=== PATIENT | female | born 1955 | race Caucasian/White ===

== ENCOUNTER 2018-08-18 12:37 | Outpatient (REF) | payer MEDICARE, MEDICAID, SELFPAY ==
[2018-08-18 22:07] LABS: Anion Gap 9.8 mmol/L (3-11); BUN 20 mg/dL (7-18); CO2 28.2 mmol/L (21.0-32.0); CREATININE 1.76 mg/dL (0.55-1.02); Calcium 9.1 mg/dL (8.5-10.1); Chloride 103 mmol/L (98-107); Cholesterol 203 mg/dL (50-200); Estimated GFR 29.26 (mL/min/1.73m2); Glucose 98 mg/dL (70-100); HDL Cholesterol 40 mg/dL (40-60); LDL CHOLESTEROL 135 mg/dL (<100); Potassium 4.5 mmol/L (3.5-5.1); Sodium 141 mmol/L (136-145); TSH 3.74 uIU/mL (0.358-3.74); Triglyceride 196 mg/dL (30-150)
== END 2018-08-18 12:57 ==
LOC: NCHCN 12:37
PROVIDERS: Visit Provider Internal Medicine
DX: E03.9 Hypothyroidism, unspecified (principal); Z13.6 Encounter for screening for cardiovascular disorders
CPT/HCPCS: 80048; 80061; 83721; 84443

== ENCOUNTER 2019-08-03 11:29 | Outpatient (REF) | payer MEDICARE, MEDICAID, SELFPAY ==
[2019-08-03 21:20] LABS: Anion Gap 7.3 mmol/L (3-11); BUN 26 mg/dL (7-18); CO2 30.7 mmol/L (21.0-32.0); Calcium 9.1 mg/dL (8.5-10.1); Calculated LDL 87 mg/dL; Chloride 107 mmol/L (98-107); Cholesterol 151 mg/dL (<200); Estimated GFR 32.55 (mL/min/1.73m2); Glucose 102 mg/dL (74-106); HDL Cholesterol 48 mg/dL (40-60); Potassium 4.5 mmol/L (3.5-5.1); Sodium 145 mmol/L (136-145); TSH 4.68 uIU/mL (0.36-3.74); Triglyceride 80 mg/dL (<150)
== END 2019-08-03 11:49 ==
LOC: NCHCN 11:29
PROVIDERS: Visit Provider Internal Medicine
DX: E78.5 Hyperlipidemia, unspecified (principal); E03.9 Hypothyroidism, unspecified
CPT/HCPCS: 80048; 80061; 84443

== ENCOUNTER 2020-01-11 13:34 | Outpatient (REF) | payer MEDICARE, MEDICAID, SELFPAY ==
[2020-01-11 21:09] LABS: TSH 0.29 uIU/mL (0.36-3.74)
[2020-01-11 21:31] LABS: Hemoglobin A1C 5.8 % (3.8-5.6)
[2020-01-11 22:14] LABS: COMMENT (LAB VIEW ONLY) 65.35 mg/dL; Microalb ug/mg Crea 17.3 ug/mg Cr
== END 2020-01-11 13:54 ==
LOC: NCHCN 13:34
PROVIDERS: Visit Provider Internal Medicine
DX: E03.9 Hypothyroidism, unspecified (principal); E78.5 Hyperlipidemia, unspecified; R60.0 Localized edema
CPT/HCPCS: 82043; 82570; 83036; 84443

== ENCOUNTER 2020-06-10 10:41 | Outpatient (REF) | payer MEDICARE, MEDICAID, SELFPAY ==
[2020-06-10 21:43] LABS: Abs Immature Grans 0.02 10^3/uL (0.0-0.06); Absolute Basophil Count 0.06 10^3/uL (0.0-0.2); Absolute Eosinophil Count 0.53 10^3/uL (0.0-0.7); Absolute Monocyte Count 0.28 10^3/uL (0.1-0.8); Absolute Neutrophil Count 3.11 10^3/uL (1.2-6.7); Basophils % 1.2; Eosinophils % 10.2; HCT 37.5 % (36.0-46.0); HGB 11.8 g/dL (11.2-15.7); Immature Grans % 0.4; Lymphocytes % 23.1; MCH 30.7 pg (27.0-33.0); MCHC 31.5 % (32.0-36.0); MCV 97.7 fL (80-95); Monocytes % 5.4; Neutrophils % 59.7; Nucleated RBC 0 %; Platelet Count 223 10^3/uL (130-400); RBC 3.84 10^6/uL (3.93-5.22); RDW 14.6 % (11.7-14.6); RDW-SD 52.4 fL
[2020-06-10 22:00] LABS: Anion Gap 9.7 mmol/L (3-11); BUN 24 mg/dL (7-18); C-Reactive Protein 0.62 mg/dL (0.0-0.3); CO2 25.3 mmol/L (21.0-32.0); CREATININE 1.62 mg/dL (0.55-1.02); Calcium 8.6 mg/dL (8.5-10.1); Chloride 106 mmol/L (98-107); Estimated GFR 32.09 (mL/min/1.73m2); Glucose 134 mg/dL (74-106); Potassium 4.1 mmol/L (3.5-5.1); Sodium 141 mmol/L (136-145); TSH 0.49 uIU/mL (0.36-3.74)
[2020-06-10 22:43] LABS: ESR 41 mm/hr (0-30)
== END 2020-06-10 11:01 ==
LOC: NCHCN 10:41
PROVIDERS: Visit Provider Internal Medicine
DX: E03.9 Hypothyroidism, unspecified (principal); N18.9 Chronic kidney disease, unspecified; M54.5 Low back pain
CPT/HCPCS: 80048; 85652; 84443; 85025; 86140

== ENCOUNTER 2021-02-04 18:04 | Outpatient (REF) | payer MEDICARE, MEDICAID, SELFPAY ==
[2021-02-04 22:05] LABS: Hemoglobin A1C 5.6 % (<5.7)
[2021-02-04 22:11] LABS: ALT 74 U/L (14-59); AST 44 U/L (15-37); Albumin 3.3 g/dL (3.4-5.0); Alkaline Phosphatase 198 U/L (46-116); Anion Gap 6.5 mmol/L (3-11); BUN 19 mg/dL (7-18); Bilirubin, Total 0.4 mg/dL (0.2-1.0); CO2 29.5 mmol/L (21.0-32.0); CREATININE 1.6 mg/dL (0.55-1.02); Calcium 8.8 mg/dL (8.5-10.1); Chloride 108 mmol/L (98-107); Estimated GFR 32.45 (mL/min/1.73m2); Glucose 92 mg/dL (74-106); Potassium 4.9 mmol/L (3.5-5.1); Sodium 144 mmol/L (136-145); TSH 0.68 uIU/mL (0.36-3.74); Total Protein 7.2 g/dL (6.4-8.2)
== END 2021-02-04 18:05 | disposition home or self-care (01) ==
LOC: NCHCN 18:04
PROVIDERS: Visit Provider Internal Medicine
DX: E03.9 Hypothyroidism, unspecified (principal); R73.03 Prediabetes; N18.9 Chronic kidney disease, unspecified
CPT/HCPCS: 80053; 83036; 84443

== ENCOUNTER 2021-04-06 12:07 | Outpatient (REF) | payer MEDICARE, MEDICAID, SELFPAY ==
[2021-04-06 21:41] LABS: ALT 35 U/L (14-59); AST 20 U/L (15-37); Albumin 3.4 g/dL (3.4-5.0); Alkaline Phosphatase 152 U/L (46-116); Bilirubin, Direct 0.1 mg/dL (0.0-0.2); Bilirubin, Total 0.5 mg/dL (0.2-1.0); Total Protein 7.2 g/dL (6.4-8.2)
[2021-04-08 10:17] LABS: Hepatitis C Ab w Rflx HCV PCR Negative (Negative)
== END 2021-04-06 12:08 | disposition home or self-care (01) ==
LOC: NCHCN 12:07
PROVIDERS: Visit Provider Internal Medicine
DX: Z51.81 Encounter for therapeutic drug level monitoring (principal); R52 Pain, unspecified
CPT/HCPCS: 80076; 86803

== ENCOUNTER 2022-05-04 15:02 | Emergency (ER) | payer MEDICARE, MEDICAID, SELFPAY ==
[2022-05-04 15:36] VITALS: BP 98/75; PULSE 84; TEMP 36.6; O2SAT 97
--- NOTE | 2022-05-04 16:15 | DI.RAD_ITS ---
Exam(s) XR TIB/FIB RT EXAM: XR TIB/FIB RT CLINICAL HISTORY: fall. TECHNIQUE: 2D digital imaging was performed. COMPARISON: No exams were available for comparison FINDINGS: Two views There is nondisplaced oblique fracture in the distal fibula, not associated with widening of the ankl e mortise. No other fractures in the region of the ankle nor higher up in these bones. Tibial plate au appears intact. Fibular head and neck appear intact. IMPRESSION: DATA REPOSITORY: RADIATION DOSE DELIVERED:
--- NOTE | 2022-05-04 16:30 | W.ED.GENAD ---
Discharge Plan Disposition Patient Disposition: HOME Condition: Stable Discharge Details Clinical Impression: Fracture of distal end of right fibula Primary Care Provider: Pilar Uribe ED Provider: Dakota Lott Home Meds and New Rx's Prescriptions: No Action calcium 600 mg Capsule 600 mg PO BID citalopram 40 mg Tablet 40 mg PO DAILY levothyroxine 125 mcg Tablet 125 mcg PO DAILY docusate sodium [Colace] 100 mg Capsule 100 mg PO DAILY omeprazole 20 mg Capsule,Delayed Release(Dr/Ec) 20 mg PO DAILY multivitamin Capsule 1 cap PO DAILY cholecalciferol (vitamin D3) [Vitamin D3] 25 mcg (1,000 unit) Tablet 25 mcg PO DAILY lamotrigine 50 mg Tablet Extended Release 24hr 50 mg PO BID melatonin 5 mg Capsule 5 mg PO QPM dextromethorphan-quinidine 20-10 mg Capsule 1 cap PO BID Xarelto 15 mg Tablet 15 mg PO QPM Rx Instructions: must administer with evening meal Myrbetriq 50 mg Tablet Extended Release 24 Hr 50 mg PO DAILY polyethylene glycol 3350 4.25 gram Powder In Packet 4.25 g PO DAILY Discharge Instructions Instructions: Ankle Fracture (ED) Additional Instructions: Please keep leg elevated and wear walking boot at all times until seen by orthopedics. You may continue to use [id number] pain medication as needed for discomfort. If patient develops any new or worsening symptoms please return to the emergency department for reassessment Referrals: [facility] [Provider Group] (Please call your office to arrange follow-up appointment) Discharge Data Discharge Date/Time-TO BE ENTERED AT DEPARTURE: 05/04/22 20:17 Medical Decision Making Patient presenting to the emergency department for chief complaint of trip and fall. Patient was assisted to the ground but denies any other injury. On the right leg pain. Physical exam/ROS is difficult due to cognitive developmental delay. Patient states pain and discomfort with any palpation of the right lower extremity from the knee all the way to the ankle but even pain with touching shoe even without movement. We will perform radiological imaging due to significant proximal tibial swelling. Will give acetaminophen pending results Review of tib-fib imaging shows a possible fracture to the distal fibula. Radiologist recommendation for dedicated ankle images which were performed and do show a distal fibular fracture. Given patient's cognitive status and general difficulty with ambulation called and spoke with orthopedist on-call which agreed that patient is appropriate for long walking boot. Patient placed upon orthopedic list for follow-up. After discussion of diagnosis and plan of care caregivers has no further needs, questions, or concerns and states clear understanding to return to the emergency department for any worsening symptoms. This documentation was generated using [employer] dictation system, please disregard any oddities of phrase or misspellings. HPI General Mode of arrival: wheelchair. Date/Time Provider Initiated Documentation: 05/04/22 15:08. Limitations to Documentation: no limitations. Information obtained by: patient, family and RN notes reviewed. History of Present Illness 66 year old F presents to the emergency department with the chief complaint of fall right leg injury, described as moderate, with intensity rated at 7. Quality is described as aching, and is localized to the right and lower extremity. Patient started experiencing this hour(s) (3) and it has been constant. Immobilization improves symptom(s), Movement worsens symptoms . Patient notes no other symptoms.. Patient did receive the following treatments prior to arrival, other (500 acetaminophen) Related Data Home Medications Medication Instructions Recorded Confirmed calcium 600 mg capsule 600 mg PO BID 05/04/22 05/04/22 cholecalciferol (vitamin D3) 25 25 mcg PO DAILY 05/04/22 05/04/22 mcg (1,000 unit) tablet (Vitamin D3) citalopram 40 mg tablet 40 mg PO DAILY 05/04/22 05/04/22 dextromethorphan 20 mg-quinidine 1 cap PO BID 05/04/22 05/04/22 10 mg capsule docusate sodium 100 mg capsule 100 mg PO DAILY 05/04/22 05/04/22 (Colace) lamotrigine 50 mg tablet,extended 50 mg PO BID 05/04/22 05/04/22 release 24 hr levothyroxine 125 mcg tablet 125 mcg PO DAILY 05/04/22 05/04/22 melatonin 5 mg capsule 5 mg PO QPM 05/04/22 05/04/22 mirabegron 50 mg tablet,extended 50 mg PO DAILY 05/04/22 05/04/22 release 24 hr (Myrbetriq) multivitamin 1 cap PO DAILY 05/04/22 05/04/22 omeprazole 20 mg capsule,delayed 20 mg PO DAILY 05/04/22 05/04/22 release polyethylene glycol 3350 4.25 gram 4.25 g PO DAILY 05/04/22 05/04/22 oral powder packet rivaroxaban 15 mg tablet (Xarelto) 15 mg PO QPM 05/04/22 05/04/22 Allergies Allergy/AdvReac Type Severity Reaction Status Date / Time latex Allergy Unknown Unverified 05/04/22 16:46 adhesive tape AdvReac Unknown Unverified 05/04/22 16:46 bacitracin AdvReac Unknown Unverified 05/04/22 16:46 [From Triple Antibiotic] neomycin AdvReac Unknown Unverified 05/04/22 16:46 [From Triple Antibiotic] polymyxin B AdvReac Unknown Unverified 05/04/22 16:46 [From Triple Antibiotic] General Stated Complaint: Orthopedic DAR: 4 Review of Systems Narrative: 6 systems reviewed and unremarkable except what is marked below. HPI is limited due to mental condition Musculoskeletal Musculoskeletal: Reports as per HPI Integumentary/Breasts Skin/Breast: Reports skin swelling and Denies wounds PFSH All Active Problems (Updated 05/04/22 @ 19:24 by Dakota Lott NP) Fracture of distal end of right fibula (Acute) Cognitive developmental delay (Acute) Ventricular shunt in place (Acute) Deviated nasal septum (Acute) Chronic pansinusitis (Acute) Post-nasal drip (Acute) Allergic rhinitis due to other allergen (Acute) Eustachian tube dysfunction (Acute) Asymmetrical sensorineural hearing loss (Acute) Nasal polyps (Acute) Social History Smoking/Tobacco Use Status: Never Smoking risk assessment performed?: Yes Alcohol Intake: never Drug use: Never Substance use type: does not use Do you feel safe at home: Yes Do you feel safe in your relationship?: Yes Exam Const General: cooperative, no acute distress and not ill appearing Orientation: alert, awake and oriented x3 Resp Effort & Inspection: normal respiratory effort, able to speak in complete sentences and no respiratory distress Cardio Rate: regular rate Rhythm: regular rhythm Pulses: normal peripheral pulses Skin General skin exam: no rashes or lesions noted Neuro General: patient alert, patient awake, patient oriented x3, moves all extremities and no focal motor deficits Extrem General: normal exam except as noted Right lower extremity: knee Details: normal to inspection, tenderness and normal ROM; no swelling, lower leg Details: tenderness and localized swelling Location: of the proximal lower leg and ankle Details: normal to inspection, tenderness and normal ROM; no swelling Course Vital Signs Vital signs: Vital Signs Temperature 36.6 C 05/04/22 15:36 Pulse 84 05/04/22 15:36 Blood Pressure 98/75 L 05/04/22 15:36 Pulse Oximetry 97 05/04/22 15:36 Temperature 36.6 C 05/04/22 15:36 Temperature Source Temporal Artery Scan 05/04/22 15:36 Pulse 84 05/04/22 15:36 Respiratory Effort Non-Labored 05/04/22 15:43 Blood Pressure 98/75 L 05/04/22 15:36 Blood Pressure Position Sitting 05/04/22 15:36 Pulse Oximetry 97 05/04/22 15:36 Oxygen Delivery Method Room Air 05/04/22 15:36 Oxygen Flow Rate 0 05/04/22 15:36 Pain Level 10 05/04/22 15:36 Comment 05/04/22 15:36
[2022-05-04] MEDS: Acetaminophen 500 MG TAB PO (16:32)
--- NOTE | 2022-05-04 17:33 | DI.VRAD_ITS ---
PROCEDURE INFORMATION: Exam: XR Right Tibia and Fibula Exam date and time: 05/04/2022 5:01 PM Age: 66 years old Clinical indication: Other: Fall, pain TECHNIQUE: Imaging protocol: Radiologic exam of the Right tibia and fibula. Views: 2 views. COMPARISON: No relevant prior studies available. FINDINGS: Bones/joints: There appears to be a nondisplaced oblique fracture through the distal aspect of the fibula, extending to the region of the right ankle mortise. This is seen only on the lateral view of the lower tibia and fibula. There may be mild periarticular osteopenia around the right ankle mortise. No focal osseous lesions are identified. The joint spaces are maintained without degenerative changes. Soft tissues: Findings suggest mild soft tissue swelling around the lateral malleolus. IMPRESSION: Findings suggest nondisplaced oblique fracture through the distal aspect of the right fibula extending to the level of the ankle mortise. Recommend clinical correlation. Better evaluation with dedicated views of the right ankle could be obtained. Dictated and Authenticated by: Ariel Be MD. Ordering:FABIAN Duncan MD
--- NOTE | 2022-05-04 17:45 | DI.RAD_ITS ---
Exam(s) XR ANKLE RT COMPLETE EXAM: XR ANKLE RT COMPLETE CLINICAL HISTORY: fall. TECHNIQUE: 2D digital imaging was performed. COMPARISON: No exams were available for comparison FINDINGS: 3 views There is an oblique nondisplaced fracture of distal fibula, best seen on the lateral view. There is no widening of the ankle mortise. Talar dome appears unremarkable. Prominent swelling over the late ral malleolus is noted. Base of the 5th metatarsal appears intact as do the other malleoli. IMPRESSION: Nondisplaced oblique fracture of the distal fibula. No widening of the ankle mortise evident on thes e nonstress views DATA REPOSITORY: RADIATION DOSE DELIVERED:
[2022-05-04 18:25] VITALS: BP 102/71; PULSE 77; TEMP 37.5; O2SAT 97
--- NOTE | 2022-05-04 18:38 | DI.VRAD_ITS ---
PROCEDURE INFORMATION: Exam: XR Right Ankle Exam date and time: 05/04/2022 6:07 PM Age: 66 years old Clinical indication: Other: Fall TECHNIQUE: Imaging protocol: Radiologic exam of the Right ankle. Views: 3 or more views. COMPARISON: CR XR TIB/FIB RT 05/04/2022 5:01 PM FINDINGS: Bones/joints: There may be mild periarticular osteopenia around the right ankle mortise. There is a nondisplaced oblique fracture through the distal aspect of the fibula, as on prior study, which is visualized only on the lateral view. The plantar arch is maintained. The ankle mortise is well aligned and well maintained without degenerative changes. Soft tissues: There is moderate soft tissue swelling around the lateral malleolus. IMPRESSION: Nondisplaced oblique fracture through the distal aspect of the right fibula. Dictated and Authenticated by: Ariel Be MD. Ordering:FABIAN Duncan MD
== END 2022-05-04 20:17 | disposition home or self-care (01) ==
PROVIDERS: Emergency Provider Nurse Practitioner Family; PCP Internal Medicine
DX: S82.831A Other fracture of upper and lower end of right fibula, initial encounter for closed fracture (principal); F81.9 Developmental disorder of scholastic skills, unspecified; W01.0XXA Fall on same level from slipping, tripping and stumbling without subsequent striking against object, initial encounter
CPT/HCPCS: 99284; 73590; 73610

== ENCOUNTER 2022-05-19 08:20 | Outpatient (CLI) | payer MEDICARE, MEDICAID, SELFPAY ==
--- NOTE | 2022-05-19 08:15 | DI.RAD_ITS ---
Exam(s) XR ANKLE RT COMPLETE EXAM: XR ANKLE RT COMPLETE CLINICAL HISTORY: Right distal fibula fracture. TECHNIQUE: 2D digital imaging was performed of the right ankle. Four images were obtained. AP, lat eral and oblique views were obtained. COMPARISON: CR,XR XR ANKLE RT COMPLETE from 05/04/2022 FINDINGS: BONES: There has been no change in alignment of the distal fibular fracture. No new fractures identi fied. No bony destructive lesion is seen. JOINTS: The ankle mortise is normally aligned. SOFT TISSUE: There is mild soft tissue swelling about the ankle. IMPRESSION: Stable distal fibular fracture. DATA REPOSITORY: RADIATION DOSE DELIVERED:
== END 2022-05-19 08:21 | disposition home or self-care (01) ==
LOC: DIORS 08:21
PROVIDERS: PCP Internal Medicine; Referring Provider Internal Medicine; Visit Provider Physician Assistant
DX: S82.831A Other fracture of upper and lower end of right fibula, initial encounter for closed fracture (principal); W19.XXXA Unspecified fall, initial encounter
CPT/HCPCS: 99214; 73610

== ENCOUNTER 2022-06-18 11:19 | Outpatient (CLI) | payer MEDICARE, MEDICAID, SELFPAY ==
--- NOTE | 2022-06-18 10:30 | DI.RAD_ITS ---
Exam(s) XR ANKLE RT COMPLETE EXAM: XR ANKLE RT COMPLETE CLINICAL HISTORY: f/u R distal fibula frx. TECHNIQUE: 2D digital imaging was performed. COMPARISON: CR XR ANKLE RT COMPLETE from 05/19/2022 FINDINGS: 3 views Again noted is the fracture in distal fibula. There is now some adjacent calcification in the adjace nt tissue which is probably calcified hematoma and/or element of callus formation. There is no furth er displacement. No widening of the ankle mortise. Talar dome unremarkable. Medial malleolus unrem arkable. Posterior malleolus unremarkable. IMPRESSION: As above. DATA REPOSITORY: RADIATION DOSE DELIVERED:
--- OUTSIDE RECORDS SUMMARY | 2022-06-18 11:22 | XMS_ITS | Encounter Summary ---
:[address] [facility] Address [address] [place] [address] Care Team Providers Name Role Phone Pilar Uribe Primary Care Provider Reason for Visit Reason Onset Date Comments Medication Management 03/13/2019 Encounter Details Date Type Department Care Team Description 03/13/[address] [facility] Dawna Galvan i quality review specialist Neurophysiology - [address] [place], [place] [address] [facility] [id number] [place] [id number] Social History Tobacco Use Types Packs/Day Years Used Date Never Smoker Smokeless Tobacco: Never Used Alcohol Use Standard Drinks/Week Comments No 0 (1 standard drink = 0.6 oz pure alcoho l) Sex Assigned at Date Recorded Not on file documented as of this encounter Functional Status Functional Status Response Date of Assessment Because of a physical, mental, or emotional condition, Yes 11/24/2015 does this person have difficulty doing errands alone such as visiting a doctor's office or shopping? Cognitive Status Response Date of Assessment Because of a physical, mental, or emotional condition, Yes 11/24/2015 does this person have serious difficulty concentrating, remembering, or making decisions? documented as of this encounter Miscellaneous Notes Telephone Encounter - Felicita Galvan RN - 03/20/2019 0835 EDT Caregiver called and was instructed. She has not started Atorvastatin. She wanted to finish up Simvastatin. I asked her to discontinue it and give the Atorvastatin as instructed. She has not been giving both elephone Encounter - Rocky Little MD, MD - 03/19/2019 1539 EDT Noted. Thank you for trying to reach the patient/caregiver and clarify/emphasize my original instructions. elephone Encounter - Felicita Galvan RN - 03/13/2019 1445 EDT Reason for contact: Beat.no faxed notice that pt is filling rx for both Simvastatin and Atorvastatin Pt last seen 03/01/19 and visit note indicates Dr Little was discontinuing Simvastatin and he wrote rx for Atorvastatin 40 mg once daily I called pharmacy. They confirmed that pt is continuing to fill the rx for Simvastatin was well as the Atorvastatin. 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
--- OUTSIDE RECORDS SUMMARY | 2022-06-18 11:22 | XMS_ITS | Encounter Summary ---
:1955 Author Organization [facility] Address [address] [place] [id number] Care Team Providers Name Role Phone Pilar Uribe Primary Care Provider Reason for Visit Reason Onset Date Comments Appointment Related 03/16/2019 Encounter Details Date Type Department Care Team Description 03/16/2019 Telephone [facility] Rocky Little, Arash ointment Related Neurophysiology - [id number] [place] [address], [address] [place] [address] (Wo rk) Social History Tobacco Use Types Packs/Day Years [...] this encounter Miscellaneous Notes Telephone Encounter - Arnulfo Uribe - 03/16/2019 0907 EDT Called and spoke with patient; rescheduled BMP 05/31/19 appointment to 06/18/19. documented in this encounter Plan of Treatment Not on filedocumented as of this encounter Visit Diagnoses Not on filedocumented in this encounter Care Teams Volleyball Assembler Relationship Specialty Start Date End Date Pilar Uribe PCP - General 08/30/[address] [place] [address] documented as of this encounter
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
--- OUTSIDE RECORDS SUMMARY | 2022-06-18 11:22 | XMS_ITS | Encounter Summary ---
:1955 Author Organization [facility] Address [address] [place] [address] Care Team Providers Name Role Phone Pilar Uribe Primary Care Provider Encounter Details Date Type Department Care Team Description 09/20/2018 Phlebotomy Only [facility] Supervisor Blood Donor Recruiters, Seizu res ([facility]) - Main [place] [facility] (Primary Dx) [address] [place] [address] Social History Tobacco Use Types Packs/Day Years [...] making decisions? documented as of this encounter Plan of Treatment Not on filedocumented as of this encounter Procedures Procedure Name Priority Date/Time Associated Comments Diagnosis LAMOTRIGINE Routine 09/20/2018 12:40 Seizures ([facility]) Resul ts for this EST procedure are i n the results section. COMPLETE BLOOD COUNT Routine 09/20/2018 12:40 Seizures ([facility]) Results for this AND DIFFERENTIAL EST procedure a re in the results section. COMPREHENSIVE Routine 09/20/2018 12:40 Seizures ([facility]) Resu lts for this METABOLIC PANEL (CMP) EST proced ure are in the results section. documented in this encounter Results (ABNORMAL) COMPLETE BLOOD COUNT AND DIFFERENTIAL (09/20/2018 12:40 EST) Pathologist Sig nature WBC 6.29 4.0 - 12.4 [facility] LABORATORY SERVICES RBC 4.33 3.86 - 5.04 [facility] M/formerly [facility] LABORATORY SERVICES Hemoglobin 13.6 11.6 - 15.2 [facility] gm/dl LABORATORY SERVICES HCT 42.6 34.9 - 44.4 % [facility] LABORATORY SERVICES MCV 98 81 - 98 fl [facility] LABORATORY SERVICES MCH 31.4 26.7 - 33.3 pg [facility] LABORATORY SERVICES MCHC 31.9 (L) 32.1 - 35.9 [facility] gm/dl LABORATORY SERVICES RDW-CV 13.1 <14.7 % [facility] LABORATORY SERVICES RDW-SD 47.2 <50.4 fl [facility] LABORATORY SERVICES PLT 250 141 - 377 K/[facility] LABORATORY SERVICES MPV 10.1 9.5 - 12.7 fl [facility] LABORATORY SERVICES Neutrophils 54.4 % [facility] LABORATORY SERVICES Lymphocytes 27.7 % [facility] LABORATORY SERVICES Monocytes 6.0 % [facility] LABORATORY SERVICES Eosinophils 10.5 % [facility] LABORATORY SERVICES Basophils 1.1 % [facility] LABORATORY SERVICES Immature Grans 0.3 % [facility] LABORATORY SERVICES ABS Neutrophils 3.42 2.20 - 8.85 [facility] LABORATORY SERVICES ABS Lymphs 1.74 1.09 - 3.30 [facility] LABORATORY SERVICES ABS Monocytes 0.38 0.1 - 0.8 /[facility] LABORATORY SERVICES ABS Eosinophils 0.66 (H) 0.03 - 0.61 [facility] LABORATORY SERVICES ABS Basophils 0.07 0.01 - 0.11 [facility] LABORATORY SERVICES ABS Immature Grans 0.02 0 - 0.06 /[facility] LABORATORY SERVICES Type of Diff: Automated [facility] LABORATORY SERVICES Specimen Blood specimen (specimen) - Blood Performing Organization Address City/State/ZIP Code Phon e Number [facility] [address] [place] [address] SERVICES (ABNORMAL) COMPREHENSIVE METABOLIC PANEL (CMP) (09/20/2018 12:40 EST) Potassium 4.8 3.5 - 5.0 [facility] mEq/L [place] [facility] SERVICES Sodium 142 136 - 145 [facility] mEq/L [place] [facility] SERVICES Chloride 104 96 - 110 [facility] mEq/L [place] [facility] SERVICES CO2 29 22 - 32 mEq/L [facility] LABORAT[facility] SERVICES Total Alkaline 101 38 - 126 U/L [facility] Phosphatase [place] [facility] SERVICES Bilirubin, Total <0.5 <1.4 mg/dl [facility] LABORAT[facility] SERVICES AST 13 (L) 15 - 46 U/L [facility] LABORAT[facility] SERVICES ALT 22 <53 U/L [facility]OR[facility] SERVICES Albumin 4.5 3.4 - 4.9 [facility] g/dl [place] [facility] Total Protein 6.9 6.3 - 8.2 [facility] g/dl [place] [facility] Creatinine 1.57 (H) 0.52 - 1.04 [facility] mg/dl [place] [facility] SERVICES GFR, Calculated 35 (L) >60 [facility] Comment: ml/min/1.73m2 [facility] eGFR calculated using CKD-EPI equation for SERVICES non Americans. Multiply eGFR by 1.16 for Americans. BUN 26 10 - 26 mg/dl [facility]OR[facility] SERVICES Calcium 9.6 8.5 - 10.5 [facility] mg/dl [place] [facility] Calculated Calcium 9.2 8.5 - 10.5 [facility] mg/dl [place] [facility] Glucose, Serum 93 70 - 100 [facility] mg/dl [place] [facility] SERVICES Fasting? No [facility]ORAT[facility] SERVICES Specimen Blood specimen (specimen) - Blood Performing Organization Address City/State/ZIP Code Phon e Number [facility] [address] [place] [address] SERVICES LAMOTRIGINE (09/20/2018 12:40 EST) Lamotrigine, 8.2 2.5 - 15.0 [facility] Plasma or Serum Comment: mcg/mL [facility] (Note) SERVICES . ADDITIONAL INFORMATION ------ This test was developed and its performance characteri stics determined by [facility] in a manner consistent with CLIA requirements. This test has not been cleared or approv ed by the U.S. Food and Drug Administration. Performed by: [facility] Labs: [address], [place] [address] Specimen Blood specimen (specimen) - Blood Performing Organization Address City/State/ZIP Code Phon e Number [facility] [address] [place] [address] SERVICES documented in this encounter Visit Diagnoses Diagnosis Seizures (HCC-CMS) (HCC) - Primary Other convulsions documented in this encounter Care Teams Saxophone Assembler Relationship Specialty Start Date End Date Pilar Uribe PCP - General 08/30/[address] [place] [address] documented as of this encounter
--- OUTSIDE RECORDS SUMMARY | 2022-06-18 11:22 | XMS_ITS | Encounter Summary ---
:1955 Author Organization [facility] Address [address] [place] [address] Care Team Providers Name Role Phone Pilar Uribe Primary Care Provider Reason for Visit Reason Onset Date Comments Appointment Related 03/09/2019 Encounter Details Date Type Department Care Team Description 03/09/2019 Telephone [facility] [place], Arash ointment Related Neurophysiology - [id number] [place] [address], Jamir. [address] [place] [id number] (Wo rk) Social History Tobacco Use Types [...] this encounter Miscellaneous Notes Telephone Encounter - Ebony - 03/09/2019 1036 EDT Reason for Call: No chief complaint on file. Call Detail: Left a message on Ms. Jaimes's machine asking her to call regarding her upcoming MRI scheduled for Thursday, April 11, 2019 @ 10:00 am @ [facility] checking in @ 9:30 am. Push fluids/eat lights and will need labs prior. CT will take about 30 minutes. Last visit: Next visit: Ebony Larios 03/09/2019 11:12 documented in this encounter Plan of Treatment Not on filedocumented as of this encounter Visit Diagnoses Not on filedocumented in this encounter Care Teams Agent Based Modeler Relationship Specialty Start Date End Date Pilar Uribe PCP - General 08/30/[address] [place] [address] documented as of this encounter
--- OUTSIDE RECORDS SUMMARY | 2022-06-18 11:22 | XMS_ITS | Encounter Summary ---
:1955 Author Organization [facility] Address [address] [place] [address] Care Team Providers Name Role Phone Pilar Uribe Primary Care Provider Encounter Details Date Type Department Care Team Description 06/12/2019 Phlebotomy Only [facility] - Contractor Field Hauling, [facility] Outpatient [address] [place] [address] Social History Tobacco Use Types Packs/Day Years [...] on filedocumented in this encounter Care Teams Chief Ophthalmic Technician Relationship Specialty Start Date End Date Pilar Uribe PCP - General 08/30/[address] [place] [address] documented as of this encounter
--- OUTSIDE RECORDS SUMMARY | 2022-06-18 11:22 | XMS_ITS | Encounter Summary ---
:1955 Author Organization [facility] Address [address] [place] [address] Care Team Providers Name Role Phone Hal Gutierrez MD Primary Care Provider Reason for Visit Reason Onset Date Comments New/Evolving Symptoms 07/07/2015 Encounter Details Date Type Department Care Team Description 07/07/2015 Telephone [facility] Александр Sahu MD New/Evolving Symptoms Neurology - [address] [place], [place] [id number] [place] [id number] [phone] Social History Tobacco Use Types Packs/Day Years Used Date Never Smoker Alcohol Use Standard Drinks/Week Comments No 0 (1 standard drink = 0.6 oz pure alcoho l) Sex Assigned at Date Recorded Not on file documented as of this encounter Miscellaneous Notes Telephone Encounter - Josephine Singh RN - 07/14/[address] Sahu: I will call and discuss, she may increase her dose to 40 mg for the record. Salazar elephone Encounter - Josephine Singh RN - 07/07/2015 1838 EDT TC to Sister/ Director Of Reimbursement. The last 2 weeks, Increased mood swings, moodiness more often, worse aftershe has been on Respite care. Throwing tantrums . Joe are going to counseling to work on behavior issues. Asking if there should be med changes? Currently on Nortriptyline, 20 mg twicea day, Lamotrigine 150 mg twice a day, Levothyroxine 125 mcg, 1 tab for 6 days a week, Simvastatin 20 mg daily, Xarelto 20 mg daily, melatonin, Certrizine prn for Allergies and citalopram 40 mg daily elephone Encounter - Dakota Ronquillo - 07/07/2015 1426 EDT Nargis is calling to report Socorro's recent behavior. She comes in house after being out with respit and she comes back very ugly, throwing tantrums and expressing that she hates her sisters which they are going to counseling to work on that. Sister/artist relationship manager is requesting a call back to srinivasan monroy a plan of care via med management or other alternatives. Please call to discuss. documented in this encounter Plan of Treatment Not on filedocumented as of this encounter Visit Diagnoses Not on filedocumented in this encounter Care Teams Skip Hoist Engineer Relationship Specialty Start Date End Date Hal Gutierrez MD PCP - General 06/13/13 08/29/[address] [place] [address] documented as of this encounter
--- OUTSIDE RECORDS SUMMARY | 2022-06-18 11:22 | XMS_ITS | Encounter Summary ---
:1955 Author Organization [facility] Address [address] [place] [address] Care Team Providers Name Role Phone Hal Gutierrez MD Primary Care Provider Reason for Visit Reason Onset Date Comments Appointment Related 11/29/2015 needs to cancel Encounter Details Date Type Department Care Team Description 11/29/2015 Telephone [facility] Salazar Sahu Appoi ntment Related Adult Neurology - Main (needs to cancel) [place] [address] [place], [place] [id number] [place] [id number] Social History Tobacco Use Types Packs/Day Years [...] this encounter Miscellaneous Notes Telephone Encounter - Mary Sharma - 11/29/2015 1234 EDT Patient doesn't need apt for 12/02 @15:[address] Sahu. The appointment was tentative and they don't need it yet. documented in this encounter Plan of Treatment Not on filedocumented as of this encounter Visit Diagnoses Not on filedocumented in this encounter Care Teams Cut Out Stitcher Relationship Specialty Start Date End Date Hal Gutierrez MD PCP - General 06/13/13 08/29/18 [address] [place] [address] documented as of this encounter
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
--- OUTSIDE RECORDS SUMMARY | 2022-06-18 11:22 | XMS_ITS | Encounter Summary ---
:[address] [facility] Address [address] [place] [address] Care Team Providers Name Role Phone Pilar Uribe Primary Care Provider Encounter Details Date Type Department Care Team Description 04/07/2021 Lab Requisition [facility] Outr Resulting Lab, Pathology & Laboratory Provider [facility] [address] [place], [place] [id number] Social History Tobacco Use Types Packs/Day Years [...] Name Priority Date/Time Associated Diagnosis Comme nts HEPATITIS C AB W Routine 04/06/2021 11:50 Results for this REFLEX TO HCV RNA EDT procedure are in BY PCR the results section. documented in this encounter Results HEPATITIS C AB W REFLEX TO HCV RNA BY PCR (04/06/2021 11:50 EDT) Pathologist Sig nature Hep C Antibody Negative Negative [facility] Specimen Blood - Venous blood (substance) Performing Organization Address City/State/ZIP Code Phon e Number [facility] [address] [place] [address] SERVICES documented in this encounter Visit Diagnoses Not on filedocumented in this encounter Care Teams Orthopedic Radiologic Technologist Relationship Specialty Start Date End Date Pilar Uribe PCP - General 08/30/[address] [place] [address] documented as of this encounter
--- OUTSIDE RECORDS SUMMARY | 2022-06-18 11:22 | XMS_ITS | Encounter Summary ---
:1955 Author Organization [facility] Address [address] [place] [id number] Care Team Providers Name Role Phone Pilar Uribe Primary Care Provider Reason for Visit Reason Onset Date Comments Labs Only 06/12/2019 Encounter Details Date Type Department Care Team Description 06/12/2019 Telephone [facility] Walt Little MD Labs Only Neurophysiology - [place] in [address], [place] [address] [place] [id number] (Wo rk) Social History Tobacco Use Types [...] this encounter Miscellaneous Notes Telephone Encounter - Rocky Little MD, MD - 06/18/2019 1124 EDT Noted. As outlined in my last note, TSH and HbA1c need to be ordered by her PCP due to insurance issues. We will delinquency counselor the patient on this today during the visit. Thank you. elephone Encounter - Felicita Galvan, RN - 06/13/2019 1431 EDT Reason for contact: Pt came to lab to have blood drawn but orders Pt last seen 03/01/19. Dr Little had ordered tsh, lipid profile and hgA1C but orders had . Pt left before getting verbal permission for our office to proceed with blood draw. Lab requesting that orders be reentered for pt. I attempted to enter orders but cannot find diagnosis to use to get insurance coverage for HgA1C Will forward to Dr Little Pt due to rtc 06/18/19 elephone Encounter - Nina Dailey - 06/12/2019 1425 EDT Farhana from the Lab called to get an okay for them to proceed with the labs that were order back in February. The patient left before being able to get them done. Farhana ask that we put in new ordersfor the labs so when the patient comes back they won't have to give us a call. documented in this encounter Plan of Treatment Not on filedocumented as of this encounter Visit Diagnoses Diagnosis Seizures (HCC-CMS) (HCC) - Primary Other convulsions Cerebrovascular accident (CVA) due to em bolism of left carotid artery (HCC) Thyroid condition Unspecified disorder of thyroid documented in this encounter Care Teams Mfg Assoc Relationship Specialty Start Date End Date Pilar Uribe PCP - General 08/30/[address] [place] [address] documented as of this encounter
--- OUTSIDE RECORDS SUMMARY | 2022-06-18 11:22 | XMS_ITS | Encounter Summary ---
:1955 Author Organization [facility] Address [address] [place] [address] Care Team Providers Name Role Phone Hal Gutierrez MD Primary Care Provider Pilar Uribe Primary Care Provider Reason for Visit Reason Onset Date Comments Medication Management 08/20/2015 nortriptyline Encounter Details Date Type Department Care Team Description 08/20/2015 Telephone [facility] Salazar Sahu, Medic ation Management Neurology - S Yogesh foley MD (nortriptyline ) [address] [place] [address] [place] [address] [phone] Social History Tobacco Use Types Packs/Day Years Used Date Never Smoker Alcohol Use Standard Drinks/Week Comments No 0 (1 standard drink = 0.6 oz pure alcoho l) Sex Assigned at Date Recorded Not on file documented as of this encounter Miscellaneous Notes Telephone Encounter - Salazar Sahu MD - 08/21/2015 5582 EST Called and spoke madelaine Barillas, gave her a plan to stop nortriptyline for Iram. Will see pt in ~5 weeks and reassess then. elephone Encounter - Esha Guillen RN - 08/21/2015 1502 EST Torhemanthanders has called again to follow up - she would like a response as soon as possible. This has gone on long enough, we need some answers. Text message sent to Dr. Sahu in addition to [employer] message. elephone Encounter - Esha Guillen RN - 08/21/2015 0920 EST Nargis called again and would like a response as soon as possible because this has been going on for weeks now. Nargis reviewed information on side effects of nortriptyline and believes Socorro needs to come off as soon as safely possible and would like directions on how to do so as well as an alternative treatment option. Socorro talks at times of not waking up or of doing herself in. She has increased depression and anxiety, is agitated and restless. She has insomnia, is very irritable, aggressive and mean at times. She alternates between laughing and crying and will repeat the same phrase over and over. Additionally she stays in her bedroom most of the time and won't come out to socialize like she used to. Nargis actually decreased her nortriptyline dose to 3 caps at bedtime last night. Will ask Dr. Sahu to review and advise. elephone Encounter - ThuyLadi singer - 08/20/2015 1350 EST sister is requesting call back today. Just picked up sisters RX, believes that PT is having all of the side effects listed. documented in this encounter Plan of Treatment Not on filedocumented as of this encounter Visit Diagnoses Not on filedocumented in this encounter Care Teams Campus Rep Relationship Specialty Start Date End Date Hal Gutierrez MD PCP - General 06/13/13 08/29/[address] [id number] Pilar Uribe PCP - General 08/30/[address] [id number] documented as of this encounter
--- OUTSIDE RECORDS SUMMARY | 2022-06-18 11:22 | XMS_ITS | Encounter Summary ---
:1955 Author Organization [facility] Address [address] [place] [address] Care Team Providers Name Role Phone Hal Gutierrez MD Primary Care Provider Encounter Details Date Type Department Care Team Description 11/24/2015 Hospital Encounter [facility] EMILEE Harper [address] [facility] [address] [place], [place] [id number] [place] [address], Jamir, [address] [place] [address] (Wo rk) Social History Tobacco Use Types Packs/Day Years Used Date Never Smoker Smokeless Tobacco: Never Used Alcohol Use Standard Drinks/Week Comments No 0 (1 standard drink = 0.6 oz pure alcoho l) Sex Assigned at Date Recorded Not on file documented as of this encounter Discharge Diagnoses Diagnosis Z01.89 Encounter for other specified spe cial examinations-Z01.89[ICD-10-CM] documented in this encounter Medications at Time [...] Discharge Disposition Disposition Code Departure Means Destination Home or Self [facility] documented in this encounter Plan of Treatment Not on filedocumented as of this encounter Visit Diagnoses Not on filedocumented in this encounter Care Teams Electric Stove Mechanic Relationship Specialty Start Date End Date Hal Gutierrez MD PCP - General 06/13/13 08/29/[address] [place] [address] documented as of this encounter
--- OUTSIDE RECORDS SUMMARY | 2022-06-18 11:22 | XMS_ITS | Encounter Summary ---
:1955 Author Organization [facility] Address [address] [place] [address] Care Team Providers Name Role Phone Hal Gutierrez MD Primary Care Provider Pilar Uribe Primary Care Provider Reason for Visit Reason Onset Date Comments Referral Request 10/20/2015 Encounter Details Date Type Department Care Team Description 10/20/2015 Telephone [facility] Александр Sahu MD Referral Request Neurology - [address] [place], [place] [id number] [place] [address] [id number] [phone] Social History Tobacco Use Types Packs/Day Years Used Date Never Smoker Alcohol Use Standard Drinks/Week Comments No 0 (1 standard drink = 0.6 oz pure alcoho l) Sex Assigned at Date Recorded Not on file documented as of this encounter Miscellaneous Notes Telephone Encounter - Esha Guillen RN - 11/04/2015 1255 EST TC to [facility] who has not heard from Dr. Sahu. She contacted Socorro's PCP this morning and theyare referring Socorro to neurosurgery. Nargis does want Dr. Sahu to know that she isn't seeing any difference with the medication and asks how long it should take to work. Will update Dr. Sahu and ask him to advise. Telephone Encounter - Meredith Morales - 11/04/2015 1204 EST Nargis called back about referral to Neurosurg. She is waiting for a call back from Dr. Sahu and is very upset that this is taking so long. Please call her back with an update. elephone Encounter - Salazar Sahu MD - 10/31/2015 0930 EST I'll give her a call. elephone Encounter - Esha Guillen RN - 10/28/2015 1629 EST Nargis called again to follow up. She reports she doesn't believe that the nudexta is helping Socorro as Socorro continues to have episodes where she yells at [facility] for long periods of time. Torhemanthanders would really like to have the referral to neurosurgery from Dr. Sahu. I advised that Dr. Sahu did not feel the need for it but she insists it was his idea and he just doesn't remember. I also advised that she could speak with Socorro's PCP but she would really like this to be from Dr. Sahu. Will send update - perhaps you could speak with her directly as she is not satisfied with my answers. elephone Encounter - Esha Guillen RN - 10/24/2015 1141 EST Torhemanthanders called again to follow up and is aware I am waiting for response from Dr. Sahu. Will send message to Dr. Sahu again. elephone Encounter - Esha Guillen RN - 10/22/[address] Sahu: I'm not sure where this suggestion for a referral to neurosurgery is coming from. ??I also do not see how it would be indicated, for what issue? ??No need to make that referral with the information I have and upon review of chart. Salazar Returned TC to Nargis. Nargis reports there was discussion of having Socorro's shunt evaluated by neurosurgery and that there might be a shunt study. Nargis requests to speak directly with Dr. Sahu. Will send update/request to Dr. Sahu. Telephone Encounter - Esha Guillen RN - 10/21/[address] Sahu to advise on request for referral to neurosurgery. elephone Encounter - Uriel Cheung - 10/20/2015 1446 EST Requesting referral to neuro surgery per Dr. Sahu suggestion. Please call when ref sent documented in this encounter Plan of Treatment Not on filedocumented as of this encounter Visit Diagnoses Not on filedocumented in this encounter Care Teams Management Development Specialist Relationship Specialty Start Date End Date Hal Gutierrez MD PCP - General 06/13/13 08/29/18 [address] [place], [place] [address] Pilar Uribe PCP - General 08/30/18 [address] [place] [id number] documented as of this encounter
--- OUTSIDE RECORDS SUMMARY | 2022-06-18 11:22 | XMS_ITS | Encounter Summary ---
:1955 Author Organization [facility] Address [address] [place] [address] Care Team Providers Name Role Phone Pilar Uribe Primary Care Provider Reason for Visit Office Procedure (Routine) - Order Cancelled Specialty Diagnoses / Procedures Referred By Contact Refer red To Contact Neurology Diagnoses Seizures ([facility]) ([facility]) Rocky Little MD [place] 5 Lab Procedures EEG [address] [place] [address] [address] [place] [phone] Referral ID Status Reason Start Date Expiration Date Visits V isits Requested Authorized [id number] Order 09/20/2018 1 1 Cancelled Encounter Details Date Type Department Care Team Description 10/13/2018 [facility] Unknown, Prov MD elvin Seizures ([facility]) Encounter Neurophysiology - [facility] Gill Hager MD [address] [place] [address] [phone] [facility] [address] [place] [id number] Social History Tobacco Use Types Packs/Day Years [...] Unspecified convulsions-R56.9[ICD- 10-CM] documented in this encounter Medications at Time [...] Auto Discharge Home documented in this encounter Procedure Notes Rocky Little MD - 10/13/2018 3251 ESTProcedure(s): FL AMBULATORY EEG MONITORINGPre-Procedure Diagnose(s): Seizures (HCC-CMS) (HCC) DAY #1 AMBULATORY EEG MONITORING [facility] Name: Socorro Jaimes Clinical Neurophysiology Laboratory [address] : 1955 [place], [place] Date: 10/13/2018 Ambulatory Digital EEG Monitoring Report Referring Physician: Rocky Little MD Study Number: [id number] Clinical Indication: The patient is a 63 year-old woman with history of meningitis/encephalitis, developmental delay, and seizures, with spells suspicious for seizures that need further characterization. Medications: acetaminophen (TYLENOL) 500 mg tablet Calcium-Cholecalciferol, D3, (CALCARB) 600 mg(1,500mg) -200 unit tablet cholecalciferol, Vitamin D3, 1,000 unit tablet citalopram (CELEXA) 20 mg tablet dextromethorphan-quinidine 20-10 mg capsule dextromethorphan-quinidine 20-10 mg capsule docusate (COLACE) 50 mg/5 mL liquid famotidine (PEPCID) 40 mg tablet lamoTRIgine (LAMICTAL) 150 mg tablet levothyroxine (SYNTHROID) 125 mcg tablet MULTIVITAMIN ORAL PEG 3350-Electrolytes (MIRALAX) 17 gram packet rivaroxaban (XARELTO) 20 mg tablet tablet simvastatin (ZOCOR) 10 mg tablet SULFAMETHOXAZOLE/TRIMETHOPRIM (BACTRIM ORAL) Technical Description: Ambulatory digital electroencephalographic monitoring is performed utilizing Filtrbox recorder. Silver/silver chloride EEG electrodes are placed according to the International 10-20 system as well as anterior temporal electrodes, a CPz recording reference and FCz ground contract.An ECG channel is also monitored. The patient is instructed to press and Event Button in the event of a seizure- like spell (Target Event). The patient is also instructed to maintain an activity log. The entire EEG dataset is reviewed by the attending physician. No pain assessment for this procedure is necessary. The monitoring started at 13:40 on 10/13/2018 and ended at 13:45 on 10/14/2018. Total duration of this study was 24 hours and 5 minutes. There were no clinical events captured during this study period. Findings: The background was somewhat organized, continuous, reactive, represented by predominantly by beta and theta frequencies. There were occasional 5-20 sec runs of semi-rhythmic, higher amplitude theta frequencies, more prominent over the left side, mostly during wakefulness. The PDR was 7 but iwas poorly sustained/poorly developed. The patient was drowsy and stage N2 sleep was captured, represented by somewhat developed sleep spindles and K-complexes. The sleep was fragmented. There were no clear epileptiform discharges nor electrographic seizures captured. Single lead EKG showed a regular heart rhythm, although it was frequently obscured by artifact. Impression: This was an abnormal EEG due to: 1. Mild diffuse slowing of the background, suggestive of diffuse and/or multifocal cerebral dysfunction. This finding might be seen in a myriad of encephalopathies, including static encephalopathy. 2. The presence of occasional 5-20 sec runs of semi-rhythmic, higher amplitude theta frequencies, more prominent over the left side might be suggestive of additional cerebral dysfunction, more prominent over the left. 3. There were no clear epileptiform discharges nor electrographic seizures captured. DAY #2 AMBULATORY EEG MONITORING [facility] Name: Socorro Kraftin Clinical Neurophysiology Laboratory [address] [facility] : 1955 [place], [place] Date: 10/14/2018 Ambulatory Digital EEG Monitoring Report Referring Physician: Rocky Little MD Study Number: [id number] Clinical Indication: The patient is a 63 year-old woman with history of meningitis/encephalitis, developmental delay, and seizures, with spells suspicious for seizures that need further characterization. Medications: acetaminophen (TYLENOL) 500 mg tablet Calcium-Cholecalciferol, D3, (CALCARB) 600 mg(1,500mg) -200 unit tablet cholecalciferol, Vitamin D3, 1,000 unit tablet citalopram (CELEXA) 20 mg tablet dextromethorphan-quinidine 20-10 mg capsule dextromethorphan-quinidine 20-10 mg capsule docusate (COLACE) 50 mg/5 mL liquid famotidine (PEPCID) 40 mg tablet lamoTRIgine (LAMICTAL) 150 mg tablet levothyroxine (SYNTHROID) 125 mcg tablet MULTIVITAMIN ORAL PEG 3350-Electrolytes (MIRALAX) 17 gram packet rivaroxaban (XARELTO) 20 mg tablet tablet simvastatin (ZOCOR) 10 mg tablet SULFAMETHOXAZOLE/TRIMETHOPRIM (BACTRIM ORAL) Technical Description: Ambulatory digital electroencephalographic monitoring is performed utilizing Filtrbox recorder. Silver/silver chloride EEG electrodes are placed according to the International 10-20 system as well as anterior temporal electrodes, a CPz recording reference and FCz ground contract.An ECG channel is also monitored. The patient is instructed to press and Event Button in the event of a seizure- like spell (Target Event). The patient is also instructed to maintain an activity log. The entire EEG dataset is reviewed by the attending physician. No pain assessment for this procedure is necessary. The monitoring started at 13:46 on 10/14/2018 and ended at 13:50 on 10/15/2018. Total duration of this study was 24 hours and 4 minutes. There were no clinical events captured during this study period. Findings: The background was somewhat organized, continuous, reactive, represented by predominantly by beta and theta frequencies. There were occasional 5-20 sec runs of semi-rhythmic, higher amplitude theta frequencies, more prominent over the left side, mostly during wakefulness. The PDR was 7 but iwas poorly sustained/poorly developed. The patient was drowsy and stage N2 sleep was captured, represented by somewhat developed sleep spindles and K-complexes. The sleep was fragmented. There were no clear epileptiform discharges nor electrographic seizures captured. Single lead EKG showed a regular heart rhythm, although it was frequently obscured by artifact. Impression: This was an abnormal EEG due to: 1. Mild diffuse slowing of the background, suggestive of diffuse and/or multifocal cerebral dysfunction. This finding might be seen in a myriad of encephalopathies, including static encephalopathy. 2. The presence of occasional 5-20 sec runs of semi-rhythmic, higher amplitude theta frequencies, more prominent over the left side might be suggestive of additional cerebral dysfunction, more prominent over the left. 3. There were no clear epileptiform discharges nor electrographic seizures captured. DAY #3 AMBULATORY EEG MONITORING [facility] Name: Socorro Jaimes Clinical Neurophysiology Laboratory [address] : 1955 [place], [place] Date: 10/15/2018 Ambulatory Digital EEG Monitoring Report Referring Physician: Rocky Little MD Study Number: [id number] Clinical Indication: The patient is a 63 year-old woman with history of meningitis/encephalitis, developmental delay, and seizures, with spells suspicious for seizures that need further characterization. Medications: acetaminophen (TYLENOL) 500 mg tablet Calcium-Cholecalciferol, D3, (CALCARB) 600 mg(1,500mg) -200 unit tablet cholecalciferol, Vitamin D3, 1,000 unit tablet citalopram (CELEXA) 20 mg tablet dextromethorphan-quinidine 20-10 mg capsule dextromethorphan-quinidine 20-10 mg capsule docusate (COLACE) 50 mg/5 mL liquid famotidine (PEPCID) 40 mg tablet lamoTRIgine (LAMICTAL) 150 mg tablet levothyroxine (SYNTHROID) 125 mcg tablet MULTIVITAMIN ORAL PEG 3350-Electrolytes (MIRALAX) 17 gram packet rivaroxaban (XARELTO) 20 mg tablet tablet simvastatin (ZOCOR) 10 mg tablet SULFAMETHOXAZOLE/TRIMETHOPRIM (BACTRIM ORAL) Technical Description: Ambulatory digital electroencephalographic monitoring is performed utilizing Filtrbox recorder. Silver/silver chloride EEG electrodes are placed according to the International 10-20 system as well as anterior temporal electrodes, a CPz recording reference and FCz ground contract.An ECG channel is also monitored. The patient is instructed to press and Event Button in the event of a seizure- like spell (Target Event). The patient is also instructed to maintain an activity log. The entire EEG dataset is reviewed by the attending physician. No pain assessment for this procedure is necessary. The monitoring started at 13:51 on 10/15/2018 and ended at 11:32 on 10/16/2018. Total duration of this study was 21 hours and 41 minutes. There were no clinical events captured during this study period. Findings: The background was somewhat organized, continuous, reactive, represented by predominantly by beta and theta frequencies. There were occasional 5-20 sec runs of semi-rhythmic, higher amplitude theta frequencies, more prominent over the left side, mostly during wakefulness. The PDR was 7 but iwas poorly sustained/poorly developed. The patient was drowsy and stage N2 sleep was captured, represented by somewhat developed sleep spindles and K-complexes. The sleep was fragmented. There were no clear epileptiform discharges nor electrographic seizures captured. Single lead EKG showed a regular heart rhythm, although it was frequently obscured by artifact. Impression: This was an abnormal EEG due to: 1. Mild diffuse slowing of the background, suggestive of diffuse and/or multifocal cerebral dysfunction. This finding might be seen in a myriad of encephalopathies, including static encephalopathy. 2. The presence of occasional 5-20 sec runs of semi-rhythmic, higher amplitude theta frequencies, more prominent over the left side might be suggestive of additional cerebral dysfunction, more prominent over the left. 3. There were no clear epileptiform discharges nor electrographic seizures captured. Rocky Little M.D. Attending, Epilepsy Program [facility] 11:10 11/03/2018 Gill Figueredo MD - 10/13/2018 1344 EST [facility] Name: Socorro Jaimes Clinical Neurophysiology Laboratory [address] [facility] : 1955 [place], [place] Date: 10/13/2018 Electroencephalogram Report Referring Physician: Rocky Little MD Study Number: [id number] Clinical Indication: A 63 y.o. woman with spells suspicious for seizures Medications: Current Outpatient Medications: acetaminophen (TYLENOL) 500 mg tablet Calcium-Cholecalciferol, D3, (CALCARB) 600 mg(1,500mg) -200 unit tablet cholecalciferol, Vitamin D3, 1,000 unit tablet citalopram (CELEXA) 20 mg tablet dextromethorphan-quinidine 20-10 mg capsule dextromethorphan-quinidine 20-10 mg capsule docusate (COLACE) 50 mg/5 mL liquid famotidine (PEPCID) 40 mg tablet lamoTRIgine (LAMICTAL) 150 mg tablet levothyroxine (SYNTHROID) 125 mcg tablet MULTIVITAMIN ORAL PEG 3350-Electrolytes (MIRALAX) 17 gram packet rivaroxaban (XARELTO) 20 mg tablet tablet simvastatin (ZOCOR) 10 mg tablet SULFAMETHOXAZOLE/TRIMETHOPRIM (BACTRIM ORAL) No current facility-administered medications for this encounter. Technical Description: Standard EEG: An in-laboratory digital EEG is performed utilizing silver-silver chloride electrodes placed according to the International 10-20 system of electrode placement. CPZ serves as the recording reference electrode. The following additional electrodes are also placed: ECG electrodes , anterior temporal electrodes The study begins at 1246 until 1313 with a total study duration of 27 minutes. During this study the following states were recorded: Wake. No sleep was recorded. Subject factors: Cooperative The patient and/or caregivers report:7 hours of sleep night before study; Estimated average 8 hours of sleep Previous EEG Study? No Background Waking cerebral background activity is characterized by the absence of a posterior dominant rhythm. With eyes open there is low voltage desynchronized beta with admixed low amplitude theta. With eyes closed, a posterior rhythm of about 7 Hz is recorded, larger over the right posterior derivation. It projects more anteriorly as well. Hyperventilation is performed with a fair effort. No abnormal findings are recorded. Photic stimulation is performed. No abnormal findings are recorded. No interictal epileptiform discharges are recorded. No sleep is recorded. A single channel EKG is utilized. No abnormal findings are recorded. 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 Ambulatory EEG monitoring is underway and will be reported separately. Clinical Correlation: The absence of interictal epileptiform discharges does not exclude the diagnosis of epilepsy. Xu Cramer MD 10/13/2018 13:57 I personally reviewed the EEG and the report and agree with the above as documented. Gill Hager MD MSc documented in this encounter Plan of Treatment Not on filedocumented as of this encounter Visit Diagnoses Diagnosis Seizures (HCC-CMS) (HCC) Other convulsions documented in this encounter Care Teams Petrologist Relationship Specialty Start Date End Date Pilar Uribe PCP - General 08/30/18 [address] [place] [address] documented as of this encounter
--- OUTSIDE RECORDS SUMMARY | 2022-06-18 11:22 | XMS_ITS | Encounter Summary ---
:1955 Author Organization [facility] Address [address] [place] [address] Care Team Providers Name Role Phone Hal Gutierrez MD Primary Care Provider Reason for Visit Reason Onset Date Comments Medication Management 02/05/2016 Encounter Details Date Type Department Care Team Description 02/05/2016 Telephone [facility] Александр Sahu MD Medication Management Neurology - [address] [place], [place] [id number] [place] [id number] [phone] Social History Tobacco Use Types Packs/Day Years [...] Telephone Encounter - Esha Guillen RN - 02/12/2016 0956 EDT TC to Nargis relaying message from Dr. Sahu. She will contact PCP re: wellbutrin. Telephone Encounter - Valeria Duncan - 02/11/2016 1700 EDT Returning Esha's call. elephone Encounter - Esha Guillen RN - 02/11/2016 1317 EDT Attempted to contact AIMEE Barillas for call back. elephone Encounter - Esha Guillen RN - 02/11/[address] Sahu: Esha, could you get in touch with the PCP, who had planned to start Welbutrin, per my last note, as it seems she is not responding to the Nuedexta. ??I would prefer the PCP start and manage this medication. Thomas elephone Encounter - Esha Guillen RN - 02/06/2016 1525 EDT TC to Nargis who reports Socorro's behavior is getting worse again. She is agitated and yelling a lot (she was yelling in the background during the entire phone conversation). Nargis reports Socorro has seen psychiatry through [facility]. They are concerned about Socorro taking nudexta 20-10 one tab BID and celexa 40mg daily and plan to have EKG done. Torzaria is frustrated and asks if it is possible to increase nudexta. She hopes for an answer as soon as possible. Will askDr. Sahu to review and advise. elephone Encounter - Esha Vernon - 02/06/2016 1430 EDT Mini was returning Esha's call - elephone Encounter - Esha Guillen RN - 02/06/2016 1330 EDT Attempted return call, for call back. elephone Encounter - Esha Vernon - 02/05/2016 1628 EDT Mini is requesting a call back to discuss medication dosage for Socorro -- she is upset a lot, mean and yelling documented in this encounter Plan of Treatment Not on filedocumented as of this encounter Visit Diagnoses Not on filedocumented in this encounter Care Teams Mink Slicer Relationship Specialty Start Date End Date Hal Gutierrez MD PCP - General 06/13/13 08/29/[address] [place] [address] documented as of this encounter
--- OUTSIDE RECORDS SUMMARY | 2022-06-18 11:22 | XMS_ITS | Encounter Summary ---
:1955 Author Organization [facility] Address [address] [place] [address] Care Team Providers Name Role Phone Hal Gutierrez MD Primary Care Provider Reason for Referral Radiology Services (Routine) - Closed Specialty Diagnoses / Procedures Referred By Contact Refer red To Contact Diagnoses Communicating hydrocephalus ([facility] ([facility]) Sherley Louie Procedures SHUNT SERIES EMILEE Harper [address] [place] [address] [address] [place] [address] Referral ID Status Reason Start Date Expiration Date Visits Requ ested Visits Authorized [id number] Closed 11/05/2015 1 1 Reason for Visit Reason Onset Date Comments Shunt 11/05/2015 Encounter Details Date Type Department Care Team Description 11/05/2015 Telephone [facility] Carlos Allen MD Shunt Neurosurgery - [facility] [address] [address] [place], [facility] [place], [place] [address] (Wo rk) Social History Tobacco Use Types Packs/Day Years Used Date Never Smoker Alcohol Use Standard Drinks/Week Comments No 0 (1 standard drink = 0.6 oz pure alcoho l) Sex Assigned at Date Recorded Not on file documented as of this encounter Miscellaneous Notes Telephone Encounter - Samuel Marquez - 11/06/2015 1141 EST I called and spoke with Torzaria, she is aware of ct scan on 11/23 with a 3 pm and then seen Bianca in clinic at 4 elephone Encounter - Jackie Snyder RN - 11/05/2015 1329 EST Discussed with KIRSTY Louie. The patient's shunt is not programmable. She will need CT scan and shunt series or shunt study to determine if the shunt is functioning properly, followed by an appointment in clinic with KIRSTY Vieyra to discuss findings. Explained to Nargis who is in agreement with this. She would like all appointments on the same day if possible. elephone Encounter - Jackie Snyder RN - 11/05/2015 1311 EST Personal Banker reports that Socorro has been experiencing worsening mood swings and lability. She denies change in gait, bladder/bowel function (baseline incontinence at night) seizure activity, headaches, or vision changes. The patient would like to be evaluated in neurosurgery clinic. elephone Encounter - Jackie Snyder RN - 11/05/2015 1214 EST SENIOR TELECOMMUNICATIONS SPECIALIST shunt placed 1.2.14. Message left on home phone to call back elephone Encounter - Samuel Marquez - 11/05/2015 1135 EST Deena from PCP office called, patient and her sister are wanting to have her shunt looked at. She ishaving no problems and was just seen in neurology and had a fine check up. Primary care is calling to see if she needs to be seen. They will no order images. documented in this encounter Plan of Treatment Not on filedocumented as of this encounter Procedures Procedure Name Priority Date/Time Associated Diagnosis Comme nts SHUNT SERIES Routine 11/24/2015 17:17 Communicating Results fo r this EDT hydrocephalus procedure are in the results section. CT HEAD WO 11/24/2015 15:16 Results for this CONTRAST EDT procedure are i n the results section. documented in this encounter Results SHUNT SERIES (11/24/2015 17:17 EDT) Anatomical Region Laterality Modality Other Specimen Narrative [facility]/MAIN CA MPUS - 11/25/2015 11:24 EDT SHUNT SERIES ??11/24/2015 5:17 PM Signs and Symptoms/Comments: ?? G91.0-Communicating [id number] ; mental status change, SENIOR TELECOMMUNICATIONS SPECIALIST Shunt in place Comparison: Abdominal radiograph 4, shunt series 09/14/2013, CT head same date Findings: On the AP and lateral skull views, the r ight parietal shunt catheter shows no evidence of disruption. Multipl e surgical plates are seen over the left frontal bone. On the AP view of the neck, the shunt ca theter is intact extending along the right lateral neck. Multiple d egenerative changes are seen in the cervical spine. On the AP view of the chest, the shunt c atheter is intact. The lungs and cardiac silhouette are within normal limits. On the AP and lateral views of the abdom en, the shunt catheter is intact and coils in the pelvis. An IVC f ilter is seen. The bowel gas pattern is unremarkable. No gross osseou s abnormality is seen. Impression: No disruption is seen in the SENIOR TELECOMMUNICATIONS SPECIALIST shunt ca theter from the skull to the pelvis. I have personally reviewed the images an d the above interpretation and agree with the findings. Procedure Note Marcin Albarado MD - 11/25/2015 SHUNT SERIES 11/24/2015 5:17 PM Signs and Symptoms/Comments: G91.0-Communicating [id number] ; mental status change, SENIOR TELECOMMUNICATIONS SPECIALIST Shunt in place Comparison: Abdominal radiograph 4, shunt series 09/14/2013, CT head same date Findings: On the AP and lateral skull views, the r ight parietal shunt catheter shows no evidence of disruption. Multipl e surgical plates are seen over the left frontal bone. On the AP view of the neck, the shunt ca theter is intact extending along the right lateral neck. Multiple d egenerative changes are seen in the cervical spine. On the AP view of the chest, the shunt c atheter is intact. The lungs and cardiac silhouette are within normal limits. On the AP and lateral views of the abdom en, the shunt catheter is intact and coils in the pelvis. An IVC f ilter is seen. The bowel gas pattern is unremarkable. No gross osseou s abnormality is seen. Impression: No disruption is seen in the SENIOR TELECOMMUNICATIONS SPECIALIST shunt ca theter from the skull to the pelvis. I have personally reviewed the images an d the above interpretation and agree with the findings. Performing Organization Address City/State/ZIP Code Phon e Number [facility]MAIN C[facility] CT HEAD WO CONTRAST (11/24/2015 15:16 EDT) Anatomical Region Laterality Modality Other Specimen Narrative [facility] - 11/24/2015 16:[address] HEAD WO CONTRAST ??11/24/2015 3:16 PM Signs and Symptoms/Comments: ?? G91.0-Communicating [id number] Z98.2-Presence of cerebrospinal fluid drainage device-ICD- 10; mental status changes s/p SENIOR TELECOMMUNICATIONS SPECIALIST shunt Technique: CT images were obtained from the vertex through the foramen magnum. Comparison: CT head performed July; September 13, 2013. Findings: There is a ventricular cathete r traversing the posterior right temporal lobe and terminating in t he anterior body of the left lateral ventricle. No kinking or discont inuity is seen in the shunt tube. No significant change in ventricul ar caliber is present. 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 There is no midline shift or mass effect. The bas al cisterns are patent. Prior left frontal craniotomy is noted a nd there are bilateral frontal kathy holes. The orbits are unremarkable. There are b ilateral mucosal thickening in the maxillary sinuses, worse compared to prior study. Scattered mucosal thickening is also present in th e ethmoid air cells. The left sphenoid sinus shows an air-fluid l evel associated with bubbly secretions. The mastoid air cells are cl ear. There are degenerative changes at the temporomandibular joints bilaterally. Impression: 1. Stable position of a ventricular cath eter with no significant change in ventricular caliber. 2. Stable hypoattenuation underlying the left frontal craniotomy in the left frontal lobe. 3. Interval increase in mucosal thickeni ng in the maxillary sinuses and ethmoidal air cells. Bubbly secretio ns and air-fluid level identified in the left sphenoid sinus. C orrelate clinically with signs of sinusitis. 4. Temporomandibular joint osteoarthriti s. I have personally reviewed the images an d the above interpretation and agree with the findings. Procedure Note Marcin Albarado MD - 11/24/2015 CT HEAD WO CONTRAST 11/24/2015 3:16 PM Signs and Symptoms/Comments: G91.0-Communicating [id number] Z98.2-Presence of cerebrospinal fluid drainage device-ICD- 10; mental status changes s/p SENIOR TELECOMMUNICATIONS SPECIALIST shunt Technique: CT images were obtained from the vertex through the foramen magnum. Comparison: CT head performed July; September 13, 2013. Findings: There is a ventricular cathete r traversing the posterior right temporal lobe and terminating in t he anterior body of the left lateral ventricle. No kinking or discont inuity is seen in the shunt tube. No significant change in ventricul ar caliber is present. 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 There is no midline shift or mass effect. The bas al cisterns are patent. Prior left frontal craniotomy is noted a nd there are bilateral frontal kathy holes. The orbits are unremarkable. There are b ilateral mucosal thickening in the maxillary sinuses, worse compared to prior study. Scattered mucosal thickening is also present in th e ethmoid air cells. The left sphenoid sinus shows an air-fluid l evel associated with bubbly secretions. The mastoid air cells are cl ear. There are degenerative changes at the temporomandibular joints bilaterally. Impression: 1. Stable position of a ventricular cath eter with no significant change in ventricular caliber. 2. Stable hypoattenuation underlying the left frontal craniotomy in the left frontal lobe. 3. Interval increase in mucosal thickeni ng in the maxillary sinuses and ethmoidal air cells. Bubbly secretio ns and air-fluid level identified in the left sphenoid sinus. C orrelate clinically with signs of sinusitis. 4. Temporomandibular joint osteoarthriti s. I have personally reviewed the images an d the above interpretation and agree with the findings. Performing Organization Address City/State/ZIP Code Phon e Number [facility] documented in this encounter Visit Diagnoses Diagnosis Communicating hydrocephalus (HCC-CMS) (H CC) - Primary Communicating hydrocephalus S/P SENIOR TELECOMMUNICATIONS SPECIALIST shunt Presence of cerebrospinal fluid drainage device documented in this encounter Care Teams Retanned Leather Roller Relationship Specialty Start Date End Date Hal Gutierrez MD PCP - General 06/13/13 08/29/[address] [place] [address] documented as of this encounter
--- OUTSIDE RECORDS SUMMARY | 2022-06-18 11:22 | XMS_ITS | Encounter Summary ---
:1955 Author Organization [facility] Address [address] [place] [address] Care Team Providers Name Role Phone Pilar Uribe Primary Care Provider Reason for Visit Reason Onset Date Comments Follow-up 11/03/2018 Encounter Details Date Type Department Care Team Description 11/03/2018 Telephone [facility] Walt Little MD Follow-up Neurophysiology - Ut in [address] [place] [address] [place] [phone] (Wo rk) Social History Tobacco Use Types [...] encounter Miscellaneous Notes Telephone Encounter - Ebony Casey RN - 11/03/2018 1311 EST I spoke to Iliana, pt's caregiver Advised no sz on EEG & to f/u w/ PCP re: nasal/sinus issues Iliana verbalized understanding & agreed w/ plan elephone Encounter - Rocky Little MD - 11/03/2018 1127 EST The patient had worsening of diffuse paranasal sinus disease noted on the most recent CT head. Please advise the patient/careigver to follow up with PCP regarding this issue. The 72-hour ambulatory EEGdid not show seizures. Please advise the patient/caregiver as above. Thank you. documented in this encounter Plan of Treatment Not on filedocumented as of this encounter Visit Diagnoses Not on filedocumented in this encounter Care Teams Care Transition Mgr Relationship Specialty Start Date End Date Pilar Uribe PCP - General 08/30/18 [address] [place] [address] documented as of this encounter
--- OUTSIDE RECORDS SUMMARY | 2022-06-18 11:22 | XMS_ITS | Encounter Summary ---
:1955 Author Organization [facility] Address [address] [place] [address] Care Team Providers Name Role Phone Pilar Uribe Primary Care Provider Reason for Visit Reason Onset Date Comments Appointment Related 12/26/2018 Encounter Details Date Type Department Care Team Description 12/26/2018 Telephone [place] Rocky Little, Arash ointment Related Neurophysiology - [id number] [place] [address], [place]. [address] [place] [address] (Wo rk) Social History Tobacco [...] this encounter Miscellaneous Notes Telephone Encounter - Ko Cruz - 12/26/2018 1214 EDT Called and spoke with patient; confirmed appointment 12/27/2018. Directions provided. documented in this encounter Plan of Treatment Not on filedocumented as of this encounter Visit Diagnoses Not on filedocumented in this encounter Care Teams Building Service Worker Relationship Specialty Start Date End Date Pilar Uribe PCP - General 08/30/[address] [place] [address] documented as of this encounter
--- OUTSIDE RECORDS SUMMARY | 2022-06-18 11:22 | XMS_ITS | Encounter Summary ---
:1955 Author Organization [facility] Address [address] [place] [address] Care Team Providers Name Role Phone Pilar Uribe Primary Care Provider Reason for Visit Reason Onset Date Comments Appointment Related 05/14/2019 Encounter Details Date Type Department Care Team Description 05/14/2019 Telephone [facility] Cardiology - Echo, [facility] Appointment Related Main [place] [address] [place], [place] [address] Social History Tobacco Use Types Packs/Day Years [...] this encounter Miscellaneous Notes Telephone Encounter - Dee Box - 05/15/2019 1023 EDT Called pt to RSC. Left VM to CB elephone Encounter - Carolyn Brizuela - 05/15/2019 0913 EDT Echo has been cancelled in [facility] and [facility]. Just needs a call to reschedule. elephone Encounter - Jennifer Adair - 05/14/2019 0956 EDT PAS Message: Socorro called to cancel appointment with SAIDA STEVENSON on 05/17 at 13:00 due to schedule conflict. Patient would like a call back to reschedule? Yes documented in this encounter Plan of Treatment Not on filedocumented as of this encounter Visit Diagnoses Not on filedocumented in this encounter Care Teams [address] [employer] Relationship Specialty Start Date End Date Pilar Uribe PCP - General 08/30/[address] [place] [address] documented as of this encounter
--- OUTSIDE RECORDS SUMMARY | 2022-06-18 11:22 | XMS_ITS | Encounter Summary ---
:1955 Author Organization [facility] Address [address] [place] [address] Care Team Providers Name Role Phone Hal Gutierrez MD Primary Care Provider Reason for Visit Reason Onset Date Comments Medications Refill 10/01/2015 Encounter Details Date Type Department Care Team Description 10/01/2015 Telephone [facility] Александр Sahu MD Medications Refill Neurology - [address] [place], [place] [id number] [place] [id number] [phone] Social History Tobacco Use Types Packs/Day Years Used Date Never Smoker Alcohol Use Standard Drinks/Week Comments No 0 (1 standard drink = 0.6 oz pure alcoho l) Sex Assigned at Date Recorded Not on file documented as of this encounter Miscellaneous Notes Telephone Encounter - Esha Guillen RN - 10/01/2015 1642 EST TC to [facility] who initially told me they didn't have the rx but when I spoke with the pharmacist togive a phone order he was able to locate the rx and doesn't need a new one. They don't have the medication in stock and have ordered. They hope to have it in tomorrow. Attempted return call to AIMEE Barillas for call back. elephone Encounter - Ladi Daley - 10/01/2015 1556 EST Please resend yesterdays RXs to [facility] in [place]. They are telling PT they have not received documented in this encounter Plan of Treatment Not on filedocumented as of this encounter Visit Diagnoses Not on filedocumented in this encounter Care Teams Information Systems Technician Relationship Specialty Start Date End Date Hal Gutierrez MD PCP - General 06/13/13 08/29/[address] [place] [address] documented as of this encounter
--- OUTSIDE RECORDS SUMMARY | 2022-06-18 11:22 | XMS_ITS | Clinical Summary ---
:1955 Author Organization [facility] Address [address] [place] [address] Care Team Providers Name Role Phone Pilar Uribe Primary Care Provider Allergies Active Allergy Reactions Severity Noted Date Comments Bacitracin 06/01/2013 Bacitracin Zinc-Polymyxin B 06/01/2013 Latex, Natural Rubber High 06/01/2013 Eattvdid-Hhayelxlrf-Gmhmvvlvx 06/01/2013 Medications Medication Sig Dispensed Refills Start Date End Date Status citalopram (CELEXA) 20 Take 40 mg by 0 Active mg tablet mouth daily. Calcium-Cholecalciferol Take 1 Tab by 0 Active , D3, (CALCARB) 600 mouth 2 times mg(1,500mg) -200 unit daily. tablet PEG 3350-Electrolytes Take 17 g by 0 Active (MIRALAX) 17 gram mouth daily. packet docusate (COLACE) 50 10 mL by per g 120 mL 0 09/24/2013 Active mg/5 mL liquid tube route 2 times daily. acetaminophen (TYLENOL) Take 1,000 mg by 0 Active 500 mg tablet mouth every 6 hours. famotidine (PEPCID) 40 Take 40 mg by 0 Active mg tablet mouth daily. MULTIVITAMIN ORAL Take by mouth. 0 Active levothyroxine Take 125 mcg by 0 Active (SYNTHROID) 125 mcg mouth daily. tablet rivaroxaban (XARELTO) Take 20 mg by 0 Active 20 mg tablet tablet mouth daily. lamoTRIgine (LAMICTAL) Take 150 mg by 0 Active 150 mg tablet mouth 2 times daily. cholecalciferol, Take 1,000 Units 0 Active Vitamin D3, 1,000 unit by mouth daily tablet dextromethorphan-quinid Take 1 Capsule by 120 Cap 5 09/30/19 16 Active ine 20-10 mg capsule mouth every 12 hours Once daily for one week, then twice a day. dextromethorphan-quinid Take 1 Capsule by 30 Cap 0 09/30/19 16 Active ine 20-10 mg capsule mouth every 12 hours for 30 days Once daily for one week, then twice daily SULFAMETHOXAZOLE/TRIMET Take 160 mg by 0 Active HOPRIM (BACTRIM ORAL) mouth 2 times daily. amoxicillin/potassium Take 875 mg by 0 Active clav (AUGMENTIN ORAL) mouth 2 times daily. atorvastatin (LIPITOR) Take 1 Tab by 30 Tab 5 03/01/2019 Active 40 mg tablet mouth daily. Active Problems Problem Noted Date Altered mental status 07/21/2013 Anemia 07/21/2013 Convulsions ([facility]) 07/21/2013 Surgical History Surgery Date Site/Laterality Comments CSF SHUNT BREAST SURGERY Medical History Medical History Date Comments Developmental delay Thyroid disease Seizure ([facility]) (HCC) Depression Family History Medical History Relation Name Comments Cancer Maternal Grandfather Lung Cancer Maternal Grandmother Ovarian, ki dney Cancer Maternal Uncle Lung Cancer Mother Lymphoma Relation Name Status Comments Maternal Grandfather Maternal Grandmother Maternal Uncle Mother Social History Tobacco Use Types Packs/Day Years Used Date Never Smoker Smokeless Tobacco: Never Used Alcohol Use Standard Drinks/Week Comments No 0 (1 standard drink = 0.6 oz pure alcoho l) Sex Assigned at Date Recorded Not on file Last Filed Vital Signs Vital Sign Reading Time Taken Comments Blood Pressure 114/86 06/18/2019 1058 EDT Pulse 68 06/18/2019 1058 EDT Temperature 37.1 ??C (98.7 ??F) 11/24/2015 1557 EDT Respiratory Rate 16 03/01/2019 1018 EDT Oxygen Saturation 96% 09/24/2013 1007 EST Inhaled Oxygen Concentration - - Weight 87.5 kg (192 lb 12.8 oz) 06/18/2019 1058 EDT Height 160 cm (5' 2.99) 06/18/2019 1058 EDT Body Mass Index 34.16 06/18/2019 1058 EDT Plan of Treatment Health Maintenance Due Date Last Done Comments COVID-19 Vaccine (1) 1967 Advance Directive Review 09/26/2018 Hepatitis C Screen Completed 04/06/2021, 08/06/2013 Advance Directives For more information, please contact: [phone] Documents on File Type Date Recorded Patient Ring Attacher Explanati on Advance Directives and Living Will Power of Typo Machine Operator Advance Directive 09/26/2013 12:24 ADVANCE DIRECT JHONATAN SIGNED 1 Guardianship 09/26/2013 7:39 Guardianship 09/03/2013 11:56 2009-12-10 Guardianship 07/13/2013 7:49 2013-07-06 Dr[address] R[address]zo [address] Daniel Co-guardi an and Letter Latest Code Status on File Code Status Date Activated Date Inactivated Comments Limitation of Treatment 07/21/2013 8:12 09/24/2013 13:23 CPR for spontaneous arrest: WITHHOLD CPR for arrest during procedure: WITHHOLD Intubation/Mechanical ventilation: WITHHOLD Medications for arrhythmia: PROVIDE Care Teams Construction Estimator Relationship Specialty Start Date End Date Pilar Uribe PCP - General 08/30/[address] [place] [address]
--- OUTSIDE RECORDS SUMMARY | 2022-06-18 11:22 | XMS_ITS | Encounter Summary ---
:1955 Author Organization [facility] Address [address] [place] [address] Care Team Providers Name Role Phone JojoPilar Ninfa Primary Care Provider Encounter Details Date Type Department Care Team Description 06/12/2019 Hospital Encounter [facility] [place] MD [address] [facility]. 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 documented as of this encounter Discharge Disposition Disposition Code Departure Means Destination Auto Discharge Home documented in this encounter Plan of Treatment Not on filedocumented as of this encounter Visit Diagnoses Not on filedocumented in this encounter Care Teams Salon/Spa Manager Relationship Specialty Start Date End Date Pilar Uribe PCP - General 08/30/[address] [place] [address] documented as of this encounter
--- OUTSIDE RECORDS SUMMARY | 2022-06-18 11:22 | XMS_ITS | Encounter Summary ---
:1955 Author Organization [facility] Address [address] [place] [address] Care Team Providers Name Role Phone Pilar Uribe Primary Care Provider Encounter Details Date Type Department Care Team Description 06/12/2019 Results Only [facility] [place], Imaging Neurophysiology - [facility] [id number] [place] [address], Jamir. Level [address] [place] [address] (Wo rk) Social History Tobacco [...] Name Priority Date/Time Associated Diagnosis Comme nts ECHOCARDIOGRAM 06/12/2019 15:15 EDT Resul ts for this procedure are i n the results section . documented in this encounter Results ECHOCARDIOGRAM (06/12/2019 15:15 EDT) Specimen Narrative [facility] [place] - 06/12/2019 16:35 EDT *Interpreting Group:* *[facility]* [address] [place] [address] Date of study: 06/12/2019 Transthoracic Echocardiography M-mode, complete 2D, complete spectral D oppler, and color Doppler *STUDY CONCLUSIONS* Summary: 1. Left ventricle: The cavity size was n ormal. Wall thickness was ?? normal. Systolic function was normal . The estimated ejection fraction ?? was 60-65%. Wall motion was normal; there were no regional wall ?? motion abnormalities. 2. Mitral valve: Mildly calcified annulu s. There was mild regurgitation. 3. Right ventricle: The cavity size was normal. Wall thickness was ?? normal. Systolic function was normal . 4. Atrial septum: Echo contrast study sh owed no lbnva-ky-zjyy atrial ?? level shunt, at baseline or with pro vocation. 5. Pulmonary arteries: Pulmonary systoli c pressure was mildly increased, ?? in the range of 35mm Hg to 40mm Hg. *PATIENT PRESENTATION* Height: ? 157.5cm (62in ) S/D Pressure: 62 / 194 Weight: ? 88kg (193.6lb ) BSA: ?2m^2 Test start time: ??03:18 PM. Test stop time: ??04:01 PM. ADMITTING ?Pilar Uribe REFERRING ?Pilar Uribe PERFORMING ?? [facility], Op ATTENDING ?[place] ORDERING ? [place] PRODUCTION FLOATER ??Farhana HONG FELLOW ??Cristóbal Andres MD *PROCEDURE DATA* Procedure information: ??The patient was identified by two identifiers. This study was interpreted by [facility]. Pertinent images and digital data are archived for permanent storage and are available for subsequent review. ??Study status: Routine. Transthoracic echocardiography. ??M-mode, complete 2D, complete spectral Doppler, and color Doppler. A T ransthoracic Echocardiogram was performed. Scanning was performed from t he parasternal, apical, subcostal, and suprasternal notch acoust ic windows. Images were obtained using an Epiq 15 cardiac ultrasound mach ine. Image quality was suboptimal. The study was technically li mited due to poor patient compliance, patient inability to follow directions, and body habitus. Intravenous contrast (normal saline) was administered. The saline was administered by Dave Murphy RUST . ?? completion: ??The patient tolerated the procedure well. There were no complications. *INDICATIONS AND HISTORY* Indications: ?? 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 *CARDIAC ANATOMY* Left ventricle: ??The cavity size was no rmal. Wall thickness was normal. Systolic function was normal. The estima jaylen ejection fraction was 60-65%. Wall motion was normal; there we re no regional wall motion abnormalities. Diastolic parameters were normal. Aortic valve: ?? Trileaflet; normal thic kness leaflets. Mobility was not restricted. ??Doppler: ??Transvalvular v elocity was within the normal range. There was no stenosis. There was no significant regurgitation. Aorta: ??Aortic root: The aortic root wa s normal in size. Mitral valve: ?? Mildly calcified annulu s. Mobility was not restricted. Doppler: ??Transvalvular velocity was wi thin the normal range. There was no evidence for stenosis. There was mild regurgitation. ?Valve area by pressure half-time: 3.9cm^2. Indexed liang ve area by pressure half-time: 1.9cm^2/m^2. ?Peak gradient (D): 2.8 mm Hg. Left atrium: ??The atrium was normal in size. Atrial septum: ?? Echo contrast study sh owed no oghad-ek-uxqi atrial level shunt, at baseline or with provoca tion. Right ventricle: ??The cavity size was n ormal. Wall thickness was normal. Systolic function was normal. Pulmonic valve: ?? Not well visualized. ??Doppler: ??Transvalvular velocity was within the normal range. There was n o evidence for stenosis. There was no significant regurgitation. Tricuspid valve: ?? Structurally normal valve. ?Doppler: ??Transvalvular velocity was within the normal range. Th ere was no evidence for stenosis. There was mild regurgitation. Pulmonary artery: ?? Pulmonary systolic pressure was mildly increased, in the range of 35mm Hg to 40mm Hg. Right atrium: ??The atrium was normal in size. Pericardium: ??There was no pericardial effusion. Systemic veins: Inferior vena cava: The vessel was jacob l in size. Measurements Left ventricle ? Value ?Reference LV ID, ED, PLAX ?4.0 ?? cm ? 3.5 - 6.0 LV ID, ES, PLAX ?2.7 ?? cm ? 2.1 - 4.0 LV PW thickness, ED, PLAX ?0.9 ?? cm ? --------- LV end-diastolic volume, 1-p A2C ? 55 ?ml ? --------- LV ejection fraction, 1-p A2C ?49 ?% ?--------- LV end-diastolic volume, 1-p A4C ? 62 ?ml ? --------- LV ejection fraction, 1-p A4C ?62 ?% ?--------- LV IVRT, DP ?(L) ? 53 ?ms ? 60 - 100 LV e', lateral ? 0.143 m/sec ??--------- LV E/e', lateral ? 6 ?--------- LV e', medial ?0.077 m/sec ??--------- LV E/e', medial ?11 ? --------- LV e', average ? 0.11 ??m/sec ??--------- LV E/e', average ? 8 ?--------- Ventricular septum ? Value ?Reference IVS thickness, ED, PLAX ?1.1 ?? cm ? --------- LVOT ? Value ?Reference LVOT ID, S ? 2.0 ?? cm ? --------- LVOT area ?3.1 ?? cm^2 ?? --------- Aorta ?Value ?Reference Aortic root ID ? 2.7 ?? cm ? --------- Ascending aorta ID, A-P ?3.0 ?? cm ? --------- Ascending aorta ID, A-P, S ? 3.0 ?? cm ? --------- Left atrium ?Value ?Reference LA ID, A-P, ES ? 3.4 ?? cm ? --------- LA ID/bsa, A-P ? 1.7 ?? cm/m^2 <=2.2 LA/aortic root ratio ? 1.26 ? --------- Mitral valve ? Value ?Reference Mitral E-wave peak velocity ?0.84 ??m/sec ??--------- Mitral A-wave peak velocity ?0.56 ??m/sec ??--------- Mitral deceleration slope ?433 ?? cm/s^2 --------- Mitral deceleration time ? 194 ?? ms ? 150 - 230 Mitral pressure half-time ?57 ?ms ? --------- Mitral peak gradient, D ?2.8 ?? mm Hg ??--------- Mitral E/A ratio, peak ? 1.5 ?--------- Mitral valve area, PHT, DP ? 3.9 ?? cm^2 ?? --------- Legend: (L) ??and ??(H) ??clemencia values outside sp ecified reference range. I have personally reviewed the images an d have reviewed and edited the reported findings. Electronically signed by Antolin Fernandez MD 06/12/2019 16:35 Procedure Note Antolin Fernandez MD - 06/12/2019 *Interpreting Group:* *[facility]* [address] [place] [address] Date of study: 06/12/2019 Transthoracic Echocardiography M-mode, complete 2D, complete spectral D oppler, and color Doppler *STUDY CONCLUSIONS* Summary: 1. Left ventricle: The cavity size was n ormal. Wall thickness was normal. Systolic function was normal. T he estimated ejection fraction was 60-65%. Wall motion was normal; the re were no regional wall motion abnormalities. 2. Mitral valve: Mildly calcified annulu s. There was mild regurgitation. 3. Right ventricle: The cavity size was normal. Wall thickness was normal. Systolic function was normal. 4. Atrial septum: Echo contrast study sh owed no cfvgh-ki-vyfz atrial level shunt, at baseline or with provoc ation. 5. Pulmonary arteries: Pulmonary systoli c pressure was mildly increased, in the range of 35mm Hg to 40mm Hg. *PATIENT PRESENTATION* Height: 157.5cm (62in ) S/D Pressure: 62 / 194 Weight: 88kg (193.6lb ) BSA: 2m^2 Test start time: 03:18 PM. Test stop time: 04:01 PM. ADMITTING Pilar Uribe REFERRING Pilar Uribe PERFORMING [facility], Op ATTENDING [place] ORDERING [place] PRODUCTION FLOATER Farhana HONG FELLOW Cristóbal Andres MD *PROCEDURE DATA* Procedure information: The patient was i dentified by two identifiers. This study was interpreted by [facility]. Pertinent images and digital data are archived for permanent storage and are available for subsequent review. Study status: Routine. Transthoracic echocardiography. M-mode, complete 2D, complete spectral Doppler, and color Doppler. A T ransthoracic Echocardiogram was performed. Scanning was performed from t he parasternal, apical, subcostal, and suprasternal notch acoust ic windows. Images were obtained using an Epiq 15 cardiac ultrasound mach ine. Image quality was suboptimal. The study was technically li mited due to poor patient compliance, patient inability to follow directions, and body habitus. Intravenous contrast (normal saline) was administered. The saline was administered by Dave Murphy RUST . Stud y completion: The patient tolerated the procedure well. There were no complications. 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 *CARDIAC ANATOMY* Left ventricle: The cavity size was norm al. Wall thickness was normal. Systolic function was normal. The estima jaylen ejection fraction was 60-65%. Wall motion was normal; there we re no regional wall motion abnormalities. Diastolic parameters were normal. Aortic valve: Trileaflet; normal thickne ss leaflets. Mobility was not restricted. Doppler: Transvalvular veloc ity was within the normal range. There was no stenosis. There was no significant regurgitation. Aorta: Aortic root: The aortic root was normal in size. Mitral valve: Mildly calcified annulus. Mobility was not restricted. Doppler: Transvalvular velocity was with in the normal range. There was no evidence for stenosis. There was mild regurgitation. Valve area by pressure half-time: 3.9cm^2. Indexed liang ve area by pressure half-time: 1.9cm^2/m^2. Peak gradient (D): 2.8mm Hg . Left atrium: The atrium was normal in si ze. Atrial septum: Echo contrast study showe d no lbkft-cm-gwxs atrial level shunt, at baseline or with provoca tion. Right ventricle: The cavity size was nor mal. Wall thickness was normal. Systolic function was normal. Pulmonic valve: Not well visualized. Dop pler: Transvalvular velocity was within the normal range. There was n o evidence for stenosis. There was no significant regurgitation. Tricuspid valve: Structurally normal liang ve. Doppler: Transvalvular velocity was within the normal range. Th ere was no evidence for stenosis. There was mild regurgitation. Pulmonary artery: Pulmonary systolic pre ssure was mildly increased, in the range of 35mm Hg to 40mm Hg. Right atrium: The atrium was normal in s charlie. Pericardium: There was no pericardial ef fusion. Systemic veins: Inferior vena cava: The vessel was jacob l in size. Measurements Left ventricle Value Reference LV ID, ED, PLAX 4.0 cm 3.5 - 6.0 LV ID, ES, PLAX 2.7 cm 2.1 - 4.0 LV PW thickness, ED, PLAX 0.9 cm ------ --- LV end-diastolic volume, 1-p A2C 55 ml --------- LV ejection fraction, 1-p A2C 49 % ---- ----- LV end-diastolic volume, 1-p A4C 62 ml --------- LV ejection fraction, 1-p A4C 62 % ---- ----- LV IVRT, DP (L) 53 ms 60 - 100 LV e', lateral 0.143 m/sec --------- LV E/e', lateral 6 --------- LV e', medial 0.077 m/sec --------- LV E/e', medial 11 --------- LV e', average 0.11 m/sec --------- LV E/e', average 8 --------- Ventricular septum Value Reference IVS thickness, ED, PLAX 1.1 cm -------- - LVOT Value Reference LVOT ID, S 2.0 cm --------- LVOT area 3.1 cm^2 --------- Aorta Value Reference Aortic root ID 2.7 cm --------- Ascending aorta ID, A-P 3.0 cm -------- - Ascending aorta ID, A-P, S 3.0 cm ----- ---- Left atrium Value Reference LA ID, A-P, ES 3.4 cm --------- LA ID/bsa, A-P 1.7 cm/m^2 <=2.2 LA/aortic root ratio 1.26 --------- Mitral valve Value Reference Mitral E-wave peak velocity 0.84 m/sec --------- Mitral A-wave peak velocity 0.56 m/sec --------- Mitral deceleration slope 433 cm/s^2 -- ------- Mitral deceleration time 194 ms 150 - 2 30 Mitral pressure half-time 57 ms ------- -- Mitral peak gradient, D 2.8 mm Hg ----- ---- Mitral E/A ratio, peak 1.5 --------- Mitral valve area, PHT, DP 3.9 cm^2 --- ------ Legend: (L) and (H) clemencia values outside specifie d reference range. I have personally reviewed the images an d have reviewed and edited the reported findings. Electronically signed by Antolin Fernandez MD 06/12/2019 16:35 Performing Organization Address City/State/ZIP Code Phon e Number [facility] [place] documented in this encounter Visit Diagnoses Not on filedocumented in this encounter Care Teams Program Director/Traffic Director Relationship Specialty Start Date End Date Pilar Uribe PCP - General 08/30/[address] [place] [address] documented as of this encounter
--- OUTSIDE RECORDS SUMMARY | 2022-06-18 11:22 | XMS_ITS | Encounter Summary ---
:1955 Author Organization [facility] Address [address] [place] [address] Care Team Providers Name Role Phone Hal Gutierrez MD Primary Care Provider Reason for Visit Reason Comments Other Encounter Details Date Type Department Care Team Description 03/19/2015 Refill [facility] Neurology - S Salazar younger MD Other [facility] [place] [address] [place], [place] [id number] [place] [id number] [phone] Social History Tobacco Use Types Packs/Day Years Used Date Never Smoker Alcohol Use Standard Drinks/Week Comments No 0 (1 standard drink = 0.6 oz pure alcoho l) Sex Assigned at Date Recorded Not on file documented as of this encounter Ordered Prescriptions Prescription Sig Dispensed Refills Start Date End Date nortriptyline (PAMELOR) take 2 capsules by 120 Cap 5 04/201507/14/2015 10 mg capsule mouth twice a day documented in this encounter Miscellaneous Notes Telephone Encounter - Esha Guillen RN - 03/19/2015 1529 EDT Nortriptyline rx refilled. documented in this encounter Plan of Treatment Not on filedocumented as of this encounter Visit Diagnoses Not on filedocumented in this encounter Discontinued Medications Medication Sig Discontinue Reason Start Date End Date nortriptyline (PAMELOR) 10 Take 2 Caps by Reorder 10/08/2014 03/19/2015 mg capsule mouth 2 times daily. documented as of this encounter Care Teams Medical Records Director Relationship Specialty Start Date End Date Hal Gutierrez MD PCP - General 06/13/13 08/29/[address] [place] [address] documented as of this encounter
--- OUTSIDE RECORDS SUMMARY | 2022-06-18 11:22 | XMS_ITS | Encounter Summary ---
:1955 Author Organization [facility] Address [address] [place] [address] Care Team Providers Name Role Phone Hal Gutierrez MD Primary Care Provider Reason for Visit Reason Comments Follow-up CT today Encounter Details Date Type Department Care Team Description 11/24/2015 Office Visit [facility] Naef, Bianca Communic ating hydrocephalus (Primary Dx); Neurosurgery - Tone Hayes PA-C S/P ENTRY LEVEL WEB DEVELOPER shunt [place] [address] [place] [id number] [address] [place] [address] (Wo rk) Social History Tobacco Use Types Packs/Day Years Used Date Never Smoker Smokeless Tobacco: Never Used Alcohol Use Standard Drinks/Week Comments No 0 (1 standard drink = 0.6 oz pure alcoho l) Sex Assigned at Date Recorded Not on file documented as of this encounter Last Filed Vital Signs Vital Sign Reading Time Taken Comments Blood Pressure 104/62 11/24/2015 1557 EDT Pulse 72 11/24/2015 1557 EDT Temperature 37.1 ??C (98.7 ??F) 11/24/2015 1557 EDT Respiratory Rate 12 11/24/2015 1557 EDT Oxygen Saturation - - Inhaled Oxygen Concentration - - Weight 79.4 kg (175 lb) 11/24/2015 1557 EDT Height 160 cm (5' 3) 11/24/2015 1557 EDT Body Mass Index 31 11/24/2015 1557 EDT documented in this encounter Functional Status [...] making decisions? documented as of this encounter Progress Notes Bianca Vieyra PA - 11/30/2015 1401 EDT DIVISION OF NEUROSURGERY OUTPATIENT PROGRESS NOTE Chief complaint / Neurosurgical problem: Chief Complaint Patient presents with ??? 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 Altered mental status 07/21/2013 ??? Anemia 07/21/2013 ??? Convulsions 07/21/2013 Ms Jaimes is a 60-year-old female who is seen today in followup for hydrocephalus status post ENTRY LEVEL WEB DEVELOPER shunt placement. The patient is known to our service but was last seen in 2013. At that time, she was admitted to the hospital with suspected meningitis. She developed hydrocephalus which was treated with lumbar drains as well as external ventricular drainage. Due to the risk of infection, it was felt that the ventricular diversion would need to be internalized, and a ENTRY LEVEL WEB DEVELOPER shunt was placed on 09/13/2013. At that time, a Medtronic Delta 1.5 valve was placed, and the patient has been doing well since that time. The patient's family states that over the last year, Socorro's mood has become more labile. She her mood will fluctuate from happy to irritable to crying. She continues to require help with ADLs such as bathing and dressing. The patient was seen by neurology on 2014. At that visit, it was unclear exactly why the patient's mood was fluctuating and she was started on Neudexta. It was recommended that the patient follow up with neurosurgery in regard to the functioning of her shunt. The patient's family, who accompanies her today, state that besides the mood difficulties, she has had some trouble with increasing urinary incontinence. The patient has had some minor headaches, but nothing that seems to be progressive or persistent. IMAGING STUDIES: A CT scan of the head obtained today reveals stable position of the ventricular catheter without any significant change in ventricular caliber. A shunt series obtained today revealed no disruptions seen in the ENTRY LEVEL WEB DEVELOPER shunt catheter from the skull to the pelvis. These images have been personally reviewed and demonstrated to the patient and her family with explanation. EXAM: BP 104/62 mmHg Pulse 72 Temp(Src) 37.1 ??C (98.7 ??F) (Oral) Resp 12 Ht 160 cm (63) Wt 79.379 kg (175 lb) BMI 31.01 kg/m2 The patient is alert, frequent change in mood during the visit from happy to irritated to sad She is accompanied by her parents and sister She presents in a wheelchair Face is symmetric EOMI Contractures of the left elbow, wrist and fingers, right hand contractures Moves all extremities without difficulty Current Outpatient Prescriptions Medication Sig Dispense Refill ??? acetaminophen (TYLENOL) 500 mg tablet Take 1,000 mg by mouth every 6 hours. ??? Calcium-Cholecalciferol, D3, (CALCARB) 600 mg(1,500mg) -200 unit tablet Take 1 Tab by mouth 2 times daily. ??? cholecalciferol, Vitamin D3, 1,000 unit tablet Take 1,000 Units by mouth daily ??? citalopram (CELEXA) 20 mg tablet Take 40 mg by mouth daily. ??? dextromethorphan-quinidine 20-10 mg capsule Take 1 Capsule by mouth every 12 hours Once daily for one week, then twice a day. 120 Cap 5 ??? dextromethorphan-quinidine 20-10 mg capsule Take 1 Capsule by mouth every 12 hours for 30 days Once daily for one week, then twice daily 30 Cap 0 ??? docusate (COLACE) 50 mg/5 mL liquid 10 mL by per g tube route 2 times daily. 120 mL 0 ??? famotidine (PEPCID) 40 mg tablet Take 40 mg by mouth daily. ??? lamoTRIgine (LAMICTAL) 150 mg tablet Take 150 mg by mouth 2 times daily. ??? levothyroxine (SYNTHROID) 125 mcg tablet Take 125 mcg by mouth daily. ??? MULTIVITAMIN ORAL Take by mouth. ??? PEG 3350-Electrolytes (MIRALAX) 17 gram packet Take 17 g by mouth daily. ??? rivaroxaban (XARELTO) 20 mg tablet tablet Take 20 mg by mouth daily. ??? simvastatin (ZOCOR) 10 mg tablet Take 20 mg by mouth daily. ??? SULFAMETHOXAZOLE/TRIMETHOPRIM (BACTRIM ORAL) Take 160 mg by mouth 2 times daily. No current facility-administered medications for this visit. IMPRESSION: Ms Jaimes is seen today in neurosurgery followup to ensure proper functioning of her ENTRY LEVEL WEB DEVELOPER shunt due tofrequent mood fluctuations. It does appear that the patient's shunt is working properly. We discussed a shuntogram to ensure that there is no blockage of flow, which would be the last confirmation testto ensure that the shunt is working well. The patient's family would like to hold off on this for now as they are reassured by the head CT and shunt series that the shunt is most likely functioning. They will continue to follow up with neurology as needed and will contact us with any further questionsor concerns. All questions were answered, and the patient and her family are in agreement with the plan. PLAN: Consideration of shuntogram if the patient's symptoms worsen. Follow up with neurosurgery if symptoms change or worsen. Dr Gutierrez, thank you for the opportunity to care for this patient. Please feel free to contact the office with any questions or concerns. Sincerely, KIRSTY Burr documented in this encounter Plan of Treatment Not on filedocumented as of this encounter Visit Diagnoses Diagnosis Communicating hydrocephalus (HCC-CMS) (H CC) - Primary Communicating hydrocephalus S/P ENTRY LEVEL WEB DEVELOPER shunt Presence of cerebrospinal fluid drainage device documented in this encounter Historical Medications This list may reflect changes made after this encounter. Medication Sig Dispensed Refills Start Date End Date SULFAMETHOXAZOLE/TRIMETHOP Take 160 mg by mouth 0 RIM (BACTRIM ORAL) 2 times daily. added in this encounter Care Teams Entertainment Centre Manager Relationship Specialty Start Date End Date Hal Gutierrez MD PCP - General 06/13/13 08/29/18 [address] [place] [address] documented as of this encounter
--- OUTSIDE RECORDS SUMMARY | 2022-06-18 11:22 | XMS_ITS | Encounter Summary ---
:1955 Author Organization [facility] Address [address] [place] [address] Care Team Providers Name Role Phone Hal Gutierrez MD Primary Care Provider Reason for Visit Reason Onset Date Comments Medications Refill 07/25/2015 Encounter Details Date Type Department Care Team Description 07/25/2015 Telephone [facility] Александр Sahu MD Medications Refill Neurology - S [facility] [address] [place], [place] [id number] [place] [id number] [phone] Social History Tobacco Use Types Packs/Day Years Used Date Never Smoker Alcohol Use Standard Drinks/Week Comments No 0 (1 standard drink = 0.6 oz pure alcoho l) Sex Assigned at Date Recorded Not on file documented as of this encounter Miscellaneous Notes Telephone Encounter - Esha Guillen RN - 07/25/2015 1647 EST TC to [facility] - they have rx but cannot fill until tomorrow. TC to [facility] who is aware rx can be filled tomorrow. elephone Encounter - Esha Guillen RN - 07/25/2015 1536 EST Review of [facility] indicates rx was sent 07/14/15. Attempted to contact Pharmacy - they are busy and request call back in 10 minutes. elephone Encounter - Dakota Ronquillo - 07/25/2015 1130 EST Calling to check status of RX request for nortriptyline (PAMELOR) 10 mg capsule (80mg/day). Called pharmacy says they do not have it. documented in this encounter Plan of Treatment Not on filedocumented as of this encounter Visit Diagnoses Not on filedocumented in this encounter Care Teams Assembler Motor Vehicle Relationship Specialty Start Date End Date Hal Gutierrez MD PCP - General 06/13/13 08/29/[address] [place] [address] documented as of this encounter
--- OUTSIDE RECORDS SUMMARY | 2022-06-18 11:22 | XMS_ITS | Encounter Summary ---
:1955 Author Organization [facility] Address [address] [place] [address] Care Team Providers Name Role Phone Pilar Uribe Primary Care Provider Encounter Details Date Type Department Care Team Description 10/16/2018 Hospital Encounter [facility] Unknown, Neurophysiology - Main Provider, [facility] [phone] [address] [facility] (Work) [place], [place] [id number] Social History Tobacco Use Types Packs/Day Years [...] making decisions? documented as of this encounter Medications at Time of Discharge [...] Take 1 Capsule by 120 Cap 5 01 / 20-10 mg capsule mouth every 12 hours [...] Code Departure Means Destination Home or Self [facility] documented in this encounter Plan of Treatment Not on filedocumented as of this encounter Visit Diagnoses Not on filedocumented in this encounter Care Teams Radio Engineer Relationship Specialty Start Date End Date Pilar Uribe PCP - General 08/30/[address] [place] [address] documented as of this encounter
--- OUTSIDE RECORDS SUMMARY | 2022-06-18 11:22 | XMS_ITS | Encounter Summary ---
:1955 Author Organization [facility] Address [address] [place] [address] Care Team Providers Name Role Phone Timothy Herndon MD Primary Care Provider Encounter Details Date Type Department Care Team Description 04/11/2017 Results Only [facility] Timothy Herndon MD [phone] [address] [place], [place] [address] (Wo rk) Social History Tobacco Use Types [...] Name Priority Date/Time Associated Diagnosis Comme nts SURGICAL PATHOLOGY Routine 04/11/2017 19:35 Resul ts for this EDT procedure are i n the results section. documented in this encounter Results SURGICAL PATHOLOGY (04/11/2017 19:35 EDT) Pathology SURGICAL PATHOLOGY REPORT [facility] Report: Reports generated via electronic interface conta in original data; [facility] however they are lacking the format of the original re port. SERVICES Caution should be taken when reading/interpreting unfo rmatted reports. Name: ? SOCORRO JAIMES ? Accession #: ? [id number] ? : ? 1955 (Age: 61) ??F ? Collect Date: ? 04/11/2017 ? Location: ? [facility] ? Receive Date: ? Provider: TIMOTHY HERNDON MD Copy to: ? Final Pathologic Diagnosis: SKIN OF LEG, RIGHT LOWER, PUNCH BIOPSY: - Superficial and deep periv ascular dermatitis with focal epidermal spongiosis. See comment. Comment: The biopsy is notable for a dense dermal infiltrate th at includes numerous eosinophils. ??The histologi c features are most suggestive of arthropod assault reaction (bug bite). ??Other forms of dermal hypersensitivity reaction would also be included in the differential diagnosis. ??(Dr. Bhatti )/bashir Microscopic Description: Sections consist of a bisected punch biopsy of skin to the subcutis. ??The stratum corneum, centrally, has a focus of crust. ??The epidermis shows reactive changes with focal spongiosi s beneath the area of crust. ??The remainder of the epidermis shows mild reactive changes. ??The dermis is marked by a dense superficial and deep perivas cular and interstitial infiltrate. ??The infiltrate includes numerous eosinophils, in addition to lymphomo nonuclear cells. ??The vessels show reactive changes with mural swelling and endothelial cell hypertrophy. ??There is erythrocyte extravasation. ??( Dr. Bhatti)/bashir Document reviewed and electronically signed by: SOCORRO BHATTI MD Report ??Date: 04/13/2017 16:29 By the signature above, the attending physician certif ies that he/she has personally conducted a gross and/or microscopic examin ation of the described specimens and rendered or confirmed the above diagnosi s. Specimen(s) Received: R lower leg Clinical History: R leg rash Gross Description: ? Received in formalin labelled with proper patient identification (initials C, D) and R lower leg is a punch biops y of skin (0.4 cm in diameter x 0.2 cm in thickness). The specimen is bisected and submitted entirely in 1. KIRSTY Avelar (ASCP) 04/13/2017 7:47 AM End of Report Specimen Performing Organization Address City/State/ZIP Code Phon e Number [facility] [address] [place] [address] SERVICES documented in this encounter Visit Diagnoses Not on filedocumented in this encounter Care Teams Antique Refinisher Relationship Specialty Start Date End Date Timothy Herndon MD PCP - General 06/13/13 08/29/18 [address] [place] [address] documented as of this encounter
--- OUTSIDE RECORDS SUMMARY | 2022-06-18 11:22 | XMS_ITS | Encounter Summary ---
:1955 Author Organization [facility] Address [address] [place] [address] Care Team Providers Name Role Phone Pilar Uribe Primary Care Provider Reason for Visit Reason Onset Date Comments Follow-up 09/21/2018 Encounter Details Date Type Department Care Team Description 09/21/2018 Telephone [facility] Walt Little MD Follow-up Neurophysiology - [place] in [address] [place] [address] [place] [id number] (Wo rk) Social History Tobacco Use Types [...] Telephone Encounter - Felicita Galvan RN - 09/22/2018 1043 EST Reason for contact: Results of labs drawn on 09/20/18 I spoke with caregiver Iliana Barillas and advised her that renal function was not normal in labs drawnon 09/20/18. I verified that Pilar Uribe is the pcp and faxed lab results to her at [phone]. I asked that caregiver follow up with her office to see if she is concerned about labs elephone Encounter - Rocky Little MD - 09/21/2018 1053 EST The patient has a newly elicited abnormal kidney function tests. Please call the patient's PCP and the patient's caregivers/the patient and inform them of the results. It is less likely that lamotrigine is the culprit at this time. Please advise as above. Thank you. documented in this encounter Plan of Treatment Not on filedocumented as of this encounter Visit Diagnoses Not on filedocumented in this encounter Care Teams Tire Building Supervisor Relationship Specialty Start Date End Date Pilar Uribe PCP - General 08/30/[address] [place] [address] documented as of this encounter
--- OUTSIDE RECORDS SUMMARY | 2022-06-18 11:22 | XMS_ITS | Encounter Summary ---
:1955 Author Organization [facility] Address [address] [place] [address] Care Team Providers Name Role Phone Pilar Uribe Primary Care Provider Reason for Visit Reason Onset Date Comments Appointment Related 03/09/2019 Encounter Details Date Type Department Care Team Description 03/09/2019 Telephone [facility] Teresa Peoples, Arash ointment Related Neurophysiology - [id number] [place] [address], [place]. [address] [place] [address] (Wo rk) Social History Tobacco [...] documented as of this encounter Miscellaneous Notes Addendum Note - Teresa Peoples MD, MD - 03/21/2019 0823 EDT Addended by: TERESA PEOPLES on: 03/21/2019 08:23 Modules accepted: Orders Telephone Encounter - Teresa Peoples MD, MD - 03/21/2019 0822 EDT Noted. The order has been signed. This is a brief test, so I do not anticipate need for anesthesia. Thank you. ddendum Note - Felicita Damon RN - 03/20/2019 1215 EDT Addended by: FELICITA DAMON on: 03/20/2019 12:15 Modules accepted: Orders elephone Encounter - Felicita Damon RN - 03/20/2019 1204 EDT Iliana called. She spoke with pt's sister who is also the guardian. She said they would like to proceed with pt having a CT Angio but would like it scheduled at the [facility] May or beginning of June due to her mother's severe illness. She said around 11 am would work for them Order pended for Dr Peoples to review/edit/sign elephone Encounter - Felicita Damon RN - 03/20/2019 0910 EDT I spoke with Iliana. She had no understanding of the test being ordered. She thought it was another CT Brain. I explained the reason for CT Angio and that it was not another CT Scan Iliana is not the decision maker. Guardian is sister Marta Alonzo (phone [phone]). Marta shares guardianship with pt's mother but pt's mother is currently in hospice. I spoke with Marta. I explained reason for CT Angio and change in med from Simvastatin to Atorvastatin. Marta will investigate and get back to our office if she wants CT Angio reordered. She is ok with change to Atorvastatin elephone Encounter - Felicita Damon RN - 03/20/2019 0826 EDT I called and left detailed message for Iliana to call elephone Encounter - Teresa Peoples MD, MD - 03/19/2019 1537 EDT Noted. The patient and her family should be aware that there is a risk of recurrent stroke in patients who had strokes in the past, but that the final decision is up to the patient and I am happy to continue following with her irrespective of her decision. Please advise the patient as above. Thank you. Telephone Encounter - Felicita Damon RN - 03/09/2019 1442 EDT Reason for contact: Family declining CT Angio at this time Pt last seen 03/01/[address] Angio ordered at visit Will forward to Dr Peoples to let him know that family is declining to have that done at this time Pt due to rtc 05/31/19 elephone Encounter - Ko Cruz - 03/09/2019 1306 EDT Pt's caregiver is calling reporting that they were called with information about the CT scan that was scheduled (ordered by Dr. Peoples) and they do not want to pursue imaging on that right now. Reports the pt's mother is dying and they have a lot going on. I informed I would pass the message to Dr. Peoples and I transfer them to CT scheduling to CXL as I personally cannot do so. They also report the pt might be getting imaging done for ENT so maybe it would be possible to do those both at once, not sure if that would be possible or not. 

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
--- OUTSIDE RECORDS SUMMARY | 2022-06-18 11:22 | XMS_ITS | Encounter Summary ---
:1955 Author Organization [facility] Address [address] [place] [address] Care Team Providers Name Role Phone Hal Gutierrez MD Primary Care Provider Reason for Visit Reason Onset Date Comments Medication Management 08/13/2015 nortriptyline (IVA ELOR) Encounter Details Date Type Department Care Team Description 08/13/2015 Telephone [facility] Salazar Sahu Medic ation Management Neurology - S Yogesh foley MD (nortriptyline [address] [place] ([place]) ) [place] [address] [place], [place] [id number] Social History Tobacco Use Types Packs/Day Years Used Date Never Smoker Alcohol Use Standard Drinks/Week Comments No 0 (1 standard drink = 0.6 oz pure alcoho l) Sex Assigned at Date Recorded Not on file documented as of this encounter Miscellaneous Notes Telephone Encounter - Salazar Sahu MD - 08/14/2015 1879 EST Noted Telephone Encounter - Esha Guillen RN - 08/14/2015 0979 EST Returned TC to Nargis who is concerned that the nortriptyline increase to 40mg BID hasn't helped Socorro. She seems more depressed and stark all the time. She has been seeing a psychologist but Nargis plans to have her see a psychiatrist after the first of the year to help with medication management. I have advised that I will update Dr. Sahu but that since Socorro has not been seen here in over a year it would be a good idea for them to make an appointment to be seen again. Call transferred to main number in order to set up appointment. elephone Encounter - Ladi Daley - 08/13/2015 1552 EST The increase in medication has just made her uglier. PT is more easily upset & stark. Please call to discuss, family very concerned. documented in this encounter Plan of Treatment Not on filedocumented as of this encounter Visit Diagnoses Not on filedocumented in this encounter Care Teams Director Of Group Counseling Program Relationship Specialty Start Date End Date Hal Gutierrez MD PCP - General 06/13/13 08/29/[address] [place] [address] documented as of this encounter
--- OUTSIDE RECORDS SUMMARY | 2022-06-18 11:22 | XMS_ITS | Encounter Summary ---
:1955 Author Organization [facility] Address [address] [place] [address] Care Team Providers Name Role Phone Hal Gutierrez MD Primary Care Provider Reason for Visit Reason Onset Date Comments Other 11/04/2016 Encounter Details Date Type Department Care Team Description 11/04/2016 Telephone [facility] Dulce Maria Machado MD Other Neurology - [address] 1 [facility] 1 [facility], Level 2 [place], [place] [id number] [place] [phone] (Wo rk) Social History Tobacco Use Types [...] this encounter Miscellaneous Notes Telephone Encounter - Ladi Cheng RN - 11/04/2016 8310 EST I spoke with Iliana who has become Socorro's caregiver since her sister passed in September. Iliana saidthat she's been going through the pt's paperwork and does not understand the information regarding the pt's shunt, IVC filter Etc. Since Socorro is not having any new neurological issues and is taking the Neudexta I suggested that she sched appt with Dr. Gutierrez to discuss all of her questions and he should be able to provide the appropriate referrals if they are needed--Mary elephone Encounter - Tristen Rivers - 11/04/2016 1405 EST Iliana, calling on behalf of Socorro who is under her care. She is wondering if she should be scheduling a follow up visit for her. Socorro was last seen in clinic by Dr. Sahu. Dr. Machado examined the patient with Dr. Sahu. She is requesting a call back to discuss. documented in this encounter Plan of Treatment Not on filedocumented as of this encounter Visit Diagnoses Not on filedocumented in this encounter Care Teams Analytical Consultant Relationship Specialty Start Date End Date Hal Gutierrez MD PCP - General 06/13/13 08/29/[address] [place] [address] documented as of this encounter
--- OUTSIDE RECORDS SUMMARY | 2022-06-18 11:22 | XMS_ITS | Encounter Summary ---
:1955 Author Organization [facility] Address [address] [place] [address] Care Team Providers Name Role Phone Hal Gutierrez MD Primary Care Provider Reason for Visit Reason Comments Follow-up Encounter Details Date Type Department Care Team Description 01/24/2015 Office Visit [facility] Meredith High Mammdaniel graphic Surgical Oncology M, DO microcalcification - [address] (Primary Dx) [address] [facility] [address] [address], [place] [address] Social History Tobacco Use Types Packs/Day Years Used Date Never Smoker Alcohol Use Standard Drinks/Week Comments No 0 (1 standard drink = 0.6 oz pure alcoho l) Sex Assigned at Date Recorded Not on file documented as of this encounter Last Filed Vital Signs Vital Sign Reading Time Taken Comments Blood Pressure 98/62 01/24/2015 1401 EDT Pulse 80 01/24/2015 1401 EDT Temperature 36.4 ??C (97.6 ??F) 01/24/2015 1401 EDT Respiratory Rate 16 01/24/2015 1401 EDT Oxygen Saturation - - Inhaled Oxygen Concentration - - Weight - - Height - - Body Mass Index - - documented in this encounter Discharge Diagnoses Diagnosis 793.81 MAMMOGRAPHIC MICROCALCIFICATION[I CD-9-CM] documented in this encounter Progress Notes Meredith High DO - 01/24/2015 1431 EDT Subjective: Patient ID: Socorro Jaimes is an 59 y.o. female. Chief Complaint Patient presents with ??? Follow-up HPI Socorro is seen in 6 month follow up for her right breast mammographic abnormality. As you recall this is a patient that went in for a mammogram in [facility] in July 2014. She was found to have an area of calcifications in the upper outer quadrant of the right breast. Biopsy was recommended, but the family was unsure that the patient would be able to tolerate a stereotactic biopsy without sedation. The patient has an exceptionally complex medical history. She has a longstanding history of developmental delay. This suddenly became much worse in July 2013 when she was admitted to the hospital, unresponsive and having seizures. She was in the hospital for two months and eventually was discharged in a near coma-like state from aseptic meningitis and encephalitis. Since then, due to the family believes a CSF shunt, the patient has had some pretty remarkable recovery. We met with Socorro and her family last year. We discussed several options and elected to simply do a 6-month followup mammogram to assess stability of the calcifications. She presents today after having had that mammogram. She does have a bruise on that right breast. She is not really sure where it came from, otherwise her health has been stable. She is back to her baseline, or potentially even a little bit better than baseline, since her shunt was placed. Patient Active Problem List Diagnosis ??? Altered mental status ??? Anemia ??? Convulsions Past Medical History Diagnosis Date ??? Developmental delay ??? Thyroid disease ??? Seizure ??? Depression Past Surgical History Procedure Laterality Date ??? Csf shunt ??? Breast surgery Family History Problem Relation Age of Onset ??? Cancer Mother 82 Lymphoma ??? Cancer Maternal Uncle Lung ??? Cancer Maternal Grandmother Ovarian, kidney ??? Cancer Maternal Grandfather Lung Social History Substance Use Topics ??? Smoking status: Never Smoker ??? Smokeless tobacco: Not on file ??? Alcohol Use: No Current Outpatient Prescriptions on File Prior to Visit Medication Sig Dispense Refill ??? acetaminophen (TYLENOL) 500 mg tablet Take 1,000 mg by mouth every 6 hours. ??? Calcium-Cholecalciferol, D3, (CALCARB) 600 mg(1,500mg) -200 unit tablet Take 1 Tab by mouth 2 times daily. ??? citalopram (CELEXA) 20 mg tablet Take 40 mg by mouth daily. ??? docusate (COLACE) 50 mg/5 mL liquid [...] ??? MULTIVITAMIN ORAL Take by mouth. ??? nortriptyline (PAMELOR) 10 mg capsule Take 2 Caps by mouth 2 times daily. 120 Cap 5 ??? PEG 3350-Electrolytes (MIRALAX) 17 gram packet Take 17 g by mouth daily. ??? rivaroxaban (XARELTO) 20 mg tablet tablet Take 20 mg by mouth daily. ??? simvastatin (ZOCOR) 10 mg tablet Take 20 mg by mouth daily. No current facility-administered medications on file prior to visit. Allergies Allergen Reactions ??? Latex, Natural Rubber ??? Bacitracin ??? Band-Aid Plus Antibiotic [Bacitracin Zinc-Polymyxin B] ??? Triple Antibiotic [Gpuajqna-Znnohbzeyx-Xbqmzotdd] Review of Systems Constitutional: Positive for malaise/fatigue. Negative for fever, chills and weight loss. HENT: Negative for hearing loss. Eyes: Negative for blurred vision, double vision and photophobia. Respiratory: Negative for cough, shortness of breath and wheezing. Cardiovascular: Negative for chest pain and palpitations. Gastrointestinal: Negative for heartburn, nausea, vomiting and abdominal pain. Genitourinary: Positive for frequency. Negative for dysuria and urgency. Musculoskeletal: Positive for joint pain and falls. Neurological: Positive for sensory change, focal weakness, seizures and weakness. Negative for headaches. Psychiatric/Behavioral: The patient is nervous/anxious. - See HPI Objective: BP 98/62 Pulse 80 Temp(Src) 36.4 ??C (97.6 ??F) (Tympanic) Resp 16 Physical Exam Constitutional: She is oriented to person, place, and time. She appears well- developed and well-nourished. No distress. HENT: Head: Normocephalic and atraumatic. Eyes: Conjunctivae and EOM are normal. Pupils are equal, round, and reactive to light. Neck: Normal range of motion. No thyromegaly present. Cardiovascular: Regular rhythm. No murmur heard. Pulmonary/Chest: Effort normal and breath sounds normal. No respiratory distress. Abdominal: Soft. She exhibits no distension. There is no tenderness. Lymphadenopathy: She has no cervical adenopathy. Neurological: She is alert and oriented to person, place, and time. No cranial nerve deficit. She exhibits abnormal muscle tone. Coordination abnormal. Vitals reviewed. Breast: Breasts and axilla are examined in the seated and the supine position. There are no obvious masses palpated in either breast. She does have a bruise on the right breast that is resolving and the patient cannot remember how it got there. There is no nipple inversion or discharge. There are no axillary masses. Assessment: Socorro was in the office today in 6-month followup for her right breast microcalcifications. I reviewed her films with Dr Rubin Garcia, who feels that these calcifications remained stable. Therefore we are not advocating moving forward with any biopsy. We will just continue to follow up with her. Thank you for allowing me to participate in the care of this very pleasant patient. Plan: (793.81) Mammographic microcalcification (primary encounter diagnosis) Meredith High, DO Med Orders Placed This Visit and Additions to the Medication List Medications ??? cholecalciferol, Vitamin D3, 1,000 unit tablet Sig: Take 1,000 Units by mouth daily documented in this encounter Plan of Treatment Not on filedocumented as of this encounter Visit Diagnoses Diagnosis Mammographic microcalcification - Primar y documented in this encounter Historical Medications This list may reflect changes made after this encounter. Medication Sig Dispensed Refills Start Date End Date cholecalciferol, Vitamin Take 1,000 Units by 0 D3, 1,000 unit tablet mouth daily added in this encounter Care Teams Collection Analyst Relationship Specialty Start Date End Date Hal Gutierrez MD PCP - General 06/13/13 08/29/[address] [place] [address] documented as of this encounter
--- OUTSIDE RECORDS SUMMARY | 2022-06-18 11:22 | XMS_ITS | Encounter Summary ---
:1955 Author Organization [facility] Address [address] [place] [address] Care Team Providers Name Role Phone Pilar Uribe Primary Care Provider Encounter Details Date Type Department Care Team Description 10/14/2018 Hospital Encounter [facility] - [place] MD [address] [place] [address] [facility] [place] [phone] (Wo rk) Social History Tobacco Use Types [...] Code Departure Means Destination Home or Self Correction documented in this encounter Plan of Treatment Not on filedocumented as of this encounter Visit Diagnoses Not on filedocumented in this encounter Care Teams Dividend Clerk Relationship Specialty Start Date End Date Pilar Uribe PCP - General 08/30/[address] [place] [address] documented as of this encounter
--- OUTSIDE RECORDS SUMMARY | 2022-06-18 11:22 | XMS_ITS | Encounter Summary ---
:1955 Author Organization [facility] Address [address] [place] [address] Care Team Providers Name Role Phone Pilar Uribe Primary Care Provider Encounter Details Date Type Department Care Team Description 10/16/2018 Hospital Encounter [facility] - [place] MD [address] [place] [address] [place] [phone] (Wo rk) Social History Tobacco Use Types [...] on filedocumented in this encounter Care Teams Fare Enforcement Officer Relationship Specialty Start Date End Date Pilar Uribe PCP - General 08/30/[address] [place] [address] documented as of this encounter
--- OUTSIDE RECORDS SUMMARY | 2022-06-18 11:22 | XMS_ITS | Encounter Summary ---
:1955 Author Organization [facility] Address [address] [place] [address] Care Team Providers Name Role Phone Pilar Uribe Primary Care Provider Encounter Details Date Type Department Care Team Description 10/15/2018 Hospital Encounter [facility] - [place] MD [address] [place] [address] [facility] [place] [phone] (Wo rk) Social History Tobacco Use Types [...] Code Departure Means Destination Home or Self Usp documented in this encounter Plan of Treatment Not on filedocumented as of this encounter Visit Diagnoses Not on filedocumented in this encounter Care Teams Prep Room Supervisor Relationship Specialty Start Date End Date Pilar Uribe PCP - General 08/30/18 [address] [place] [address] documented as of this encounter
--- OUTSIDE RECORDS SUMMARY | 2022-06-18 11:23 | XMS_ITS | Encounter Summary ---
:1955 Author Organization [facility] Address [address] [place] [address] Care Team Providers Name Role Phone Priscilla Landa Primary Care Provider Reason for Visit Reason Comments New Patient Visit Encounter Details Date Type Department Care Team Description 06/01/2013 Office Visit [facility] Santhosh Brooks (P rimary Dx) Infectious Disease - [place] Femi [address] [address] [address], [place] [address] (Wo rk) Social History Tobacco Use Types Packs/Day Years Used Date Never Assessed Sex Assigned at Date Recorded Not on file documented as of this encounter Last Filed Vital Signs Vital Sign Reading Time Taken Comments Blood Pressure 100/68 06/01/2013 0900 EDT Pulse - - Temperature 36.4 ??C (97.5 ??F) 06/01/2013 0900 EDT Respiratory Rate - - Oxygen Saturation - - Inhaled Oxygen Concentration - - Weight 69.9 kg (154 lb) 06/01/2013 0900 EDT Height - - Body Mass Index - - documented in this encounter Progress Notes Santhosh Brooks MD - 06/04/2013 0738 EDT This office note has been dictated. Santhosh meyers MD - 06/02/2013 0941 EDT DIVISION OF INFECTIOUS DISEASE PROGRESS / FOLLOWUP NOTE - 06/01/2013 SUBJECTIVE: This is the 1st infectious disease clinic visit for Ms Jaimes who is being seen in infectious disease clinic for further evaluation and management of fevers. Ms Jaimes is a 57-year-old woman who has been in her usual state of health with developmental delay. However in the past couple of months, she has been having episodes of failure to thrive as well as intermittent fevers. She was admitted to the [facility] from April 25 to April 27 again with intermittent spiking fevers and nausea and vomiting. That hospitalization was characterized by a fairly extensive workup and it wasdetermined that part of her nausea and vomiting and fevers may have been related to aspiration pneumonitis. She was eating very, very quickly and then coughing and choking on her food. There are also reports from her family that she was having shaking episodes, where she would stare off into space. She would be walking tilting to the right side. She was evaluated subsequently by the neurology servicewho felt that she was having seizures and a CT scan was performed because she had fallen and there was some concern about a subdural; however, CT scan did not reveal any abnormalities, and she was subsequently started on Keppra 250 mg twice per day. In addition, she had previously been treated over the past several months with 2 rounds of ciprofloxacin for presumed urinary tract infection. In addition, her hospitalization was also characterized by a TSH of 9.5 and her Synthroid which she had been taking chronically for hypothyroidism was increased from 100 mcg a day to 125 mcg. The rest of her laboratory data during that hospitalization was otherwise within normal limits except for hematocrit of 33 which it had been 38 in February. Her liver enzymes, renal function and electrolytes were all within nor mal limits. She in the midst of these symptoms, she also had a CT scan of her abdomen as well as ultrasounds of her pelvis and it was noted that she had had an area initially that had by pelvic ultrasound that wasinitially 4.3 x 1.4 x 3.7 cm. There was an attempt to try and obtain fluid, only 2 drops of fluid were obtained and the cultures were negative and a repeat ultrasound on 05/28/2013 shows that pericervical collection looks like it had subsequently increased in size. She has had an extensive workup including multiple blood tests. She has had a vitamin B12 that was within normal limits, on 05/24/2013, folate that was within normal limits. Blood cultures were obtained on April 21 that were no growth.Her last urinalysis on 04/21 did not have leukocytes or blood. PAST MEDICAL HISTORY: Remarkable for the following, developmental delay, depression, hypothyroidism,hyperlipidemia, urinary incontinence, gastroesophageal reflux and mild asthma. ALLERGIES: She has no known allergies. MEDICATIONS: Currently include Lamotrigine. Her Keppra was discontinued several days ago. Synthroid 125 mcg. Cetirizine 10 mg daily. Citalopram 40 mg at bedtime. Vitamin D3. Calcium. Simvastatin 20 mg at bedtime. MiraLax. Melatonin. Oxybutynin. Prilosec. Multivitamins. FAMILY HISTORY: Noncontributory. SOCIAL HISTORY: She lives with her sister in [place], [place]. Her sister functions as her warehouser. Her guardians are her mother and her other sister, and Socorro lives some days of the week with her mother who is 85 years old and lives close by. The sister is and whose just retiredfrom the marina sales and service supervisor at [employer]. Socorro does not smoke, drink alcohol. No travel and no pets. They were camping in February. Socorro did spend 1 night with him. She did bring in wood but does not eat raw food and does not otherwise engage in any exotic hobbies. No other hiking, camping or other exotic hobbies. REVIEW OF SYSTEMS: She has no chest pain, no shortness of breath, no cough. She does have some intermittent nausea, vomiting although that less with the change in her diet, based on a swallowing study that showed that she may be aspirating. She does have some intermittent abdominal pain, no diarrhea. She is incontinent of urine. No headaches, no vision changes, no myalgias or joint difficulties. PHYSICAL EXAMINATION: Vital signs: Today, temperature is 36.4, blood pressure is 100/68. Her weight is 69.8 kilos. General: She is awake, alert, responsive to commands and comes to the clinic with her sister and her sister's . HEENT: She does have dentures in the upper mouth. No dentures in thebottom. There are no oral lesions. Her tongue is somewhat dry. Chest: Clear to auscultation althoughit is not a good inspiration. Cardiac: An S1, S2 without murmurs or extra sounds. Abdomen: Soft. There are bowel sounds. It is nondistended. It is somewhat tender, particularly in the left lower quadrant. She does not have skin rashes. She does not have lymphadenopathy, cervical, supraclavicular, or axillary. Her neurologic is grossly intact. DIAGNOSTIC DATA: Her most recent laboratory data from 05/24/2013 white count 9.8, platelet count 437,000, hematocrit 35, TSH 0.18. Her chemistries from 05/21/2013 were within normal limits. Creatinine 0.7 and albumin was low at 2.8. Her differential on her CBC was 81% neutrophils and 12% lymphocytes. Her sedimentation rate was 103. Her sedimentation rate on 04/25 was 71. Lumbar spine films on 05/24, showed a negative lumbar spine. ASSESSMENT AND PLAN: Fevers and failure to thrive. At this point, it is difficult to know for sure what may be causing Jalyn's intermittent fevers, although the fever curve submitted by her sister shows that they are somewhat low-grade but her failure to thrive is a little bit difficult to ascertain at this point. Chai had a fairly extensive workup including negative blood cultures with multiple scans as well as an improvement in her thyroid function. The only abnormality at this point is a somewhat increasing fluid collection pericervical area of unclear etiology and hypoalbuminemia. At this point, I do not think any additional laboratory data will necessarily be revealing. I would consider additional investigation of this pericervical fluid, however, prior to that determination since it will require general anesthesia, I have asked Socorro's sister to assure that those films get sent to us so we can review those and then make some additional determinations. All of their questions were answered, and there are no barriers to their education. We will make some additional recommendations following review of those films. Santhosh Brooks MD 01 24 PM - Santhosh Brooks MD rn Dictation ID: [id number] cc: Hal Gutierrez MD, [address], [address] [address] documented in this encounter Plan of Treatment Not on filedocumented as of this encounter Visit Diagnoses Diagnosis Fever - Primary Fever, unspecified documented in this encounter Care Teams Criminal Justice Teacher Relationship Specialty Start Date End Date Priscilla Landa FNP PCP - General 04/06/12 06/12/13 [address] [id number] documented as of this encounter
--- OUTSIDE RECORDS SUMMARY | 2022-06-18 11:23 | XMS_ITS | Encounter Summary ---
:1955 Author Organization [facility] Address [address] [place] [address] Care Team Providers Name Role Phone Hal Gutierrez MD Primary Care Provider Encounter Details Date Type Department Care Team Description 07/18/2014 Hospital Encounter [facility] MD Manjinder [address] [facility] [address] [place], [place] [id number] [place] [address] Pavilion, [address] [place] [address] (Wo rk) Social History Tobacco Use Types Packs/Day Years Used Date Never Smoker Alcohol Use Standard Drinks/Week Comments No 0 (1 standard drink = 0.6 oz pure alcoho l) Sex Assigned at Date Recorded Not on file documented as of this encounter Discharge Diagnoses Diagnosis 799.24 EMOTIONAL LABILITY[ICD-9-CM] V45.2 VENTRICULAR SHUNT STATUS[ICD-9-CM] documented in this encounter Medications at Time of Discharge Medication Sig Dispensed Refills Start Date End Date acetaminophen (TYLENOL) Take 1,000 mg by 0 500 mg tablet mouth every 6 hours. Calcium-Cholecalciferol, Take 1 Tab by mouth 0 D3, (CALCARB) 600 2 times daily. mg(1,500mg) -200 unit tablet citalopram (CELEXA) 20 mg Take 40 mg by mouth 0 tablet daily. docusate (COLACE) 50 mg/5 10 mL by per g tube 120 mL 0 0 09/24/2013 mL liquid route 2 times daily. famotidine (PEPCID) 40 mg Take 40 mg by mouth 0 tablet daily. lamoTRIgine (LAMICTAL) Take 150 mg by mouth 0 150 mg tablet 2 times daily. levothyroxine (SYNTHROID) Take 125 mcg by 0 125 mcg tablet mouth daily. MULTIVITAMIN ORAL Take by mouth. 0 PEG 3350-Electrolytes Take 17 g by mouth 0 (MIRALAX) 17 gram packet daily. rivaroxaban (XARELTO) 20 Take 20 mg by mouth 0 mg tablet tablet daily. nortriptyline (PAMELOR) Take 1 Cap by mouth 60 Cap 3 09/01/2014 10 mg capsule at bedtime for 60 doses 1 cap for 2 weeks, if symptoms don't improve, then 2 caps every night.. simvastatin (ZOCOR) 10 mg Take 20 mg by mouth 0 03/01/2019 tablet daily. documented as of this encounter Discharge Disposition Disposition Code Departure Means Destination Auto Discharge Home documented in this encounter Plan of Treatment Pending Results Name Type Priority Associated Diagnoses Date/Ti me OUTSIDE IMAGES - US BREAST Imaging 1 10/09/2013 10:44 EST OUTSIDE IMAGES - MAMMO Imaging 08/09 10:44 EST BREAST OUTSIDE IMAGES - MAMMO Imaging 08/06 10:44 EST BREAST OUTSIDE IMAGES - MAMMO Imaging 08/07 10:44 EST BREAST OUTSIDE IMAGES - MAMMO Imaging 07/30 10:44 EST BREAST OUTSIDE IMAGES - US BREAST Imaging 0 01/08/2011 10:44 EDT OUTSIDE IMAGES - MAMMO Imaging 01/08 10:44 EDT BREAST OUTSIDE IMAGES - US BREAST Imaging 1 10:44 EDT OUTSIDE IMAGES - MAMMO Imaging 06/24 10:44 EDT BREAST OUTSIDE IMAGES - MAMMO Imaging 06/15 10:44 EDT BREAST OUTSIDE IMAGES - MAMMO Imaging 11/27 7:06 EDT BREAST OUTSIDE IMAGES - MAMMO Imaging 11/21 7:06 EDT BREAST OUTSIDE IMAGES - MAMMO Imaging 7:06 EST BREAST Scheduled Orders Name Type Priority Associated Diagnoses Order S chedule OUTSIDE IMAGES - US Imaging One Time for 1 BREAST Occurrences sta rting 08/15/2014 unti l 08/15/2014 OUTSIDE IMAGES - MAMMO Imaging One T charleen for 1 BREAST Occurrences sta rting 08/15/2014 unti l 08/15/2014 OUTSIDE IMAGES - MAMMO Imaging One T charleen for 1 BREAST Occurrences sta rting 08/15/2014 unti l 08/15/2014 OUTSIDE IMAGES - MAMMO Imaging One T charleen for 1 BREAST Occurrences sta rting 08/15/2014 unti l 08/15/2014 OUTSIDE IMAGES - MAMMO Imaging One T charleen for 1 BREAST Occurrences sta rting 08/15/2014 unti l 08/15/2014 OUTSIDE IMAGES - US Imaging One Time for 1 BREAST Occurrences sta rting 08/15/2014 unti l 08/15/2014 OUTSIDE IMAGES - MAMMO Imaging One T charleen for 1 BREAST Occurrences sta rting 08/15/2014 unti l 08/15/2014 OUTSIDE IMAGES - US Imaging One Time for 1 BREAST Occurrences sta rting 08/15/2014 unti l 08/15/2014 OUTSIDE IMAGES - MAMMO Imaging One T charleen for 1 BREAST Occurrences sta rting 08/15/2014 unti l 08/15/2014 OUTSIDE IMAGES - MAMMO Imaging One T charleen for 1 BREAST Occurrences sta rting 08/15/2014 unti l 08/15/2014 OUTSIDE IMAGES - MAMMO Imaging One T charleen for 1 BREAST Occurrences sta rting 08/22/2014 unti l 08/22/2014 OUTSIDE IMAGES - MAMMO Imaging One T charleen for 1 BREAST Occurrences sta rting 08/22/2014 unti l 08/22/2014 OUTSIDE IMAGES - MAMMO Imaging One T charleen for 1 BREAST Occurrences sta rting 08/22/2014 unti l 08/22/2014 documented as of this encounter Procedures Procedure Name Priority Date/Time Associated Comments Diagnosis MA BREAST OUTSIDE 08/16/2014 11:38 Result s for this CONSULTATION EST procedure are i n the results section. documented in this encounter Results MA BREAST OUTSIDE CONSULTATION (08/16/2014 11:38 EST) Anatomical Region Laterality Modality Other Specimen Narrative [facility] - 08/16/2014 14:21 EST MA BREAST OUTSIDE CONSULTATION ??08/16/2014 11:38 AM Signs and Symptoms/Comments: ?? Right breast calcifications. What is our opinion? Review of outside mammograms from [facility]. Exams reviewed: Bilateral screening mamm ogram 07/30/2011, bilateral screening mammogram 08/07/2012, bilatera l screening mammogram 08/06/2014 with additional diagnostic ma gnification images of the right breast, 08/09/2014. There are scattered fibroglandular densi ties in both breasts. Findings left breast: There are no new d ominant masses, abnormal calcifications or areas of architectural distortion. Impression left breast: BI-RADS category 1, negative. Recommendation left breast: Annual scree jazzy mammogram. Right breast findings: There are numerou s stable calcifications in the central breast and upper outer quadr ant. ??There is however a new cluster of linearly oriented heterogeneo us calcifications in the upper outer quadrant that are moderately concerning. ??The other calcifications are largely stable. ??The re are no new suspicious masses or areas of architectural distort ion. Impression right breast: I agree with e outside recommendation for stereotactic biopsy of the new heterogen eous calcifications in the upper outer quadrant. ??BI-RADS category 4. Overall assessment: Suspicious. We will contact the patient with our robert carvajal and recommendations and if she is amenable, have her come here f or the stereotactic biopsy. Procedure Note 08/16/2014 MA BREAST OUTSIDE CONSULTATION 08/16/2014 11:38 AM Signs and Symptoms/Comments: Right breast calcifications. What is our opinion? Review of outside mammograms from [facility]. Exams reviewed: Bilateral screening mamm ogram 07/30/2011, bilateral screening mammogram 08/07/2012, bilatera l screening mammogram 08/06/2014 with additional diagnostic ma gnification images of the right breast, 08/09/2014. There are scattered fibroglandular densi ties in both breasts. Findings left breast: There are no new d ominant masses, abnormal calcifications or areas of architectural distortion. Impression left breast: BI-RADS category 1, negative. Recommendation left breast: Annual scree jazzy mammogram. Right breast findings: There are numerou s stable calcifications in the central breast and upper outer quadr ant. There is however a new cluster of linearly oriented heterogeneo us calcifications in the upper outer quadrant that are moderately concerning. The other calcifications are largely stable. There are no new suspicious masses or areas of architectural distort ion. Impression right breast: I agree with e outside recommendation for stereotactic biopsy of the new heterogen eous calcifications in the upper outer quadrant. BI-RADS category 4 . Overall assessment: Suspicious. We will contact the patient with our fin vus and recommendations and if she is amenable, have her come here f or the stereotactic biopsy. Performing Organization Address City/State/ZIP Code Phon e Number [facility] documented in this encounter Visit Diagnoses Not on filedocumented in this encounter Care Teams Ham Clerk Relationship Specialty Start Date End Date Hal Gutierrez MD PCP - General 06/13/13 08/29/18 [address] [place] [address] documented as of this encounter
--- OUTSIDE RECORDS SUMMARY | 2022-06-18 11:23 | XMS_ITS | Encounter Summary ---
:[address] [facility] Address [address] [place] [address] Care Team Providers Name Role Phone Hal Gutierrez MD Primary Care Provider Reason for Visit Reason Onset Date Comments Results 07/23/2014 gave pt 1 Noratripta line at night for 2 weeks, then 2 for 1 week, pt is still having c rying episodes, wants to discuss pt's CT scan results, please call Encounter Details Date Type Department Care Team Description 07/23/2014 Telephone [facility] Sahu Resul ts (gave pt 1 Neurology - S Prospe ct Noratriptaline at night [address] [facility] [address] for 2 weeks, then 2 for [address] [place] [address] [place] [address] week, pt is still having [phone] crying episodes , wants to (Work) discuss pt's CT scan [phone] results, please call) (Fax) Social History Tobacco Use Types Packs/Day Years Used Date Never Smoker Alcohol Use Standard Drinks/Week Comments No 0 (1 standard drink = 0.6 oz pure alcoho l) Sex Assigned at Date Recorded Not on file documented as of this encounter Miscellaneous Notes Telephone Encounter - Esha Guillen RN - 07/23/2014 1628 EST Returned TC to [facility] who states Socorro is still having crying episodes. She has only been at the20 mg dosage for one week and Nargis is aware that it may take more time. Nargis does feel that Socorro is perhaps not crying as often but it's hard to say for sure. Additionally they are asking for the CT scan results. Will ask Dr. Sahu to review and advise. documented in this encounter Plan of Treatment Not on filedocumented as of this encounter Visit Diagnoses Not on filedocumented in this encounter Care Teams Process Server Relationship Specialty Start Date End Date Hal Gutierrez MD PCP - General 06/13/13 08/29/[address] [place] [address] documented as of this encounter
--- OUTSIDE RECORDS SUMMARY | 2022-06-18 11:23 | XMS_ITS | Encounter Summary ---
:1955 Author Organization [facility] Address [address] [place] [address] Care Team Providers Name Role Phone Timothy Herndon MD Primary Care Provider Reason for Referral Consult, Test and Treat (48 Hrs (Urgent)) - Closed Specialty Diagnoses / Procedures Referred By Contact Refer red To Contact Rehab Therapies Diagnoses Ataxia Cognitive decline Bill Yi MD [address] [place] [phone] Referral ID Status Reason Start Date Expiration Date Visits V isits Requested Authorized [id number] Closed Specialty 06/13/2013 1 1 Services Required Question Answer Reason for Request: possible nph Return Visit to Provider: michael (neurology) Reason for Visit Reason Comments Fever Pt here for intermittent fev ers, vomiting, inability to walk without assistance. Pt also became n onverbal x 2 weeks. Pt has been falling a lot. Encounter Details Date Type Department Care Team Description 06/13/2013 Emergency [facility] Bill Yi MD [address] [place] [id number] Ataxia (Primary Dx); Emergency Department Emergency, MD Tiara Cognitive decline - [address] [address] Social History Tobacco Use Types Packs/Day Years Used Date Never Smoker Alcohol Use Standard Drinks/Week Comments No 0 (1 standard drink = 0.6 oz pure alcoho l) Sex Assigned at Date Recorded Not on file documented as of this encounter Last Filed Vital Signs Vital Sign Reading Time Taken Comments Blood Pressure 103/64 06/13/2013 1144 EDT Pulse 81 06/13/2013 1144 EDT Temperature 36.3 ??C (97.3 ??F) 06/13/2013 1144 EDT Respiratory Rate 14 06/13/2013 1144 EDT Oxygen Saturation 100% 06/13/2013 1144 EDT Inhaled Oxygen Concentration - - Weight 70.3 kg (155 lb) 06/13/2013 1144 EDT Height - - Body Mass Index - - documented in this encounter Discharge Instructions InstructionsBill Yi MD - 06/13/2013 1. Drink plenty of fluids. 2. Continue all of your medications as prescribed. 3. follow-up tomorrow at rehabilitation for a physical therapy evaluation. Return to the Emergency Department (ED) if your condition worsens, does not improve as expected, or for any other concerns. Specifically return if you have new or uncontrolled pain, worsening fever, difficulty breathing, vomiting, or are unable to drink fluids. documented in this encounter Medications at Time of Discharge Medication Sig Dispensed Refills Start Date End Date Calcium-Cholecalciferol, Take 1 Tab by 0 D3, (CALCARB) 600 mouth 2 times mg(1,500mg) -200 unit daily. tablet citalopram (CELEXA) 20 mg Take 40 mg by 0 tablet mouth daily. PEG 3350-Electrolytes Take 17 g by mouth 0 (MIRALAX) 17 gram packet daily. cholecalciferol, Vitamin Take 1,000 Units 0 09/24/2013 D3, 1,000 unit tablet by mouth 2 times daily. lamoTRIgine (LAMICTAL) 25 Take 50 mg by 0 07/04/2013 mg tablet mouth daily. levothyroxine (SYNTHROID) Take 125 mcg by 0 09/24/2013 125 mcg tablet mouth daily. melatonin 3 mg tablet Take by mouth. 0 09/24/2013 multivitamin, stress Take 1 Tab by 0 0 09/24/2013 formula tablet mouth daily. omeprazole (PRILOSEC) 20 mg Take 20 mg by 0 09/24/2013 capsule mouth daily. oxybutynin (DITROPAN) 5 mg Take 2.5 mg by 0 09/24/2013 tablet mouth 2 times daily. simvastatin (ZOCOR) 10 mg Take 20 mg by 0 03/01/2019 tablet mouth daily. documented as of this encounter Discharge Disposition Disposition Code Departure Means Destination Home or Self Care Wheelchair Home documented in this encounter ED Notes Constanza Segura RN - 06/13/2013 1626 EDT IVF disconnected and pt ambulating w/ assist of family to BR. Constanza Wilson RN - 06/13/[address] Yi, LP held at this time - neuro to be contacted. onstanza Cobb RN - 06/13/2013 1533 EDT Pt resting, eyes closed. Family bedside. Plan is for LP in IR at this time. Family aware. Constanza Wilson RN - 06/13/[address] scan via stretcher. onstanza Cobb RN - 06/13/2013 1300 EDT Blood drawn via butterfly needle per protocol, cultures tube(s) sent to lab per order. Constanza Segura RN - 06/13/2013 1300 EDT Blood drawn via saline lock per protocol, tiger, green, purple and cultures tube(s) sent to lab per order. ill Yi MD - 06/13/2013 1205 EDT DOS: 06/13/2013 Chief Complaint Patient presents with ??? Fever Pt here for intermittent fevers, vomiting, inability to walk without assistance. Pt also became nonverbal x 2 weeks. Pt has been falling a lot. The patient is a 57 y.o. female who presents today with Fever HPI Comments: I, Jess Marcelo, am scribing for Bill Yi, * while he/she is personally performing the service. Jess Marcelo 06/13/2013 12:05 Socorro Jaimes is a 57 y.o. female with a history of developmental delay, thyroid disease, and seizure, who presents with family who are concerned about 3 months of increased falls, ataxia, and increased fatigue. Pt has had an extensive evaluation for her progressive decline including admisssion to [facility] 04/25-04/27 with diagnosis with aspiration pneumonitis and hiatal hernia. Work up has included a head CT, EEG, and treatment with lamotrigine for twitching episodes and possible seizures. Also has had abdominal/pelvic CT and USs diagnostic for a pericervical fluid, Cultures were neg and freight trucker eval felt collection was not clinically significant but collection has been increased in size on a more recent pelvic ultrasound. Most recently evaluated for her decline and low grade fevers by [facility] (Dr. Brooks). Per family, pt has dramatically declined over the past two weeks, becoming non-verbal and having increased difficulty with gait and frequent falls. Has a new left parietal scalp lac/cotusion. The history is provided by a relative and medical records. Review of Systems Constitutional: Positive for fatigue. Negative for fever and chills. HENT: Negative for neck stiffness. Eyes: Negative for visual disturbance. Respiratory: Negative for shortness of breath. Cardiovascular: Negative for chest pain. Gastrointestinal: Negative for abdominal pain. Genitourinary: Negative for dysuria. Musculoskeletal: Positive for gait problem. Negative for back pain. Skin: Negative for rash. Neurological: Positive for speech difficulty. Negative for syncope and headaches. Psychiatric/Behavioral: Negative for confusion. All other systems reviewed and are negative. Past Medical History Diagnosis Date ??? Developmental delay ??? Thyroid disease ??? Seizure History reviewed. No pertinent past surgical history. Allergies Allergen Reactions ??? Bacitracin ??? Band-Aid Plus Antibiotic (Bacitracin Zinc-Polymyxin B) ??? Latex, Natural Rubber ??? Triple Antibiotic (Auihpqrl-Whrvdmtutb-Lueaugdhq) History Substance Use Topics ??? Smoking status: Never Smoker ??? Smokeless tobacco: Not on file ??? Alcohol Use: No No family history on file. Vital Signs Temp: 36.3 ??C (97.3 ??F) Temp src: Tympanic Pulse: 81 Resp: 14 SpO2: 100 % SpCO: 0 % BP: 103/64 mmHg BP Device: BP Machine O2 Device: None (Room air) Physical Exam Nursing note and vitals reviewed. Constitutional: She appears well-developed and well-nourished. HENT: Head: Normocephalic and atraumatic. 3cm laceration to L parietal scalp, healing well, no erythema, induration, or tenderness. Eyes: Pupils are equal, round, and reactive to light. Right eye exhibits no discharge. Left eye exhibits no discharge. Neck: Normal range of motion. Cardiovascular: Normal rate, regular rhythm and intact distal pulses. Pulmonary/Chest: Effort normal and breath sounds normal. No respiratory distress. Limited by pt interaction Abdominal: Soft. There is no tenderness. Musculoskeletal: Normal range of motion. Neurological: She is alert. Gait (sig ataxia and imbalance) abnormal. Patient cooperative with basic commands but otherwise non verbal Skin: Skin is warm and dry. Psychiatric: Non-verbal, tearful. Per family, significantly different affect than baseline Radiology orders: CT Head WO Contrast: 1. Lateral, third and fourth ventriculomegaly concerning for hydrocephalus. 2. Mild periventricular white matter hypoattenuation may reflect subependymal fluid resorption or mild small vessel ischemic change. 3. Mild paranasal sinus mucosal inflammatory changes. 4. Osteoarthritis of the temporomandibular joints. I personally reviewed the above studies contemporaneously and independently. Discussed findings with attending radiologist. Procedures Lab Results BACTERIAL CULTURE, BLOOD (In process) Result time:06/13/13 1508 BACTERIAL CULTURE, BLOOD (In process) Result time:06/13/13 1507 SCREENING GLUCOSE (Final result) Abnormal Component (Lab Inquiry) Result Time Glucose, Screening 06/13/13 1322 116 (H) ELECTROLYTES (Final result) Abnormal Component (Lab Inquiry) Result Time Sodium Potassium Chloride CO2 06/13/13 1322 130 (L) 4.6 93 (L) 28 BUN (Final result) Component (Lab Inquiry) Result Time BUN 06/13/13 1322 12 CREATININE (Final result) Component (Lab Inquiry) Result Time Creatinine GFR, Calculated 06/13/13 1322 0.69 >60 MAGNESIUM (Final result) Component (Lab Inquiry) Result Time Magnesium 06/13/13 1322 2.1 CALCIUM (Final result) Component (Lab Inquiry) Result Time Calcium Calculated Calcium 06/13/13 1322 8.6 9.6 LACTIC ACID (Final result) Component (Lab Inquiry) Result Time LACTATE 06/13/13 1322 1.5 HEMAGRAM AND DIFFERENTIAL (Final result) Result time:06/13/13 1316 HEMAGRAM (Final result) Abnormal Component (Lab Inquiry) Result Time WBC RBC Hemoglobin HCT MCV 06/13/136 9.15 3.73 (L) 10.9 (L) 32.8 (L) 88 Result Time MCH MCHC PLT RDW-CV 06/13/131315 29.3 33.3 364 (H) 15.6 (H) DIFFERENTIAL (Final result) Component (Lab Inquiry) Result Time Neutrophils Lymphocytes Monocytes Eosinophils Basophils 06/13/13 131 73.0 16.2 5.2 4.4 1.2 Result Time ABS Neutrophils ABS Lymphs ABS Monocytes ABS Eosinophils ABS Basophils 06/13/13 1316 6.68 1.48 0.48 0.40 0.11 Result Time Type of Diff: 06/13/13 1316 Automated ED Course: 06/13/2013 12:05 A medical screening exam was performed. Pt with complex PMH including develpmental delay and recent admission at [facility] presents with worsening fatigue and increased episodes of falling. 06/13/2013 14:24 CT scan diagnostic for sig ventriculomegaly. Discussed case Dr. Watson, neuroradiology, who reviewed previous imaging on 04/25 from [facility] with similar diagnostic findings. Differential more likely forNPH vs outflow obstruction. 06/13/2013 16:01 Neurology consulted. Recommended outpatient PT evaluation with subsequent neuro clinic follow up forpossible drain placement. 06/13/2013 16:27 Pt re-evaluated and family is comfortable with plan for appointment tomorrow at [facility] for PT evaluation and neurology outpatient follow-up. Disposition: Discharged Pt re-evaluated immediately prior to discharge with Stable symptoms, normal vital signs, and tolerating PO. Pain level prior discharge: 0. Discussed clinical/diagnostic findings. Discharged with a clear plan for outpatient follow up. Given usual and customary return instructions prior to discharge. Condition at departure from the Emergency Department: Stable Discharge Prescriptions New Prescriptions No Discharge Prescriptions for this patient MDM Number of Diagnoses or Management Options Ataxia: established, worsening Cognitive decline: established, worsening Amount and/or Complexity of Data Reviewed Clinical lab tests: ordered and reviewed Tests in the radiology section of CPT??: ordered and reviewed Discussion of test results with the performing providers: yes Decide to obtain previous medical records or to obtain history from someone other than the patient: yes Obtain history from someone other than the patient: yes Review and summarize past medical records: yes Discuss the patient with other providers: yes Independent visualization of images, tracings, or specimens: yes Risk of Complications, Morbidity, and/or Mortality Presenting problems: high Diagnostic procedures: high Management options: high General comments: 5 Patient Progress Patient progress: improved Final diagnoses: Ataxia Cognitive decline PCP: TIMOTHY HERNDON MD 06/13/2013 16:29 Chloe Sandoval - 06/13/2013 1123 EDT TCALL: SOCORRO JAIMES 1955 REFERRED BY [facility]. SEEN HERE RECENTLY FORFEVERS, NOW STIFF AND VERBALLY NON-COMMUNICATIVE. FAXING RECORDS TO ED JOB SUPERINTENDENT (LYF). documented in this encounter Miscellaneous Notes Scanned Note-Null - AEROSPACE ENGINEER, SCAN 2 - 06/15/2013 1159 EDT documented in this encounter Plan of Treatment Scheduled Referrals Name Type Priority Associated Diagnoses Order S chedule AMB CONSULT Outpatient Referral STAT Ataxia Ordered: PHYSICAL THERAPY Cognitive Decline 2012 documented as of this encounter Procedures Procedure Name Priority Date/Time Associated Comments Diagnosis CT HEAD WO CONTRAST 06/13/2013 13:11 Resu lts for this EDT procedure are i n the results section. SCREENING GLUCOSE STAT 06/13/2013 12:23 Result s for this EDT procedure are i n the results section. BACTERIAL CULTURE, Routine 06/13/2013 12:23 Resul ts for this BLOOD EDT procedure are i n the results section. BACTERIAL CULTURE, Routine 06/13/2013 12:23 Resul ts for this BLOOD EDT procedure are i n the results section. LACTIC ACID STAT 06/13/2013 12:23 Results for this EDT procedure are i n the results section. DIFFERENTIAL Routine 06/13/2013 12:23 Results for this EDT procedure are i n the results section. COMPLETE BLOOD COUNT Routine 06/13/2013 12:23 Res ults for this EDT procedure are i n the results section. COMPLETE BLOOD COUNT STAT 06/13/2013 12:23 AND DIFFERENTIAL EDT BUN STAT 06/13/2013 12:23 Results for this EDT procedure are i n the results section. MAGNESIUM STAT 06/13/2013 12:23 Results for this EDT procedure are i n the results section. CREATININE STAT 06/13/2013 12:23 Results for this EDT procedure are i n the results section. CALCIUM STAT 06/13/2013 12:23 Results for this EDT procedure are i n the results section. ELECTROLYTES STAT 06/13/2013 12:23 Results for this EDT procedure are i n the results section. documented in this encounter Results CT HEAD WO CONTRAST (06/13/2013 13:11 EDT) Anatomical Region Laterality Modality Other Specimen Narrative [facility] - 06/13/2013 14:33 EDT Addendum Begins Addendum: CT of the head with and without contrast from [facility] on April 27, 2013 has been made available for comparison to the current study. The lateral, 3rd and 4th ventricles are unchanged in size compared to the the study. Mild periventricular whit e matter hypoattenuation is also stable. On the contrast enhanced CT images, no obstructive lesion is identified. In light of these findings, obstructive hydrocephalus is considered unlikely. Ventriculomegaly demonstrated on today's exam could be seen in the setting of disproportionate centr al volume loss or with non-obstructive hydrocephalus including normal pressure hydrocephalus. Addendum Ends CT HEAD WITHOUT CONTRAST June 13, 2013 Indication: Altered mental status. Comparison: None available. Technique: Axial noncontrast CT images of the head were obtained with coronal reformations. Findings: The lateral, third and fourth ventricles are large and out of proportion to the degree of cortical vol ume loss present which is age-appropriate. There is mild periventr icular white matter hypoattenuation present which could be s een in the setting of subependymal fluid resorption or with mi ld small vessel ischemic change. There is no midline shift. The b asilar cisterns are patent. No intracranial hemorrhage, abnormal ext ra-axial fluid collection or space-occupying lesion is identified. Th ere is no CT evidence of acute large distribution infarct. Incide ntal note is made of mild nodular mucosal thickening within the ma xillary sinuses and within the posterior ethmoid air cell on the le ft. The mastoid air cells and middle ear cavities are clear. 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 Impression: 1. Lateral, third and fourth ventriculom egaly concerning for hydrocephalus. If previous imaging studi es are available these would be helpful for comparison. If this is a new finding, contrast enhanced MRI of the brain is suggested t o assess for obstructing lesion. 2. Mild periventricular white matter hyp oattenuation may reflect subependymal fluid resorption or mild sm all vessel ischemic change. 3. Mild paranasal sinus mucosal inflamma tory changes. 4. Osteoarthritis of the temporomandibul ar joints. Procedure Note 06/13/2013 Addendum Begins Addendum: CT of the head with and without contrast from [facility] on April 27, 2013 has been made available for comparison to the current study. The lateral, 3rd and 4th ventricles are unchanged in size compared to the the study. Mild periventricular whit e matter hypoattenuation is also stable. On the contrast enhanced CT images, no obstructive lesion is identified. In light of these findings, obstructive hydrocephalus is considered unlikely. Ventriculomegaly demonstrated on today's exam could be seen in the setting of disproportionate centr al volume loss or with non-obstructive hydrocephalus including normal pressure hydrocephalus. Addendum Ends CT HEAD WITHOUT CONTRAST June 13, 2013 Indication: Altered mental status. Comparison: None available. Technique: Axial noncontrast CT images of the head were obtained with coronal reformations. Findings: The lateral, third and fourth ventricles are large and out of proportion to the degree of cortical vol ume loss present which is age-appropriate. There is mild periventr icular white matter hypoattenuation present which could be s een in the setting of subependymal fluid resorption or with mi ld small vessel ischemic change. There is no midline shift. The b asilar cisterns are patent. No intracranial hemorrhage, abnormal ext ra-axial fluid collection or space-occupying lesion is identified. Th ere is no CT evidence of acute large distribution infarct. Incide ntal note is made of mild nodular mucosal thickening within the ma xillary sinuses and within the posterior ethmoid air cell on the le ft. The mastoid air cells and middle ear cavities are clear. 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 Impression: 1. Lateral, third and fourth ventriculom egaly concerning for hydrocephalus. If previous imaging studi es are available these would be helpful for comparison. If this is a new finding, contrast enhanced MRI of the brain is suggested t o assess for obstructing lesion. 2. Mild periventricular white matter hyp oattenuation may reflect subependymal fluid resorption or mild sm all vessel ischemic change. 3. Mild paranasal sinus mucosal inflamma tory changes. 4. Osteoarthritis of the temporomandibul ar joints. Performing Organization Address City/State/ZIP Code Phon e Number [facility] DIFFERENTIAL (06/13/2013 12:23 EDT) Pathologist Sig nature Neutrophils 73.0 45.5 - 79.7 % [facility] Lymphocytes 16.2 15.0 - 46.8 % [facility] Monocytes 5.2 1.8 - 12.0 % [facility] Eosinophils 4.4 0.6 - 6.9 % [facility] Basophils 1.2 0.2 - 1.4 % [facility] ABS Neutrophils 6.68 2.20 - 8.85 K/cmm [facility] ABS Lymphs 1.48 1.09 - 3.30 K/cmm [facility] ABS Monocytes 0.48 0.1 - 0.8 K/cmm [facility] ABS Eosinophils 0.40 0.03 - 0.61 K/cmm [facility] ABS Basophils 0.11 0.01 - 0.11 K/cmm [facility] Type of Diff: Automated [facility] Specimen Performing Organization Address [facility] Phon e Number [facility] [address] [place] [address] SERVICES [facility] [address] [place] [address] (ABNORMAL) HEMAGRAM (06/13/2013 12:23 EDT) Pathologist Sig nature WBC 9.15 4.0 - 12.4 K/cmm [facility] RBC 3.73 (L) 3.86 - 5.04 M/cmm [facility] Hemoglobin 10.9 (L) 11.6 - 15.2 gm/dl [facility] HCT 32.8 (L) 34.9 - 44.4 % [facility] MCV 88 81 - 98 fl [facility] MCH 29.3 26.7 - 33.3 pg [facility] MCHC 33.3 32.1 - 35.9 gm/dl [facility] PLT 364 (H) 141 - 320 K/cmm [facility] RDW-CV 15.6 (H) 11.7 - 14.6 % [facility] Specimen Performing Organization Address [facility] Phon e Number [facility] [address] [place] [address] SERVICES [facility] [address] [place] [address] BACTERIAL CULTURE, BLOOD (06/13/2013 12:23 EDT) Specimen Description Blood Left [facility] volume of blood collected: 20 ml Result No growth [facility] Report Status 06/18/2013 Final [facility] Specimen Other (qualifier value) - Blood Performing Organization Address [facility] Phon e Number [facility] [address] [place] [address] SERVICES [facility] [address] [place] [address] BACTERIAL CULTURE, BLOOD (06/13/2013 12:23 EDT) Specimen Description Blood AEROBIC [facility] BLOOD CULTURE BOTTLE Left Hand Total volume of blood collected: 7 ml Result No growth [facility] Report Status 06/18/2013 Final [facility] Specimen Other (qualifier value) - Blood Performing Organization Address [facility]/ZIP Code Phon e Number [facility] [address] [place] [address] SERVICES [facility] [address] [place] [address] LACTIC ACID (06/13/2013 12:23 EDT) Pathologist Sig nature Lactic Acid 1.5 0.7 - 2.1 mmol/L [facility] Specimen Blood specimen (specimen) Performing Organization Address City/[facility]/ZIP Code Phon e Number [facility] [address] [place] [address] SERVICES [facility] [address] [place] [address] CALCIUM (06/13/2013 12:23 EDT) Pathologist Sig nature Calcium 8.6 8.5 - 10.5 mg/dl [facility] Calculated Calcium 9.6 8.5 - 10.5 mg/dl [facility] Specimen Blood specimen (specimen) Performing Organization Address [facility] Phon e Number [facility] [address] [place] [address] SERVICES [facility] [address] [place] [address] MAGNESIUM (06/13/2013 12:23 EDT) Pathologist Sig nature Magnesium 2.1 1.7 - 2.8 mg/dl [facility] Specimen Blood specimen (specimen) Performing Organization Address [facility] Phon e Number [facility] [address] [place] [address] SERVICES [facility] [address] [place] [address] CREATININE (06/13/2013 12:23 EDT) Pathologist Sig nature Creatinine 0.69 0.52 - 1.04 mg/dl [facility] GFR, Calculated >60 >60 ml/min/1.73m2 [facility] Specimen Blood specimen (specimen) Performing Organization Address City/[facility]/ZIP Code Phon e Number [facility] [address] [place] [address] SERVICES [facility] [address] [place] [address] BUN (06/13/2013 12:23 EDT) Pathologist Sig nature BUN 12 10 - 26 mg/dl [facility] Specimen Blood specimen (specimen) Performing Organization Address City/State/ZIP Code Phon e Number [facility] [address] [place] [address] SERVICES [facility] [address] [place] [address] (ABNORMAL) ELECTROLYTES (06/13/2013 12:23 EDT) Pathologist Sig nature Sodium 130 (L) 136 - 145 mEq/L [facility] Potassium 4.6 3.5 - 5.0 mEq/L [facility] Chloride 93 (L) 96 - 110 mEq/L [facility] CO2 28 24 - 32 mEq/L [facility] Specimen Blood specimen (specimen) Performing Organization Address City/[facility] Phon e Number [facility] [address] [place] [address] SERVICES [facility] [address] [place] [address] (ABNORMAL) SCREENING GLUCOSE (06/13/2013 12:23 EDT) Pathologist Sig nature Glucose, Screening 116 (H) 70 - 100 mg/dl [facility] Specimen Blood specimen (specimen) Performing Organization Address [facility] Phon e Number [facility] [address] [place] [address] SERVICES [facility] [facility] [address] [place] [address] documented in this encounter Visit Diagnoses Diagnosis Ataxia - Primary Lack of coordination Cognitive decline Unspecified persistent mental disorders due to conditions classified elsewhere documented in this encounter Administered Medications Inactive Administered Medications - up to 3 most recent administrations Medication Order MAR Action Action Date Dose Rate Site sodium chloride (NS) 0.9 % 1,000 Given 06/13/2013 13:00 EDT 1,00 0 mL mL BOLUS 1,000 mL, intravenous, Once (NO Time Specified), 1 dose, Starting on Tue06/13/13 at 1245, Until Tue06/13/13 at 1300, STAT documented in this encounter Historical Medications This list may reflect changes made after this encounter. Medication Sig Dispensed Refills Start Date End Date PEG 3350-Electrolytes Take 17 g by mouth 0 (MIRALAX) 17 gram packet daily. Calcium-Cholecalciferol, Take 1 Tab by 0 D3, (CALCARB) 600 mouth 2 times mg(1,500mg) -200 unit daily. tablet citalopram (CELEXA) 20 mg Take 40 mg by 0 tablet mouth daily. lamoTRIgine (LAMICTAL) 25 Take 50 mg by 0 07/04/2013 mg tablet mouth daily. levothyroxine (SYNTHROID) Take 125 mcg by 0 09/24/2013 125 mcg tablet mouth daily. melatonin 3 mg tablet Take by mouth. 0 09/24/2013 cholecalciferol, Vitamin Take 1,000 Units 0 09/24/2013 D3, 1,000 unit tablet by mouth 2 times daily. oxybutynin (DITROPAN) 5 mg Take 2.5 mg by 0 09/24/2013 tablet mouth 2 times daily. multivitamin, stress Take 1 Tab by 0 0 09/24/2013 formula tablet mouth daily. omeprazole (PRILOSEC) 20 mg Take 20 mg by 0 09/24/2013 capsule mouth daily. simvastatin (ZOCOR) 10 mg Take 20 mg by 0 03/01/2019 tablet mouth daily. added in this encounter Active and Recently Administered Medications Times are shown in EDT. Scheduled Medication Order 06/11/2013 06/12/2013 06/13/2013 sodium chloride (NS) 0.9 % 1,000 mL BOLUS (COMPLETED) 1300 (Given - Provider: Constanza Segura RN) 1,000 mL, intravenous, ONCE, 1 dose, First dose on Tue06/13/13 a t 1245, STAT documented in this encounter Orders Nursing Count Last Ordered Date First Ordered Date INSERT PERIPHERAL IV 1 06/13/2013 PULSE OXIMETRY 1 06/13/2013 documented in this encounter Care Teams Cloth Classer Relationship Specialty Start Date End Date Timothy Herndon MD PCP - General 06/13/13 08/29/[address] [place] [address] documented as of this encounter
--- OUTSIDE RECORDS SUMMARY | 2022-06-18 11:23 | XMS_ITS | Encounter Summary ---
:1955 Author Organization [facility] Address [address] [place] [address] Care Team Providers Name Role Phone Hal Gutierrez MD Primary Care Provider Encounter Details Date Type Department Care Team Description 06/13/2013 Documentation Visit [facility] Shruti Stoevr RN Infectious Disease - [facility] [address] [place] [address] Social History Tobacco Use Types Packs/Day Years Used Date Never Smoker Alcohol Use Standard Drinks/Week Comments No 0 (1 standard drink = 0.6 oz pure alcoho l) Sex Assigned at Date Recorded Not on file documented as of this encounter Progress Notes Shruti Stover RN - 06/13/2013 1154 EDT [facility] called and stated all film IMAGING and SCANS have been sent to [facility] on 05/01/13. documented in this encounter Plan of Treatment Not on filedocumented as of this encounter Visit Diagnoses Not on filedocumented in this encounter Care Teams Hoisting Laborer Relationship Specialty Start Date End Date Hal Gutierrez MD PCP - General 06/13/13 08/29/[address] [place] [address] documented as of this encounter
--- OUTSIDE RECORDS SUMMARY | 2022-06-18 11:23 | XMS_ITS | Encounter Summary ---
:1955 Author Organization [facility] Address [address] [place] [address] Care Team Providers Name Role Phone Unavailable Primary Care Provider Unavailable Encounter Details Date Type Department Care Team Description 01/12/2001 Hospital Encounter [facility] Blaine Watts MD [address] [place] [address] Social History Tobacco Use Types Packs/Day Years Used Date Never Assessed Sex Assigned at Date Recorded Not on file documented as of this encounter Discharge Disposition Disposition Code Departure Means Destination Auto Discharge documented in this encounter Plan of Treatment Not on filedocumented as of this encounter Procedures Procedure Name Priority Date/Time Associated Diagnosis Comme nts TEST, Routine 01/12/2001 9:42 EDT Resul ts for this URINE procedure are i n the results section. documented in this encounter Results TEST, URINE (01/12/2001 9:42 EDT) Pathologist Sig nature Result- Test, Ur Neg [facility] Specific [place] [address] [facility] Specimen Performing Organization Address City/State/ZIP Code Phon e Number [facility] [address] [place] [address] [facility] [address] [place] [address] documented in this encounter Visit Diagnoses Not on filedocumented in this encounter
--- OUTSIDE RECORDS SUMMARY | 2022-06-18 11:23 | XMS_ITS | Encounter Summary ---
:1955 Author Organization [facility] Address [address] [place] [address] Care Team Providers Name Role Phone Hal Gutierrez MD Primary Care Provider Reason for Visit Reason Onset Date Comments Medication Management 09/24/2014 Returning Call 09/24/2014 CB to Esha Encounter Details Date Type Department Care Team Description 09/24/2014 Telephone [facility] Salazar Sahu, Medic ation Management; Neurology - S Yogesh foley MD Returning Call (CB to 1 [address]) [place], [place] [phone] [place] [phone] Social History Tobacco Use Types Packs/Day Years Used Date Never Smoker Alcohol Use Standard Drinks/Week Comments No 0 (1 standard drink = 0.6 oz pure alcoho l) Sex Assigned at Date Recorded Not on file documented as of this encounter Ordered Prescriptions Prescription Sig Dispensed Refills Start Date End Date nortriptyline (PAMELOR) 10 Take 2 Caps by 120 Cap 5 10/0803/19/2015 mg capsule mouth 2 times daily. documented in this encounter Miscellaneous Notes Telephone Encounter - Esha Guillen RN - 10/08/[address] Sahu: She is on a very low dose, Pt can double it. Take 20 mg in morning and again in evening. Rx sent to [facility] is aware. She will call with any updates, questions or concerns as needed. elephone Encounter - Esha Guillen RN - 10/01/2014 1308 EST Returned TC to Nargis who is following up on whether or not nortriptyline will be increased. If dose is to increase please send rx to [facility]. Nargis is aware that I have not had a response from Dr. Sahu but that I will send a reminder to him. elephone Encounter - Esha Guillen RN - 09/24/2014 1338 EST Returned TC to Nargis who states Socorro's mood has improved perhaps 25-50% on nortriptyline 20mg at bedtime but she still has some mood swings. Nargis asks if the dose might be increased to offer her more comfort. Socorro is tolerating the nortriptyline without evidence of side effects. Will ask Dr. Sahu to review and advise. elephone Encounter - Uriel Cheung - 09/24/2014 1249 EST Nortriptylene. Is 20mg a standard dose? If symptoms persist should it increase further? documented in this encounter Plan of Treatment Not on filedocumented as of this encounter Visit Diagnoses Not on filedocumented in this encounter Discontinued Medications Medication Sig Discontinue Reason Start Date End Date NORTRIPTYLINE HCL Take 20 mg by 5 (NORTRIPTYLINE ORAL) mouth at bedtime. documented as of this encounter Care Teams Academic Computing Director Relationship Specialty Start Date End Date Hal Gutierrez MD PCP - General 06/13/13 08/29/18 [address] [place] [address] documented as of this encounter
--- OUTSIDE RECORDS SUMMARY | 2022-06-18 11:23 | XMS_ITS | Encounter Summary ---
:[address] [facility] Address [address] [place] [address] Care Team Providers Name Role Phone Hal Gutierrez MD Primary Care Provider Encounter Details Date Type Department Care Team Description 01/24/2015 Hospital Encounter [facility] - Hal Gutierrez MD [address] [place], [place] [id number] [facility] Meredith High, DO [address] [facility] [address] [place] [id number] [address] [place] [id number] Social History Tobacco Use Types Packs/Day Years Used Date Never Smoker Alcohol Use Standard Drinks/Week Comments No 0 (1 standard drink = 0.6 oz pure alcoho l) Sex Assigned at Date Recorded Not on file documented as of this encounter Discharge Diagnoses Diagnosis V72.5 RADIOLOGICAL EXAM NEC[ICD-9-CM] documented in this encounter Medications at Time of Discharge Medication Sig Dispensed Refills Start Date End Date acetaminophen (TYLENOL) 500 Take 1,000 mg by 0 mg tablet mouth every 6 hours. Calcium-Cholecalciferol, Take 1 Tab by 0 D3, (CALCARB) 600 mouth 2 times mg(1,500mg) -200 unit daily. tablet cholecalciferol, Vitamin Take 1,000 Units 0 D3, 1,000 unit tablet by mouth daily citalopram (CELEXA) 20 mg Take 40 mg by 0 tablet mouth daily. docusate (COLACE) 50 mg/5 10 mL by per g 120 mL 0 2013 mL liquid tube route 2 times daily. famotidine (PEPCID) 40 mg Take 40 mg by 0 tablet mouth daily. lamoTRIgine (LAMICTAL) 150 Take 150 mg by 0 mg tablet mouth 2 times daily. levothyroxine (SYNTHROID) Take 125 mcg by 0 125 mcg tablet mouth daily. MULTIVITAMIN ORAL Take by mouth. 0 PEG 3350-Electrolytes Take 17 g by mouth 0 (MIRALAX) 17 gram packet daily. rivaroxaban (XARELTO) 20 mg Take 20 mg by 0 tablet tablet mouth daily. nortriptyline (PAMELOR) 10 Take 2 Caps by 120 Cap 5 10/0803/19/2015 mg capsule mouth 2 times daily. simvastatin (ZOCOR) 10 mg Take 20 mg by 0 03/01/2019 tablet mouth daily. documented as of this encounter Discharge Disposition Disposition Code Departure Means Destination Home or Self Longterm documented in this encounter Plan of Treatment Not on filedocumented as of this encounter Visit Diagnoses Not on filedocumented in this encounter Care Teams Real Estate Professional Relationship Specialty Start Date End Date Hal Gutierrez MD PCP - General 06/13/13 08/29/[address] [place] [address] documented as of this encounter
--- OUTSIDE RECORDS SUMMARY | 2022-06-18 11:23 | XMS_ITS | Encounter Summary ---
:1955 Author Organization [facility] Address [address] [place] [address] Care Team Providers Name Role Phone Hal Gutierrez MD Primary Care Provider Reason for Visit Reason Comments Gait Problem Encounter Details Date Type Department Care Team Description 07/06/2013 Documentation Visit [facility] Ebony Moore, Rehabilitation Therapy - PT [address] [address] Social History Tobacco Use Types Packs/Day Years Used Date Never Smoker Alcohol Use Standard Drinks/Week Comments No 0 (1 standard drink = 0.6 oz pure alcoho l) Sex Assigned at Date Recorded Not on file documented as of this encounter Progress Notes Ebony Moore - 07/06/2013 1435 EDT [facility] [address] [place] [id number] Physical Therapy Discontinue/Discharge Note Date: 07/06/2013 Reason for Referral: Diagnosis: 1. NPH 2. Gait abnormality 3. h/o falls ICD 9: 1. 331.5 2. 781.2 3. v15.88 Date of Onset: 06/13/13 (sought care) Referring Provider: Dr. Bill Cleaning Date of Initial Eval: 06/14/13 Total Number of Visits: 1 SUBJECTIVE: Contacted Socorro's sister (Nargis) by phone to follow up after her neurology evaluation. Socorro's medications have been adjusted, and further tests planned at this time. OBJECTIVE: Date of Initial Eval: 06/14/13. We are opting to discontinue Ms. Jaimes's therapy at this time because, the patient is currently notappropriate for physical therapy intervention. Nargis is in agreement with this plan. In addition,she reports they recently received a wheelchair for Socorro, and she is to be scheduled for an EEG. She has a follow up appointment with neurology in 4 months. Please refer to the Physical Therapy Initial Evaluation Note for details. ASSESSMENT: Unable to assess her current status as the patient was not seen for any additional therapy sessions. GOALS: All goals discontinued. PLAN: Discontinue physical therapy. The patient is invited to contact us at any time, should any problems arise, or should her plans for rehabilitation change. Ebony Stephenson, PT 07/06/2013 14:35 documented in this encounter Plan of Treatment Not on filedocumented as of this encounter Visit Diagnoses Not on filedocumented in this encounter Care Teams Clinical Ob Relationship Specialty Start Date End Date Hal Gutierrez MD PCP - General 06/13/13 08/29/[address] [place] [address] documented as of this encounter
--- OUTSIDE RECORDS SUMMARY | 2022-06-18 11:23 | XMS_ITS | Encounter Summary ---
:1955 Author Organization [facility] Address [address] [place] [address] Care Team Providers Name Role Phone Priscilla Landa ALMA Primary Care Provider Hal Gutierrez MD Primary Care Provider Reason for Visit Reason Onset Date Comments Other 06/12/2013 Encounter Details Date Type Department Care Team Description 06/12/2013 Telephone [facility] Santhosh Brooks MD Other Infectious Disease - [address], [address] [place], [place] [phone] [place] [phone] (Wo rk) Social History Tobacco Use Types Packs/Day Years Used Date Never Assessed Sex Assigned at Date Recorded Not on file documented as of this encounter Miscellaneous Notes Telephone Encounter - Shruti Stover RN - 06/13/2013 1102 EDT L/M on Mini's phone that it is unknown if any images were sent as Dr. Brooks is out of town and unable to ask until 06/18. [facility] radiology called and asked to PUSH any CT scan, radiology studies, ultrasound images from 04/23/13 to [facility]. elephone Encounter - Shirley Perez - 06/12/2013 1553 EDT Sister Mini is asking what Dr Brooks's thought were on the images sent on disk. Also, Socorro's health is deteriorating-constant fevers, she is falling down constantly. Mini is bringing her to the ER tomorrow. Mini wanted Dr Brooks to know that Socorro has a urology appointment at the end of the month at [facility]. Mini would like a return call about Dr Brooks's thoughts on the imaging at [phone]. documented in this encounter Plan of Treatment Not on filedocumented as of this encounter Visit Diagnoses Not on filedocumented in this encounter Care Teams Parts Delivery Driver Relationship Specialty Start Date End Date Priscilla Landa FNP PCP - General 04/06/12 06/12/13 [address] [place] [address] Hal Gutierrez MD PCP - General 06/13/13 08/29/18 [address] [place] [address] documented as of this encounter
--- OUTSIDE RECORDS SUMMARY | 2022-06-18 11:23 | XMS_ITS | Encounter Summary ---
:1955 Author Organization [facility] Address [address] [place] [address] Care Team Providers Name Role Phone Hal Gutierrez MD Primary Care Provider Reason for Visit Reason Comments New Patient Visit Consult (Routine) - Closed Specialty Diagnoses / Procedures Referred By Contact Refer red To Contact Surgical Oncology Diagnoses Abnormal finding on breast imaging Hal Gutierrez, Mp2 Surg-Oncology MD [address] [facility] [address] [place] [address] [place] [address] Referral ID Status Reason Start Date Expiration Date Visits Requ ested Visits Authorized [id number] Closed 1 1 Encounter Details Date Type Department Care Team Description 09/02/2014 Office Visit [facility] Meredith High Mammo graphic Surgical Oncology M, DO microcalcification - [address] (Primary Dx) [address] [address] [address], [place] [address] Social History Tobacco Use Types Packs/Day Years Used Date Never Smoker Alcohol Use Standard Drinks/Week Comments No 0 (1 standard drink = 0.6 oz pure alcoho l) Sex Assigned at Date Recorded Not on file documented as of this encounter Last Filed Vital Signs Vital Sign Reading Time Taken Comments Blood Pressure 107/69 09/02/2014 1116 EST Pulse 95 09/02/2014 1116 EST Temperature 36.7 ??C (98.1 ??F) 09/02/2014 1116 EST Respiratory Rate 16 09/02/2014 1116 EST Oxygen Saturation - - Inhaled Oxygen Concentration - - Weight 69.9 kg (154 lb) 09/02/2014 1116 EST with shoes Height 160.5 cm (5' 3.19) 09/02/2014 1116 EST with imani es Body Mass Index 27.12 09/02/2014 1116 EST documented in this encounter Discharge Diagnoses Diagnosis 793.81 MAMMOGRAPHIC MICROCALCIFICATION[I CD-9-CM] documented in this encounter Discharge Disposition Disposition Code Departure Means Destination Auto Discharge documented in this encounter Progress Notes Meredith High, DO - 09/02/2014 1258 EST Subjective: Patient ID: Socorro Jaimes is an 59 y.o. female. Chief Complaint Patient presents with ??? New Patient Visit HPI Socorro Jaimes is seen in the office today in consultation at the request of Dr Hal Gutierrez for a mammographic abnormality. This is a patient that went in for a mammogram in [facility] in July 2014. She was found to [...] patient has had some pretty remarkable recovery. However, she still is not functioning at 100% and they are a little bit concerned about her ability to lie on her stomach and have this biopsy done. The patient started her menstrual cycles around the age of 14. She is nulliparous. She went through menopause at the age of 53. She has no family history of breast cancer. She does have a family history of ovarian cancer in her maternal grandmother. Patient Active Problem List Diagnosis ??? Altered [...] Antibiotic [Bacitracin Zinc-Polymyxin B] ??? Triple Antibiotic [Xcfgluyt-Guafftwknx-Csqfjbdvp] Review of Systems Constitutional: Positive for malaise/fatigue. Negative for fever, chills and weight loss. HENT: Negative for hearing loss. Eyes: Negative for blurred vision, double vision and photophobia. Respiratory: Negative for cough, shortness of breath and wheezing. Cardiovascular: Negative for chest pain and palpitations. Gastrointestinal: Negative for heartburn, nausea, vomiting and abdominal pain. Genitourinary: Negative for dysuria, urgency and frequency. Musculoskeletal: Positive for falls and myalgias. Neurological: Positive for tremors and seizures. Negative for sensory change, focal weakness and headaches. Psychiatric/Behavioral: Positive for depression. The patient is nervous/anxious. - See HPI Objective: BP 107/69 Pulse 95 Temp(Src) 36.7 ??C (98.1 ??F) (Tympanic) Resp 16 Ht 160.5 cm (63.19) Wt 69.854 kg (154 lb) BMI 27.12 kg/m2 Physical Exam Constitutional: She appears well-developed and well-nourished. No distress. Eyes: EOM are normal. Pupils are equal, round, and reactive to light. Neck: No thyromegaly present. Cardiovascular: Normal rate and regular rhythm. No murmur heard. Pulmonary/Chest: Breath sounds normal. She has no wheezes. She has no rales. Abdominal: Soft. She exhibits no distension. There is no tenderness. Lymphadenopathy: She has no cervical adenopathy. Neurological: She is alert. She displays abnormal reflex. She exhibits abnormal muscle tone. Coordination abnormal. Breast: Breasts and axilla are examined in the seated and the supine position. There are no obvious masses palpated in either breast. There is no nipple inversion or discharge. There are no axillary masses. Assessment: Socorro is seen in the office today in evaluation for some mammographic microcalcifications. I did review these films. I discussed with the family several different options, one of which would be to simply follow up with a mammogram in 6 months to see if this area is stable or getting worse. Another is to move forward with a stereotactic biopsy and have a family member in the room to help her stay inposition. Certainly, we could do a wire localized excision but this would also mean that she has to sit still through the wire being placed and then have the wire in her breast for a couple of hours prior to going into the operating room and I'm a little concerned about her ability to tolerate that. At this point, the family is very agreeable to doing a 6-month followup mammogram. I will see her thatday and we will come up with a plan at that point. Thank you for allowing me to participate in the care of this very pleasant patient. Plan: There are no diagnoses linked to this encounter. Meredith High DO documented in this encounter Plan of Treatment Not on filedocumented as of this encounter Visit Diagnoses Diagnosis Mammographic microcalcification - Primar y documented in this encounter Historical Medications This list may reflect changes made after this encounter. Medication Sig Dispensed Refills Start Date End Date NORTRIPTYLINE HCL Take 20 mg by 0 09/13 (NORTRIPTYLINE ORAL) mouth at bedtime. added in this encounter Care Teams Table Games Dealer Relationship Specialty Start Date End Date Hal Gutierrez MD PCP - General 06/13/13 08/29/[address] [place] [address] documented as of this encounter
--- OUTSIDE RECORDS SUMMARY | 2022-06-18 11:23 | XMS_ITS | Encounter Summary ---
:1955 Author Organization [facility] Address [address] [place] [address] Care Team Providers Name Role Phone Hal Gutierrez MD Primary Care Provider Reason for Visit Reason Onset Date Comments New Patient Visit 08/27/2014 Called/ Left a messa ge Returning Call 08/28/2014 Celia New Patient Visit 08/28/2014 Scheduled Encounter Details Date Type Department Care Team Description 08/27/2014 Telephone [facility] Hal Gutierrez, Jessica w Patient Visit Surgical Oncology - MD (Called/ Left a [facility] [address] message); Returning [address] [place] [address] Call (Celia); [place], [place] [phone] Patient Visit [phone] (Schedule d) Social History Tobacco Use Types Packs/Day Years Used Date Never Smoker Alcohol Use Standard Drinks/Week Comments No 0 (1 standard drink = 0.6 oz pure alcoho l) Sex Assigned at Date Recorded Not on file documented as of this encounter Miscellaneous Notes Telephone Encounter - Celia Richard - 08/28/2014 1132 EST I spoke with Socorro Morse's sister, and scheduled Socorro an appointment with Dr. Meredith High on Tuesday, 09/02 at 11:30am. New patient paperwork to be sent out today. Referring office aware of appointment. elephone Encounter - Jeni Blue - 08/28/2014 1005 EST Pt's sister is returning a call to Celia to schedule new patient visit. elephone Encounter - Celia Richard - 08/27/2014 1414 EST I called Socorro Morse's sister, and left a message with my name and direct telephone number to give me a call back to schedule her appointment in the [facility] on a referral from Dr. Duy Gutierrez. documented in this encounter Plan of Treatment Not on filedocumented as of this encounter Visit Diagnoses Not on filedocumented in this encounter Care Teams Practicing Md Anesthesiologist Relationship Specialty Start Date End Date Hal Gutierrez MD PCP - General 06/13/13 08/29/[address] [place] [address] documented as of this encounter
--- OUTSIDE RECORDS SUMMARY | 2022-06-18 11:23 | XMS_ITS | CCD ---
:1955 Author Care Team Providers Name Role Phone DONTA PATEL Attending Physician Unavailable Vital Signs Unknown or Not Available. Allergies Allergy Code Allergy Type Reaction Status BAND-AID BRAND ADHESIVE BANDAGES [id number] Drug allergy Active Procedures Unknown or Not Available. History of Immunizations Immunization Code Date Influenza, seasonal, injectable 141 05/25/20 13 Problems Problem Code Start Date Resolved Date Status Nausea with vomiting 87080633 Active Urinary tract infection, site not 05476616 Active specified Dehydration 96221573 Active Other convulsions 47836050 Active Results Unknown or Not Available. Active Medications Medication Code Dose Units Frequency Route Modification Start Date/Time Lamotrigine 100MG 19831019 100 MG BEDTIME PO 2012 Oral Tablet 16:03 Prescription Detail 100 MG PO BEDTIME Cetirizine 10MG Oral 86535914245 10 MILLIGRAMS DAILY ORAL 07/20/2013 16:02 Tablet Prescription Detail TAKE 10 MILLIGRAMS ORAL ADAM Y Citalopram 40MG Oral 759462 40 MILLIGRAMS AT BEDTIME ORAL 07/20/2013 16:02 Tablet Prescription Detail TAKE 40 MILLIGRAMS ORAL AT B EDTIME Lamotrigine 100MG Oral Tablet 19831019 100 MG DAILY PO 07/20/2013 16:02 Prescription Detail 100 MG PO DAILY Melatonin 3MG Oral 961954 3 MILLIGRAMS AT BEDTIME ORAL 07/20/2013 16:02 Capsule Prescription Detail TAKE 3 MILLIGRAMS ORAL AT BE DTIME Miralax 17GM/Dose Oral Powder for 753613 1 EACH DAILY ORAL 07/20/2013 16:02 Solution Prescription Detail TAKE 1 EACH ORAL DAILY Multivitamin Oral Tablet 1863920 1 EACH DAILY ORAL 07/20/2013 16:02 Prescription Detail TAKE 1 EACH ORAL DAILY Oxybutynin Chloride 742409 25 MILLIGRAMS TWICE A DAY ORAL 07/20/2013 16:02 15MG Oral Tablet, Extended Release Prescription Detail TAKE 25 MILLIGRAMS ORAL TWIC E A DAY Prilosec 20MG Oral Capsule, 777637 20 MILLIGRAMS DAILY ORAL 07/20/2013 16:02 Delayed Release Prescription Detail TAKE 20 MILLIGRAMS ORAL ADAM Y Sertraline Hydrochloride 361185 10 MILLIGRAMS DAILY ORAL 07/20/2013 16:02 25MG Oral Tablet Prescription Detail TAKE 10 MILLIGRAMS ORAL ADAM Y Simvastatin 20MG Oral 746977 20 MILLIGRAMS AT BEDTIME ORAL 07/20/2013 16:02 Tablet Prescription Detail TAKE 20 MILLIGRAMS ORAL AT B EDTIME Synthroid 0.125MG Oral 18844088221 0.125 MILLIGRAMS ORAL 07/20/2013 16:02 Tablet Prescription Detail TAKE 0.125 MILLIGRAMS ORAL Vitamin D3 542584 5501 INTERNATIONAL UNITS TWICE A DAY ORAL 07/20/2013 16:02 1000IU Oral Tablet Prescription Detail TAKE 1000 INTERNATIONAL UNIT S ORAL TWICE A DAY Medications Administered During Visit Unknown or Not Available. Encounters Encounter Diagnosis Diagnosis Code Start Date Encounter for screening mammogram for malignant neoplasm Z12 31 06/07/2022 of breast Social History Smoking Status Code Start Date End Date Never smoker [id number] Patient Decision Aids Unknown or Not Available. Discharge Instructions You were admitted to [facility] on 06/07/2022 10:36 with a principal diagnosis of Encounter for screening mammogram for malignant neoplasm of breast You were discharged from [facility] on 06/07/2022 10:36 Should you have any questions prior to d ischarge, please contact a member of your healthcare team. If you have left the ho spital and have any questions, please contact your primary care physician. Chief Complaint and Reason For Visit Chief Complaint Date of Onset SCREENING Function Status Unknown or Not Available. Plan of Care Unknown or Not Available. Referral/Transition of Care Unknown or Not Available.
--- OUTSIDE RECORDS SUMMARY | 2022-06-18 11:23 | XMS_ITS | Encounter Summary ---
:1955 Author Organization [facility] Address [address] [place] [address] Care Team Providers Name Role Phone Hal Gutierrez MD Primary Care Provider Encounter Details Date Type Department Care Team Description 08/06/2013 Orders Only [facility] Chase Giraldo, RN [id number] [place] [address] [id number] [phone] Social History Tobacco Use Types Packs/Day Years Used Date Never Smoker Alcohol Use Standard Drinks/Week Comments No 0 (1 standard drink = 0.6 oz pure alcoho l) Sex Assigned at Date Recorded Not on file documented as of this encounter Plan of Treatment Not on filedocumented as of this encounter Procedures Procedure Name Priority Date/Time Associated Diagnosis Comme nts INPATIENT ADD-ON Routine 08/06/2013 9:00 EST Resu lts for this procedure are i n the results section. documented in this encounter Results INPATIENT ADD-ON (08/06/2013 9:00 EST) Pathologist Sig nature Tests to be added HCAB, HBAG [facility] Number for problems 7 1300 [facility] Accession number [id number] [facility] Specimen Performing Organization Address City/State/ZIP Code Phon e Number [facility] [address] [place] [address] [facility] [address] [place] [address] documented in this encounter Visit Diagnoses Not on filedocumented in this encounter Care Teams Bench Worker Apprentice Relationship Specialty Start Date End Date Hal Gutierrez MD PCP - General 06/13/13 08/29/[address] [place] [address] documented as of this encounter
--- OUTSIDE RECORDS SUMMARY | 2022-06-18 11:23 | XMS_ITS | Encounter Summary ---
:1955 Author Organization [facility] Address [address] [place] [address] Care Team Providers Name Role Phone Hal Gutierrez MD Primary Care Provider Reason for Visit Reason Onset Date Comments Suture / Staple Removal 09/25/2013 Encounter Details Date Type Department Care Team Description 09/25/2013 Telephone [facility] Jose Manuel Norman ture / Staple Interventional Radiology MD Deion Removal - [address] [address] [place], [place] [address] (Wo rk) Social History Tobacco Use Types Packs/Day Years Used Date Never Smoker Alcohol Use Standard Drinks/Week Comments No 0 (1 standard drink = 0.6 oz pure alcoho l) Sex Assigned at Date Recorded Not on file documented as of this encounter Miscellaneous Notes Telephone Encounter - Ladi Mario - 09/25/2013 1123 EST Patient resides at [facility], spoke with Samia HASTINGS who confirmed the removal of T-tack for today. documented in this encounter Plan of Treatment Not on filedocumented as of this encounter Visit Diagnoses Not on filedocumented in this encounter Care Teams Special Education Professor Relationship Specialty Start Date End Date Hal Gutierrez MD PCP - General 06/13/13 08/29/[address] [place] [address] documented as of this encounter
--- OUTSIDE RECORDS SUMMARY | 2022-06-18 11:23 | XMS_ITS | Encounter Summary ---
:1955 Author Organization [facility] Address [address] [place] [address] Care Team Providers Name Role Phone Hal Gutierrez MD Primary Care Provider Reason for Visit Reason Onset Date Comments Appointment Related 06/14/2013 ED states that p t should be seen by Neuro, no other info, pt was n ot evaluated by Neuro, caller does not want pt to wait months for appt, caller will contact PCP for more info. Encounter Details Date Type Department Care Team Description 06/14/2013 Telephone [facility], Generic, Ap pointment Related Neurology - S (ED states that pt [place] [facility] should be seen by [address] [place] [address] Neuro, no other info, [place] [address] pt was not evaluated [phone] by Neuro, ascencio r does not want pt to wait months for appt , caller will con tact PCP for more in fo.) Social History Tobacco Use Types Packs/Day Years Used Date Never Smoker Alcohol Use Standard Drinks/Week Comments No 0 (1 standard drink = 0.6 oz pure alcoho l) Sex Assigned at Date Recorded Not on file documented as of this encounter Miscellaneous Notes Telephone Encounter - Priscilla Oleary - 07/05/2013 1062 EDT Pt was seen 07/04. documented in this encounter Plan of Treatment Not on filedocumented as of this encounter Visit Diagnoses Not on filedocumented in this encounter Care Teams Chemistry Tutor Relationship Specialty Start Date End Date Hal Gutierrez MD PCP - General 06/13/13 08/29/18 [address] [place] [address] documented as of this encounter
--- OUTSIDE RECORDS SUMMARY | 2022-06-18 11:23 | XMS_ITS | Encounter Summary ---
:1955 Author Organization [facility] Address [address] [place] [address] Care Team Providers Name Role Phone Hal Gutierrez MD Primary Care Provider Reason for Visit Reason Onset Date Comments Follow-up 09/02/2014 6 month follow up ri ght breast mammogram for calcs Encounter Details Date Type Department Care Team Description 09/02/2014 Orders Only [facility] Meredith High Mammdaniel graphic Surgical Oncology M, DO microcalcification - [address] (Primary Dx) [address] [facility] [place] [address] [address], [place] [address] Social History Tobacco Use Types Packs/Day Years Used Date Never Smoker Alcohol Use Standard Drinks/Week Comments No 0 (1 standard drink = 0.6 oz pure alcoho l) Sex Assigned at Date Recorded Not on file documented as of this encounter Plan of Treatment Not on filedocumented as of this encounter Procedures Procedure Name Priority Date/Time Associated Diagnosis Comme nts MA MAMMO DIAG UNI 01/24/2015 13:16 Result s for this DIGITAL - RIGHT EDT procedure ar e in the results section. documented in this encounter Results MA DARBY DIAG UNI DIGITAL - RIGHT (01/24/2015 13:16 EDT) Anatomical Region Laterality Modality Other Specimen Narrative [facility]/MAIN [facility] MPUS - 01/24/2015 13:44 EDT UNI RIGHT ONLY 2D DX OR AV MAMMO EXAM ??01/24/2015 1:16 PM Signs and Symptoms/Comments: ?? 793.81-Mammographic microcalcification-I CD-9-CM; 6 month follow up right breast for calcs Six-month followup diagnostic mammogram of the right breast with CAD. ?? The breast tissue is heterogeneously den se, limiting interpretation.. ?? Comparison: All prior mammograms dating back to 2007 with the most recent series performed [facility] and July 2014 to include additional views of calcifications in th e lateral right breast. Findings: The small cluster of heterogen eous calcifications in the lateral breast is stable compared to the most recent exam. ??While viewed with moderate concern, their stab ility is reassuring. ??There is no associated mass or architectural d istortion and there is been no progression in the numbers of calcifi cations here or elsewhere. Impression right breast: BI-RADS categor y 3, likely benign. Recommendation: As discussed with Dr. Vianey garcia who will be seeing the patient later today and who has seen her about 6 months ago, we have decided the patient should just continue on with routine screening mammography which will be due in Novembe r. ?? Overall assessment: Likely benign. The patient was told the results and rec ommendations following the study by the technologist. The patient w ill be notified of these breast imaging results via a lay letter from Radiology. Radiology will contact the patient directly regard ing any findings which require additional imaging (Category 0) at this time. Procedure Note Rubin Garcia MD - 01/24/2015 UNI RIGHT ONLY 2D DX OR AV MAMMO EXAM 1:16 PM Signs and Symptoms/Comments: 793.81-Mammographic microcalcification-I CD-9-CM; 6 month follow up right breast for calcs Six-month followup diagnostic mammogram of the right breast with CAD. The breast tissue is heterogeneously den se, limiting interpretation.. Comparison: All prior mammograms dating back to 2007 with the most recent series performed [facility] and July 2014 to include additional views of calcifications in th e lateral right breast. Findings: The small cluster of heterogen eous calcifications in the lateral breast is stable compared to the most recent exam. While viewed with moderate concern, their stab ility is reassuring. There is no associated mass or architectural d istortion and there is been no progression in the numbers of calcifi cations here or elsewhere. Impression right breast: BI-RADS categor y 3, likely benign. Recommendation: As discussed with Dr. Vianey garcia who will be seeing the patient later today and who has seen her about 6 months ago, we have decided the patient should just continue on with routine screening mammography which will be due in r. Overall assessment: Likely benign. The patient was told the results and rec ommendations following the study by the technologist. The patient w ill be notified of these breast imaging results via a lay letter from Radiology. Radiology will contact the patient directly regard ing any findings which require additional imaging (Category 0) at this time. Performing Organization Address City/State/ZIP Code Phon e Number [facility] documented in this encounter Visit Diagnoses Diagnosis Mammographic microcalcification - Primar y documented in this encounter Care Teams Build Automation Engineer Relationship Specialty Start Date End Date Hal Gutierrez MD PCP - General 06/13/13 08/29/[address] [place] [address] documented as of this encounter
--- OUTSIDE RECORDS SUMMARY | 2022-06-18 11:23 | XMS_ITS | Encounter Summary ---
:1955 Author Organization [facility] Address [address] [place] [address] Care Team Providers Name Role Phone Hal Gutierrez MD Primary Care Provider Reason for Visit Reason Onset Date Comments Medication Reaction 07/06/2013 pt is very tired sin ce medication increase, is acting drugged, cannot keep eyes open, wants to know if this is ok and what to do , please call Other 07/06/2013 Gina cell phone is: [phone] she feels this patient is declining rapidly, is no longer speaking, walking,talking, or toileting on her own. The ER doctor felt she shou ld have an LP as she had enlarged ventricals etc. plea se call brianne Encounter Details Date Type Department Care Team Description 07/06/2013 Telephone [facility] Rod Rizzo, Medic ation Reaction (pt Neurology - S Yogesh foley MD is very tired since [facility] medication increase, [place] [address] acting drugged, cannot [phone] keep eyes open, wants to know if this is ok and what to do, ple ase call); Other (B etsy cell phone is: [phone] she feels this patient is declining ra pidly, is no longer speak ing, walking,talking , or toileting on he r own. The ER doctor roger thomason she should have an LP as she had enlarged ve ntricals etc. please marcella l brianne ) Social History Tobacco Use Types Packs/Day Years Used Date Never Smoker Alcohol Use Standard Drinks/Week Comments No 0 (1 standard drink = 0.6 oz pure alcoho l) Sex Assigned at Date Recorded Not on file documented as of this encounter Miscellaneous Notes Telephone Encounter - Esha Guillen RN - 07/11/2013 1508 EDT TC from [place] - discussed the plan for Dr. Rizzo to speak with Dr. 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 I will talk to Dr. Gutierrez this week and updatehim with the plan. Please let the family know. Rod. elephone Encounter - Esha Guillen RN - 07/10/2013 1406 EDT TC from [place], Socorro's sister. N[place]is lives in her home and it is increasingly difficult to care for her as her abilities decline and her care needs increase. Socorro continues to have seizures despite the increasing dosage of lamotrigine. Usually they occur when she is walking but yesterday Socorro was just sitting in her chair and the caregiver reported she turned her head to the side and vomited. She has also started a new behavior - closing her eyes while she is awake and walking. Reportedly this occurs often around 4 or 5 pm. The family continues to be concerned as to the cause of her decline and whether the seizures are the cause or a symptom. They worry that the EEG is not scheduled to be done until August and are hoping for answers sooner. They are attempting to set up a family meeting with her PCP, Dr. Gutierrez but are waiting for Dr. Gutierrez to receive the consult notes from [facility]. She asks if it would be acceptable for Dr. Gutierrez to attempt scheduling an EEG in [place] if it can be done sooner. Telephone Encounter - Esha Guillen RN - 07/10/2013 1316 EDT Attempted return call, LM for call back elephone Encounter - Rod Rizzo MD - 07/09/2013 1348 EDT Please let them that EEG report from Dr. Jimenez is already entered into our system in my consult. Rod. elephone Encounter - Priscilla Oleary - 07/09/2013 1228 EDT Wants to know when pt's previous EEG from Dr Jimenez will be scanned into the system, please call elephone Encounter - Priscilla Oleary - 07/06/2013 1612 EDT Pt's sister just wants to make sure that lets them know what to do for pt, caller faxed a form stating that she is pt's co-guardian, will be faxed. documented in this encounter Plan of Treatment Not on filedocumented as of this encounter Visit Diagnoses Not on filedocumented in this encounter Care Teams Eyelet Riveter Relationship Specialty Start Date End Date Hal Gutierrez MD PCP - General 06/13/13 08/29/[address] [place] [address] documented as of this encounter
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
--- OUTSIDE RECORDS SUMMARY | 2022-06-18 11:23 | XMS_ITS | Encounter Summary ---
:1955 Author Organization [facility] Address [address] [place] [address] Care Team Providers Name Role Phone Nadia Landa FIRESTOPPER TECHNICIAN Primary Care Provider Encounter Details Date Type Department Care Team Description 04/06/2012 Results Only [facility] Haroldo Fierro MD Laboratory Services - [address] [address] [place] [address] [phone] Social History Tobacco Use Types Packs/Day Years Used Date Never Assessed Sex Assigned at Date Recorded Not on file documented as of this encounter Plan of Treatment Not on filedocumented as of this encounter Procedures Procedure Name Priority Date/Time Associated Diagnosis Comme nts PAP TEST- RESULT Routine 04/06/2012 0:00 EDT Resu lts for this ONLY procedure are i n the results section. documented in this encounter Results PAP TEST- RESULT ONLY (04/06/2012 0:00 EDT) Pathology Report: CYTOPATHOLOGY REPORT [facility] Reports generated via electronic interface contain lee ginal data; however they are lacking the format of the original re port. Caution should be taken when reading/interpreting unfo rmatted reports. Name: ? SOCORRO JAIMES ? Accession #: ? [id number] : ? 1955 (Age: 56) ??F ?Collect Date: ? 03/13 Location: ? [facility] ? Receive Date : ? 04/07/2012 Provider: ?HAROLDO FIERRO MD Copy to: ?NADIA LANDA FIRESTOPPER TECHNICIAN ? Specimen/Source: ? Pap Test, Vagina, ThinPrep Imaging System with manual evaluation Last Menstrual Period: ? SPECIMEN ADEQUACY ? Satisfactory for Evaluation - assessment of transformation zone component not appl icable ( e.g. atrophy, vaginal sample, hysterectomy) GENERAL CATEGORIZATION ? Negative for Intraepithelial Lesion or Malignan cy ? Document reviewed and electronically signed by: ? CARLOTA Hood(ASCP) ? Report Date: ??04/13/2012 11:26 End of Report Specimen Performing Organization Address City/State/ZIP Code Phon e Number [facility] [address] [place] [address] SERVICES [facility] [address] [place] [address] documented in this encounter Visit Diagnoses Not on filedocumented in this encounter Care Teams Icing And Glaze Maker Relationship Specialty Start Date End Date Nadia Landa FNP PCP - General 04/06/12 06/12/13 [address] [place] [id number] documented as of this encounter
--- OUTSIDE RECORDS SUMMARY | 2022-06-18 11:23 | XMS_ITS | Encounter Summary ---
:1955 Author Organization [facility] Address [address] [place] [address] Care Team Providers Name Role Phone Hal Gutierrez MD Primary Care Provider Encounter Details Date Type Department Care Team Description 06/14/2013 Hospital [facility] [address] [address] [facility] [phone] Pavilion, [address] [place] [address] (Wo rk) Social History Tobacco Use Types Packs/Day Years Used Date Never Smoker Alcohol Use Standard Drinks/Week Comments No 0 (1 standard drink = 0.6 oz pure alcoho l) Sex Assigned at Date Recorded Not on file documented as of this encounter Medications at [...] Code Departure Means Destination Home or Self Snf documented in this encounter Plan of Treatment Pending Results Name Type Priority Associated Diagnoses Date/Ti me OUTSIDE IMAGES - CT BODY Imaging 11/2012 6:51 EDT OUTSIDE IMAGES - CT NEURO Imaging 6:51 EDT OUTSIDE CD - CT BODY Imaging 013 13:56 EDT OUTSIDE CD - OTHER CHEST Imaging 05/2013 13:56 EDT OUTSIDE CD - OTHER CHEST Imaging 05/2013 13:56 EDT OUTSIDE CD - OTHER CHEST Imaging 05/2013 13:56 EDT RAD OUTSIDE CD - US BODY Imaging 05/2013 13:56 EDT OUTSIDE CD - OTHER NEURO Imaging 05/2013 13:56 EDT RAD OUTSIDE CD - US BODY Imaging 05/2013 13:56 EDT documented as of this encounter Visit Diagnoses Not on filedocumented in this encounter Care Teams Wet Pan Mixer Relationship Specialty Start Date End Date Hal Gutierrez MD PCP - General 06/13/13 08/29/18 [address] [place] [address] documented as of this encounter
== END 2022-06-18 11:20 | disposition home or self-care (01) ==
LOC: DIORS 11:20
PROVIDERS: PCP Internal Medicine; Visit Provider Student in an Organized Health Care Education/Training Program
DX: S82.831A Other fracture of upper and lower end of right fibula, initial encounter for closed fracture (principal); X58.XXXA Exposure to other specified factors, initial encounter
CPT/HCPCS: 99213; 73610

== ENCOUNTER 2022-06-21 16:34 | Outpatient (REF) | payer MEDICARE, MEDICAID, SELFPAY ==
[2022-06-21 16:37] LABS: HCT 39.6 % (36.0-46.0); MCH 28.8 pg (27.0-33.0); MCHC 30.3 % (32.0-36.0); MCV 95 fL (80-95); MPV 10.8 fL (8.0-11.0); Platelet Count 261 10^3/uL (130-400); RBC 4.17 10^6/uL (3.93-5.22); RDW 15.3 % (11.7-14.6); RDW-SD 53.5 fL; WBC 6.39 10^3/uL (4.4-10.8)
[2022-06-21 19:03] LABS: ALT 25 U/L (14-59); AST 24 U/L (15-37); Albumin 3.4 g/dL (3.4-5.0); Alkaline Phosphatase 126 U/L (46-116); Anion Gap 10.8 mmol/L (3-11); BUN 25 mg/dL (7-18); Bilirubin, Total 0.4 mg/dL (0.2-1.0); CO2 26.2 mmol/L (21.0-32.0); CREATININE 1.5 mg/dL (0.55-1.02); Calculated LDL 87 mg/dL (<100); Chloride 106 mmol/L (98-107); Cholesterol 154 mg/dL (<200); Estimated GFR 38.43 (mL/min/1.73m2); Glucose 91 mg/dL (74-106); HDL Cholesterol 47 mg/dL (40-60); Potassium 4.3 mmol/L (3.5-5.1); Sodium 143 mmol/L (136-145); TSH 0.65 uIU/mL (0.36-3.74); Total Protein 7.6 g/dL (6.4-8.2); Triglyceride 102 mg/dL (<150)
== END 2022-06-21 16:35 | disposition home or self-care (01) ==
LOC: NCHCN 16:34
PROVIDERS: PCP Internal Medicine; Visit Provider Internal Medicine
DX: E03.9 Hypothyroidism, unspecified (principal); Z51.81 Encounter for therapeutic drug level monitoring; Z00.00 Encounter for general adult medical examination without abnormal findings; E78.5 Hyperlipidemia, unspecified; R94.5 Abnormal results of liver function studies
CPT/HCPCS: 80053; 80061; 85027; 84443

== ENCOUNTER 2023-06-22 15:34 | Outpatient (REF) | payer MEDICARE, MEDICAID, SELFPAY ==
[2023-06-22 16:16] LABS: Hemoglobin A1C 5.8 % (<5.7)
[2023-06-22 16:34] LABS: ALT 26 U/L (14-59); AST 20 U/L (15-37); Albumin 3.3 g/dL (3.4-5.0); Alkaline Phosphatase 101 U/L (46-116); Anion Gap 8.3 mmol/L (3-11); BUN 35 mg/dL (7-18); Bilirubin, Total 0.2 mg/dL (0.2-1.0); CO2 25.7 mmol/L (21.0-32.0); CREATININE 1.5 mg/dL (0.55-1.02); Calculated LDL 82 mg/dL (<100); Chloride 110 mmol/L (98-107); Cholesterol 146 mg/dL (<200); Glucose 111 mg/dL (74-106); HDL Cholesterol 47 mg/dL (40-60); Potassium 4.1 mmol/L (3.5-5.1); Sodium 144 mmol/L (136-145); TSH 0.63 uIU/mL (0.36-3.74); Total Protein 7.4 g/dL (6.4-8.2); Triglyceride 85 mg/dL (<150)
[2023-06-22 17:29] LABS: Vitamin D 25 Total 52.3 ng/mL (30-100)
== END 2023-06-22 15:35 | disposition home or self-care (01) ==
LOC: NCHCN 15:34
PROVIDERS: PCP Internal Medicine; Visit Provider Internal Medicine
DX: E78.5 Hyperlipidemia, unspecified (principal); R73.03 Prediabetes; R94.5 Abnormal results of liver function studies; E03.9 Hypothyroidism, unspecified; M85.89 Other specified disorders of bone density and structure, multiple sites; Z00.00 Encounter for general adult medical examination without abnormal findings; N18.9 Chronic kidney disease, unspecified; S82.66 Nondisplaced fracture of lateral malleolus of unspecified fibula
CPT/HCPCS: 80053; 80061; 82306; 83036; 84443

== ENCOUNTER → 2023-10-27 13:47 | Outpatient (BNVA) | payer MEDICARE, MEDICAID, SELFPAY | PROVIDERS: PCP Internal Medicine; Referring Provider Internal Medicine; Visit Provider Podiatrist | DX: R60.0 Localized edema (principal); N18.9 Chronic kidney disease, unspecified; L60.3 Nail dystrophy; B35.1 Tinea unguium; M79.671 Pain in right foot; M79.672 Pain in left foot | CPT/HCPCS: 11719; 11720; 99213 ==

== ENCOUNTER 2024-07-05 11:37 | Outpatient (REF) | payer MEDICARE, MEDICAID, SELFPAY ==
--- OUTSIDE RECORDS SUMMARY | 2024-07-05 11:39 | XMS_ITS ---
Author Organization Unknown Address [address] [place] [phone] Phone Care Team Providers Care Labor Expediter Name Role Phone AMANDA Ocasio Attending Unavailable Results MM DIAG UNILAT LT W CAD - Co mpleted: 06/24/2022 13:22 LOINC: [facility] [place], [place] [address] PACS SUPERVISOR CLEANING AND ANNEALING REPORT Patient Name: WILLIAM JOSE MRN: Sex: : Age: [id number] F 1955 67 Account: Accession: Admit: StayType: [id number] 06/24/2022 O/P Ordered: Order ID: Submitted: Ordering Provider: 06/24/2022 13:14 [id number] NLS DONTA PATEL Completed: Technologist: Resulted: 06/24/2022 13:22 MLL 06/24/2022 13:47 Study Description: MM DIAG UNILAT LT W CAD Reason For Study: CALLBACK 06/07/22 FINDINGS Exam was performed with 2D and tomosynthesis and was interpreted with CAD lesion detection performed. Spot compression view of the medial aspect was obtained today to evaluate an area of nodularity noted on recent mammogram, this corresponds to an area of visible bruising on the medial inferior aspect of the breast. Spot compression view shows elongated well-circumscribed lobulated nodule, this corresponds to a mixed cystic and solid finding on breast ultrasound consistent with a hematoma which was avascular on ultrasound. Findings are consistent with benign disease. Malignancy not absolutely excluded and follow-up left breast mammogram and left breast ultrasound recommended in 6 months. IMPRESSION I-RADS Category 3: Probably benign. Short interval follow-up suggested.] I_RADS Density Category C: Heterogeneously dense] Report Digitally Signed by Mark Vázquez on 06/24/2022 01:47 PM EDT US BREAST LIMITED LT* - Comp leted: 06/24/2022 14:01 LOINC: [facility] [place], [place] [address] PACS SUPERVISOR [employer] ANNEALING REPORT Patient Name: WILLIAM JOSE MRN: Sex: : Age: [id number] F 1955 66 Account: Accession: Admit: StayType: [id number] 06/24/2022 O/P Ordered: Order ID: Entered Order: Ordering Provider: 06/24/2022 13:14 [id number] DONTA NGO Completed: Tech Completed: Resulted DTTM: 06/24/2022 14:01 GVS 06/24/2022 13:44 Study Description: US BREAST LIMITED LT* Reason for Study: CALLBACK 06/07/22 COMPARISON: Findings: [Left breast ultrasound was obtained and is compared with mammogram also obtained today. There is 19 x 10 x 4 mm in diameter horizontally oriented predominantly cystic well-circumscribed avascular nodule which corresponds to a site of reported recent injury with an overlying bruise on skin. This has an appearance consistent with a hematoma. Other etiologies not absolutely excluded, follow-up left breast ultrasound recommended in 6 months to ensure stability.] Impressions: Likely benign findings, 6-month follow-up ultrasound requested to ensure stability. [] Report Digitally Signed by Mark Vázquez on 06/24/2022 01:44 PM EDT Social History Type Status Start Date End Date Code Code Syst em Smoking History Never smoker (Never Smoked) 307177083 SNOMED CT Sex Female Medications Medication Start Date End Date Route Frequency Dose Code Code System Medication Instructions Home Meds Melatonin 3MG Oral Capsule 07/20/2013 Unknown ORAL AT BEDTIME 3 MILLIGRAMS 479888 RxNorm TAKE 3 MILLIGRAMS ORAL AT BEDTIME Oxybutynin Chloride 15MG Oral Tablet, Extended Release 07/20/2013 Unknown ORAL TWICE A DAY 25 MILLIGRAMS 068739 RxNorm TAKE 25 MILLIGRAMS ORAL TWICE A DAY Miralax 17GM/Dose Oral Powder for Solution 07/20/2013 Unknown ORAL DAILY 1 unit(s) 861473 RxNorm TAKE 1 EACH ORAL DAILY Sertraline Hydrochlorid e 25MG Oral Tablet 07/20/2013 Unknown ORAL DAILY 10 MILLIGRAMS 519524 RxNorm TAKE 10 MILLIGRAMS ORAL DAILY Synthroid 0.125MG Oral Tablet 07/20/2013 Unknown ORAL 0.125 MILLIGRAMS RxNorm TAKE 0.125 MILLIGRAMS ORAL Cetirizine 10MG Oral Tablet 07/20/2013 Unknown ORAL DAILY 10 MILLIGRAMS RxNorm TAKE 10 MILLIGRAMS ORAL DAILY Citalopram 40MG Oral Tablet 07/20/2013 Unknown ORAL AT BEDTIME 40 MILLIGRAMS 983898 RxNorm TAKE 40 MILLIGRAMS ORAL AT BEDTIME Prilosec 20MG Oral Capsule, Delayed Release 07/20/2013 Unknown ORAL DAILY 20 MILLIGRAMS 242543 RxNorm TAKE 20 MILLIGRAMS ORAL DAILY Multivitamin Oral Tablet 07/20/2013 Unknown ORAL DAILY 1 unit(s) 3404471 RxNorm TAKE 1 EACH ORAL DAILY Simvastatin 20MG Oral Tablet 07/20/2013 Unknown ORAL AT BEDTIME 20 MILLIGRAMS 085874 RxNorm TAKE 20 MILLIGRAMS ORAL AT BEDTIME Vitamin D3 1000IU Oral Tablet 07/20/2013 Unknown ORAL TWICE A DAY 1000 INTERNATIONAL UNITS 19930211 RxNorm TAKE 1000 INTERNATIONAL UNITS ORAL TWICE A DAY Lamotrigine 100MG Oral Tablet 07/20/2013 Unknown PO DAILY 100 MG [id number] RxNorm 100 MG PO DAILY Lamotrigine 100MG Oral Tablet 07/20/2013 Unknown PO BEDTIME 100 MG [id number] RxNorm 100 MG PO BEDTIME Assessment You had the following problems:NAUSEA WITH VOMITINGURINARY TRACT INFECTION, SITE NOT SPECIFIEDDEHYDRATIONOTHER CONVULSIONS Hospital Discharge Instructions Should you have any questions prior to discharge, please contact a member of your healthcare team. If you have left the hospital and have any questions, please contact your primary care physician. Reason For Referral No Data Found Problems Problem Start Date Resolved Date Status Code Code System NAUSEA WITH VOMITING active 54815356 SNOMED-CT URINARY TRACT INFECTION, SIT E NOT SPECIFIED active 65058196 SNOMED-CT DEHYDRATION active 22130218 SNOMED-C T OTHER CONVULSIONS active 06437000 SN OMED-CT Allergies and Adverse Reactions Allergy Substance Reaction Severity Start Date Concern Status Co de Code System BAND-AID BRAND ADHESIVE BANDAGES Moderate Active 8094048 RxNorm Plan of Treatment BONE DENSITY DEXA SPINE & HIP 3 MM DIAG LT UNILAT 12/21/2022 US BREAST UNI LT 12/21/2022 US BREAST UNI LT 06/24/2022 MM DIAG LT UNILAT 06/24/2022 MM SCREEN BILAT 06/07/2022 Encounters Encounter Diagnosis Start Date Code Code Sys tem Inconclusive mammography finding 06/24/2022 [id number] SNOMED-CT Personal Care Team Section Performer Name Performer Role Active Date Inactive Da te
--- OUTSIDE RECORDS SUMMARY | 2024-07-05 11:39 | XMS_ITS ---
Author Organization Unknown Address [address] [place] [address] [phone] Phone Care Team Providers Care Hospice Consultant Name Role Phone GUME San Attending Clyde Ocasio Primary Unavailable Social History Type Status Start Date End Date Code Code Syst em Smoking History Never smoker (Never Smoked) 889785120 SNOMED CT Sex Female Medications Medication Start Date End Date Route Frequency Dose Code Code System Medication Instructions Home Meds Melatonin 3MG Oral Capsule 07/20/2013 Unknown ORAL AT BEDTIME 3 MILLIGRAMS 446095 RxNorm TAKE 3 MILLIGRAMS ORAL AT BEDTIME Oxybutynin Chloride 15MG Oral Tablet, Extended Release 07/20/2013 Unknown ORAL TWICE A DAY 25 MILLIGRAMS 028307 RxNorm TAKE 25 MILLIGRAMS ORAL TWICE A DAY Miralax 17GM/Dose Oral Powder for Solution 07/20/2013 Unknown ORAL DAILY 1 unit(s) 287637 RxNorm TAKE 1 EACH ORAL DAILY Sertraline Hydrochlorid e 25MG Oral Tablet 07/20/2013 Unknown ORAL DAILY 10 MILLIGRAMS 691719 RxNorm TAKE 10 MILLIGRAMS ORAL DAILY Synthroid 0.125MG Oral Tablet 07/20/2013 Unknown ORAL 0.125 MILLIGRAMS RxNorm TAKE 0.125 MILLIGRAMS ORAL Cetirizine 10MG Oral Tablet 07/20/2013 Unknown ORAL DAILY 10 MILLIGRAMS RxNorm TAKE 10 MILLIGRAMS ORAL DAILY Citalopram 40MG Oral Tablet 07/20/2013 Unknown ORAL AT BEDTIME 40 MILLIGRAMS 781734 RxNorm TAKE 40 MILLIGRAMS ORAL AT BEDTIME Prilosec 20MG Oral Capsule, Delayed Release 07/20/2013 Unknown ORAL DAILY 20 MILLIGRAMS 927551 RxNorm TAKE 20 MILLIGRAMS ORAL DAILY Multivitamin Oral Tablet 07/20/2013 Unknown ORAL DAILY 1 unit(s) 9276670 RxNorm TAKE 1 EACH ORAL DAILY Simvastatin 20MG Oral Tablet 07/20/2013 Unknown ORAL AT BEDTIME 20 MILLIGRAMS 099987 RxNorm TAKE 20 MILLIGRAMS ORAL AT BEDTIME [...] Code Code System NAUSEA WITH VOMITING active 86919962 SNOMED-CT URINARY TRACT INFECTION, SIT E NOT SPECIFIED active 91640677 SNOMED-CT DEHYDRATION active 00919298 SNOMED-C T OTHER CONVULSIONS active 11537328 SN OMED-CT Allergies and Adverse Reactions Allergy Substance Reaction Severity Start Date Concern Status Co de Code System BAND-AID BRAND ADHESIVE BANDAGES Moderate Active 8665049 RxNorm Plan of Treatment BONE DENSITY DEXA SPINE & HIP 3 MM DIAG LT UNILAT 12/21/2022 US BREAST UNI LT 12/21/2022 US BREAST UNI LT 06/24/2022 MM DIAG LT UNILAT 06/24/2022 MM SCREEN BILAT 06/07/2022 Encounters Encounter Diagnosis Start Date Code Code Sys tem Other fecal abnormalities 09/01/2022 SN OMED-CT Personal Care Team Section Performer Name Performer Role Active Date Inactive Da te
--- OUTSIDE RECORDS SUMMARY | 2024-07-05 11:39 | XMS_ITS ---
Author Organization Unknown Address [address] [place] [address] [phone] Phone Care Team Providers Care High Energy Forming Equipment Operator Name Role Phone AMANDA Ocasio Attending Unavailable Results MM SCREENING BILAT MAMMO W T KERRY W CAD - Completed: 06/07/2022 11:06 LOINC: [facility] [place], [place] [address] PACS GLEASON OPERATOR REPORT Patient Name: WILLIAM JOSE MRN: Sex: : Age: [id number] F 1955 67 Account: Accession: Admit: StayType: [id number] 06/07/2022 O/P Ordered: Order ID: Submitted: Ordering Provider: 06/07/2022 10:44 [id number] [employer] DONTA PATEL Completed: Technologist: Resulted: 06/07/2022 11:06 SLG 06/07/2022 11:54 Study Description: MM SCREENING BILAT MAMMO W PROMISE W CAD Study Reason: SCREENING Comparisons: Comparison is made with prior examinations. FINDINGS: Mammography/Tomosynthesis: Masses/Architectural Distortion: There is a new small ovoid density in the medial left breast on the craniocaudal view. Microcalcifictions: No suspicious pleomorphic-type are seen. There are stable calcifications seen in both breasts, right greater than left. Skin Thickening/Nipple Retraction: None. IMPRESSION: 1. New small ovoid density in the medial left breast. 2. This area should be further evaluated with a spot compression view. Ultrasound may be indicated at that time. [BI-RADS Category 0: Needs additional imaging evaluation(Additional mammographic views or ultrasound) ] [BI_RADS Density Category C: Heterogeneously dense] Breast density Category C or D implies that the patient has dense breast tissue. Dense breast tissue can make it harder to find cancer on a mammogram. Dense breast tissue is also associated with an increased risk of breast cancer. This information about the result of the mammogram report was provided to the patient to raise their awareness. Use this report when you speak with the patient about their risks for breast cancer, which includes their family history. At that time, you may recommend additional screening tests (Ultrasound or MRI) as these tests may add significant information. A negative radiographic report should not delay biopsy if a dominant or clinically suspicious mass is present. Up to ten percent of cancers are not identified on mammography. A negative report may reinforce clinical impression. Adenosis and dense breasts may obscure an underlying neoplasm. False positive reports average 6 to 10%. Patient will receive a letter notifying them of these results. Report Digitally Signed by Rubin Edwards on 06/07/2022 11:54 AM EDT Social History Type Status Start Date End Date Code Code Syst em Smoking History Never smoker (Never Smoked) [id number] SNOMED CT Sex Female Medications Medication Start Date End Date Route Frequency Dose Code Code System Medication Instructions Home Meds Melatonin 3MG Oral Capsule 07/20/2013 Unknown ORAL AT BEDTIME 3 MILLIGRAMS 698121 RxNorm TAKE 3 MILLIGRAMS ORAL AT BEDTIME Oxybutynin Chloride 15MG Oral Tablet, Extended Release 07/20/2013 Unknown ORAL TWICE A DAY 25 MILLIGRAMS 279059 RxNorm TAKE 25 MILLIGRAMS ORAL TWICE A DAY Miralax 17GM/Dose Oral Powder for Solution 07/20/2013 Unknown ORAL DAILY 1 unit(s) 865548 RxNorm TAKE 1 EACH ORAL DAILY Sertraline Hydrochlorid e 25MG Oral Tablet 07/20/2013 Unknown ORAL DAILY 10 MILLIGRAMS 228270 RxNorm TAKE 10 MILLIGRAMS ORAL DAILY Synthroid 0.125MG Oral Tablet 07/20/2013 Unknown ORAL 0.125 MILLIGRAMS RxNorm TAKE 0.125 MILLIGRAMS ORAL Cetirizine 10MG Oral Tablet 07/20/2013 Unknown ORAL DAILY 10 MILLIGRAMS RxNorm TAKE 10 MILLIGRAMS ORAL DAILY Citalopram 40MG Oral Tablet 07/20/2013 Unknown ORAL AT BEDTIME 40 MILLIGRAMS 119605 RxNorm TAKE 40 MILLIGRAMS ORAL AT BEDTIME Prilosec 20MG Oral Capsule, Delayed Release 07/20/2013 Unknown ORAL DAILY 20 MILLIGRAMS 211539 RxNorm TAKE 20 MILLIGRAMS ORAL DAILY Multivitamin Oral Tablet 07/20/2013 Unknown ORAL DAILY 1 unit(s) 8440570 RxNorm TAKE 1 EACH ORAL DAILY Simvastatin 20MG Oral Tablet 07/20/2013 Unknown ORAL AT BEDTIME 20 MILLIGRAMS 355479 RxNorm TAKE 20 MILLIGRAMS ORAL AT BEDTIME [...] Code Code System NAUSEA WITH VOMITING active 80110740 SNOMED-CT URINARY TRACT INFECTION, SIT E NOT SPECIFIED active 41285626 SNOMED-CT DEHYDRATION active 97157780 SNOMED-C T OTHER CONVULSIONS active 89643853 SN OMED-CT Allergies and Adverse Reactions Allergy Substance Reaction Severity Start Date Concern Status Co de Code System BAND-AID BRAND ADHESIVE BANDAGES Moderate Active 1752091 RxNorm Plan of Treatment BONE DENSITY DEXA SPINE & HIP 3 MM DIAG LT UNILAT 12/21/2022 US BREAST UNI LT 12/21/2022 US BREAST UNI LT 06/24/2022 MM DIAG LT UNILAT 06/24/2022 MM SCREEN BILAT 06/07/2022 Encounters Encounter Diagnosis Start Date Code Code Sys tem Encounter for screening mamm ogram for malignant neoplasm of breast 06/07/2022 SNOMED-CT Personal Care Team Section Performer Name Performer Role Active Date Inactive Da te
--- OUTSIDE RECORDS SUMMARY | 2024-07-05 11:40 | XMS_ITS ---
Author Organization Unknown Address [address] [place] [address] [phone] Phone Care Team Providers Care Contract Designer Name Role Phone AMANDA Ocasio Attending Unavailable Results BD DXA BONE DENSITY HIP AND SPINE - Completed: 11/10/2022 11:07 [facility] [place], [place] [address] PACS QUALITY COMPLIANCE COORDINATOR REPORT Patient Name: WILLIAM JOSE MRN: Sex: : Age: [id number] F 1955 67 Account: Accession: Admit: StayType: [id number] 11/10/2022 O/P Ordered: Order ID: Submitted: Ordering Provider: 11/10/2022 10:40 [id number] [facility] DONTA PATEL Completed: Technologist: Resulted: 11/10/2022 11:07 DA 11/10/2022 15:44 Study Description: BD DXA BONE DENSITY HIP AND SPINE Study Reason: OSTEOPENIA TECHNIQUE: Performed on a Hologic unit. COMPARISON: No exams were available for comparison FINDINGS: Lumbar Spine total T-score: -0.6 Hip total T-score: -0.9 Independent reading at the femoral neck yields a T score of -1.9 IMPRESSION: Bone mineral density measures in the osteopenia range. Fracture risk is moderate. Note: Any spine fracture indicates 5x risk for subsequent spine fracture and 2x risk for subsequent hip fracture. World Health Organization criteria for BMD interpretation classify patients: Normal...... T- Score at or above -1.0 Osteopenic... T- Score between -1.0 and -2.5 Osteoporosis... T-Score at or below -2.5 No exams were available for comparison Report Digitally Signed by Konrad Cerrato on 11/10/2022 03:44 PM EST Social History Type Status Start Date End Date Code Code Syst em Smoking History Never smoker (Never Smoked) 243433120 SNOMED CT Sex Female Medications Medication Start Date End Date Route Frequency Dose Code Code System Medication Instructions Home Meds Melatonin 3MG Oral Capsule 07/20/2013 Unknown ORAL AT BEDTIME 3 MILLIGRAMS 626264 RxNorm TAKE 3 MILLIGRAMS ORAL AT BEDTIME Oxybutynin Chloride 15MG Oral Tablet, Extended Release 07/20/2013 Unknown ORAL TWICE A DAY 25 MILLIGRAMS 504991 RxNorm TAKE 25 MILLIGRAMS ORAL TWICE A DAY Miralax 17GM/Dose Oral Powder for Solution 07/20/2013 Unknown ORAL DAILY 1 unit(s) 833197 RxNorm TAKE 1 EACH ORAL DAILY Sertraline Hydrochlorid e 25MG Oral Tablet 07/20/2013 Unknown ORAL DAILY 10 MILLIGRAMS 791920 RxNorm TAKE 10 MILLIGRAMS ORAL DAILY Synthroid 0.125MG Oral Tablet 07/20/2013 Unknown ORAL 0.125 MILLIGRAMS RxNorm TAKE 0.125 MILLIGRAMS ORAL Cetirizine 10MG Oral Tablet 07/20/2013 Unknown ORAL DAILY 10 MILLIGRAMS RxNorm TAKE 10 MILLIGRAMS ORAL DAILY Citalopram 40MG Oral Tablet 07/20/2013 Unknown ORAL AT BEDTIME 40 MILLIGRAMS 922377 RxNorm TAKE 40 MILLIGRAMS ORAL AT BEDTIME Prilosec 20MG Oral Capsule, Delayed Release 07/20/2013 Unknown ORAL DAILY 20 MILLIGRAMS 606214 RxNorm TAKE 20 MILLIGRAMS ORAL DAILY Multivitamin Oral Tablet 07/20/2013 Unknown ORAL DAILY 1 unit(s) 7875437 RxNorm TAKE 1 EACH ORAL DAILY Simvastatin 20MG Oral Tablet 07/20/2013 Unknown ORAL AT BEDTIME 20 MILLIGRAMS 993585 RxNorm TAKE 20 MILLIGRAMS ORAL AT BEDTIME [...] Code Code System NAUSEA WITH VOMITING active 70766552 SNOMED-CT URINARY TRACT INFECTION, SIT E NOT SPECIFIED active 94932441 SNOMED-CT DEHYDRATION active 11683103 SNOMED-C T OTHER CONVULSIONS active 79785533 SN OMED-CT Allergies and Adverse Reactions Allergy Substance Reaction Severity Start Date Concern Status Co de Code System BAND-AID BRAND ADHESIVE BANDAGES Moderate Active 2883332 RxNorm Plan of Treatment BONE DENSITY DEXA SPINE & HIP 3 MM DIAG LT UNILAT 12/21/2022 US BREAST UNI LT 12/21/2022 US BREAST UNI LT 06/24/2022 MM DIAG LT UNILAT 06/24/2022 MM SCREEN BILAT 06/07/2022 Encounters Encounter Diagnosis Start Date Code Code Sys tem Screening for osteoporosis 11/10/2022 444605634 S NOMED-CT Personal Care Team Section Performer Name Performer Role Active Date Inactive Da te
--- OUTSIDE RECORDS SUMMARY | 2024-07-05 11:41 | XMS_ITS ---
Author Organization Unknown Address [address] [place] [address] [phone] Phone Care Team Providers Care Program Development Specialist Name Role Phone AMANDA Ocasio Attending Unavailable Results US BREAST COMPLETE LT* - Com pleted: 12/21/2022 11:16 LOINC: [facility] [place], [place] [address] PACS STANDARD MACHINE STITCHER REPORT Patient Name: WILLIAM JOSE MRN: Sex: : Age: [id number] F 1955 67 Account: Accession: Admit: StayType: [id number] 12/21/2022 O/P Ordered: Order ID: Submitted: Ordering Provider: 12/21/2022 10:46 [id number] [facility] DONTA PATEL Completed: Technologist: Resulted: 12/21/2022 11:16 KMD 12/21/2022 12:32 Study Description: US BREAST COMPLETE LT Study Reason: 6 MO FU TECHNIQUE: Complete ultrasound of the right breast was performed incluing all 4 quadrants, the retroareolar region, and the ipsilateral axilla. COMPARISON: Comparison is made to prior examinations. FINDINGS: The area of concern at the 9 o'clock position of the left breast is no longer visualized. There are scattered benign-appearing simple cysts in the left breast. No suspicious cystic or solid masses are seen sonographically. IMPRESSION: 1. Resolution of the hematoma at the 9 o'clock position of the left breast. 2. Simple left breast cyst. 3. Findings were discussed with the patient and caregiver on 12/21/2022. Appropriate follow-up is yearly screening mammography.. BI-RADS Category 2, Benign Findings Breast density Category C or D implies [...] Report Digitally Signed by Rubin Edwards on 12/21/2022 12:32 PM EDT Social History Type Status Start Date End Date Code Code Syst em Smoking History Never smoker (Never Smoked) 598863086 SNOMED CT Sex Female Medications Medication Start Date End Date Route Frequency Dose Code Code System Medication Instructions Home Meds Melatonin 3MG Oral Capsule 07/20/2013 Unknown ORAL AT BEDTIME 3 MILLIGRAMS 340293 RxNorm TAKE 3 MILLIGRAMS ORAL AT BEDTIME Oxybutynin Chloride 15MG Oral Tablet, Extended Release 07/20/2013 Unknown ORAL TWICE A DAY 25 MILLIGRAMS 705825 RxNorm TAKE 25 MILLIGRAMS ORAL TWICE A DAY Miralax 17GM/Dose Oral Powder for Solution 07/20/2013 Unknown ORAL DAILY 1 unit(s) 797701 RxNorm TAKE 1 EACH ORAL DAILY Sertraline Hydrochlorid e 25MG Oral Tablet 07/20/2013 Unknown ORAL DAILY 10 MILLIGRAMS 307545 RxNorm TAKE 10 MILLIGRAMS ORAL DAILY Synthroid 0.125MG Oral Tablet 07/20/2013 Unknown ORAL 0.125 MILLIGRAMS RxNorm TAKE 0.125 MILLIGRAMS ORAL Cetirizine 10MG Oral Tablet 07/20/2013 Unknown ORAL DAILY 10 MILLIGRAMS RxNorm TAKE 10 MILLIGRAMS ORAL DAILY Citalopram 40MG Oral Tablet 07/20/2013 Unknown ORAL AT BEDTIME 40 MILLIGRAMS 245445 RxNorm TAKE 40 MILLIGRAMS ORAL AT BEDTIME Prilosec 20MG Oral Capsule, Delayed Release 07/20/2013 Unknown ORAL DAILY 20 MILLIGRAMS 200439 RxNorm TAKE 20 MILLIGRAMS ORAL DAILY Multivitamin Oral Tablet 07/20/2013 Unknown ORAL DAILY 1 unit(s) 1283427 RxNorm TAKE 1 EACH ORAL DAILY Simvastatin 20MG Oral Tablet 07/20/2013 Unknown ORAL AT BEDTIME 20 MILLIGRAMS 430363 RxNorm TAKE 20 MILLIGRAMS ORAL AT BEDTIME [...] Code Code System NAUSEA WITH VOMITING active 34705905 SNOMED-CT URINARY TRACT INFECTION, SIT E NOT SPECIFIED active 03361733 SNOMED-CT DEHYDRATION active 96511878 SNOMED-C T OTHER CONVULSIONS active 98046909 SN OMED-CT Allergies and Adverse Reactions Allergy Substance Reaction Severity Start Date Concern Status Co de Code System BAND-AID BRAND ADHESIVE BANDAGES Moderate Active 9478777 RxNorm Plan of Treatment BONE DENSITY DEXA SPINE & HIP 3 MM DIAG LT UNILAT 12/21/2022 US BREAST UNI LT 12/21/2022 US BREAST UNI LT 06/24/2022 MM DIAG LT UNILAT 06/24/2022 MM SCREEN BILAT 06/07/2022 Encounters Encounter Diagnosis Start Date Code Code Sys tem Solitary cyst of left breast 12/21/2022 SNOMED-CT Personal Care Team Section Performer Name Performer Role Active Date Inactive Da te
--- OUTSIDE RECORDS SUMMARY | 2024-07-05 11:41 | XMS_ITS | Encounter Summary ---
Author Organization [facility] Address [address] [place] [address] Care Team Providers Care Human Resources Officer Name Role Phone Pilar Uribe Primary Care Provider [phone] Reason for Visit * Reason Onset Date Comments Labs Only 06/12/2019 Encounter Details Date Type Department Care Team (Late st Contact Info) Description 06/12/2019 Telephone [facility] Neurophysiology - Main [place] [address] [place] [address] [place] [address] [phone] Labs Only Social History Tobacco Use Types Packs/Day Years Used Date Smoking Tobacco: Never Smokeless Tobacco: Never Alcohol Use Standard Drinks/Week Comments No 0 (1 standard drink = 0.6 oz pur e alcohol) Sex and Gender Information Value Date Recorded Sex Assigned at Not on file Gender Identity Not on file Sexual Orientation Not on file documented as of this encounter Functional Status Functional Status Response Date of Assess ment Because of a physical, menta l, or emotional condition, does this person have difficulty doing errands alone such as visiting a doctor's office or shopping? Yes 11/24/2015 Cognitive Status Response Date of Assessm ent Because of a physical, menta l, or emotional condition, does this person have serious difficulty concentrating, remembering, or making decisions? Yes 11/24/2015 documented as of this encounter Miscellaneous Notes * Telephone Encounter - Rocky Little MD, MD - 06/18/2019 1124 EDT Noted. As outlined in my last note, TSH and HbA1c need to be ordered by her PCP due to insurance issues. We will residential substance abuse counselor the patient on this today during the visit. Thank you. * Telephone Encounter - Felicita Galvan, RN - 06/13/2019 [...] Dr Little Pt due to rtc 06/18/19 * Telephone Encounter - Nina Dailey - 06/12/2019 1425 EDT Farhana from the Lab called to get an okay for them to proceed with the labs that were order backin February. The patient left before being able to get them done. Farhana ask that we put in new orders for the labs so when the patient comes back they won't have to give us a call. 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
--- OUTSIDE RECORDS SUMMARY | 2024-07-05 11:41 | XMS_ITS | Encounter Summary ---
Author Organization [facility] Address [address] [place] [address] Care Team Providers Care Race Relations Professor Name Role Phone Swathimckenzie Pilar Ocasio Primary Care Provider [phone] Reason for Visit * Reason Onset Date Comments Appointment Related 03/16/2019 Encounter Details Date Type Department Care Team (Late st Contact Info) Description 03/16/2019 Telephone [facility] Neurophysiology - Main [place] [address] [place] [address] [place] [address] [phone] Appointment Related Social History Tobacco Use Types Packs/Day Years [...] encounter Miscellaneous Notes * Telephone Encounter - Arnulfo Uribe - 03/16/2019 0907 EDT Called and spoke with patient; rescheduled BMP 05/31/19 appointment to 06/18/19. documented in this encounter Plan of Treatment Not on file documented as of this encounter Visit Diagnoses Not on filedocumented in this encounter Care Teams Race Relations Professor Relationship Specialty Start Date End Date Pilar Uribe [address] [place] [address] PCP - General 08/30/18 documented as of this encounter
--- OUTSIDE RECORDS SUMMARY | 2024-07-05 11:41 | XMS_ITS | Encounter Summary ---
Author Organization [facility] Address [address] [place] [address] Care Team Providers Care Roller Coaster Engineer Name Role Phone Pilar Uribe Primary Care Provider [phone] Encounter Details Date Type Department Care Team (Late st Contact Info) Description 04/07/2021 Lab Requisition [facility] Pathology & Laboratory Medicine - [address] [address] Outr Resulting Lab, Provider Social History Tobacco Use Types Packs/Day Years Used Date Smoking Tobacco: Never Smokeless Tobacco: Never Alcohol Use Standard Drinks/Week Comments No 0 (1 standard drink = 0.6 oz pur e alcohol) Interpersonal Safety Answer Date Record ed Physically Hurt Never 04/13/2020 Verbally Threaten Not on file 04/13/2020 Sex and Gender Information Value Date Recorded [...] Yes 11/24/2015 documented as of this encounter Plan of Treatment Not on file documented as of this encounter Procedures Procedure Name Priority Date/Time Associated Diagnosis Comments HEPATITIS C AB W REFLEX TO HCV RNA BY PCR Routine 04/06/2021 11:50 EDT documented in this encounter Results * HEPATITIS C AB W REFLEX TO HCV RNA BY PCR (04/06/2021 11:50 EDT) Hep C Antibody Negative Negative 04/08/2021 10:11 EDT [facility] Blood VENOUS BLOOD / Unknown 04/06/2021 11:50 EDT 04/07/2021 15:33 EDT Provider Outr Resulting Lab CHEMISTRY & BLOOD GAS ORDERABLES [facility] [address] [place] [address] documented in this encounter Visit Diagnoses Not on filedocumented in this encounter Care Teams Roller Coaster Engineer Relationship Specialty Start Date End Date Pilar Uribe [address] [place] [address] PCP - General 08/30/18 documented as of this encounter
--- OUTSIDE RECORDS SUMMARY | 2024-07-05 11:41 | XMS_ITS | Encounter Summary ---
Author Organization [facility] Address [address] [place] [address] Care Team Providers Care Oxygen Equipment Preparer Name Role Phone Pilar Uribe Primary Care Provider [phone] Encounter Details Date Type Department Care Team (Late st Contact Info) Description 06/12/2019 Phlebotomy Only [address] [address] Pattern Scratcher, Outpatient Social History Tobacco Use Types Packs/Day Years [...] on filedocumented in this encounter Care Teams Oxygen Equipment Preparer Relationship Specialty Start Date End Date Pilar Uribe [address] [place] [address] PCP - General 08/30/18 documented as of this encounter
--- OUTSIDE RECORDS SUMMARY | 2024-07-05 11:41 | XMS_ITS ---
Author Organization Unknown Address [address] [place] [phone] Phone Care Team Providers Care Manager General Name Role Phone GUME San Attending Clyde JOYCE EVP HEAD OF [employer] Unavailable AMANDA Ocasio Primary Unavailable Social History Type Status Start Date End Date Code Code Syst em Smoking History Never smoker (Never Smoked) 705008163 SNOMED CT Sex Female Vital Signs Vital Sign Value Unit [place] Value [place] Unit Date/Time Recent/Initial? Code Code System Systolic Blood Pressure 91 mm[Hg] 04/18/2023 09:56 Most Recent 8480-6 LOINC Diastolic Blood Pressure 58 mm[Hg] 04/18/2023 09:56 Most Recent 8462-4 LOINC Systolic Blood Pressure 81 mm[Hg] 04/18/2023 09:16 Initial 8480-6 LOINC Diastolic Blood Pressure 54 mm[Hg] 04/18/2023 09:16 Initial 8462-4 LOINC O2 Saturation 97 % 2022 09:56 Most Recent 80091- 5 LOINC O2 Saturation 94 % 2022 09:16 Initial 31092- 5 LOINC Pulse 68.0 /min 04/18/2023 09:56 Most Recent 8867-4 LOINC Pulse 63.0 /min 04/18/2023 09:16 Initial 8867-4 LOINC Respiration 12 /min 04/18/20 23 09:56 Most Recent 9279-1 LOINC Respiration 13 /min 04/18/20 23 09:16 Initial 9279-1 LOINC Temperature 36.2 Tosin 97.2 F 04/18/20 23 09:56 Most Recent 8310-5 LOINC Temperature 36.4 Tosin 97.5 F 04/18/20 23 09:16 Initial 8310-5 LOINC Medications Medication Start Date End Date Route Frequency Dose Code Code System Medication Instructions Home Meds Melatonin 3MG Oral Capsule 07/20/2013 Unknown ORAL AT BEDTIME 3 MILLIGRAMS 546515 RxNorm TAKE 3 MILLIGRAMS ORAL AT BEDTIME Oxybutynin Chloride 15MG Oral Tablet, Extended Release 07/20/2013 Unknown ORAL TWICE A DAY 25 MILLIGRAMS 907751 RxNorm TAKE 25 MILLIGRAMS ORAL TWICE A DAY Miralax 17GM/Dose Oral Powder for Solution 07/20/2013 Unknown ORAL DAILY 1 unit(s) 101698 RxNorm TAKE 1 EACH ORAL DAILY Sertraline Hydrochlorid e 25MG Oral Tablet 07/20/2013 Unknown ORAL DAILY 10 MILLIGRAMS 522011 RxNorm TAKE 10 MILLIGRAMS ORAL DAILY Synthroid 0.125MG Oral Tablet 07/20/2013 Unknown ORAL 0.125 MILLIGRAMS RxNorm TAKE 0.125 MILLIGRAMS ORAL Cetirizine 10MG Oral Tablet 07/20/2013 Unknown ORAL DAILY 10 MILLIGRAMS RxNorm TAKE 10 MILLIGRAMS ORAL DAILY Citalopram 40MG Oral Tablet 07/20/2013 Unknown ORAL AT BEDTIME 40 MILLIGRAMS 664720 RxNorm TAKE 40 MILLIGRAMS ORAL AT BEDTIME Prilosec 20MG Oral Capsule, Delayed Release 07/20/2013 Unknown ORAL DAILY 20 MILLIGRAMS 249612 RxNorm TAKE 20 MILLIGRAMS ORAL DAILY Multivitamin Oral Tablet 07/20/2013 Unknown ORAL DAILY 1 unit(s) 6561481 RxNorm TAKE 1 EACH ORAL DAILY Simvastatin 20MG Oral Tablet 07/20/2013 Unknown ORAL AT BEDTIME 20 MILLIGRAMS 384648 RxNorm TAKE 20 MILLIGRAMS ORAL AT BEDTIME [...] physician. Reason For Referral No Data Found Procedures Procedure Name Date Status Code Code Syste m Colonoscopy, Flexible, Proxi mal To Splenic Flexure; w/Bx, Single/Multiple 04/18/2023 completed 47034 C PT Anesthesia Lower Intst Endoscopic Px Scr Colsc 04/18/2023 completed 78504 CPT Problems Problem Start Date Resolved Date Status Code Code System NAUSEA WITH VOMITING active 30722171 SNOMED-CT URINARY TRACT INFECTION, SIT E NOT SPECIFIED active 91688331 SNOMED-CT DEHYDRATION active 18061899 SNOMED-C T OTHER CONVULSIONS active 76018520 SN OMED-CT Allergies and Adverse Reactions Allergy Substance Reaction Severity Start Date Concern Status Co de Code System BAND-AID BRAND ADHESIVE BANDAGES Moderate Active 5194928 RxNorm Plan of Treatment BONE DENSITY DEXA SPINE & HIP 3 MM DIAG LT UNILAT 12/21/2022 US BREAST UNI LT 12/21/2022 US BREAST UNI LT 06/24/2022 MM DIAG LT UNILAT 06/24/2022 MM SCREEN BILAT 06/07/2022 Encounters Encounter Diagnosis Start Date Code Code Sys tem Encounter for screening for malignant neoplasm of colo n 04/18/2023 SNOMED-CT Personal Care Team Section Performer Name Performer Role Active Date Inactive Da te
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
--- OUTSIDE RECORDS SUMMARY | 2024-07-05 11:41 | XMS_ITS | Encounter Summary ---
Author Organization [facility] Address [address] [place] [address] Care Team Providers Care Mechanical Design Drafter Name Role Phone Pilar Uribe Primary Care Provider [phone] Encounter Details Date Type Department Care Team (Latest Contact Info) Description 06/12/2019 14:23 EDT - 06/12/2019 23:59 EDT Hospital Encounter [facility] [address] [place] [address] [place] [address] [phone] Pilar Uribe [address] [place] [id number] Discharge Disposition: Auto Discharge Social History Tobacco [...] Discharge Diagnoses Diagnosis I34.0 Nonrheumatic mitral (valve) insufficiency-I34.0[ICD-10-CM] 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
--- OUTSIDE RECORDS SUMMARY | 2024-07-05 11:41 | XMS_ITS | Encounter Summary ---
Author Organization [facility] Address [address] [place] [address] Care Team Providers Care Rehabilitation Aide/Scheduler Name Role Phone Pilar Uribe Primary Care Provider [phone] Reason for Visit * Reason Onset Date Comments Appointment Related 03/23/2019 Encounter Details Date Type Department Care Team (Late st Contact Info) Description 03/23/2019 Telephone [facility] Neurophysiology - Main [place] [address] [place] [address] [place] [address] [phone] Appointment Related Social History Tobacco Use Types [...] encounter Miscellaneous Notes * Telephone Encounter - Ebony Larios - 03/23/2019 1257 EDT Reason for Call: No chief complaint on file. Call Detail: I spoke with Iliana (socorro's caregiver) who tells me Megha, Socorro's sister, does not want any invasive testing done as her sister is not in a good situation or of sound mind with their mother's impending unless this is absolutely necessary. This has not been told to me by Megha who is her guardian. In the event that they do plan on going through with the CT Angio Head it is scheduled for June 11, 2019 @ 11:30 am. She will check in @ 11:00 am, 3rd floor registration. It will take 30 minutesand she is eat lightly and push fluids. Last visit: Next visit: Ebony Larios 03/23/2019 13:07 documented in this encounter Plan of Treatment Not on file documented as of this encounter Visit Diagnoses Not on filedocumented in this encounter Care Teams Rehabilitation Aide/Scheduler Relationship Specialty Start Date End Date Pilar Uribe [address] [place] [address] PCP - General 08/30/18 documented as of this encounter
--- OUTSIDE RECORDS SUMMARY | 2024-07-05 11:41 | XMS_ITS | Encounter Summary ---
Author Organization [facility] Address [address] [place] [address] Care Team Providers Care Weapons Mechanic Name Role Phone SwathimckenziePilar Primary Care Provider [phone] Encounter Details Date Type Department Care Team (Late st Contact Info) Description 06/12/2019 Results Only Imaging [facility] Neurophysiology - Main [place] [address] [place] [address] [place] [address] [phone] Social History Tobacco Use Types Packs/Day Years [...] Procedure Name Priority Date/Time Associated Diagnosis Comments ECHOCARDIOGRAM 06/12/2019 15:15 EDT documented in this encounter Results * ECHOCARDIOGRAM (06/12/2019 15:15 EDT) Anatomical Region Laterality Modality Other 06/12/2019 15:1 5 EDT Narrative 06/12/2019 16:35 EDT *Interpreting Group:* *[facility]* [address] [place] [address] Date of study: 06/12/2019 Transthoracic Echocardiography M-mode, complete 2D, complete spectral Doppler, and color Doppler *STUDY CONCLUSIONS* Summary: 1. Left ventricle: The cavity size was normal. Wall thickness was ?? normal. Systolic function was normal. The estimated ejection fraction ?? was 60-65%. Wall motion was normal; there were no regional wall ?? motion abnormalities. 2. Mitral valve: Mildly calcified annulus. There was mild regurgitation. 3. Right ventricle: The cavity size was normal. Wall thickness was ?? normal. Systolic function was normal. 4. Atrial septum: Echo contrast study showed no ajfky-sn-xzel atrial ?? level shunt, at baseline or with provocation. 5. Pulmonary arteries: Pulmonary systolic pressure was mildly increased, ?? in the range of 35mm Hg to 40mm Hg. *PATIENT PRESENTATION* Height: ? 157.5cm (62in ) S/D Pressure: 62 / 194 Weight: ? 88kg (193.6lb ) BSA: ?2m^2 Test start time: ??03:18 PM. Test stop time: ??04:01 PM. ADMITTING ?Pilar Uribe Nmi REFERRING ?Pilar Uribe PERFORMING ?? [facility], Op ATTENDING ?Rocky Little ORDERING ? Rocky Little EMBROIDERY PATTERNMAKER ??Farhana HONG FELLOW ??Cristóbal Andres MD *PROCEDURE DATA* Procedure information: ??The patient was identified by two identifiers. This study was interpreted by [facility]. Pertinent images and digital data are archived for permanent storage and are available for subsequent review. ??Study status: Routine. Transthoracic echocardiography. ??M-mode, complete 2D, complete spectral Doppler, and color Doppler. A Transthoracic Echocardiogram was performed. Scanning was performed from the parasternal, apical, subcostal, and suprasternal notch acoustic windows. Images were obtained using an Epiq 15 cardiac ultrasound machine. Image quality was suboptimal. The study was technically limited due to poor patient compliance, patient inability to follow directions, and body habitus. Intravenous contrast (normal saline) was administered. The saline was administered by Dave Murphy [facility] . ??Study completion: ??The patient tolerated the procedure well. There were no complications. *INDICATIONS AND HISTORY* Indications: ?? 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 *CARDIAC ANATOMY* Left ventricle: ??The cavity size was normal. Wall thickness was normal. Systolic function was normal. The estimated ejection fraction was 60-65%. Wall motion was normal; there were no regional wall motion abnormalities. Diastolic parameters were normal. Aortic valve: ?? Trileaflet; normal thickness leaflets. Mobility was not restricted. ??Doppler: ??Transvalvular velocity was within the normal range. There was no stenosis. There was no significant regurgitation. Aorta: ??Aortic root: The aortic root was normal in size. Mitral valve: ?? Mildly calcified annulus. Mobility was not restricted. Doppler: ??Transvalvular velocity was within the normal range. There was no evidence for stenosis. There was mild regurgitation. ?Valve area by pressure half-time: 3.9cm^2. Indexed valve area by pressure half-time: 1.9cm^2/m^2. ?Peak gradient (D): 2.8mm Hg. Left atrium: ??The atrium was normal in size. Atrial septum: ?? Echo contrast study showed no zqlzr-vt-qdun atrial level shunt, at baseline or with provocation. Right ventricle: ??The cavity size was normal. Wall thickness was normal. Systolic function was normal. Pulmonic valve: ?? Not well visualized. ??Doppler: ??Transvalvular velocity was within the normal range. There was no evidence for stenosis. There was no significant regurgitation. Tricuspid valve: ?? Structurally normal valve. ?Doppler: ??Transvalvular velocity was within the normal range. There was no evidence for stenosis. There was mild regurgitation. Pulmonary artery: ?? Pulmonary systolic pressure was mildly increased, in the range of 35mm Hg to 40mm Hg. Right atrium: ??The atrium was normal in size. Pericardium: ??There was no pericardial effusion. Systemic veins: Inferior vena cava: The vessel was normal in size. Measurements Left ventricle ? Value [...] Legend: (L) ??and ??(H) ??clemencia values outside specified reference range. I have personally reviewed the images and have reviewed and edited the reported findings. Electronically signed by Antolin Fernandez MD 06/12/2019 16:35 Procedure Note Antolin Fernandez MD - 06/12/2019 *Interpreting Group:* *[facility]* [address] [place] [address] Date of study: 06/12/2019 Transthoracic Echocardiography M-mode, complete 2D, complete spectral Doppler, and color Doppler *STUDY CONCLUSIONS* Summary: 1. Left ventricle: The cavity size was normal. Wall thickness was normal. Systolic function was normal. The estimated ejection fraction was 60-65%. Wall motion was normal; there were no regional wall motion abnormalities. 2. Mitral valve: Mildly calcified annulus. There was mild regurgitation. 3. Right ventricle: The cavity size was normal. Wall thickness was normal. Systolic function was normal. 4. Atrial septum: Echo contrast study showed no xixjf-df-bota atrial level shunt, at baseline or with provocation. 5. Pulmonary arteries: Pulmonary systolic pressure was mildly increased, in the range of 35mm Hg to 40mm Hg. *PATIENT PRESENTATION* Height: 157.5cm (62in ) S/D Pressure: 62 / 194 Weight: 88kg (193.6lb ) BSA: 2m^2 Test start time: 03:18 PM. Test stop time: 04:01 PM. ADMITTING Pilar Uribe REFERRING Pilar Uribe PERFORMING [facility], Op ATTENDING Rocky Little ORDERING Rocky Little EMBROIDERY PATTERNMAKER Farhana HONG FELLOW Cristóbal Andres MD *PROCEDURE DATA* Procedure information: The patient was identified by two identifiers. This study was interpreted by [facility]. Pertinent images and digital data are archived for permanent storage and are available for subsequent review. Study status: Routine. Transthoracic echocardiography. M-mode, complete 2D, complete spectral Doppler, and color Doppler. A Transthoracic Echocardiogram was performed. Scanning was performed from the parasternal, apical, subcostal, and suprasternal notch acoustic windows. Images were obtained using an Six Apartq 15 cardiac ultrasound machine. Image quality was suboptimal. The study was technically limited due to poor patient compliance, patient inability to follow directions, and body habitus. Intravenous contrast (normal saline) was administered. The saline was administered by Dave Murphy [facility] . Study completion: The patient tolerated the procedure well. There were no complications. 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 *CARDIAC ANATOMY* Left ventricle: The cavity size was normal. Wall thickness was normal. Systolic function was normal. The estimated ejection fraction was 60-65%. Wall motion was normal; there were no regional wall motion abnormalities. Diastolic parameters were normal. Aortic valve: Trileaflet; normal thickness leaflets. Mobility was not restricted. Doppler: Transvalvular velocity was within the normal range. There was no stenosis. There was no significant regurgitation. Aorta: Aortic root: The aortic root was normal in size. Mitral valve: Mildly calcified annulus. Mobility was not restricted. Doppler: Transvalvular velocity was within the normal range. There was no evidence for stenosis. There was mild regurgitation. Valve area by pressure half-time: 3.9cm^2. Indexed valve area by pressure half-time: 1.9cm^2/m^2. Peak gradient (D): 2.8mm Hg. Left atrium: The atrium was normal in size. Atrial septum: Echo contrast study showed no rnryl-nh-hxvl atrial level shunt, at baseline or with provocation. Right ventricle: The cavity size was normal. Wall thickness was normal. Systolic function was normal. Pulmonic valve: Not well visualized. Doppler: Transvalvular velocity was within the normal range. There was no evidence for stenosis. There was no significant regurgitation. Tricuspid valve: Structurally normal valve. Doppler: Transvalvular velocity was within the normal range. There was no evidence for stenosis. There was mild regurgitation. Pulmonary artery: Pulmonary systolic pressure was mildly increased, in the range of 35mm Hg to 40mm Hg. Right atrium: The atrium was normal in size. Pericardium: There was no pericardial effusion. Systemic veins: Inferior vena cava: The vessel was normal in size. Measurements Left ventricle Value Reference LV ID, ED, PLAX 4.0 cm 3.5 - 6.0 LV ID, ES, PLAX 2.7 cm 2.1 - 4.0 LV PW thickness, ED, PLAX 0.9 cm --------- LV end-diastolic volume, 1-p A2C 55 ml --------- LV ejection fraction, 1-p A2C 49 % --------- LV end-diastolic volume, 1-p A4C 62 ml --------- LV ejection fraction, 1-p A4C 62 % --------- LV IVRT, DP (L) 53 ms 60 - 100 LV e', lateral 0.143 m/sec --------- LV E/e', lateral 6 --------- LV e', medial 0.077 m/sec --------- LV E/e', medial 11 --------- LV e', average 0.11 m/sec --------- LV E/e', average 8 --------- Ventricular septum Value Reference IVS thickness, ED, PLAX 1.1 cm --------- LVOT Value Reference LVOT ID, S 2.0 cm --------- LVOT area 3.1 cm^2 --------- Aorta Value Reference Aortic root ID 2.7 cm --------- Ascending aorta ID, A-P 3.0 cm --------- Ascending aorta ID, A-P, S 3.0 cm --------- Left atrium Value Reference LA ID, A-P, ES 3.4 cm --------- LA ID/bsa, A-P 1.7 cm/m^2 <=2.2 LA/aortic root ratio 1.26 --------- Mitral valve Value Reference Mitral E-wave peak velocity 0.84 m/sec --------- Mitral A-wave peak velocity 0.56 m/sec --------- Mitral deceleration slope 433 cm/s^2 --------- Mitral deceleration time 194 ms 150 - 230 Mitral pressure half-time 57 ms --------- Mitral peak gradient, D 2.8 mm Hg --------- Mitral E/A ratio, peak 1.5 --------- Mitral valve area, PHT, DP 3.9 cm^2 --------- Legend: (L) and (H) clemencia values outside specified reference range. I have personally reviewed the images and have reviewed and edited the reported findings. Electronically signed by Antolin Fernandez MD 06/12/2019 16:35 Rocky Little MD CARDIAC ECHO ORDERAB LES documented in this encounter Visit Diagnoses Not on filedocumented in this encounter Care Teams Weapons Mechanic Relationship Specialty Start Date End Date Pilar Uribe [address] [place] [address] PCP - General 08/30/18 documented as of this encounter
--- OUTSIDE RECORDS SUMMARY | 2024-07-05 11:41 | XMS_ITS | Encounter Summary ---
Author Organization [facility] Address [address] [place] [address] Care Team Providers Care Dental Technician Apprentice Name Role Phone Pilar Uribe Primary Care Provider Reason for Visit * Reason Onset Date Comments Medication Management 03/13/2019 Encounter Details Date Type Department Care Team (Late st Contact Info) Description 03/13/2019 Telephone [facility] Neurophysiology - [facility] [address] [place] [address] Felicita Galvan, RN [address] [place] [address] Medication Management Social History Tobacco Use Types Packs/Day Years [...] encounter Miscellaneous Notes * Telephone Encounter - Felicita Galvan RN - 03/20/2019 0855 EDT Caregiver called and was instructed. She has not started Atorvastatin. She wanted to finish up Simvastatin. I asked her to discontinue it and give the Atorvastatin as instructed. She has not been giving both * Telephone Encounter - Rocky Little MD, MD - 03/19/2019 1539 EDT Noted. Thank you for trying to reach the patient/caregiver and clarify/emphasize my original instructions. * Telephone Encounter - Felicita Galvan RN - 03/13/2019 1445 EDT Reason for contact: [facility]PULSE faxed notice that pt is filling rx [...] know that pt should not be taking bothand asked her to call Will also update Dr Little Pt has no appt to rtc documented in this encounter Plan of Treatment Not on file documented as of this encounter Visit Diagnoses Not on filedocumented in this encounter Care Teams Dental Technician Apprentice Relationship Specialty Start Date End Date Pilar Uribe [address] [place] [address] PCP - General 08/30/18 documented as of this encounter
--- OUTSIDE RECORDS SUMMARY | 2024-07-05 11:41 | XMS_ITS | Encounter Summary ---
Author Organization [facility] Address [address] [place] [address] Care Team Providers Care Cake Cutter Machine Name Role Phone Pilar Uribe Primary Care Provider [phone] Reason for Visit * Reason Onset Date Comments Appointment Related 03/09/2019 Encounter Details Date Type Department Care Team (Late st Contact Info) Description 03/09/2019 Telephone [facility] Neurophysiology - Main [place] [address] [place] [address] [place] [address] [phone] Appointment Related Social History Tobacco Use Types [...] * Telephone Encounter - Ebony Larios - 03/09/2019 1036 EDT Reason for Call: No chief complaint on file. Call Detail: Left a message on Ms. Jaimes's machine asking her to call regarding her upcoming MRI scheduled for Thursday, April 11, 2019 @ 10:00 am @ [facility] checking in @ 9:30 am. Push fluids/eat lights and will need labs prior. CT will take about 30 minutes. Last visit: Next visit: Ebony Larios 03/09/2019 11:12 documented in this encounter Plan of Treatment Not on file documented as of this encounter Visit Diagnoses Not on filedocumented in this encounter Care Teams Cake Cutter Machine Relationship Specialty Start Date End Date Pilar Uribe [address] [place] [address] PCP - General 08/30/18 documented as of this encounter
--- OUTSIDE RECORDS SUMMARY | 2024-07-05 11:41 | XMS_ITS | Referral Summary ---
Author Organization [facility] Address [address] [place] [address] Care Team Providers Care Refrigeration Brazer/Solderer Name Role Phone Pilar Uribe Primary Care Provider [phone] Allergies Active Allergy Reactions Criticality Noted Date Comments Bacitracin 06/01/2013 Bacitracin Zinc-Polymyxin B 06/01/20 13 Latex, Natural Rubber High 06/01/2013 Ugdmyrxx-Pqlizjsmdi-Oawgbluzt 2012 Medications Medication Sig Dispensed Refills Start Date End Date Status citalopram (CELEXA) 20 mg tablet Take 40 mg by mouth daily. Active Calcium-Cholecalcifero l, D3, (CALCARB) 600 mg(1,500mg) -200 unit tablet Take 1 Tab by mouth 2 times daily. Active PEG 3350-Electrolytes (MIRALAX) 17 gram packet Take 17 g by mouth daily. Active docusate (COLACE) 50 mg/5 mL liquid 10 mL by per g tube route 2 times daily. 120 mL 0 09/24/2013 Active acetaminophen (TYLENOL) 500 mg tablet Take 1,000 mg by mouth every 6 hours. Active famotidine (PEPCID) 40 mg tablet Take 40 mg by mouth daily. Active MULTIVITAMIN ORAL Take by mouth. Act rosalio levothyroxine (SYNTHROID) 125 mcg tablet Take 125 mcg by mouth daily. Active rivaroxaban (XARELTO) 20 mg tablet tablet Take 20 mg by mouth daily. Active lamoTRIgine (LAMICTAL) 150 mg tablet Take 150 mg by mouth 2 times daily. Active cholecalciferol, Vitamin D3, 1,000 unit tablet Take 1,000 Units by mouth daily Active dextromethorphan-quini dine 20-10 mg capsule Take 1 Capsule by mouth every 12 hours Once daily for one week, then twice a day. 120 Cap 5 09/30/2015 Active dextromethorphan-quini dine 20-10 mg capsule Take 1 Capsule by mouth every 12 hours for 30 days Once daily for one week, then twice daily 30 Cap 0 09/30/2015 Active SULFAMETHOXAZOLE/TRIME THOPRIM (BACTRIM ORAL) Take 160 mg by mouth 2 times daily. Active amoxicillin/potassium clav (AUGMENTIN ORAL) Take 875 mg by mouth 2 times daily. Active atorvastatin (LIPITOR) 40 mg tablet Take 1 Tab by mouth daily. 30 Tab 5 03/01/2019 Active Active Problems Problem Noted Date Diagnosed Date Altered mental status 07/21/2013 Anemia 07/21/2013 Convulsions ([facility]) 07/21/2013 Social History Tobacco Use Types Packs/Day Years [...] on file Sexual Orientation Not on file Last Filed Vital Signs [...] Body Mass Index 34.16 06/18/2019 1058 EDT Functional Status Functional Status Response Date of [...] concentrating, remembering, or making decisions? Yes 11/24/2015 Plan of Treatment Not on file Procedures Procedure Name Priority Date/Time Associated Diagnosis Comments HEPATITIS C AB W REFLEX TO HCV RNA BY PCR Routine 04/06/2021 11:50 EDT from Last 3 Months or Most Recently Relevant to Health Maintenance Results * HEPATITIS C AB W REFLEX TO HCV RNA BY PCR (04/06/2021 11:50 EDT) Hep C Antibody Negative Negative 04/08/2021 10:11 EDT [facility] Blood VENOUS BLOOD / Unknown 04/06/2021 11:50 EDT 04/07/2021 15:33 EDT Provider Outr Resulting Lab CHEMISTRY & BLOOD GAS ORDERABLES [facility] [address] [place] [address] from Last 3 Months or Most Recently Relevant to Health Maintenance Advance Directives For more information, please contact: [phone] Documents on File Type Date Recorded Patient Dumper Bailer Operator Expl anation Advance Directive 09/26/2013 12:24 ADVANCE DIRECTIVE SIGNED 2012-05-13 * Limitation of Treatment (Latest Code Status on File) Date Activated Date Inactivated Comments 07/21/2013 8:12 09/24/2013 13:23 Question Answer Comments CPR for spontaneous arrest: WITHHOLD CPR for arrest during procedure: WITHHOLD Intubation/Mechanical ventilation: WITHHOLD Medications for arrhythmia: PROVIDE Care Teams Refrigeration Brazer/Solderer Relationship Specialty Start Date End Date Pilar Uribe [address] [place] [address] PCP - General 08/30/18
--- OUTSIDE RECORDS SUMMARY | 2024-07-05 11:41 | XMS_ITS | Encounter Summary ---
Author Organization [facility] Address [address] [place] [address] Care Team Providers Care [employer] Resource Teacher Name Role Phone Jojo Pilar Ninfa Primary Care Provider [phone] Reason for Visit * Reason Onset Date Comments Follow-up 11/03/2018 Encounter Details Date Type Department Care Team (Late st Contact Info) Description 11/03/2018 Telephone [facility] Neurophysiology - Main [place] [address] [place] [address] [place] [address] [phone] Follow-up Social History Tobacco Use Types Packs/Day Years [...] Miscellaneous Notes * Telephone Encounter - Ebony Casey RN - 11/03/2018 1311 EST I spoke to Iliana, pt's caregiver Advised no sz on EEG & to f/u w/ PCP re: nasal/sinus issues Iliana verbalized understanding & agreed w/ plan * Telephone Encounter - Rocky Little MD - 11/03/2018 1127 EST The patient had worsening of diffuse paranasal sinus disease noted on the most recent CT head. Please advise the patient/careigver to follow up with PCP regarding this issue. The 72-hour ambulatory EEG did not show seizures. Please advise the patient/caregiver as above. Thank you. documented in this encounter Plan of Treatment Not on file documented as of this encounter Visit Diagnoses Not on filedocumented in this encounter Care Teams [employer] Resource Teacher Relationship Specialty Start Date End Date Pilar Uribe [address] [place] [address] PCP - General 08/30/18 documented as of this encounter
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
--- OUTSIDE RECORDS SUMMARY | 2024-07-05 11:41 | XMS_ITS | Encounter Summary ---
Author Organization [facility] Address [address] [place] [address] Care Team Providers Care Brick Chimney Supervisor Name Role Phone Pilar Uribe Primary Care Provider [phone] Reason for Visit * Reason Onset Date Comments Appointment Related 03/09/2019 Encounter Details Date Type Department Care Team (Late st Contact Info) Description 03/09/2019 Telephone [facility] Neurophysiology - Main [place] [address] [place] [address] [place] [address] [phone] Appointment Related Social History Tobacco Use Types [...] as of this encounter Miscellaneous Notes * Addendum Note - Teresa Peoples MD, MD - 03/21/2019 0823 EDTAddended by: TERESA PEOPLES on: 03/21/2019 08:23 Modules accepted: Orders * Telephone Encounter - Teresa Peoples MD, MD - 03/21/2019 0822 EDT Noted. The order has been signed. This is a brief test, so I do not anticipate need for anesthesia.Thank you. * Addendum Note - Felicita Damon RN - 03/20/2019 1215 EDTAddended by: FELICITA DAMON on: 03/20/2019 12:15 Modules accepted: Orders * Telephone Encounter - Felicita Damon RN - 03/20/2019 1204 EDT Iliana called. She spoke with pt's sister who is also the guardian. She said they would like to proceed with pt having a CT Angio but would like it scheduled at the end of May or beginning of June due to her mother's severe illness. She said around 11 am would work for them Order pended for Dr Peoples to review/edit/sign * Telephone Encounter - Felicita Damon RN - 03/20/2019 0910 EDT I spoke with Iliana. She had no understanding of the test being ordered. She thought it was another CT Brain. I explained the reason for CT Angio and that it was not another CT Scan Iliana is not the decision maker. Guardian is sister Marta Alonzo (phone [phone]). Marta shares guardianship with pt's mother but pt's mother is currently in hospice. I spoke with Marta. I explained reason for CT Angio and change in med from Simvastatin to Atorvastatin. Marta will investigate and get back to our office if she wants CT Angio reordered. She is ok with change to Atorvastatin * Telephone Encounter - Felicita Damon RN - 03/20/2019 0826 EDT I called and left detailed message for Iliana to call * Telephone Encounter - Teresa Peoples MD, MD [...] advise the patient as above. Thank you. 

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
--- OUTSIDE RECORDS SUMMARY | 2024-07-05 11:41 | XMS_ITS | Encounter Summary ---
Author Organization [facility] Address [address] [place] [address] Care Team Providers Care Telephone Worker Name Role Phone SwathimckenziePilar Primary Care Provider [phone] Reason for Visit * Reason Onset Date Comments Appointment Related 12/26/2018 Encounter Details Date Type Department Care Team (Late st Contact Info) Description 12/26/2018 Telephone [facility] Neurophysiology - Main [place] [address] [place] [address] [place] [address] [phone] Appointment Related Social History Tobacco [...] encounter Miscellaneous Notes * Telephone Encounter - Ko Cruz - 12/26/2018 1214 EDT Called and spoke with patient; confirmed appointment 12/27/2018. Directions provided. documented in this encounter Plan of Treatment Not on file documented as of this encounter Visit Diagnoses Not on filedocumented in this encounter Care Teams Telephone Worker Relationship Specialty Start Date End Date Pilar Uribe [address] [place] [address] PCP - General 08/30/18 documented as of this encounter
--- OUTSIDE RECORDS SUMMARY | 2024-07-05 11:41 | XMS_ITS | Clinical Summary ---
Author Organization [facility] Address [address] [place] [address] Care Team Providers Care Manager Sas Name Role Phone Jojo Pilar R Primary Care Provider [phone] Allergies Active Allergy Reactions Criticality Noted Date Comments Bacitracin 06/01/2013 Bacitracin Zinc-Polymyxin B 06/01/20 13 Latex, Natural Rubber High 06/01/2013 Vpvwgopi-Ziqhrkhyom-Kzyvhqiwp 2012 Medications Medication Sig Dispensed Refills Start [...] Altered mental status 07/21/2013 Anemia 07/21/2013 Convulsions (HCC-CMS) 07/21/2013 Surgical History Surgery Date Site/Laterality Comments CSF SHUNT BREAST SURGERY Medical History Medical History Date Comments Developmental delay Thyroid disease Seizure ([facility]) Depression Family History Medical History Relation Comments Cancer Maternal Grandfather Lung Cancer Maternal Grandmother Ovarian, ki dney Cancer Maternal Uncle Lung Cancer Mother Lymphoma Relation Status Comments Maternal Grandfather Maternal Grandmother Maternal [...] on file Sexual Orientation Not on file Obstetrics History Last Filed Vital Signs Vital Sign Reading [...] Health Maintenance Due Date Last Done Comments RSV Immunization ( o r 60+ Years) (1 - 1-dose 60+ series) 2016 Fall Risk Screening 2021 COVID-19 Vaccine (2022- season) 2023 Hepatitis C Screen Completed 04/06/2021, 08/06/2013 Procedures Procedure Name Priority Date/Time Associated Diagnosis Comments HEPATITIS C AB W REFLEX TO HCV RNA BY PCR Routine 04/06/2021 11:50 EDT from Last 3 Months or Most Recently Relevant to Health Maintenance Results * HEPATITIS C AB W REFLEX TO HCV RNA BY PCR (04/06/2021 11:50 EDT) Hep C Antibody Negative Negative 04/08/2021 10:11 EDT [facility] Blood VENOUS BLOOD / Unknown 04/06/2021 11:50 EDT 04/07/2021 15:33 EDT Provider Outr Resulting Lab CHEMISTRY & BLOOD GAS ORDERABLES [facility] [address] [place] [address] from Last 3 Months or Most Recently Relevant to Health Maintenance Advance Directives For more information, please contact: [phone] Documents on File Type Date Recorded Patient Inside Trucker Expl anation Advance Directive 09/26/2013 12:24 ADVANCE DIRECTIVE SIGNED 2012-05-13 * Limitation of Treatment (Latest Code Status on File) Date Activated Date Inactivated Comments 07/21/2013 8:12 09/24/2013 13:23 Question Answer Comments CPR for spontaneous arrest: WITHHOLD CPR for arrest during procedure: WITHHOLD Intubation/Mechanical ventilation: WITHHOLD Medications for arrhythmia: PROVIDE Care Teams Manager Sas Relationship Specialty Start Date End Date Pilar Uribe [address] [place] [address] PCP - General 08/30/18
--- OUTSIDE RECORDS SUMMARY | 2024-07-05 11:41 | XMS_ITS | Encounter Summary ---
Author Organization [facility] Address [address] [place] [address] Care Team Providers Care Beam Machine Operator Name Role Phone Pilar Uribe Primary Care Provider [phone] Reason for Visit * Reason Onset Date Comments Appointment Related 05/14/2019 Encounter Details Date Type Department Care Team (Late st Contact Info) Description 05/14/[address] [facility] Cardiology - [facility] [place] [address] [place] [address] Echo, McHv Appointment Related Social History Tobacco Use Types [...] encounter Miscellaneous Notes * Telephone Encounter - Dee Box - 05/15/2019 1023 EDT Called pt to RSC. Left VM to CB * Telephone Encounter - Carolyn Brizuela - 05/15/2019 0913 EDT Echo has been cancelled in GE and IC. Just needs a call to reschedule. * Telephone Encounter - Jennifer Adair - 05/14/2019 0956 EDT PAS Message: Socorro called to cancel appointment with SAIDA STEVENSON on 05/17 at 13:00 due to schedule conflict. Patient would like a call back to reschedule? Yes documented in this encounter Plan of Treatment Not on file documented as of this encounter Visit Diagnoses Not on filedocumented in this encounter Care Teams Beam Machine Operator Relationship Specialty Start Date End Date Pilar Uribe [address] [place] [address] PCP - General 08/30/18 documented as of this encounter
--- OUTSIDE RECORDS SUMMARY | 2024-07-05 11:42 | XMS_ITS | Encounter Summary ---
Author Organization [facility] Address [address] [place] [address] Care Team Providers Care Equipment Operator/Laborer Name Role Phone Hal Gutierrez MD Primary Care Provider Unav ailable Reason for Visit * Reason Comments Follow-up Encounter Details Date Type Department Care Team (Late st Contact Info) Description 01/24/2015 14:00 EDT Office Visit [facility]cology - [address] [id number] Meredith High, [address] [facility], [address] [place] [phone] Mammographic microcalcification (Primary Dx) Social History Tobacco Use Types Packs/Day Years Used Date Smoking Tobacco: Never Alcohol Use Standard Drinks/Week Comments [...] this encounter Discharge Diagnoses Diagnosis 793.81 MAMMOGRAPHIC MICROCALCIFICATION[ICD-9-CM] documented in this encounter Progress Notes * Meredith High DO - 01/24/2015 1431 EDT Subjective: Patient ID: Socorro Jaimes is an 59 y.o. female. Chief Complaint Patient presents with ??? Follow-up HPI Socorro is seen in 6 month follow up for her right breast mammographic abnormality. As you recall this is a patient that went in for a mammogram in [facility] in July 2014. She was found to have an area of calcifications in the upper outer quadrant of the right breast. Biopsy was recommended, but the family was unsure that the patient would be able to tolerate a stereotactic biopsy without sedation. The patient has an exceptionally complex medical history. She has a longstanding historyof developmental delay. This suddenly became much worse in July 2013 when she was admitted to the hospital, unresponsive and having seizures. She was in the hospital for two months and eventuallywas discharged in a near coma-like state from aseptic meningitis and encephalitis. Since then, due to the family believes a CSF shunt, the patient has had some pretty remarkable recovery. We met with Socorro and her family last year. We discussed several options and elected to simply doa 6-month followup mammogram to assess stability of [...] Antibiotic [Bacitracin Zinc-Polymyxin B] ??? Triple Antibiotic [Omakxjds-Xzsciiyuhc-Xzrwgscaa] Review of Systems Constitutional: Positive for malaise/fatigue. [...] and the supine position. There are no obviousmasses palpated in either breast. She does have [...] We will just continue to follow up withher. Thank you for allowing me to participate in the care of this very pleasant patient. Plan: (793.81) Mammographic microcalcification (primary encounter diagnosis) Meredith High DO Med Orders Placed This Visit and Additions to the Medication List Medications ??? cholecalciferol, Vitamin D3, 1,000 unit tablet Sig: Take 1,000 Units by mouth daily documented in this encounter Plan of Treatment Not on file documented as of this encounter Visit Diagnoses Diagnosis Mammographic microcalcification- Primary documented in this encounter Historical Medications * This list may reflect changes made after this encounter. Medication Sig Dispensed Refills Start Date End Date cholecalciferol, Vitamin D3, 1,000 unit tablet Take 1,000 Units by mouth daily added in this encounter Care Teams Equipment Operator/Laborer Relationship Specialty Start Date End Date Hal Gutierrez MD PCP - General 06/13/13 08/29/18 documented as of this encounter
--- OUTSIDE RECORDS SUMMARY | 2024-07-05 11:42 | XMS_ITS | Encounter Summary ---
Author Organization [facility] Address [address] [place] [address] Care Team Providers Care Remittance Clerk Name Role Phone Pilar Uribe Primary Care Provider [phone] Encounter Details Date Type Department Care Team (Latest Contact Info) Description 10/15/2018 9:32 EST - 10/15/2018 23:59 EST Hospital Encounter [facility] [address] [place] [address] [place] [address] [phone] Discharge Disposition: Home or Self Care Social History Tobacco Use Types Packs/Day Years [...] R56.9 Unspecified convulsions-R56.9[ICD-10-CM] documented in this encounter Medications at Time [...] Code Departure Means Destination Home or Self Fpc documented in this encounter Plan of Treatment Not on file documented as of this encounter Visit Diagnoses Not on filedocumented in this encounter Care Teams Remittance Clerk Relationship Specialty Start Date End Date Pilar Uribe [address] [place] [address] PCP - General 08/30/18 documented as of this encounter
--- OUTSIDE RECORDS SUMMARY | 2024-07-05 11:42 | XMS_ITS | Encounter Summary ---
Author Organization [facility] Address [address] [place] [address] Care Team Providers Care Bilingual Medical Receptionist Name Role Phone Hal Gutierrez MD Primary Care Provider Unav ailable Reason for Visit * Reason Comments New Patient Visit * Consult (Routine) - Closed Specialty Diagnoses / Procedures Referred By Mayank gilbert Referred To Contact Surgical Oncology Diagnoses Abnormal finding on breast imaging Hal Gutierrez MD [address] [place] [address] [facility] S[facility]-Oncology [address] [place] [address] Referral ID Status Reason Start Date Expiration Date Visits Re quested Visits Authorized [id number] Closed 1 1 Encounter Details Date Type Department Care Team (Late st Contact Info) Description 09/02/2014 11:30 EST Office Visit [facility] Surgical Oncology - [address] [address] Meredith High, DO [address] [facility] 2 [place] [phone] Mammographic microcalcification (Primary Dx) Discharge Disposition: Auto Discharge Social [...] 160.5 cm (5' 3.19) 09/02/2014 1116 EST w ith shoes Body Mass Index 27.12 09/02/2014 1116 EST documented in this encounter Discharge Diagnoses Diagnosis 793.81 MAMMOGRAPHIC MICROCALCIFICATION[ICD-9-CM] documented in this encounter Discharge Disposition Disposition Code Departure Means Destination Auto Discharge documented in this encounter Progress Notes * Meredith High, DO - 09/02/2014 1258 EST Subjective: Patient ID: Socorro Jaimes is an 59 y.o. female. Chief Complaint Patient presents with ??? New Patient Visit HPI Socorro Jaimes is seen in the office today in consultation at the request of Dr Hal Gutierrez fora mammographic abnormality. This is a patient that went in for a mammogram in [facility] in July 2014. She was found to have an area of calcifications in the upper outer quadrant of the rightbreast. Biopsy was recommended, but the family was unsure that the patient would be able to tolerate a stereotactic biopsy without sedation. The patient has an exceptionally complex medical history. She has a longstanding history of developmental delay. This suddenly became much worse in July 2013 when she was admitted to the hospital, unresponsive and having seizures. She was in the hospitalfor two months and eventually was discharged in a near coma-like state from aseptic meningitis and encephalitis. Since then, due to the family believes a CSF shunt, the patient has had some pretty remarkable recovery. However, she still is not functioning at 100% and they are a little bit concernedabout her ability to lie on her stomach [...] Antibiotic [Bacitracin Zinc-Polymyxin B] ??? Triple Antibiotic [Rjviwcdz-Yslcfsazmi-Eufutoyyu] Review of Systems Constitutional: Positive for malaise/fatigue. [...] are no obviousmasses palpated in either breast. There is no [...] in the room to help her stay in position. Certainly, we could do a wire localized excision but this would also mean that she has to sit still through the wire being placed and then have the wire in her breast for a couple of hours prior to going into the operating room and I'm a little concerned about her ability to tolerate t hat. At this point, the family is very agreeable to doing a 6-month followup mammogram. I will see her that day and we will come up with a [...] Refills Start Date End Date NORTRIPTYLINE HCL (NORTRIPTYLINE ORAL) Take 20 mg by mouth at bedtime. 10/08/2014 added in this encounter Care Teams Bilingual Medical Receptionist Relationship Specialty Start Date End Date Hal Gutierrez MD PCP - General 06/13/13 08/29/18 documented as of this encounter
--- OUTSIDE RECORDS SUMMARY | 2024-07-05 11:42 | XMS_ITS | Encounter Summary ---
Author Organization [facility] Address [address] [place] [address] Care Team Providers Care Automatic Screwmaker Name Role Phone Hal Gutierrez MD Primary Care Provider Unav ailable Reason for Visit * Reason Comments Follow-up CT today Encounter Details Date Type Department Care Team (Late st Contact Info) Description 11/24/2015 15:00 EDT Office Visit [facility] Neurosurgery - [facility] [address] [place] [address] Bianca Vieyra PA-C [address] [phone] Communicating hydrocephalus (Primary Dx); S/P EMBROIDERY CUTTER shunt Social History Tobacco Use Types Packs/Day Years [...] Yes 11/24/2015 documented as of this encounter Progress Notes * Bianca Vieyra PA - 11/30/2015 1401 EDT DIVISION OF NEUROSURGERY OUTPATIENT PROGRESS NOTE Chief complaint / Neurosurgical problem: Chief Complaint Patient presents with ??? Follow-up CT today Encounter Diagnoses Name Primary? Communicating hydrocephalus Yes ??? S/P EMBROIDERY CUTTER shunt- Medtronic Delta 1.5 valve Patient Active Problem List Diagnosis Date Noted ??? Altered mental status 07/21/2013 ??? Anemia 07/21/2013 ??? Convulsions 07/21/2013 Ms Jaimes is a 60-year-old female who is seen today in followup for hydrocephalus status post EMBROIDERY CUTTER shunt placement. The patient is known to our service but was last seen in 2013. At that time, she was admitted to the hospital with suspected meningitis. She developed hydrocephalus which was treated with lumbar drains as well as external ventricular drainage. Due to the risk of infection, it was feltthat the ventricular diversion would need to be internalized, and a EMBROIDERY CUTTER shunt was placed on 09/13/2013. At that time, a Medtronic Delta 1.5 valve was placed, and the patient has been doing well since that time. The patient's family states that over the last year, Socorro's mood has become more labile. She hermood will fluctuate from happy to irritable to crying. She continues to require help with ADLs suchas bathing and dressing. The patient was seen by neurology on 2014. At that visit, it was unclear exactly why the patient's mood was fluctuating and she was started on Neudexta. It was recommend ed that the patient follow up with neurosurgery in regard to the functioning of her shunt. The patient's family, who accompanies her today, state that besides the mood difficulties, she has had some trouble with increasing urinary incontinence. The patient has had some minor headaches, butnothing that seems to be progressive or persistent. IMAGING STUDIES: A CT scan of the head obtained today reveals stable position of the ventricular catheter without any significant change in ventricular caliber. A shunt series obtained today revealed no disruptions seen in the EMBROIDERY CUTTER shunt catheter from the skull to the [...] followup to ensure proper functioning of her EMBROIDERY CUTTER shunt due to frequent mood fluctuations. It does appear that the patient's shunt is working properly. We discussed a shuntogram to ensure that there is no blockage of flow, which would be the last confirmation test to ensure that the shunt is working well. The patient's family would like to hold off on this for now as they are reassured by the head CT and shunt series that the shunt is most likely functioning. They will continue to follow up with neurology as needed and will contact us with any further questions or concerns. All questions were answered, and the patient and her family are in agreement with the plan. PLAN: Consideration of shuntogram if the patient's symptoms worsen. Follow up with neurosurgery if symptoms change or worsen. Dr Gutierrez, thank you for the opportunity to care for this patient. Please feel free to contact theoffice with any questions or concerns. Sincerely, KIRSTY Burr documented in this encounter Plan of Treatment Not on file documented as of this encounter Visit Diagnoses Diagnosis Communicating hydrocephalus (HCC-CMS)- Primary Communicating hydrocephalus S/P EMBROIDERY CUTTER shunt Presence of cerebrospinal fluid drainage device documented in this encounter Historical Medications * This list may reflect changes made after this encounter. Medication Sig Dispensed Refills Start Date End Date SULFAMETHOXAZOLE/TRIMETHOP RIM (BACTRIM ORAL) Take 160 mg by mouth 2 times daily. added in this encounter Care Teams Automatic Screwmaker Relationship Specialty Start Date End Date Hal Gutierrez MD PCP - General 06/13/13 08/29/18 documented as of this encounter
--- OUTSIDE RECORDS SUMMARY | 2024-07-05 11:42 | XMS_ITS | Encounter Summary ---
Author Organization [facility] Address [address] [place] [address] Care Team Providers Care Snow Maker Name Role Phone Hal Gutierrez MD Primary Care Provider Unav ailable Encounter Details Date Type Department Care Team (Latest Contact Info) Description 04/11/2017 15:35 EDT - 04/11/2017 23:59 EDT Hospital Encounter [address] [address] Unknown, Provider, Discharge Disposition: Home or Self Care Social [...] Yes 11/24/2015 documented as of this encounter Medications at [...] on filedocumented in this encounter Care Teams Snow Maker Relationship Specialty Start Date End Date Hal Gutierrez MD PCP - General 06/13/13 08/29/18 documented as of this encounter
--- OUTSIDE RECORDS SUMMARY | 2024-07-05 11:42 | XMS_ITS | Encounter Summary ---
Author Organization [facility] Address [address] [place] [address] Care Team Providers Care Soap Tender Name Role Phone Hal Gutierrez MD Primary Care Provider Unav ailable Reason for Visit * Reason Onset Date Comments Medications Refill 10/01/2015 Encounter Details Date Type Department Care Team (Late st Contact Info) Description 10/01/2015 Telephone [facility] Neurology - [address] [place] [address] [place], [place] [address] Salazar Sahu MD [address] [place] [address] Medications Refill Social History Tobacco Use Types Packs/Day Years Used Date Smoking Tobacco: Never Alcohol Use Standard Drinks/Week Comments No 0 (1 standard drink = 0.6 oz pur e alcohol) Sex and Gender Information Value Date Recorded Sex Assigned at Not on file Gender Identity Not on file Sexual Orientation Not on file documented as of this encounter Miscellaneous Notes * Telephone Encounter - Esha Guillen RN - 10/01/2015 1642 EST TC to [facility] who initially told me they didn't have the rx but when I spoke with the pharmacist to give a phone order he was able to locate the rx and doesn't need a new one. They don't have the medication in stock and have ordered. They hope to have it in tomorrow. Attempted return call to AIMEE Barillas for call back. * Telephone Encounter - Ladi Daley - 10/01/2015 1556 EST Please resend yesterdays RXs to [facility] in [place]. They are telling PT they have not received documented in this encounter Plan of Treatment Not on file documented as of this encounter Visit Diagnoses Not on filedocumented in this encounter Care Teams Soap Tender Relationship Specialty Start Date End Date Hal Gutierrez MD PCP - General 06/13/13 08/29/18 documented as of this encounter
--- OUTSIDE RECORDS SUMMARY | 2024-07-05 11:42 | XMS_ITS | Encounter Summary ---
Author Organization [facility] Address [address] [place] [address] Care Team Providers Care System Manager Name Role Phone Hal Gutierrez MD Primary Care Provider Unav ailable Encounter Details Date Type Department Care Team (Late st Contact Info) Description 11/24/2015 14:22 EDT - 11/24/2015 23:59 EDT Hospital Encounter [facility] [address] [place] [address] Sherley Louie PA-C 111 [facility] [address] [place] [phone] Discharge Disposition: Home or Self Care Social [...] Diagnoses Diagnosis Z01.89 Encounter for other specified special examinations-Z01.89[ICD-10-CM] documented in this encounter Medications at [...] Code Departure Means Destination Home or Self Senior Living documented in this encounter Plan of Treatment Not on file documented as of this encounter Visit Diagnoses Not on filedocumented in this encounter Care Teams System Manager Relationship Specialty Start Date End Date Hal Gutierrez MD PCP - General 06/13/13 08/29/18 documented as of this encounter
--- OUTSIDE RECORDS SUMMARY | 2024-07-05 11:42 | XMS_ITS | Encounter Summary ---
Author Organization [facility] Address [address] [place] [address] Care Team Providers Care Projection Printer Name Role Phone Hal Gutierrez MD Primary Care Provider Unav ailable Reason for Visit * Reason Onset Date Comments New/Evolving Symptoms 07/07/2015 Encounter Details Date Type Department Care Team (Late st Contact Info) Description 07/07/[address] [facility] Neurology - [address] [place] [address] [place], [place] [address] Salazar Sahu MD [address] [facility] [place] [address] New/Evolving Symptoms Social History Tobacco Use Types Packs/Day Years Used Date Smoking Tobacco: Never Alcohol Use Standard Drinks/Week Comments No 0 (1 standard drink = 0.6 oz pur e alcohol) Sex and Gender Information Value Date Recorded Sex Assigned at Not on file Gender Identity Not on file Sexual Orientation Not on file documented as of this encounter Miscellaneous Notes * Telephone Encounter - Josephine Singh RN - 07/14/[address] Sahu: I will call and discuss, she may increase her dose to 40 mg for the record. Salazar * Telephone Encounter - Josephine Singh RN - 07/07/2015 1838 EDT TC to Sister/ Orthotic And Prosthetic Technician. The last 2 weeks, Increased mood swings, moodiness more often, worse aftershe has been on Respite care. Throwing tantrums . Darleena And Socorro are going to counseling to work on behavior issues. Asking if there should be med changes? Currently on Nortriptyline, 20 mg twice a day, Lamotrigine 150 mg twice a day, Levothyroxine 125 mcg, 1 tab for 6 days a week, Simvastatin 20 mg daily, Xarelto 20 mg daily, melatonin, Certrizine prn for Allergies and citalopram 40 mg daily * Telephone Encounter - Dakota Ronquillo - 07/07/2015 1426 EDT Nargis is calling to report Socorro's recent behavior. She comes in house after being out with respit and she comes back very ugly, throwing tantrums and expressing that she hates her sisters which they are going to counseling to work on that. Sister/software development manager is requesting a call back to discuss a plan of care via med management or other alternatives. Please call to discuss. documented in this encounter Plan of Treatment Not on file documented as of this encounter Visit Diagnoses Not on filedocumented in this encounter Care Teams Projection Printer Relationship Specialty Start Date End Date Hal Gutierrez MD PCP - General 06/13/13 08/29/18 documented as of this encounter
--- OUTSIDE RECORDS SUMMARY | 2024-07-05 11:42 | XMS_ITS | Encounter Summary ---
Author Organization [facility] Address [address] [place] [address] Care Team Providers Care Engineering Writer Name Role Phone Hal Gutierrez MD Primary Care Provider Unav ailable Reason for Visit * Reason Onset Date Comments Results 07/23/2014 gave pt 1 Noratr iptaline at night for 2 weeks, then 2 for 1 week, pt is still having crying episodes, wants to discuss pt's CT scan results, please call Encounter Details Date Type Department Care Team ([facility] st Contact Info) Description 07/23/2014 Telephone [facility] Neurology - [address] [place], [place] [address] Salazar Sahu MD [address] [place], [place] [id number] Results (gave pt 1 Noratriptaline at night for 2 weeks, then 2 for 1 week, pt is still having crying episodes, wants to discuss pt's CT scan results, please call) Social History Tobacco Use Types Packs/Day Years [...] Encounter - Esha Guillen RN - 07/23/2014 1621 EST Returned TC to Nargis who states Socorro is still having crying episodes. She has only been at the 20 mg dosage for one week and Nargis is aware that it may take more time. Nargis does feel that Socorro is perhaps not crying as often but it's hard to say for sure. Additionally they are askingfor the CT scan results. Will ask Dr. Sahu to review and advise. documented in this encounter Plan of Treatment Not on file documented as of this encounter Visit Diagnoses Not on filedocumented in this encounter Care Teams Engineering Writer Relationship Specialty Start Date End Date Hal Gutierrez MD PCP - General 06/13/13 08/29/18 documented as of this encounter
--- OUTSIDE RECORDS SUMMARY | 2024-07-05 11:42 | XMS_ITS | Encounter Summary ---
Author Organization [facility] Address [address] [place] [address] Care Team Providers Care Buyers' Agent Name Role Phone Hal Gutierrez MD Primary Care Provider Unav ailable Reason for Visit * Reason Comments Follow-up mood is up and down, will discuss more with Dr. Sahu- completely off the nortripyline Encounter Details Date Type Department Care Team (Late st Contact Info) Description 09/30/2015 15:00 EST Office Visit [facility] Adult Neurology - [facility] [address] [place], [place] [id number] Unknown, Provider, Salazar Sahu [facility] [address] [facility] [place] [place] [address] Crying with unclear etiology (Primary Dx) Social History Tobacco Use Types [...] Reading Time Taken Comments Blood Pressure 110/72 09/30/2015 1453 EST Pulse 71 09/30/2015 1453 EST Temperature - - Respiratory Rate 14 09/30/2015 1453 EST Oxygen Saturation - - Inhaled Oxygen Concentration - - Weight - - Height - - Body Mass Index - - documented in this encounter Ordered Prescriptions Prescription Sig Dispensed Refills Start Date End Da te dextromethorphan-quinidine 20-10 mg capsule Take 1 Capsule by mouth every 12 hours for 30 days Once daily for one week, then twice daily 30 Cap 0 09/30/2015 dextromethorphan-quinidine 20-10 mg capsule Take 1 Capsule by mouth every 12 hours Once daily for one week, then twice a day. 120 Cap 5 09/30/2015 documented in this encounter Progress Notes * Dulce Maria Machado MD - 10/01/2015 1604 EST Attestation statement: I saw and examined the patient with the resident/fellow. I agree with the findings and plan of care documented in the resident's/fellow's note. * Salazar Sahu MD - 09/30/2015 6156 EST [facility] NEW PATIENT EVALUATION - 2014 PROGRAM: Neurology [facility] outpatient clinic. SUMMARY: Follow up PROBLEM: Irritable mood. INTERVAL HISTORY: The patient is a 60-year-old female last seen by neurology 2014, with past medical history significant for developmental delay and acute on chronic cognitive decline and was hospitalized from 07/21/2013 to 09/24/2013 for aseptic meningitis/encephalitis. In brief, during her h ospitalization, she presented with seizure-like activity in a generally unresponsive state. She receives EEG, a TRANSPORTATION DIRECTOR shunt, IVC filter, CSF and serum analysis, brain biopsy, several MRI head studies, nuclear medicine bone whole body scan, and was discharged to a rehab facility. While in rehab, she markedly improved, started conversing, walking. For the last year, she has started this habit of frequent crying and it has progressed to labile/irritable mood. We initiated TCA at last visit to help with this mood problem, but she became worse, dose increased with no positive effect, and it was titrated to stopping in August,. She is having outburst of negative emotion and commentary directed toward her sister, saying she is hurting me, she's the one who needs to see a doctor. She demonstrates this during the appointment. Sister and [id number] present at the appointment endorse she is having these types of outburst toward all her caretakers. She requires help with ADLs such asbathing, dressing. She does not handle money. She attends activities outside the home about 20 hours per week and 2 weekends, where her behavior remains consistent with the irritable pattern. She is able to participate in the exam and again brings up the circumstances surrounding her father's . The patient's family states she is otherwise in good health. No changes in medications, no recent i llnesses. MEDICATIONS: Citalopram 40 mg once daily. Polyethylene glycol 17 mg once daily. Simvastatin 20 mg once daily. Tylenol as needed. Docusate 100 mg twice a day. Calcium 600 mg 2 times daily. Famotidine 40 mg once daily. Multivitamin once daily. Levothyroxine 125 mcg once daily. Xarelto 20 mg once daily. Lamotrigine 150 mg twice daily. REVIEW OF SYSTEMS: Positive for irritability A 12-point review of systems was otherwise negative. Denies headaches, changes in vision, changes in hearing, congestion, difficulty swallowing, cough, chest pain, shortness of breath, nausea, diarrhea, dysuria, muscle aches, joint pains, fevers or weight loss. PAST MEDICAL HISTORY: Developmental delay, thyroid disease, seizure. SURGICAL HISTORY: PEG placement, brain biopsy. FAMILY HISTORY: None. SOCIAL HISTORY: Never smoker. Does not use alcohol. Lives with family and requires line servicer supervision. ALLERGIES: BACITRACIN, LATEX. OBJECTIVE:Blood pressure 110/72, pulse 71, resp. rate 14. Exam: No acute distress. Skin color, turgor and temperature, normal. Face atraumatic. Mucous membranes moist. Lungs clear to auscultation bilaterally. Heart rhythm regular. Abdomen nontender, nondistended and soft. Extremities without cyanosis or edema. Neuro exam: Mental status: Speech is fluid, alert and oriented to person and place, perseverates onher father, spontaneous change from conversational mode to irritable mood, specifically directed ather sister who accompanies her to the appointment. Cranial nerves: Pupils equal, round and reactive to light. Extraocular movements intact. Face symmetrical. Palate elevates. Hearing grossly intact. Shoulder shrug 5/5. Tongue midline. Motor: Contractures of her left elbow and left wrist, contracture of right hand in digits 4 and 5, 5/5 strength in bilateral upper extremity flexion and extension, bilateral marine insulator, no abnormal movements. Unable to fully assess individual's leg muscles secondary to lack of patient cooperation. Sensation grossly intact to temperature, vibration and light touch bilaterally. Reflexes: Two/4 biceps bilaterally, 1/4 patellar bilaterally. Coordination: The patient was unable to cooperate. Gait: Rises with assistance from chair, has cane but does not use, narrow-based gait close steps, hunched over posture. ASSESSMENT: This 59-year-old female with a past medical history of developmental delay with acute on chronic cognitive decline of unspecified, uncharacterized etiology, continues to display spontaneous crying and irritable mood, changing within minutes to smiling, consistent with pseudobulbar affect. Likely causes of this change in her mood are frontal lobe damage likely further compromised from recent aseptic meningitis/encephalitis versus progression of her progressive degenerative process ofunclear etiology. PLAN: The patient will start Nudexta 20/10 once daily for one week, then increase to twice daily, script provided. Family/caretakers will call in 3-4 months to report how Iram is doing, consider need for follow-up appointment based on their report. We do not think she will require Welbutrin as suggested by her PCP, if she responds well to the Nudexta Plan discussed with Dr Carter Sahu MD documented in this encounter Plan of Treatment Not on file documented as of this encounter Visit Diagnoses Diagnosis Crying with unclear etiology- Primary Excessive crying of child, adolescent, or adult documented in this encounter Discontinued Medications Medication Sig Discontinue Reason Start Date End Da te nortriptyline (PAMELOR) 10 mg capsule Take 4 Caps by mouth 2 times daily Paradoxical response 07/14/2015 09/30/2015 documented as of this encounter Care Teams Buyers' Agent Relationship Specialty Start Date End Date Hal Gutierrez MD PCP - General 06/13/13 08/29/18 documented as of this encounter
--- OUTSIDE RECORDS SUMMARY | 2024-07-05 11:42 | XMS_ITS | Encounter Summary ---
Author Organization [facility] Address [address] [place] [address] Care Team Providers Care Brand Advisor Name Role Phone Hal Gutierrez MD Primary Care Provider Unav ailable Reason for Visit * Reason Onset Date Comments Medication Management 02/05/2016 Encounter Details Date Type Department Care Team (Late st Contact Info) Description 02/05/2016 Telephone [facility] Neurology - [address] [place], [place] [id number] Salazar Sahu MD [address] [place] [address] Medication Management Social History Tobacco Use Types [...] Sahu. She will contact PCP re: wellbutrin. * Telephone Encounter - Valeria Duncan - 02/11/2016 1700 EDT Returning Esha's call. * Telephone Encounter - Esha Guillen RN - 02/11/2016 1317 EDT Attempted to contact AIMEE Barillas for call back. * Telephone Encounter - Esha Guillen RN - 02/11/[address] Sahu: Esha, could you get in touch with the PCP, who had planned to start Welbutrin, permy last note, as it seems she is not responding to the Nuedexta. ??I would prefer the PCP start andmanage this medication. Salazar * Telephone Encounter - Esha Guillen RN - 02/06/2016 1525 EDT TC to Nargis who reports Socorro's behavior is getting worse again. She is agitated and yelling alot (she was yelling in the background during the entire phone conversation). Nargis reports Socorro has seen psychiatry through [facility]. They are concerned about Socorro taking nudexta 20-10 one tab BID and celexa 40mg daily and plan to have EKG done. Nargis is frustrated and asks if it is possible to increase nudexta. She hopes for an answer as soon as possible. Will ask Dr. Sahu to review and advise. * Telephone Encounter - Esha Vernon - 02/06/2016 1430 EDT Mini was returning Esha's call - * Telephone Encounter - Esha Guillen RN - 02/06/2016 1330 EDT Attempted return call, for call back. * Telephone Encounter - Esha Vernon - 02/05/2016 1628 EDT Mini is requesting a call back to discuss medication dosage for Socorro -- she is upset a lot, mean and yelling documented in this encounter Plan of Treatment Not on file documented as of this encounter Visit Diagnoses Not on filedocumented in this encounter Care Teams Brand Advisor Relationship Specialty Start Date End Date Hal Gutierrez MD PCP - General 06/13/13 08/29/18 documented as of this encounter
--- OUTSIDE RECORDS SUMMARY | 2024-07-05 11:42 | XMS_ITS | Encounter Summary ---
Author Organization [facility] Address [address] [place] [address] Care Team Providers Care Feeder/Folder Name Role Phone Pilar Uribe Primary Care Provider [phone] Reason for Referral * Radiology Services (Routine) - Closed Specialty Diagnoses / Procedures Referred By Mayank gilbert Referred To Contact Diagnoses Seizures ([facility]) Procedures [place] [address] [id number] Referral ID Status Reason Start Date Expiration Date Visits Re quested Visits Authorized [id number] Closed 09/20/2018 1 1 Reason for Visit * Reason Comments Seizures none for 2-3 weeks, were pretty frequent * Referral (Routine) - Closed Specialty Diagnoses / Procedures Referred By Mayank gilbert Referred To Contact Neurology Diagnoses Seizure ([facility]) Pilar Uribe [address] [place] [id number] [facility] Neuromusc & Clin Neurophys [address] [place] [address] Referral ID Status Reason Start Date Expiration Date Visits Re quested Visits Authorized [id number] Closed 1 1 Encounter Details Date Type Department Care Team (Latest Contact Info) Description 09/20/2018 11:03 EST - 09/20/2018 23:59 EST Hospital Encounter [facility] Neurophysiology - [address] [place] [address] [place] [address] [place] [id number] [phone] Seizures ([facility]) (Primary Dx) Discharge Disposition: Auto Discharge Social [...] - Inhaled Oxygen Concentration - - Weight 88.6 kg (195 lb 6.4 oz) 09/20/2018 1107 EST w shoes, unsteady gait Height 160 cm (5' 3) 09/20/2018 [...] Discharge Instructions * Patient Instructions* Rocky Little MD - 09/20/2018 12:11 EST Please [...] this encounter Progress Notes * Rocky Little MD - 09/20/2018 1115 EST 09The [facility] Epilepsy Program New Patient Consultation [...] delay and meningitis at age 58 s/p SUBSTATION OPERATOR TRANSFORMING shunt, who presents to our epilepsy clinic for further evaluation of spells suspicious for seizures. She presents with her caregiver and [id number], and since the patient mostly refuses to speak, the history has been obtained from the chart and from her family/caregivers. The patient was noted to have some developmental delay early in life and then had some traumatic experiences during her teenage years, leading to overall significant developmental delay and a need for special education. She was hospitalized from 07/21/2013-09/24/2013 at the [facility] for aseptic meningitis/encephalitis for which she was treated and was discharged with SUBSTATION OPERATOR TRANSFORMING shunt and IVC filter along with Xarelto. [...] - MR Ibrain w/wo contrast (08/03/2013 @ [facility]): Per the report: Overall slight improvement in the dilatation of the ventricular system. Increased pachymeningeal enhancement may be related to the patient's lumbar puncture. Persistent lack of fluid suppression along the sulci of the cerebral convexities with possible slight decrease in the amount of leptomeningeal enhancement. - CT head wo contrast (11/24/2015 @ [facility]): Per the report: Stable position [...] 2. EEG: - Standard EEG (09/03/2013 @ [facility]): Abnormal disorganized and slow EEG [...] history of meningitis/encephalitis as outlined above. The SUBSTATION OPERATOR TRANSFORMING shut is in place. There is no [...] filter and on anticoagulation. Past Surgical History: SUBSTATION OPERATOR TRANSFORMING shunt placement. Breast surgery. Allergies: Allergies Allergen Reactions ??? Latex, Natural Rubber ??? Bacitracin ??? Band-Aid Plus Antibiotic [Bacitracin Zinc-Polymyxin B] ??? Triple Antibiotic [Qejwnzra-Cgblndoicg-Vuazpdvsz] Social history: She lives with her care [...] sideof the family. Physical Examination: Vitals: BP 118/78 [...] developmental delay. We will follow this clinically. PLAN: 1. CT head wo contrast. 2. Routine EEG followed by 72-hour EEG to evaluate for subclinical events. The family was advised to document any staring spells or mood issues during [...] in the meantime. I spent 62 minutes [id number] with this patient. Greater than 50% of that time was spent in counseling and coordination of care. Thank you for involving me in care of Ms. Jaimes. Please feel free to contact the office with any questions or concerns. Rocky Little M.D. Attending, Epilepsy Program [facility] documented in this encounter Miscellaneous Notes * Addendum Note - Rocky Little MD - 09/20/2018 1216 ESTEncounter addended by: Rocky Little MD on: 09/20/2018 12:16 Actions taken: Sign clinical note documented in this encounter Plan of Treatment Not on file documented as of this encounter Procedures Procedure Name Priority Date/Time Associated Diagnosis Comments CT HEAD WO CONTRAST Routine 10/16/2018 1 2:41 EST Seizures ([facility]) documented in this encounter Results * CT HEAD WO CONTRAST (10/16/2018 12:41 EST) Anatomical Region Laterality Modality Other 10/16/2018 12:4 1 EST 10/16/2018 13:04 EST Narrative 10/16/2018 13:[address] HEAD WITHOUT CONTRAST [...] worse compared to 11/24/2015. Contents of increased attenuation in the left maxillary sinus may reflect [...] worse compared to 11/24/2015. Contents of increased attenuation in the left maxillary sinus may reflect inspissated secretions or fungal elements. Rocyk Little MD [facility] ORDERABLES * LAMOTRIGINE (09/20/2018 12:40 EST) Lamotrigine, Plasma or Serum 8.2 2.5 - 15.0 mcg/mL 09/22/2018 8:15 EST [facility] Comment: (Note) . ADDITIONAL INFORMATION This test was developed and its performance characteristics determined by [facility] in a manner consistent with CLIA requirements. This test has not been cleared or approved by the U.S. Food and Drug Administration. Performed by: [facility]: [address], [place] [address] Blood specimen (specimen) BLOOD SPECIMEN / Unknown 09/20/2018 12:40 EST 09/20/2018 13:14 EST Rocky Little MD CHEMISTRY & BLOOD GA S ORDERABLES [facility] [address] [place] [address] * (ABNORMAL) COMPREHENSIVE METABOLIC PANEL (CMP) (09/20/2018 12:40 EST) Potassium 4.8 3.5 - 5.0 mEq/L 09/20/2018 13:49 [facility] Sodium 142 136 - 145 mEq/L 09/20/2018 13:49 [facility] Chloride 104 96 - 110 mEq/L 09/20/2018 13:49 [facility] CO2 29 22 - 32 mEq/L 09/20/2018 13:49 [facility] Total Alkaline Phosphatase 101 38 - 126 U/L 09/20/2018 13:49 [facility] Bilirubin, Total <0.5 <1.4 mg/dl 09/20/19 19 13:49 [facility] AST 13(L) 15 - 46 U/L 09/20/2018 13:49 [facility] ALT 22 <53 U/L 09/20/2018 13:49 [facility] Albumin 4.5 3.4 - 4.9 g/dl 09/20/2018 13:49 [facility] Total Protein 6.9 6.3 - 8.2 g/dl 09/20/2018 13:49 [facility] Creatinine 1.57(H) 0.52 - 1.04 mg/dl 09/20/2018 13:49 [facility] GFR, Calculated 35(L) >60 ml/min/1.7 3m2 09/20/2018 13:49 [facility] Comment: eGFR calculated using CKD-EPI equation for non Americans. Multiply eGFR by 1.16 for Americans. BUN 26 10 - 26 mg/dl 09/20/2018 13:49 [facility] Calcium 9.6 8.5 - 10.5 mg/dl 09/20/2018 13:49 [facility] Calculated Calcium 9.2 8.5 - 10.5 mg/dl 09/20/2018 13:49 [facility] Glucose, Serum 93 70 - 100 mg/dl 09/20/2018 13:49 [facility] Fasting? No 09/20/2018 12:42 [facility] Blood specimen (specimen) BLOOD SPECIMEN / Unknown 09/20/2018 12:40 EST 09/20/2018 13:14 EST Rocky Little MD CHEMISTRY & BLOOD GA S ORDERABLES [facility] [address] [place] [address] * (ABNORMAL) COMPLETE BLOOD COUNT AND DIFFERENTIAL (09/20/2018 12:40 EST) WBC 6.29 4.0 - 12.4 K/cmm 09/20/2018 13:23 [facility] RBC 4.33 3.86 - 5.04 M/cmm 09/20/2018 13:23 [facility] Hemoglobin 13.6 11.6 - 15.2 gm/dl 09/20/2018 13:23 [facility] HCT 42.6 34.9 - 44.4 % 09/20/2018 13:23 [facility] MCV 98 81 - 98 fl 09/20/2018 13:23 [facility] MCH 31.4 26.7 - 33.3 pg 09/20/2018 13:23 [facility] MCHC 31.9(L) 32.1 - 35.9 gm/dl 09/20/2018 13:23 [facility] RDW-CV 13.1 <14.7 % 09/20/2018 13:23 [facility] RDW-SD 47.2 <50.4 fl 09/20/2018 13:23 [facility] PLT 250 141 - 377 K/cmm 09/20/2018 13:23 [facility] MPV 10.1 9.5 - 12.7 fl 09/20/2018 13:23 [facility] % Neutrophils 54.4 % 09/20/2018 13:23 [facility] % Lymphocytes 27.7 % 09/20/2018 13:23 [facility] % Monocytes 6.0 % 09/20/2018 13:23 [facility] % Eosinophils 10.5 % 09/20/2018 13:23 [facility] % Basophils 1.1 % 09/20/2018 13:23 [facility] % Immature Grans 0.3 % 09/20/2018 13:23 [facility] ABS Neutrophils 3.42 2.20 - 8.85 K/cmm 09/20/2018 13:23 [facility] ABS Lymphs 1.74 1.09 - 3.30 K/cmm 09/20/2018 13:23 [facility] ABS Monocytes 0.38 0.1 - 0.8 K/cmm 09/20/2018 13:23 [facility] ABS Eosinophils 0.66(H) 0.03 - 0.61 K/cmm 09/20/2018 13:23 [facility] ABS Basophils 0.07 0.01 - 0.11 K/cmm 09/20/2018 13:23 [facility] ABS Immature Grans 0.02 0 - 0.06 K/cmm 09/20/2018 13:23 [facility] Type of Diff: Automated 09/20/2018 13:23 [facility] Blood specimen (specimen) BLOOD SPECIMEN / Unknown 09/20/2018 12:40 EST 09/20/2018 13:14 EST Rocky Little MD PACKAGES & DNA PROBE ORDERABLES Performing Organization Address City/State/[facility] Co de Phone Number [facility] [address] [place] [address] documented in this encounter Visit Diagnoses Diagnosis Seizures ([facility])- Primary Other convulsions documented in this encounter Care Teams Feeder/Folder Relationship Specialty Start Date End Date Pilar Uribe [address] [place] [address] PCP - General 08/30/18 documented as of this encounter
--- OUTSIDE RECORDS SUMMARY | 2024-07-05 11:42 | XMS_ITS | Encounter Summary ---
Author Organization [facility] Address [address] [place] [address] Care Team Providers Care Entertainment Usher Name Role Phone Hal Gutierrez MD Primary Care Provider Unav ailable Reason for Visit * Reason Onset Date Comments New Patient Visit 08/27/2014 Called/ Left a message Returning Call 08/28/2014 Celia New Patient Visit 08/28/2014 Scheduled Encounter Details Date Type Department Care Team (Late st Contact Info) Description 08/27/2014 Telephone [facility] Surgical Oncology - [facility] [address] [place] [address] Hal Gutierrez MD New Patient Visit (Called/ Left a message); Returning Call (Celia); New Patient Visit (Scheduled) Social History Tobacco Use Types Packs/Day Years Used Date Smoking Tobacco: Never Alcohol Use Standard Drinks/Week Comments No 0 (1 standard drink = 0.6 oz pur e alcohol) Sex and Gender Information Value Date Recorded Sex Assigned at Not on file Gender Identity Not on file Sexual Orientation Not on file documented as of this encounter Miscellaneous Notes * Telephone Encounter - Celia Richard - 08/28/2014 1132 EST I spoke with Socorro Morse's sister, and scheduled Socorro an appointment with Dr. Meredith High on Tuesday, 09/02 at 11:30am. New patient paperwork to be sent out today. Referring office aware of appointment. * Telephone Encounter - Jeni Blue - 08/28/2014 1005 EST Pt's sister is returning a call to Celia to schedule new patient visit. * Telephone Encounter - Celia Richard - 08/27/2014 1414 EST I called Socorro Morse's sister, and left a message with my name and direct telephone number to give me a call back to schedule her appointment in the [facility] on a referral from Dr. Duy Gutierrez. documented in this encounter Plan of Treatment Not on file documented as of this encounter Visit Diagnoses Not on filedocumented in this encounter Care Teams Entertainment Usher Relationship Specialty Start Date End Date Hal Gutierrez MD PCP - General 06/13/13 08/29/18 documented as of this encounter
--- OUTSIDE RECORDS SUMMARY | 2024-07-05 11:42 | XMS_ITS | Encounter Summary ---
Author Organization [facility] Address [address] [place] [address] Care Team Providers Care Staff Certified Nurse Midwife Name Role Phone Pilar Uribe Primary Care Provider [phone] Encounter Details Date Type Department Care Team (Latest Contact Info) Description 10/14/2018 9:26 EST - 10/14/2018 23:59 EST Hospital Encounter [facility] [address] [place] [address] [place] [address] [phone] Discharge Disposition: Home or Self Care Social [...] Code Departure Means Destination Home or Self Shelter documented in this encounter Plan of Treatment Not on file documented as of this encounter Visit Diagnoses Not on filedocumented in this encounter Care Teams Staff Certified Nurse Midwife Relationship Specialty Start Date End Date Pilar Uribe [address] [place] [address] PCP - General 08/30/18 documented as of this encounter
--- OUTSIDE RECORDS SUMMARY | 2024-07-05 11:42 | XMS_ITS | Encounter Summary ---
Author Organization [facility] Address [address] [place] [address] Care Team Providers Care Print Inspector Name Role Phone Hal Gutierrez MD Primary Care Provider Pilar Perez Primary Care Provider [phone] Reason for Visit * Reason Onset Date Comments Referral Request 10/20/2015 Encounter Details Date Type Department Care Team ([facility] st Contact Info) Description 10/20/2015 Telephone [facility] Neurology - [address] [id number] Salazar Sahu MD [address] [place], [place] [address] Referral Request Social History Tobacco Use Types Packs/Day Years [...] She contacted Socorro's PCP this morning and they are referring Socorro to neurosurgery. Nargis does want Dr. Sahu to know that she isn't seeing any difference with the medication and asks how long it should take to work. Will update Dr. Sahu and ask him to advise. * Telephone Encounter - Meredith Morales - 11/04/2015 1204 EST Nargis called back about referral to Neurosurg. She is waiting for a call back from Dr. Sahu and is very upset that this is taking so long. Please call her back with an update. * Telephone Encounter - Salazar Sahu MD - 10/31/2015 0930 EST I'll give her a call. * Telephone Encounter - Esha Guillen RN - 10/28/2015 1629 EST Nargis called again to follow up. She reports she doesn't believe that the nudexta is helping Socorro as Socorro continues to have episodes where she yells at [facility] for long periods of time. Nargis would really like to have the referral [...] she is not satisfied with my answers. * Telephone Encounter - Esha Guillen RN - 10/24/2015 1141 EST Nargis called again to follow up and is aware I am waiting for response from Dr. Sahu. Will send message to Dr. Sahu again. * Telephone Encounter - Esha Guillen RN - 10/22/2015 [...] Sahu. Will send update/request to Dr. Sahu. * Telephone Encounter - Esha Guillen RN - 10/21/2015 [address] Sahu to advise on request for referral to neurosurgery. * Telephone Encounter - Uriel Cheung - 10/20/2015 1446 EST Requesting referral to neuro surgery per Dr. Sahu suggestion. Please call when ref sent documented in this encounter Plan of Treatment Not on file documented as of this encounter Visit Diagnoses Not on filedocumented in this encounter Care Teams Print Inspector Relationship Specialty Start Date End Date Hal Gutierrez MD PCP - General 06/13/13 08/29/18 Pilar Uribe [address] [place] [address] PCP - General 08/30/18 documented as of this encounter
--- OUTSIDE RECORDS SUMMARY | 2024-07-05 11:42 | XMS_ITS | Encounter Summary ---
Author Organization [facility] Address [address] [place] [address] Care Team Providers Care Straddle Buggy Operator Name Role Phone Hal Gutierrez MD Primary Care Provider Pilar Perez Primary Care Provider Reason for Visit * Reason Onset Date Comments Medication Management 08/20/2015 nortriptyl ine Encounter Details Date Type Department Care Team ([facility] st Contact Info) Description 08/20/2015 Telephone [facility] Neurology - [address] [id number] Salazar Sahu MD [address] [place] [address] [place] [address] Medication Management (nortriptyline ) Social History Tobacco Use Types Packs/Day [...] encounter Miscellaneous Notes * Telephone Encounter - Salazar Sahu MD - 08/21/2015 7198 EST Called and spoke madelaine Barillas, gave her a plan to stop nortriptyline for Iram. Will see pt in ~5 weeksand reassess then. * Telephone Encounter - Esha Guillen RN - 08/21/2015 1505 EST Nargis has called again to follow up - she would like a response as soon as possible. This has gone on long enough, we need some answers. Text message sent to Dr. Sahu in addition to PRISM message. * Telephone Encounter - Esha Guillen RN - 08/21/2015 [...] nortriptyline dose to 3 caps at bedtime lastnight. Will ask Dr. Sahu to review and advise. * Telephone Encounter - Ladi Daley - 08/20/2015 1350 EST sister is requesting call back today. Just picked up sisters RX, believes that PT is having all of the side effects listed. documented in this encounter Plan of Treatment Not on file documented as of this encounter Visit Diagnoses Not on filedocumented in this encounter Care Teams Straddle Buggy Operator Relationship Specialty Start Date End Date Hal Gutierrez MD PCP - General 06/13/13 08/29/18 Pilar Uribe [address] [place] [address] PCP - General 08/30/18 documented as of this encounter
--- OUTSIDE RECORDS SUMMARY | 2024-07-05 11:42 | XMS_ITS | Encounter Summary ---
Author Organization [facility] Address [address] [place] [address] Care Team Providers Care Ceramics Test Engineer Name Role Phone Hal Gutierrez MD Primary Care Provider Unav ailable Reason for Visit * Reason Onset Date Comments Medication Management 08/13/2015 nortriptyl ine (PAMELOR) Encounter Details Date Type Department Care Team ([facility] st Contact Info) Description 08/13/2015 Telephone [facility] Neurology - [place] [address] [place], [place] [id number] Salazar Sahu MD [address] [place] [address] [place] [address] Medication Management (nortriptyline (PAMELOR) ) Social History Tobacco Use Types Packs/Day [...] Encounter - Salazar Sahu MD - 08/14/2015 8094 EST Noted * Telephone Encounter - Esha Guillen RN - 08/14/2015 2502 EST Returned TC to Nargis who is [...] number in order to set up appointment. * Telephone Encounter - Ladi Daley - 08/13/2015 1552 EST The increase in medication has just made her uglier. PT is more easily upset & stark. Please call to discuss, family very concerned. documented in this encounter Plan of Treatment Not on file documented as of this encounter Visit Diagnoses Not on filedocumented in this encounter Care Teams Ceramics Test Engineer Relationship Specialty Start Date End Date Hal Gutierrez MD PCP - General 06/13/13 08/29/18 documented as of this encounter
--- OUTSIDE RECORDS SUMMARY | 2024-07-05 11:42 | XMS_ITS | Encounter Summary ---
Author Organization [facility] Address [address] [place] [address] Care Team Providers Care Recreation Professor Name Role Phone Hal Gutierrez MD Primary Care Provider Unav ailable Reason for Visit * Reason Onset Date Comments Medications Refill 07/14/2015 Encounter Details Date Type Department Care Team (Late st Contact Info) Description 07/14/2015 Refill [facility] Neurology - [address] [id number] Esha Guillen, RN [address] [place] [address] Medications Refill Social History Tobacco Use Types [...] Dispensed Refills Start Date End Da te nortriptyline (PAMELOR) 10 mg capsule Take 4 Caps by mouth 2 times daily 240 Cap 5 07/14/2015 09/30/2015 documented in this encounter Miscellaneous Notes * Telephone Encounter - Esha Guillen RN - 07/14/2015 1347 EST Message on rx line requests refill of nortriptyline with new dosage of 40mg bid. Review of PRISM indicates dose was increased 07/07/15. Rx sent to pharmacy as requested. documented in this encounter Plan of Treatment Not on file documented as of this encounter Visit Diagnoses Not on filedocumented in this encounter Discontinued Medications Medication Sig Discontinue Reason Start Date End Da te nortriptyline (PAMELOR) 10 mg capsule take 2 capsules by mouth twice a day Reorder 03/19/2015 07/14/2015 documented as of this encounter Care Teams Recreation Professor Relationship Specialty Start Date End Date Hal Gutierrez MD PCP - General 06/13/13 08/29/18 documented as of this encounter
--- OUTSIDE RECORDS SUMMARY | 2024-07-05 11:42 | XMS_ITS | Encounter Summary ---
Author Organization [facility] Address [address] [place] [address] Care Team Providers Care Implementation Advisor Name Role Phone Pilar Uribe Primary Care Provider [phone] Encounter Details Date Type Department Care Team (Latest Contact Info) Description 10/16/2018 11:24 EST - 10/16/2018 11:51 EST Hospital Encounter [facility] Neurophysiology - [place] [address] [place] [address] Unknown, Provider, Discharge Disposition: Home or Self [...] Code Departure Means Destination Home or Self [facility] documented in this encounter Plan of Treatment Not on file documented as of this encounter Visit Diagnoses Not on filedocumented in this encounter Care Teams Implementation Advisor Relationship Specialty Start Date End Date Pilar Uribe [address] [facility] [address] [place] [address] PCP - General 08/30/18 documented as of this encounter
--- OUTSIDE RECORDS SUMMARY | 2024-07-05 11:42 | XMS_ITS | Encounter Summary ---
Author Organization [facility] Address [address] [place] [address] Care Team Providers Care Range Examiner Name Role Phone Pilar Uribe Primary Care Provider [phone] Reason for Visit * Office Procedure (Routine) - Order Cancelled Specialty Diagnoses / Procedures Referred By Mayank gilbert Referred To Contact Neurology Diagnoses Seizures ([facility]) [place] [address] [address] [facility] Neuromusc & Clin Neurophys [address] [place] [address] Referral ID Status Reason Start Date Expiration Date V isits Requested Visits Authorized [id number] Order Cancelled 09/20/2018 1 1 Encounter Details Date Type Department Care Team (Latest Contact Info) Description 10/13/2018 12:04 EST - 10/13/2018 23:59 [facility] Hospital Encounter [facility] Neurophysiology - [facility] [address] [place] [address] Unknown, Provider, Gill Hager MD [address] [place] [address] Seizures ([facility]) Discharge Disposition: Auto Discharge Social History Tobacco [...] Home documented in this encounter Procedure Notes * Rocky Little MD - 10/13/2018 2359 ESTProcedure(s): [place] AMBULATORY EEG MONITORING Pre-Procedure Diagnose(s): Seizures ([facility]) DAY #1 AMBULATORY EEG MONITORING [facility] Name: Socorro Jaimes Clinical Neurophysiology Laboratory [address] [facility] : 1955 [place], [place] Date: 10/13/2018 Ambulatory Digital EEG Monitoring [...] Ambulatory digital electroencephalographic monitoring is performed utilizing Viadeo recorder. Silver/silver chloride EEG electrodes are placed according to the International 10-20 system as well as anterior temporal electrodes, a CPz recording reference and FCz ground contract.An ECG channel is alsomonitored. The patient is instructed to press and Event Button in the event of a seizure-like spell(Target Event). The patient is also instructed to [...] captured. DAY #2 AMBULATORY EEG MONITORING [facility] [place] [facility] Name: Socorro Jaimes Clinical Neurophysiology Laboratory [address] [facility] : 1955 [place], [place] Date: 10/14/2018 Ambulatory Digital EEG Monitoring [...] Ambulatory digital electroencephalographic monitoring is performed utilizing Viadeo recorder. Silver/silver chloride EEG electrodes are placed according to the International 10-20 system as well as anterior temporal electrodes, a CPz recording reference and FCz ground contract.An ECG channel is alsomonitored. The patient is instructed to press and Event Button in the event of a seizure-like spell(Target Event). The patient is also instructed to [...] captured. DAY #3 AMBULATORY EEG MONITORING [facility] [place] [facility] Name: Socorro Jaimes Clinical Neurophysiology Laboratory [address] [facility] : 1955 [place], [place] Date: 10/15/2018 Ambulatory Digital EEG Monitoring [...] Ambulatory digital electroencephalographic monitoring is performed utilizing Viadeo recorder. Silver/silver chloride EEG electrodes are placed according to the International 10-20 system as well as anterior temporal electrodes, a CPz recording reference and FCz ground contract.An ECG channel is alsomonitored. The patient is instructed to press and Event Button in the event of a seizure-like spell(Target Event). The patient is also instructed to [...] captured. Rocky Little M.D. Attending, Epilepsy Program [facility] 11:10 11/03/2018 * Gill Hager MD - 10/13/2018 1344 EST [facility] [place] [facility] Name: Socorro Jaimes Clinical Neurophysiology Laboratory [address] [place] [address] : 1955 [place], [place] Date: 10/13/2018 Electroencephalogram Report Referring Physician: [...] digital EEG is performed utilizing silver-silver chloride electrodesplaced according to the International 10-20 system of [...] sleep night before study; Estimated average 8 hoursof sleep Previous EEG Study? No Background Waking cerebral background activity is characterized by the absence of a posterior dominant rhythm.With eyes open there is low voltage desynchronized beta with admixed low amplitude theta. With eyesclosed, a posterior rhythm of about 7 Hz [...] described findings most consistent with multi-focal cerebral dysfunction. Ambulatory EEG monitoring is underway and will [...] of this encounter Visit Diagnoses Diagnosis Seizures ([facility]) Other convulsions documented in this encounter Care Teams Range Examiner Relationship Specialty Start Date End Date Pilar Uribe [address] [place] [address] PCP - General 08/30/18 documented as of this encounter
--- OUTSIDE RECORDS SUMMARY | 2024-07-05 11:42 | XMS_ITS | Encounter Summary ---
Author Organization [facility] Address [address] [place] [address] Care Team Providers Care Green Pipefitter Name Role Phone Hal Gutierrez MD Primary Care Provider Unav ailable Reason for Visit * Reason Onset Date Comments Suture / Staple Removal 09/25/2013 Encounter Details Date Type Department Care Team (Late st Contact Info) Description 09/25/2013 Telephone [facility] Interventional Rad Clinic - [address] [address] Jose Manuel Norman MD [address] [facility] Level [address] [place] [phone] Suture / Staple Removal Social History Tobacco Use Types Packs/Day Years Used Date Smoking Tobacco: Never Alcohol Use Standard Drinks/Week Comments No 0 (1 standard drink = 0.6 oz pur e alcohol) Sex and Gender Information Value Date Recorded Sex Assigned at Not on file Gender Identity Not on file Sexual Orientation Not on file documented as of this encounter Miscellaneous Notes * Telephone Encounter - Ladi Mario - 09/25/2013 1129 EST Patient resides at [facility], spoke with Samia HASTINGS who confirmed the removal of T-tackfor today. documented in this encounter Plan of Treatment Not on file documented as of this encounter Visit Diagnoses Not on filedocumented in this encounter Care Teams Green Pipefitter Relationship Specialty Start Date End Date Hal Gutierrez MD PCP - General 06/13/13 08/29/18 documented as of this encounter
--- OUTSIDE RECORDS SUMMARY | 2024-07-05 11:42 | XMS_ITS | Encounter Summary ---
Author Organization [facility] Address [address] [place] [address] Care Team Providers Care Electronics Maintenance Technician Name Role Phone Hal Gutierrez MD Primary Care Provider Unav ailable Reason for Visit * Reason Onset Date Comments Other 11/04/2016 Encounter Details Date Type Department Care Team (Late st Contact Info) Description 11/04/2016 Telephone [facility] Neurology - [address] [id number] Dulce Maria Machado MD [address] [place] [address] [address] [place] [phone] Other Social History Tobacco Use Types Packs/Day Years [...] Miscellaneous Notes * Telephone Encounter - Ladi Cheng RN - 11/04/2016 1429 EST I spoke with Iliana who has become Socorro's caregiver since her sister passed in September. Iliana said that she's been going through the pt's paperwork and does not understand the information regardingthe pt's shunt, IVC filter Etc. Since Socorro is not having any new neurological issues and is taking the Neudexta I suggested that she sched appt with Dr. Gutierrez to discuss all of her questions andhe should be able to provide the appropriate referrals if they are needed--Ladi * Telephone Encounter - Tristen Rivers - 11/04/2016 1405 [...] on filedocumented in this encounter Care Teams Electronics Maintenance Technician Relationship Specialty Start Date End Date Hal Gutierrez MD PCP - General 06/13/13 08/29/18 documented as of this encounter
--- OUTSIDE RECORDS SUMMARY | 2024-07-05 11:42 | XMS_ITS | Encounter Summary ---
Author Organization [facility] Address [address] [place] [address] Care Team Providers Care Chemical Production Technician Name Role Phone SwathimckenziePilar Primary Care Provider [phone] Encounter Details Date Type Department Care Team (Late st Contact Info) Description 09/20/2018 Phlebotomy Only [facility] [address] [place] [address] Talent Sourcing Specialist, Outpatient Seizures (FORMERLY [facility]) (Primary Dx) Social History Tobacco Use Types [...] Procedure Name Priority Date/Time Associated Diagnosis Comments LAMOTRIGINE Routine 09/20/2018 12:40 EST Seizures (FORMERLY [facility]) COMPLETE BLOOD COUNT AND DIFFERENTIAL Routine 09/20/2018 12:40 EST Seizures (FORMERLY [facility]) COMPREHENSIVE METABOLIC PANEL (CMP) Routine 09/20/2018 12:40 EST Seizures (HCC-CMS) documented in this encounter Results * (ABNORMAL) COMPLETE BLOOD COUNT AND DIFFERENTIAL (09/20/2018 12:40 EST) WBC 6.29 4.0 - 12.4 K/cmm 09/20/2018 13:23 [facility] RBC 4.33 3.86 - 5.04 M/cmm 09/20/2018 13:23 [facility] Hemoglobin 13.6 11.6 - 15.2 gm/dl 09/20/2018 13:23 [facility] HCT 42.6 34.9 - 44.4 % 09/20/2018 13:23 [facility] MCV 98 81 - 98 fl 09/20/2018 13:23 [facility] MCH 31.4 26.7 - 33.3 pg 09/20/2018 13:23 [facility] MCHC 31.9(L) 32.1 - 35.9 gm/dl 09/20/2018 13:23 [facility] RDW-CV 13.1 <14.7 % 09/20/2018 13:23 [facility] RDW-SD 47.2 <50.4 fl 09/20/2018 13:23 [facility] PLT 250 141 - 377 K/cmm 09/20/2018 13:23 [facility] MPV 10.1 9.5 - 12.7 fl 09/20/2018 13:23 [facility] % Neutrophils 54.4 % 09/20/2018 13:23 [facility] % Lymphocytes 27.7 % 09/20/2018 13:23 [facility] % Monocytes 6.0 % 09/20/2018 13:23 [facility] % Eosinophils 10.5 % 09/20/2018 13:23 [facility] % Basophils 1.1 % 09/20/2018 13:23 [facility] % Immature Grans 0.3 % 09/20/2018 13:23 [facility] ABS Neutrophils 3.42 2.20 - 8.85 K/cmm 09/20/2018 13:23 [facility] ABS Lymphs 1.74 1.09 - 3.30 K/cmm 09/20/2018 13:23 [facility] ABS Monocytes 0.38 0.1 - 0.8 K/cmm 09/20/2018 13:23 [facility] ABS Eosinophils 0.66(H) 0.03 - 0.61 K/cmm 09/20/2018 13:23 [facility] ABS Basophils 0.07 0.01 - 0.11 K/cmm 09/20/2018 13:23 [facility] ABS Immature Grans 0.02 0 - 0.06 K/cmm 09/20/2018 13:23 [facility] Type of Diff: Automated 09/20/2018 13:23 [facility] Blood specimen (specimen) BLOOD SPECIMEN / Unknown 09/20/2018 12:40 EST 09/20/2018 13:14 EST Rocky Little MD PACKAGES & DNA PROBE ORDERABLES [facility] [address] [place] [address] * (ABNORMAL) COMPREHENSIVE METABOLIC PANEL (CMP) (09/20/2018 12:40 EST) Potassium 4.8 3.5 - 5.0 mEq/L 09/20/2018 13:49 [facility] Sodium 142 136 - 145 mEq/L 09/20/2018 13:49 [facility] Chloride 104 96 - 110 mEq/L 09/20/2018 13:49 [facility] CO2 29 22 - 32 mEq/L 09/20/2018 13:49 [facility] Total Alkaline Phosphatase 101 38 - 126 U/L 09/20/2018 13:49 [facility] Bilirubin, Total <0.5 <1.4 mg/dl 09/20/19 19 13:49 [facility] AST 13(L) 15 - 46 U/L 09/20/2018 13:49 [facility] ALT 22 <53 U/L 09/20/2018 13:49 [facility] Albumin 4.5 3.4 - 4.9 g/dl 09/20/2018 13:49 [facility] Total Protein 6.9 6.3 - 8.2 g/dl 09/20/2018 13:49 [facility] Creatinine 1.57(H) 0.52 - 1.04 mg/dl 09/20/2018 13:49 [facility] GFR, Calculated 35(L) >60 ml/min/1.7 3m2 09/20/2018 13:49 [facility] Comment: eGFR calculated using CKD-EPI equation for non Americans. Multiply eGFR by 1.16 for Americans. BUN 26 10 - 26 mg/dl 09/20/2018 13:49 [facility] Calcium 9.6 8.5 - 10.5 mg/dl 09/20/2018 13:49 [facility] Calculated Calcium 9.2 8.5 - 10.5 mg/dl 09/20/2018 13:49 [facility] Glucose, Serum 93 70 - 100 mg/dl 09/20/2018 13:49 [facility] Fasting? No 09/20/2018 12:42 [facility] Blood specimen (specimen) BLOOD SPECIMEN / Unknown 09/20/2018 12:40 EST 09/20/2018 13:14 EST Rocky Little MD CHEMISTRY & BLOOD GA S ORDERABLES [facility] [address] [place] [address] * LAMOTRIGINE (09/20/2018 12:40 EST) Lamotrigine, Plasma or Serum 8.2 2.5 - 15.0 mcg/mL 09/22/2018 8:15 [facility] Comment: (Note) . ADDITIONAL INFORMATION This test was developed and its performance characteristics determined by [facility] in a manner consistent with CLIA requirements. This test has not been cleared or approved by the U.S. Food and Drug Administration. Performed by: [facility]: [address], [place] [address] Blood specimen (specimen) BLOOD SPECIMEN / Unknown 09/20/2018 12:40 EST 09/20/2018 13:14 EST Rocky Little MD CHEMISTRY & BLOOD GA S ORDERABLES [facility] [address] [place] [address] documented in this encounter Visit Diagnoses Diagnosis Seizures (FORMERLY [facility])- Primary Other convulsions documented in this encounter Care Teams Chemical Production Technician Relationship Specialty Start Date End Date [address] [place] [address] PCP - General 08/30/18 documented as of this encounter
--- OUTSIDE RECORDS SUMMARY | 2024-07-05 11:42 | XMS_ITS | Encounter Summary ---
Author Organization [facility] Address [address] [place] [address] Care Team Providers Care Grinding Supervisor Name Role Phone Jojo Pilar Ninfa Primary Care Provider [phone] Reason for Visit * Reason Onset Date Comments Appointment Related 09/22/2018 Encounter Details Date Type Department Care Team ([facility] st Contact Info) Description 09/22/2018 Telephone [facility] Neurology - [address] [id number] [place] [id number] [id number] Appointment Related Social History Tobacco [...] encounter Miscellaneous Notes * Telephone Encounter - More Gregory - 09/22/2018 0352 EST Spoke to caregiver regarding CT-The date and time I was sent is not the same as what Radiology gaveher. Transferred her to Radiology to confirm. * Telephone Encounter - More Gregory - 09/22/2018 3425 EST ----- Message from Michael Phillips sent at 09/21/2018 11:22 EST ----- Regarding: FW: RICHELLE ----- Message ----- From: Michelle Cavazos Sent: 09/21/2018 10:54 To: Neuro Daryl 2 Scheduling, # Subject: RICHELLE Iram is booked for her CT head at the main on 11/22/18 at 3pm. Reg at 230pm. No prep. Please call pt with info. Mike Martinez documented in this encounter Plan of Treatment Not on file documented as of this encounter Visit Diagnoses Not on filedocumented in this encounter Care Teams Grinding Supervisor Relationship Specialty Start Date End Date Pilar [address] [place] [address] PCP - General 08/30/18 documented as of this encounter
--- OUTSIDE RECORDS SUMMARY | 2024-07-05 11:42 | XMS_ITS | Encounter Summary ---
Author Organization [facility] Address [address] [place] [address] Care Team Providers Care Wellness Manager Name Role Phone Hal Gutierrez MD Primary Care Provider Unav ailable Reason for Visit * Reason Comments New Patient Visit Encounter Details Date Type Department Care Team (Late st Contact Info) Description 2014 16:[address] [facility] Adult Neurology - [facility] [address] [place], [place] [address] Unknown, Provider, Rubin Daniel MD [address] [facility] [place] [address] Salazar Sahu [place] [address] Crying with unclear etiology (Primary Dx) Discharge Disposition: Auto Discharge Social [...] Sign Reading Time Taken Comments Blood Pressure 124/72 2014 1611 EDT Pulse 69 2014 1611 EDT Temperature - - Respiratory Rate 14 2014 1611 EDT Oxygen Saturation - - Inhaled Oxygen Concentration - - Weight - - Height - - Body Mass Index - - documented in this encounter Discharge Diagnoses Diagnosis 780.95 EXCESSIVE CRYING OF CHILD, ADOLEXCENT, OR ADULT[ICD-9-CM] documented in this encounter Ordered Prescriptions Prescription Sig Dispensed Refills Start Date End Da te nortriptyline (PAMELOR) 10 mg capsule Take 1 Cap by mouth at bedtime for 60 doses 1 cap for 2 weeks, if symptoms don't improve, then 2 caps every night.. 60 Cap 3 2014 09/01/2014 documented in this encounter Discharge Disposition Disposition Code Departure Means Destination Auto Discharge documented in this encounter Progress Notes * Rubin Daniel MD - 07/22/2014 1955 EST NEUROLOGY ATTENDING: I have seen and evaluated patient with Salazar Sahu MD and have been present for the critical components of the history, exam, and discussion regarding evaluation, diagnoses, and treatment. Picgure is very complicated with an extensive work up not revealing the underlying pathophysiology of patients decline. Remarkable improvement speaks for an infectious / inflammatorydisorder but change in clinical picture reflects--as indicated by Dr. Sahu, frontal lobe dysfunction. Although we do not have a handle on the etiology, we do have treatment options and have initiated tricyclic medication that is known to improve pseudobulbar affect. I agree with the formulation and plans. Araceli Daniel MD * Salazar Sahu MD - 07/05/2014 0856 EDT [facility] NEW PATIENT EVALUATION - 2014 PROGRAM: Neurology [facility] outpatient clinic. SUMMARY: New patient visit. PROBLEM: Spontaneous crying. HISTORY OF PRESENT ILLNESS: The patient is a 59-year-old female with past medical history significant for developmental delay and acute on chronic cognitive decline and was recently hospitalized from07/21/2013 to 09/24/2013 for aseptic meningitis/encephalitis. In brief, during her hospitalization,she presented with seizure-like activity in a generally unresponsive state. She receives EEG, a PHONE CIRCUIT OPERATOR shunt, IVC filter, CSF and serum analysis, brain biopsy, several MRI head studies, nuclear medicine bone whole body scan, and was discharged to a rehab facility. While in rehab, she markedly improved,started conversing, walking and is close to her old self per the family who was present at the appointment today. For the last 3 or 4 months, she has started this habit of frequent crying. Family reports there is no particular pattern, they are unable to identify any triggers to her crying episodesand report that they start and stop suddenly. She demonstrates this during the appointment. She is able to participate in the exam and perseverates on the circumstances surrounding her father's , telling several caregivers the same story. The patient's family states she is otherwise in good health. No changes in medications, no recent illnesses. MEDICATIONS: Citalopram 40 mg once daily. Polyethylene glycol 17 mg once daily. Simvastatin 20 mg once daily. Tylenol as needed. Docusate 100 mg twice a day. Calcium 600 mg 2 times daily. Famotidine 40 mg once daily. Multivitamin once daily. Levothyroxine 125 mcg once daily. Xarelto 20 mg once daily. Lamotrigine 150 mg twice daily. REVIEW OF SYSTEMS: Positive for frequent crying. A 12-point review of systems was otherwise [...] use alcohol. 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 ALLERGIES: BACITRACIN, LATEX. OBJECTIVE: Vitals: Pulse 69, blood pressure 124/72, respirations 14. Exam: No acute distress. Skin color, turgor and temperature, normal. Face atraumatic. Mucous membranes moist. Lungs clear to auscultation bilaterally. Heart rhythm regular. Abdomen nontender, nondistended and soft. Extremities without cyanosis or edema. Neuro exam: Mental status: Speech is fluid, alert and oriented to person and place, perseverates onher father, spontaneous change from conversational mode to unstoppable crying with no identifying trigger and no explanation from her as to why she starts crying. Cranial nerves: Pupils equal, round and reactive to light. Extraocular movements intact. Face symmetrical. Palate elevates. Hearing grossly intact. Shoulder shrug 5/5. 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 Unable to fully assess [...] chronic cognitive decline of unspecified, uncharacterized etiology, presents today with 3 to 4 months of spontaneous crying. Likely causes of this change in her mood are frontal lobe damage likely further compromised from recent aseptic meningitis/encephalitis versus progression of her progressivedegenerative process of unclear etiology. PLAN: The patient will start nortriptyline 10 mg nightly and increase to 20 mg nightly in 2 weeks. The patient's family was instructed to call after 4 weeks regarding continuing current dose or increasing dose. Plan discussed with Dr Rubin Daniel. Salazar Sahu MD 01 43 PM - Salazar Sahu MD cn Dictation ID: [id number] NEUROLOGY ATTENDING: I have seen and evaluated patient with Salazar Sahu MD and have been present for the critical components of the history, exam, and discussion regarding evaluation, diagnoses, and treatment. Picgure is very complicated with an extensive work up not revealing the underlying pathophysiology of patients decline. Remarkable improvement speaks for an infectious / inflammatorydisorder but change in clinical picture reflects--as indicated by Dr. Sahu, frontal lobe dysfunction. Although we do not have a handle on the etiology, we do have treatment options and have initiated tricyclic medication that is known to improve pseudobulbar affect. I agree with the formulation and plans. Araceli Daniel MD * Salazar Sahu MD - 2014 1870 EDT Progress note dictated, see Prism. documented in this encounter Plan of Treatment Not on file documented as of this encounter Procedures Procedure Name Priority Date/Time Associated Diagnosis Comments CT HEAD W CONTRAST 07/18/2014 14 :27 EST documented in this encounter Results * CT HEAD W CONTRAST (07/18/2014 14:27 EST) Anatomical Region Laterality Modality Other 07/18/2014 14:2 7 EST 07/18/2014 14:42 EST Narrative 07/18/2014 14:[address] of the head July 18, 2014. History: Emotional lability. Comparison: September 13, 2013 and September 07, 2013. Technique: CT images were acquired from the vertex through the foramen magnum after contrast administration. Findings: There is a ventricular catheter traversing the posterior right temporal lobe and terminating in the anterior body of the left lateral ventricle. In comparison to previous studies there is decrease in ventricular caliber which is best appreciated for example at the level of the temporal horns of the lateral ventricles. No new intracranial mass or mass effect is present and there is no midline shift. Prior left frontal craniotomy is noted and there are bilateral frontal kathy holes. A focus of hypodensity at the periphery of the left frontal lobe anteriorly has not changed significantly in appearance. The basal cisterns appear patent. No abnormal enhancement is identified within the brain. The orbits appear unremarkable. The paranasal sinuses are clear aside from opacification of the posterior left ethmoid air cells. Degenerative changes of the temporomandibular joints are noted. Impression: 1. Stable position of ventricular catheter with interval decrease in ventricular caliber. 2. Unchanged appearance of focus of hypoattenuation underlying a left frontal craniotomy in the left frontal lobe. 3. Degenerative changes of the temporomandibular joints. Procedure Note 07/18/2014 CT of the head July 18, 2014. History: Emotional lability. Comparison: September 13, 2013 and September 07, 2013. Technique: CT images were acquired from the vertex through the foramen magnum after contrast administration. Findings: There is a ventricular catheter traversing the posterior right temporal lobe and terminating in the anterior body of the left lateral ventricle. In comparison to previous studies there is decrease in ventricular caliber which is best appreciated for example at the level of the temporal horns of the lateral ventricles. No new intracranial mass or mass effect is present and there is no midline shift. Prior left frontal craniotomy is noted and there are bilateral frontal kathy holes. A focus of hypodensity at the periphery of the left frontal lobe anteriorly has not changed significantly in appearance. The basal cisterns appear patent. No abnormal enhancement is identified within the brain. The orbits appear unremarkable. The paranasal sinuses are clear aside from opacification of the posterior left ethmoid air cells. Degenerative changes of the temporomandibular joints are noted. Impression: 1. Stable position of ventricular catheter with interval decrease in ventricular caliber. 2. Unchanged appearance of focus of hypoattenuation underlying a left frontal craniotomy in the left frontal lobe. 3. Degenerative changes of the temporomandibular joints. Salazar Sahu MD IMG CT ORDERABLES documented in this encounter Visit Diagnoses Diagnosis Crying with unclear etiology- Primary Excessive crying of child, adolescent, or adult documented in this encounter Historical Medications * This list may reflect changes made after this encounter. Medication Sig Dispensed Refills Start Date End Date lamoTRIgine (LAMICTAL) 150 mg tablet Take 150 mg by mouth 2 times daily. rivaroxaban (XARELTO) 20 mg tablet tablet Take 20 mg by mouth daily. levothyroxine (SYNTHROID) 125 mcg tablet Take 125 mcg by mouth daily. MULTIVITAMIN ORAL Take by mouth. famotidine (PEPCID) 40 mg tablet Take 40 mg by mouth daily. acetaminophen (TYLENOL) 500 mg tablet Take 1,000 mg by mouth every 6 hours. added in this encounter Care Teams Wellness Manager Relationship Specialty Start Date End Date Hal Gutierrez MD PCP - General 06/13/13 08/29/18 documented as of this encounter
--- OUTSIDE RECORDS SUMMARY | 2024-07-05 11:42 | XMS_ITS | Encounter Summary ---
Author Organization [facility] Address [address] [place] [address] Care Team Providers Care Burrito Maker Name Role Phone Hal Gutierrez MD Primary Care Provider Unav ailable Reason for Visit * Reason Onset Date Comments Appointment Related 11/29/2015 needs to can kayla Encounter Details Date Type Department Care Team (Late st Contact Info) Description 11/29/2015 Telephone [facility] Adult Neurology - [facility] [address] [place] [address] Salazar [place] [address] Appointment Related (needs to cancel) Social History Tobacco Use Types Packs/Day Years [...] encounter Miscellaneous Notes * Telephone Encounter - Mary Sharma - 11/29/2015 1234 EDT Patient doesn't need apt for 12/02 @15:[address] Sahu. The appointment was tentative and they don't need it yet. documented in this encounter Plan of Treatment Not on file documented as of this encounter Visit Diagnoses Not on filedocumented in this encounter Care Teams Burrito Maker Relationship Specialty Start Date End Date Hal Gutierrez MD PCP - General 06/13/13 08/29/18 documented as of this encounter
--- OUTSIDE RECORDS SUMMARY | 2024-07-05 11:42 | XMS_ITS | Encounter Summary ---
Author Organization [facility] Address [address] [place] [address] Care Team Providers Care Integration Assistant Name Role Phone Hal Gutierrez MD Primary Care Provider Unav ailable Reason for Visit * Reason Onset Date Comments Follow-up 09/02/2014 6 month follow u p right breast mammogram for calcs Encounter Details Date Type Department Care Team (Late st Contact Info) Description 09/02/2014 Orders Only [facility] Surgical Oncology - [address] [id number] Meredith High, DO [address] [facility], Level 2 [place] [id number] Mammographic microcalcification (Primary Dx) Social History Tobacco [...] Procedure Name Priority Date/Time Associated Diagnosis Comments MA MAMMO DIAG UNI DIGITAL - RIGHT 01/24/2015 13:16 EDT documented in this encounter Results * MA DARBY DIAG UNI DIGITAL - RIGHT (01/24/2015 13:16 EDT) Anatomical Region Laterality Modality Other 01/24/2015 13:1 6 EDT 01/24/2015 13:44 EDT Narrative 01/24/2015 13:44 EDT UNI RIGHT ONLY 2D DX OR AV MAMMO EXAM ??01/24/2015 1:16 PM Signs and Symptoms/Comments: ?? 793.81-Mammographic zprdvbugnzhlugfcks-ZEW-3-CM; 6 month follow up right breast for calcs Six-month followup diagnostic mammogram of the right breast with CAD. ?? The breast tissue is heterogeneously dense, limiting interpretation.. ?? Comparison: All prior mammograms dating back to 2007 with the most recent series performed [facility] and July 2014 to include additional views of calcifications in the lateral right breast. Findings: The small cluster of heterogeneous calcifications in the lateral breast is stable compared to the most recent exam. ??While viewed with moderate concern, their stability is reassuring. ??There is no associated mass or architectural distortion and there is been no progression in the numbers of calcifications here or elsewhere. Impression right breast: BI-RADS category 3, likely benign. Recommendation: As discussed with Dr. High who will be seeing the patient later today and who has seen her about 6 months ago, we have decided the patient should just continue on with routine screening mammography which will be due in July. ?? Overall assessment: Likely benign. The patient was told the results and recommendations following the study by the technologist. The patient will be notified of these breast imaging results via a lay letter from Radiology. Radiology will contact the patient directly regarding any findings which require additional imaging (Category 0) at this time. Procedure Note Rubin Garcia MD - 01/24/2015 UNI RIGHT ONLY 2D DX OR AV MAMMO EXAM 01/24/2015 1:16 PM Signs and Symptoms/Comments: 793.81-Mammographic olkrmptgxqowtexanh-EZV-4-CM; 6 month follow up right breast for calcs Six-month followup diagnostic mammogram of the right breast with CAD. The breast tissue is heterogeneously dense, limiting interpretation.. Comparison: All prior mammograms dating back to 2007 with the most recent series performed [facility] and July 2014 to include additional views of calcifications in the lateral right breast. Findings: The small cluster of heterogeneous calcifications in the lateral breast is stable compared to the most recent exam. While viewed with moderate concern, their stability is reassuring. There is no associated mass or architectural distortion and there is been no progression in the numbers of calcifications here or elsewhere. Impression right breast: BI-RADS category 3, likely benign. Recommendation: As discussed with Dr. High who will be seeing the patient later today and who has seen her about 6 months ago, we have decided the patient should just continue on with routine screening mammography which will be due in July. Overall assessment: Likely benign. The patient was told the results and recommendations following the study by the technologist. The patient will be notified of these breast imaging results via a lay letter from Radiology. Radiology will contact the patient directly regarding any findings which require additional imaging (Category 0) at this time. Meredith High DO IMG MAMMOGRAPHY ORD ERABLES documented in this encounter Visit Diagnoses Diagnosis Mammographic microcalcification- Primary documented in this encounter Care Teams Integration Assistant Relationship Specialty Start Date End Date Hal Gutierrez MD PCP - General 06/13/13 08/29/18 documented as of this encounter
--- OUTSIDE RECORDS SUMMARY | 2024-07-05 11:42 | XMS_ITS | Encounter Summary ---
Author Organization [facility] Address [address] [place] [address] Care Team Providers Care General Science Teacher Name Role Phone Timothy Herndon MD Primary Care Provider Unav ailable Encounter Details Date Type Department Care Team (Late st Contact Info) Description 04/11/2017 Results Only [facility] [phone] Timothy Herndon MD Social History Tobacco Use Types Packs/Day Years [...] Procedure Name Priority Date/Time Associated Diagnosis Comments SURGICAL PATHOLOGY Routine 04/11/2017 19 :35 EDT documented in this encounter Results * SURGICAL PATHOLOGY (04/11/2017 19:35 EDT) Pathology Report: SURGICAL PATHOLOGY REPORT Reports generated via electronic interface contain original data; however they are lacking the format of the original report. Caution should be taken when reading/interpreting unformatted reports. Name: ? DAMONSOCORRO Lelia ? Accession #: ? [id number] ? : ? 1955 (Age: 61) ??F ? Collect Date: ? 04/11/2017 ? Location: ? [facility] ? Receive Date: ? 04/12/2017 ? Provider: TIMOTHY HERNDON MD Copy to: ? 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 See comment. Comment: The biopsy is notable for a dense dermal infiltrate that includes numerous eosinophils. ??The histologic features are most suggestive of arthropod assault reaction (bug bite). ??Other forms of dermal hypersensitivity reaction would also be included in the differential diagnosis. ??(Dr. Bhatti)/bashir Microscopic Description: Sections consist of a bisected punch biopsy of skin to the subcutis. ??The stratum corneum, centrally, has a focus of crust. ??The epidermis shows reactive changes with focal spongiosis beneath the area of crust. ??The remainder of the epidermis shows mild reactive changes. ??The dermis is marked by a dense superficial and deep perivascular and interstitial infiltrate. ??The infiltrate includes numerous eosinophils, in addition to lymphomononuclear cells. ??The vessels show reactive changes with mural swelling and endothelial cell hypertrophy. ??There is erythrocyte extravasation. ??(Dr. Bhatti)/bashir Document reviewed and electronically signed by: SOCORRO BHATTI MD Report ??Date: 04/13/2017 16:29 By the signature above, the attending physician certifies that he/she has personally conducted a gross and/or microscopic examination of the described specimens and rendered or confirmed the above diagnosis. Specimen(s) Received: R lower leg Clinical History: R leg rash Gross Description: ? Received in formalin labelled with proper patient identification (initials C, D) and R lower leg is a punch biopsy of skin (0.4 cm in diameter x 0.2 cm in thickness). The specimen is bisected and submitted entirely in 1. KIRSTY Avelar (ASCP) 04/13/2017 7:47 AM End of Report [facility] 04/11/2017 19:3 5 EDT 04/12/2017 19:35 EDT Timothy Herndon MD PATHOLOGY ORDERABLE S [facility] [address] [place] [address] documented in this encounter Visit Diagnoses Not on filedocumented in this encounter Care Teams General Science Teacher Relationship Specialty Start Date End Date Timothy Herndon MD PCP - General 06/13/13 08/29/18 documented as of this encounter
--- OUTSIDE RECORDS SUMMARY | 2024-07-05 11:42 | XMS_ITS | Encounter Summary ---
Author Organization [facility] Address [address] [place] [address] Care Team Providers Care Ball Winder Name Role Phone Hal Gutierrez MD Primary Care Provider Unav ailable Reason for Visit * Reason Comments Other Encounter Details Date Type Department Care Team (Late st Contact Info) Description 03/19/2015 Refill [facility] Neurology - [address] [place], [place] [phone] Salazar Sahu MD [address] [place], [place] [address] Other Social History Tobacco Use Types Packs/Day [...] 2 capsules by mouth twice a day 120 Cap 5 03/19/2015 07/14/2015 documented in this encounter Miscellaneous Notes * Telephone Encounter - Esha Guillen RN - 03/19/2015 1529 EDT Nortriptyline rx refilled. documented in this encounter Plan of Treatment Not on file documented as of this encounter Visit Diagnoses Not on filedocumented in this encounter Discontinued Medications Medication Sig Discontinue Reason Start Date End Da te nortriptyline (PAMELOR) 10 mg capsule Take 2 Caps by mouth 2 times daily. Reorder 10/08/2014 03/19/2015 documented as of this encounter Care Teams Ball Winder Relationship Specialty Start Date End Date Hal Gutierrez MD PCP - General 06/13/13 08/29/18 documented as of this encounter
--- OUTSIDE RECORDS SUMMARY | 2024-07-05 11:42 | XMS_ITS | Encounter Summary ---
Author Organization [facility] Address [address] [place] [address] Care Team Providers Care Ground Crew Chief Name Role Phone Hal Gutierrez MD Primary Care Provider Unav ailable Reason for Visit * Reason Onset Date Comments Medications Refill 07/25/2015 Encounter Details Date Type Department Care Team (Late st Contact Info) Description 07/25/2015 Telephone [facility] Neurology - [address] [place] [address] [place], [place] [phone] Salazar Sahu MD [address] [place] [address] Medications Refill Social History Tobacco Use Types [...] RN - 07/25/2015 1647 EST TC to [facility] - they have rx but cannot fill until tomorrow. TC to [facility] who is aware rx can befilled tomorrow. * Telephone Encounter - Esha Guillen RN - 07/25/2015 1536 EST Review of [facility] indicates rx was sent 07/14/15. Attempted to contact Pharmacy - they are busy and request call back in 10 minutes. * Telephone Encounter - Dakota Ronquillo - 07/25/2015 1130 EST Calling to check status of RX request for nortriptyline (PAMELOR) 10 mg capsule (80mg/day). Called pharmacy says they do not have it. documented in this encounter Plan of Treatment Not on file documented as of this encounter Visit Diagnoses Not on filedocumented in this encounter Care Teams Ground Crew Chief Relationship Specialty Start Date End Date Hal Gutierrez MD PCP - General 06/13/13 08/29/18 documented as of this encounter
--- OUTSIDE RECORDS SUMMARY | 2024-07-05 11:42 | XMS_ITS | Encounter Summary ---
Author Organization [facility] Address [address] [place] [address] Care Team Providers Care Qualitative Field Project Manager Name Role Phone Pilar Uribe Primary Care Provider [phone] Encounter Details Date Type Department Care Team (Latest Contact Info) Description 10/16/2018 11:52 EST - 10/16/2018 23:59 EST Hospital Encounter [facility] [address] [place] [address] [place] [address] [phone] Discharge Disposition: Auto Discharge Social [...] on filedocumented in this encounter Care Teams Qualitative Field Project Manager Relationship Specialty Start Date End Date Pilar Uribe [address] [facility] [place] [address] PCP - General 08/30/18 documented as of this encounter
--- OUTSIDE RECORDS SUMMARY | 2024-07-05 11:42 | XMS_ITS | Encounter Summary ---
Author Organization [facility] Address [address] [place] [address] Care Team Providers Care Mechanical Systems Engineer Name Role Phone Hal Gutierrez MD Primary Care Provider Unav ailable Encounter Details Date Type Department Care Team (Late st Contact Info) Description 01/24/2015 12:24 EDT - 01/24/2015 23:59 EDT Hospital Encounter [facility] [address] [place] [address] Hal Gutierrez MD Sowden, Michelle M, DO [address] [facility], [address] 2 [place] [phone] Discharge Disposition: Home or Self Care Social [...] tablet Take 40 mg by mouth daily. docusate (COLACE) 50 mg/5 mL liquid 10 [...] tablet Take 20 mg by mouth daily. nortriptyline (PAMELOR) 10 mg capsule Take 2 Caps by mouth 2 times daily. 120 Cap 5 10/08/2014 03/19/2015 simvastatin (ZOCOR) 10 mg tablet Take 20 mg by mouth daily. 03/01/2019 documented as of this encounter Discharge Disposition Disposition Code Departure Means Destination Home or Self Penitentiary documented in this encounter Plan of Treatment Not on file documented as of this encounter Visit Diagnoses Not on filedocumented in this encounter Care Teams Mechanical Systems Engineer Relationship Specialty Start Date End Date Hal Gutierrez MD PCP - General 06/13/13 08/29/18 documented as of this encounter
--- OUTSIDE RECORDS SUMMARY | 2024-07-05 11:42 | XMS_ITS | Encounter Summary ---
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[facility]) Procedures SHUNT SERIES Sherley Louie PA-C [address] [place] [address] [address] [place] [address] Referral ID Status Reason Start Date Expiration Date Visits Re quested Visits Authorized [id number] Closed 11/05/2015 1 1 Reason for Visit * Reason Onset Date Comments Shunt 11/05/2015 Encounter Details Date Type Department Care Team (Late st Contact Info) Description 11/05/2015 Telephone [facility] Neurosurgery - [address] [phone] Fan Allen MD [address] [facility] [address] [place] [address] Shunt Social History Tobacco Use Types Packs/Day Years Used Date Smoking Tobacco: Never Alcohol Use Standard Drinks/Week Comments No 0 (1 standard drink = 0.6 oz pur e alcohol) Sex and Gender Information Value Date Recorded Sex Assigned at Not on file Gender Identity Not on file Sexual Orientation Not on file documented as of this encounter Miscellaneous Notes * Telephone Encounter - Samuel Marquez - 11/06/2015 1141 EST I called and spoke with Nargis, she is aware of ct scan on 11/23 with a 3 pm and then seen [facility] at 4 * Telephone Encounter - Jackie Snyder RN - 11/05/2015 1329 EST Discussed with KIRSTY Louie. The patient's shunt is not programmable. She will need CT scanand shunt series or shunt study to determine if the shunt is functioning properly, followed by an appointment in clinic with KIRSTY Vieyra to discuss findings. Explained to Torhemanthanders who is in agreement with this. She would like all appointments on the same day if possible. * Telephone Encounter - Jackie Snyder RN - 11/05/2015 1311 EST Sweat Box Attendant reports that Socorro has been experiencing worsening mood swings and lability. She denieschange in gait, bladder/bowel function (baseline incontinence at night) seizure activity, headaches, or vision changes. The patient would like to be evaluated in neurosurgery clinic. * Telephone Encounter - Jackie Snyder RN - 11/05/2015 1214 EST REFINERY OPERATOR shunt placed 1.2.14. Message left on home phone to call back * Telephone Encounter - Samuel Marquez - 11/05/2015 1135 EST Deena from PCP office called, patient and her sister are wanting to have her shunt looked at. She is having no problems and was just seen in neurology and had a fine check up. Primary care is callingto see if she needs to be seen. They will no order images. documented in this encounter Plan of Treatment Not on file documented as of this encounter Procedures Procedure Name Priority Date/Time Associated Diagnosis Comments SHUNT SERIES Routine 11/24/2015 17:[address] HEAD WO CONTRAST 11/24/2015 15:16 EDT documented in this encounter Results * SHUNT SERIES (11/24/2015 17:17 EDT) Anatomical Region Laterality Modality Other 11/24/2015 17:1 7 EDT 11/25/2015 11:24 EDT Narrative 11/25/2015 11:24 EDT SHUNT SERIES ??11/24/2015 5:17 PM Signs and Symptoms/Comments: ?? G91.0-Communicating ykaywzlhwpyny-XGC-06; mental status change, REFINERY OPERATOR Shunt in place Comparison: Abdominal radiograph 09/16/2013, shunt series 09/14/2013, CT head same date Findings: On the AP and lateral skull views, the right parietal shunt catheter shows no evidence of disruption. Multiple surgical plates are seen over the left frontal bone. On the AP view of the neck, the shunt catheter is intact extending along the right lateral neck. Multiple degenerative changes are seen in the cervical spine. On the AP view of the chest, the shunt catheter is intact. The lungs and cardiac silhouette are within normal limits. On the AP and lateral views of the abdomen, the shunt catheter is intact and coils in the pelvis. An IVC filter is seen. The bowel gas pattern is unremarkable. No gross osseous abnormality is seen. Impression: No disruption is seen in the REFINERY OPERATOR shunt catheter from the skull to the pelvis. I have personally reviewed the images and the above interpretation and agree with the findings. Procedure Note Marcin Albarado MD - 11/25/2015 SHUNT SERIES 11/24/2015 5:17 PM Signs and Symptoms/Comments: G91.0-Communicating lypaxdldzudhy-BYG-03; mental status change, REFINERY OPERATOR Shunt in place Comparison: Abdominal radiograph 09/16/2013, shunt series 09/14/2013, CT head same date Findings: On the AP and lateral skull views, the right parietal shunt catheter shows no evidence of disruption. Multiple surgical plates are seen over the left frontal bone. On the AP view of the neck, the shunt catheter is intact extending along the right lateral neck. Multiple degenerative changes are seen in the cervical spine. On the AP view of the chest, the shunt catheter is intact. The lungs and cardiac silhouette are within normal limits. On the AP and lateral views of the abdomen, the shunt catheter is intact and coils in the pelvis. An IVC filter is seen. The bowel gas pattern is unremarkable. No gross osseous abnormality is seen. Impression: No disruption is seen in the REFINERY OPERATOR shunt catheter from the skull to the pelvis. I have personally reviewed the images and the above interpretation and agree with the findings. Sherley Louie PA-C [facility] NOSTIC IMAGING ORDERABLES * CT HEAD WO CONTRAST (11/24/2015 15:16 EDT) Anatomical Region Laterality Modality Other 11/24/2015 15:1 6 EDT 11/24/2015 16:01 EDT Narrative 11/24/2015 16:[address] HEAD WO CONTRAST ??11/24/2015 3:16 PM Signs and Symptoms/Comments: ?? G91.0-Communicating cobeqgltxkcku-SSB-58 Z98.2-Presence of cerebrospinal fluid drainage [id number]; mental status changes s/p REFINERY OPERATOR shunt Technique: CT images were obtained from the vertex through the foramen magnum. Comparison: CT head performed July 18, 2014; September 13, 2013. Findings: There is a ventricular catheter traversing the posterior right temporal lobe and terminating in the anterior body of the left lateral ventricle. No kinking or discontinuity is seen in the shunt tube. No significant change in ventricular caliber is present. 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 There is no midline shift or mass effect. The basal cisterns are patent. Prior left frontal craniotomy is noted and there are bilateral frontal kathy holes. The orbits are unremarkable. There are bilateral mucosal thickening in the maxillary sinuses, worse compared to prior study. Scattered mucosal thickening is also present in the ethmoid air cells. The left sphenoid sinus shows an air-fluid level associated with bubbly secretions. The mastoid air cells are clear. There are degenerative changes at the temporomandibular joints bilaterally. Impression: 1. Stable position of a ventricular catheter with no significant change in ventricular caliber. 2. Stable hypoattenuation underlying the left frontal craniotomy in the left frontal lobe. 3. Interval increase in mucosal thickening in the maxillary sinuses and ethmoidal air cells. Bubbly secretions and air-fluid level identified in the left sphenoid sinus. Correlate clinically with signs of sinusitis. 4. Temporomandibular joint osteoarthritis. I have personally reviewed the images and the above interpretation and agree with the findings. Procedure Note Marcin Albarado MD - 11/24/2015 CT HEAD WO CONTRAST 11/24/2015 3:16 PM Signs and Symptoms/Comments: G91.0-Communicating ziyljqahigxbm-OTV-57 Z98.2-Presence of cerebrospinal fluid drainage [id number]-UEU-30; mental status changes s/p REFINERY OPERATOR shunt Technique: CT images were obtained from the vertex through the foramen magnum. Comparison: CT head performed July 18, 2014; September 13, 2013. Findings: There is a ventricular catheter traversing the posterior right temporal lobe and terminating in the anterior body of the left lateral ventricle. No kinking or discontinuity is seen in the shunt tube. No significant change in ventricular caliber is present. 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 There is no midline shift or mass effect. The basal cisterns are patent. Prior left frontal craniotomy is noted and there are bilateral frontal kathy holes. The orbits are unremarkable. There are bilateral mucosal thickening in the maxillary sinuses, worse compared to prior study. Scattered mucosal thickening is also present in the ethmoid air cells. The left sphenoid sinus shows an air-fluid level associated with bubbly secretions. The mastoid air cells are clear. There are degenerative changes at the temporomandibular joints bilaterally. Impression: 1. Stable position of a ventricular catheter with no significant change in ventricular caliber. 2. Stable hypoattenuation underlying the left frontal craniotomy in the left frontal lobe. 3. Interval increase in mucosal thickening in the maxillary sinuses and ethmoidal air cells. Bubbly secretions and air-fluid level identified in the left sphenoid sinus. Correlate clinically with signs of sinusitis. 4. Temporomandibular joint osteoarthritis. I have personally reviewed the images and the above interpretation and agree with the findings. 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
--- OUTSIDE RECORDS SUMMARY | 2024-07-05 11:42 | XMS_ITS | Encounter Summary ---
Author Organization [facility] Address [address] [place] [address] Care Team Providers Care Data Processing Mechanic Name Role Phone Hal Gutierrez MD Primary Care Provider Unav ailable Reason for Visit * Reason Onset Date Comments Medication Management 09/24/2014 Returning Call 09/24/2014 CB mary alice Balbuena Encounter Details Date Type Department Care Team ([facility] st Contact Info) Description 09/24/2014 Telephone [facility] Neurology - [address] [place], [place] [id number] Salazar Sahu MD [address] [place] [address] [place] [address] Medication Management; Returning Call (BRIANA Balbuena) Social History Tobacco Use Types Packs/Day Years [...] times daily. 120 Cap 5 10/08/2014 03/19/2015 documented in this encounter Miscellaneous Notes * Telephone Encounter - Esha Guillen, RN - 10/08/[address] Sahu: She is on a very low dose, Pt can double it. Take 20 mg in morning and again in evening. Rx sent to [facility] is aware. She will call with any updates, questions or concerns as needed. * Telephone Encounter - Esha Guillen RN - 10/01/2014 1308 EST Returned TC to Nargis who is following up on whether or not nortriptyline will be increased. If dose is to increase please send rx to [facility]. Nargis is aware that I have not had a response from Dr. Sahu but that I will send a reminder to him. * Telephone Encounter - Esha Guillen RN - 09/24/2014 1338 EST Returned TC to Nargis who states Socorro's mood has improved perhaps 25-50% on nortriptyline 20mgat bedtime but she still has some mood swings. Nargis asks if the dose might be increased to offer her more comfort. Socorro is tolerating the nortriptyline without evidence of side effects. Will ask Dr. Sahu to review and advise. * Telephone Encounter - Uriel Cheung - 09/24/2014 1249 EST Nortriptylene. Is 20mg a standard dose? If symptoms persist should it increase further? documented in this encounter Plan of Treatment Not on file documented as of this encounter Visit Diagnoses Not on filedocumented in this encounter Discontinued Medications Medication Sig Discontinue Reason Start Date End Da te NORTRIPTYLINE HCL (NORTRIPTYLINE ORAL) Take 20 mg by mouth at bedtime. 10/08/2014 documented as of this encounter Care Teams Data Processing Mechanic Relationship Specialty Start Date End Date Hal Gutierrez MD PCP - General 06/13/13 08/29/18 documented as of this encounter
--- OUTSIDE RECORDS SUMMARY | 2024-07-05 11:42 | XMS_ITS | Encounter Summary ---
Author Organization [facility] Address [address] [place] [address] Care Team Providers Care Silviculturist Name Role Phone Hal Gutierrez MD Primary Care Provider Unav ailable Encounter Details Date Type Department Care Team (Late st Contact Info) Description 07/18/2014 13:31 EST - 07/18/2014 23:59 EST Hospital Encounter [address] [address] Rubin Daniel MD [address] [facility], [address] [place] [id number] Discharge Disposition: Auto Discharge Social History Tobacco [...] 1 Tab by mouth 2 times daily. citalopram (CELEXA) 20 mg tablet Take 40 [...] daily. nortriptyline (PAMELOR) 10 mg capsule Take 1 Cap by mouth at bedtime for 60 doses 1 cap for 2 weeks, if symptoms don't improve, then 2 caps every night.. 60 Cap 3 2014 09/01/2014 simvastatin (ZOCOR) 10 mg tablet Take 20 mg by mouth daily. 03/01/2019 documented as of this encounter Discharge Disposition Disposition Code Departure Means Destination Auto Discharge Home documented in this encounter Plan of Treatment Pending Results Name Type Priority Associated Diagnoses Date /Time OUTSIDE IMAGES - US BREAST Imaging 08/09/2014 10:44 EST OUTSIDE IMAGES - MAMMO BREAST Imaging 08/09/2014 10:44 EST OUTSIDE IMAGES - MAMMO BREAST Imaging 08/06/2014 10:44 EST OUTSIDE IMAGES - MAMMO BREAST Imaging 08/07/2012 10:44 EST OUTSIDE IMAGES - MAMMO BREAST Imaging 07/30/2011 10:44 EST OUTSIDE IMAGES - US BREAST Imaging 01/08/2011 10:44 EDT OUTSIDE IMAGES - MAMMO BREAST Imaging 01/08/2011 10:44 EDT OUTSIDE IMAGES - US BREAST Imaging 06/24/2010 10:44 EDT OUTSIDE IMAGES - MAMMO BREAST Imaging 06/24/2010 10:44 EDT OUTSIDE IMAGES - MAMMO BREAST Imaging 06/15/2010 10:44 EDT OUTSIDE IMAGES - MAMMO BREAST Imaging 11/27/2008 7:06 EDT OUTSIDE IMAGES - MAMMO BREAST Imaging 11/22/2007 7:06 EDT OUTSIDE IMAGES - MAMMO BREAST Imaging 11/10/2007 7:06 EST Scheduled Orders Name Type Priority Associated Diagnoses Orde r Schedule OUTSIDE IMAGES - US BREAST Imaging One Time for 1 Occurrences starting 08/15/2014 until 08/15/2014 OUTSIDE IMAGES - MAMMO BREAST Imaging One Time for 1 Occurrences starting 08/15/2014 until 08/15/2014 OUTSIDE IMAGES - MAMMO BREAST Imaging One Time for 1 Occurrences starting 08/15/2014 until 08/15/2014 OUTSIDE IMAGES - MAMMO BREAST Imaging One Time for 1 Occurrences starting 08/15/2014 until 08/15/2014 OUTSIDE IMAGES - MAMMO BREAST Imaging One Time for 1 Occurrences starting 08/15/2014 until 08/15/2014 OUTSIDE IMAGES - US BREAST Imaging One Time for 1 Occurrences starting 08/15/2014 until 08/15/2014 OUTSIDE IMAGES - MAMMO BREAST Imaging One Time for 1 Occurrences starting 08/15/2014 until 08/15/2014 OUTSIDE IMAGES - US BREAST Imaging One Time for 1 Occurrences starting 08/15/2014 until 08/15/2014 OUTSIDE IMAGES - MAMMO BREAST Imaging One Time for 1 Occurrences starting 08/15/2014 until 08/15/2014 OUTSIDE IMAGES - MAMMO BREAST Imaging One Time for 1 Occurrences starting 08/15/2014 until 08/15/2014 OUTSIDE IMAGES - MAMMO BREAST Imaging One Time for 1 Occurrences starting 08/22/2014 until 08/22/2014 OUTSIDE IMAGES - MAMMO BREAST Imaging One Time for 1 Occurrences starting 08/22/2014 until 08/22/2014 OUTSIDE IMAGES - MAMMO BREAST Imaging One Time for 1 Occurrences starting 08/22/2014 until 08/22/2014 documented as of this encounter Procedures Procedure Name Priority Date/Time Associated Diagnosis Comments MA BREAST OUTSIDE CONSULTATION 08/16/2014 11:38 EST documented in this encounter Results * MA BREAST OUTSIDE CONSULTATION (08/16/2014 11:38 EST) Anatomical Region Laterality Modality Other 08/16/2014 11:3 8 EST 08/16/2014 14:21 EST Narrative 08/16/2014 14:21 EST MA BREAST OUTSIDE CONSULTATION ??08/16/2014 11:38 AM Signs and Symptoms/Comments: ?? Right breast calcifications. What is our opinion? Review of outside mammograms from [facility]. Exams reviewed: Bilateral screening mammogram 07/30/2011, bilateral screening mammogram 08/07/2012, bilateral screening mammogram 08/06/2014 with additional diagnostic magnification images of the right breast, 08/09/2014. There are scattered fibroglandular densities in both breasts. Findings left breast: There are no new dominant masses, abnormal calcifications or areas of architectural distortion. Impression left breast: BI-RADS category 1, negative. Recommendation left breast: Annual screening mammogram. Right breast findings: There are numerous stable calcifications in the central breast and upper outer quadrant. ??There is however a new cluster of linearly oriented heterogeneous calcifications in the upper outer quadrant that are moderately concerning. ??The other calcifications are largely stable. ??There are no new suspicious masses or areas of architectural distortion. Impression right breast: I agree with the outside recommendation for stereotactic biopsy of the new heterogeneous calcifications in the upper outer quadrant. ??BI-RADS category 4. Overall assessment: Suspicious. We will contact the patient with our findings and recommendations and if she is amenable, have her come here for the stereotactic biopsy. Procedure Note 08/16/2014 MA BREAST OUTSIDE CONSULTATION 08/16/2014 11:38 AM Signs and Symptoms/Comments: Right breast calcifications. What is our opinion? Review of outside mammograms from [facility]. Exams reviewed: Bilateral screening mammogram 07/30/2011, bilateral screening mammogram 08/07/2012, bilateral screening mammogram 08/06/2014 with additional diagnostic magnification images of the right breast, 08/09/2014. There are scattered fibroglandular densities in both breasts. Findings left breast: There are no new dominant masses, abnormal calcifications or areas of architectural distortion. Impression left breast: BI-RADS category 1, negative. Recommendation left breast: Annual screening mammogram. Right breast findings: There are numerous stable calcifications in the central breast and upper outer quadrant. There is however a new cluster of linearly oriented heterogeneous calcifications in the upper outer quadrant that are moderately concerning. The other calcifications are largely stable. There are no new suspicious masses or areas of architectural distortion. Impression right breast: I agree with the outside recommendation for stereotactic biopsy of the new heterogeneous calcifications in the upper outer quadrant. BI-RADS category 4. Overall assessment: Suspicious. We will contact the patient with our findings and recommendations and if she is amenable, have her come here for the stereotactic biopsy. C Mychal Batista MD IMG MAMMOGRAPHY ORD ERABLES documented in this encounter Visit Diagnoses Not on filedocumented in this encounter Care Teams Silviculturist Relationship Specialty Start Date End Date Hal Gutierrez MD PCP - General 06/13/13 08/29/18 documented as of this encounter
--- OUTSIDE RECORDS SUMMARY | 2024-07-05 11:42 | XMS_ITS | Encounter Summary ---
Author Organization [facility] Address [address] [place] [address] Care Team Providers Care Grade Foreman Name Role Phone Pilar Uribe Primary Care Provider [phone] Reason for Visit * Reason Onset Date Comments Follow-up 09/21/2018 Encounter Details Date Type Department Care Team (Late st Contact Info) Description 09/21/2018 Telephone [facility] Neurophysiology - Main [place] [address] [place] [address] [place] [address] [phone] Follow-up Social History Tobacco Use Types Packs/Day [...] renal function was not normal in labs drawn on 09/20/18. I verified that Pilar Uribe is the pcp and faxed lab results to her at [phone]. I asked that caregiver follow up with her office to see if she is concerned about labs * Telephone Encounter - Rocky Little MD - 09/21/2018 [...] on filedocumented in this encounter Care Teams Grade Foreman Relationship Specialty Start Date End Date Pilar Uribe [address] [place] [address] PCP - General 08/30/18 documented as of this encounter
--- OUTSIDE RECORDS SUMMARY | 2024-07-05 11:43 | XMS_ITS | Encounter Summary ---
Author Organization [facility] Address [address] [place] [address] Care Team Providers Care Heavy Equipment Mechanic Name Role Phone Hal Gutierrez MD Primary Care Provider Unav ailable Encounter Details Date Type Department Care Team (Late st Contact Info) Description 06/14/2013 12:18 EDT - 06/14/2013 23:59 EDT Hospital Encounter [address] [address] Bill Yi MD [address] [facility] 1 [place] [address] Discharge Disposition: Home or Self Care Social [...] Dispensed Refills Start Date End Date Calcium-Cholecalciferol, D3, (CALCARB) 600 mg(1,500mg) -200 unit tablet Take 1 Tab by mouth 2 times daily. citalopram (CELEXA) 20 mg tablet Take 40 mg by mouth daily. PEG 3350-Electrolytes (MIRALAX) 17 gram packet Take 17 g by mouth daily. cholecalciferol, Vitamin D3, 1,000 unit tablet Take 1,000 Units by mouth 2 times daily. 09/24/2013 lamoTRIgine (LAMICTAL) 25 mg tablet Take 50 mg by mouth daily. 07/04/2013 levothyroxine (SYNTHROID) 125 mcg tablet Take 125 mcg by mouth daily. 09/24/2013 melatonin 3 mg tablet Take by mouth. 09/12 multivitamin, stress formula tablet Take 1 Tab by mouth daily. 09/24/2013 omeprazole (PRILOSEC) 20 mg capsule Take 20 mg by mouth daily. 09/24/2013 oxybutynin (DITROPAN) 5 mg tablet Take 2.5 mg by mouth 2 times daily. 09/24/2013 simvastatin (ZOCOR) 10 mg tablet Take 20 mg by mouth daily. 03/01/2019 documented as of this encounter Discharge Disposition Disposition Code Departure Means Destination Home or Self Long Term documented in this encounter Plan of Treatment Pending Results Name Type Priority Associated Diagnoses Date /Time OUTSIDE IMAGES - CT BODY Imaging 06/14/2013 6:51 EDT OUTSIDE IMAGES - CT NEURO Imaging 06/14/2013 6:51 EDT OUTSIDE CD - CT BODY Imaging 05/2013 13:56 EDT OUTSIDE CD - OTHER CHEST Imaging 06/20/2013 13:56 EDT OUTSIDE CD - OTHER CHEST Imaging 06/20/2013 13:56 EDT OUTSIDE CD - OTHER CHEST Imaging 06/20/2013 13:56 EDT RAD OUTSIDE CD - US BODY Imaging 06/20/2013 13:56 EDT OUTSIDE CD - OTHER NEURO Imaging 06/20/2013 13:56 EDT RAD OUTSIDE CD - US BODY Imaging 06/20/2013 13:56 EDT documented as of this encounter Visit Diagnoses Not on filedocumented in this encounter Care Teams Heavy Equipment Mechanic Relationship Specialty Start Date End Date Hal Gutierrez MD PCP - General 06/13/13 08/29/18 documented as of this encounter
--- OUTSIDE RECORDS SUMMARY | 2024-07-05 11:43 | XMS_ITS | Encounter Summary ---
Author Organization [facility] Address [address] [place] [address] Care Team Providers Care Hr Associate Name Role Phone Hal Gutierrez MD Primary Care Provider Unav ailable Reason for Visit * Reason Onset Date Comments Medication Reaction 07/06/2013 pt is very t ired since medication increase, is acting drugged, cannot keep eyes open, wants to know if this is ok and what to do, please call Other 07/06/2013 [place] phone is: [phone] she feels this patient is declining rapidly, is no longer speaking, walking,talking, or toileting on her own. The ER doctor felt she should have an LP as she had enlarged ventricals etc. please call [facility] Encounter Details Date Type Department Care Team (Late st Contact Info) Description 07/06/2013 Telephone [facility] Neurology - [address] [id number] Rod Rizzo MD Medication Reaction (pt is very tired since medication increase, is acting drugged, cannot keep eyes open, wants to know if this is ok and what to do, please call); Other ([facility] cell phone is: [phone] she feels this patient is declining rapidly, is no longer speaking, walking,talking, or toileting on her own. The ER doctor felt she should have an LP as she had enlarged ventricals etc. please call [facility] ) Social History Tobacco Use Types Packs/Day [...] to speak with Dr. Gutierrez this week * Telephone Encounter - Esha Guillen RN - 07/11/2013 1307 EDT Attempted return call, LM for call back * Telephone Encounter - Rod Rizzo MD - 07/11/2013 1133 EDT EEG will not change agent acutely at this time. I will talk to Dr. Gutierrez this week and update him with the plan. Please let the family know. Rod. * Telephone Encounter - Esha Guillen RN - 07/10/2013 1406 EDT TC from Nargis, Socorro's sister. Nargis lives in her home and it is increasingly difficult to care for her as her abilities decline and her care needs increase. Socorro continues to have seizures despite the increasing dosage of lamotrigine. Usually they occur when she is walking but yesterdaySocorro was just sitting in her chair and the caregiver reported she turned her head to the side and vomited. She has also started a new behavior - closing her eyes while she is awake and walking. Reportedly this occurs often around 4 or 5 pm. The family continues to be concerned as to the cause ofher decline and whether the seizures are the cause or a symptom. They worry that the EEG is not scheduled to be done until August and are hoping for answers sooner. They are attempting to set up a family meeting with her PCP, Dr. Gutierrez but are waiting for Dr. Gutierrez to receive the consult notes from [facility]. She asks if it would be acceptable for Dr. Gutierrez to attempt scheduling an EEG in [place] if it can be done sooner. * Telephone Encounter - Esha Guillen RN - 07/10/2013 1316 EDT Attempted return call, for call back * Telephone Encounter - Rod Rizzo MD - 07/09/2013 1348 EDT Please let them that EEG report from Dr. Jimenez is already entered into our system in my consult. Rod. * Telephone Encounter - Priscilla Oleary - 07/09/2013 1228 EDT Wants to know when pt's previous EEG from Dr Jimenez will be scanned into the system, please call * Telephone Encounter - Priscilla Oleary - 07/06/2013 1612 EDT Pt's sister just wants to make sure that lets them know what to do for pt, caller faxed a form stating that she is pt's co-guardian, will be faxed. documented in this encounter Plan of Treatment Not on file documented as of this encounter Visit Diagnoses Not on filedocumented in this encounter Care Teams Hr Associate Relationship Specialty Start Date End Date Hal Gutierrez MD PCP - General 06/13/13 08/29/18 documented as of this encounter
--- OUTSIDE RECORDS SUMMARY | 2024-07-05 11:43 | XMS_ITS | Encounter Summary ---
Author Organization [facility] Address [address] [place] [address] Care Team Providers Care Shoveler Name Role Phone Hal Gutierrez MD Primary Care Provider Unav ailable Reason for Visit * Reason Onset Date Comments Appointment Related 06/14/2013 ED state s that pt should be seen by Neuro, no other info, pt was not evaluated by Neuro, caller does not want pt to wait months for appt, caller will contact PCP for more info. Encounter Details Date Type Department Care Team (Late st Contact Info) Description 06/14/2013 Telephone [facility] Neurology - [address] [id number] Residents, MD Sebastián [address] [place] [address] Appointment Related (ED states that pt should be seen by Neuro, no other info, pt was not evaluated by Neuro, caller does not want pt to wait months for appt, caller will contact PCP for more info.) Social History Tobacco Use Types Packs/Day Years Used Date Smoking Tobacco: Never Alcohol Use Standard Drinks/Week Comments No 0 (1 standard drink = 0.6 oz pur e alcohol) Sex and Gender Information Value Date Recorded Sex Assigned at Not on file Gender Identity Not on file Sexual Orientation Not on file documented as of this encounter Miscellaneous Notes * Telephone Encounter - Priscilla Oleary - 07/05/2013 1507 EDT Pt was seen 07/04. documented in this encounter Plan of Treatment Not on file documented as of this encounter Visit Diagnoses Not on filedocumented in this encounter Care Teams Shoveler Relationship Specialty Start Date End Date Hal Gutierrez MD PCP - General 06/13/13 08/29/18 documented as of this encounter
--- OUTSIDE RECORDS SUMMARY | 2024-07-05 11:43 | XMS_ITS | Encounter Summary ---
Author Organization [facility] Address [address] [place] [address] Care Team Providers Care Laboratory Apparatus Glass Blower Name Role Phone Hal Gutierrez MD Primary Care Provider Unav ailable Reason for Visit * Reason Onset Date Comments Appointment Related 06/13/2013 Encounter Details Date Type Department Care Team (Late st Contact Info) Description 06/13/[address] [facility] Rehabilitation Therapy - [address] [phone] Michelle Mars, BEAN Appointment Related Social History Tobacco Use Types [...] encounter Miscellaneous Notes * Telephone Encounter - Queenie Suggs - 06/13/2013 1610 EDT [facility] [address] [place] [phone] Telephone Intake Information for Scheduling NEW Patients for Therapy Script/referral : In [facility]ISM Referring Provider: Bill Yi MD Diagnosis: NPH Safety Lead needed? No Primary Insurance: Medicare A/B Secondary Insurance: Medicaid If Medicare: Have you received a letter from Medicare about the therapy cap? Not sure, scheduled with ER doctor Are you receiving any home health or VNA services? Promise Suggs 06/13/2013 documented in this encounter Plan of Treatment Not on file documented as of this encounter Visit Diagnoses Not on filedocumented in this encounter Care Teams Laboratory Apparatus Glass Blower Relationship Specialty Start Date End Date Hal Gutierrez MD PCP - General 06/13/13 08/29/18 documented as of this encounter
--- OUTSIDE RECORDS SUMMARY | 2024-07-05 11:43 | XMS_ITS | Encounter Summary ---
Author Organization [facility] Address [address] [place] [address] Care Team Providers Care Taxi Driver Supervisor Name Role Phone Hal Gutierrez MD Primary Care Provider Unav ailable Encounter Details Date Type Department Care Team (Late st Contact Info) Description 09/04/[address] [facility] [address] [place] [address] Diamond Sawer, Outpatient Social History Tobacco Use Types Packs/Day [...] on filedocumented in this encounter Care Teams Taxi Driver Supervisor Relationship Specialty Start Date End Date Hal Gutierrez MD PCP - General 06/13/13 08/29/18 documented as of this encounter
--- OUTSIDE RECORDS SUMMARY | 2024-07-05 11:43 | XMS_ITS | Encounter Summary ---
Author Organization [facility] Address [address] [place] [address] Care Team Providers Care Microsoft Office Instructor Name Role Phone Hal Gutierrez MD Primary Care Provider Unav ailable Encounter Details Date Type Department Care Team (Late st Contact Info) Description 06/13/2013 Documentation Visit [facility] Infectious Disease - [facility] [address] [place] [address] Shruti Stover RN Social History Tobacco Use Types Packs/Day Years Used Date Smoking Tobacco: Never Alcohol Use Standard Drinks/Week Comments No 0 (1 standard drink = 0.6 oz pur e alcohol) Sex and Gender Information Value Date Recorded Sex Assigned at Not on file Gender Identity Not on file Sexual Orientation Not on file documented as of this encounter Progress Notes * Shruti Stover RN - 06/13/2013 1154 EDT [facility] called and stated all film IMAGING and SCANS have been sent to [facility] on 05/01/13. documented in this encounter Plan of Treatment Not on file documented as of this encounter Visit Diagnoses Not on filedocumented in this encounter Care Teams Microsoft Office Instructor Relationship Specialty Start Date End Date Hal Gutierrez MD PCP - General 06/13/13 08/29/18 documented as of this encounter
--- OUTSIDE RECORDS SUMMARY | 2024-07-05 11:43 | XMS_ITS | Encounter Summary ---
Author Organization [facility] Address [address] [place] [address] Care Team Providers Care Tugboat Dispatcher Name Role Phone Hal Gutierrez MD Primary Care Provider Unav ailable Reason for Visit * Reason Onset Date Comments Seizures 07/05/2013 pt has many othe r symptoms, does not walk, talk, getting progressivly worse, wants to know what to do, would like to talk to , please call Encounter Details Date Type Department Care Team (Late st Contact Info) Description 07/05/[address] [facility] Neurology - [address] [id number] Rod Rizzo MD Seizures (pt has many other symptoms, does not walk, talk, getting progressivly worse, wants to know what to do, would like to talk to , please call) Social History Tobacco Use Types [...] Telephone Encounter - Esha Guillen RN - 07/09/2013 1117 EDT TC to Gina, relaying information from Dr. Rizzo. * Telephone Encounter - Rod Rizzo MD - 07/08/[address] Fredy, Normal pressure hydrocephalus expert has seen the images personally and does notbelieve this is NPH. Please inform the co-guardian that we had an extensive discussion on the treatment being pursued with Socorro's sister and brother in law. EEG is ordered. Continue Lamictal increase as instructed. Patient should be taken to nearest ER forseizures lasting greater than 5 minutes. Please inform Betsy. Velasco. * Telephone Encounter - Esha Guillen RN - 07/06/2013 0937 EDT Returned call to Gina Wood who is concerned with the rapid decline in physical and cognitive abilities with Socorro. They were told by Socorro's family that this is all the result of seizure activity and that the plan if for an EEG in the next couple of weeks. However, it was Gina's understanding from Socorro's ER visit that she had enlarged ventricles in the brain and an LP was to be done with consideration for possible future shunt. She fears we are band- aiding the symptoms with the EEGinstead of treating the cause. Should she have the LP and shouldn't it be done soon in order to limit Socorro's decline? If possible, she would like to speak with Dr. Rizzo. Will ask Dr. Rizzo to review and advise. documented in this encounter Plan of Treatment Not on file documented as of this encounter Visit Diagnoses Not on filedocumented in this encounter Care Teams Tugboat Dispatcher Relationship Specialty Start Date End Date Hal Gutierrez MD PCP - General 06/13/13 08/29/18 documented as of this encounter
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
--- OUTSIDE RECORDS SUMMARY | 2024-07-05 11:43 | XMS_ITS | Encounter Summary ---
Author Organization [facility] Address [address] [place] [id number] Care Team Providers Care Yarn Washer Name Role Phone Hal Gutierrez MD Primary Care Provider Unav ailable Reason for Visit * Reason Comments Gait Problem Encounter Details Date Type Department Care Team (Late st Contact Info) Description 07/06/2013 Documentation Visit [facility] Rehabilitation Therapy - [address] [id number] Ebony Moore, PT [address] [place] [address] Social History Tobacco Use Types Packs/Day Years Used Date Smoking Tobacco: Never Alcohol Use Standard Drinks/Week Comments No 0 (1 standard drink = 0.6 oz pur e alcohol) Sex and Gender Information Value Date Recorded Sex Assigned at Not on file Gender Identity Not on file Sexual Orientation Not on file documented as of this encounter Progress Notes * Ebony Moore - 07/06/2013 1435 EDT [facility] ([facility] [address] [place] [id number] Physical Therapy Discontinue/Discharge Note Date: 07/06/2013 Reason [...] 06/14/13. We are opting to discontinue Ms. Romeros therapy at this time because, the patient is currently not appropriate for physical therapy intervention. Nargis is in agreement with this plan. In addition, she reports they recently received a wheelchair for [...] on filedocumented in this encounter Care Teams Yarn Washer Relationship Specialty Start Date End Date Hal Gutierrez MD PCP - General 06/13/13 08/29/18 documented as of this encounter
--- OUTSIDE RECORDS SUMMARY | 2024-07-05 11:43 | XMS_ITS | Encounter Summary ---
Author Organization [facility] Address [address] [place] [address] Care Team Providers Care Receiving Clerk Name Role Phone Hal Gutierrez MD Primary Care Provider Unav ailable Encounter Details Date Type Department Care Team (Late st Contact Info) Description 08/06/2013 Orders Only [address] [id number] Alexa Giraldo, RN [facility] [address] [place], [place] [id number] Social History Tobacco Use Types Packs/Day Years [...] Procedure Name Priority Date/Time Associated Diagnosis Comments INPATIENT ADD-ON Routine 08/06/2013 9:00 EST documented in this encounter Results * INPATIENT ADD-ON (08/06/2013 9:00 EST) Tests to be added HCAB, HBAG [facility] Number for problems [phone] [facility] Accession number [id number] [facility] 08/06/2013 9:00 EST 08/06/2013 9:04 EST Manjinder Alston MD HEMATOLOGY & PF 4 ORDERABLES [facility] [address] [place] [address] documented in this encounter Visit Diagnoses Not on filedocumented in this encounter Care Teams Receiving Clerk Relationship Specialty Start Date End Date Hal Gutierrez MD PCP - General 06/13/13 08/29/18 documented as of this encounter
--- OUTSIDE RECORDS SUMMARY | 2024-07-05 11:44 | XMS_ITS | Encounter Summary ---
Author Organization [facility] Address [address] [place] [address] Care Team Providers Care Rn Urology Name Role Phone Priscilla Landa HAND UMBRELLA TIPPER Primary Care Provider [phone] Reason for Visit * Reason Comments New Patient Visit Encounter Details Date Type Department Care Team (Late st Contact Info) Description 06/01/2013 9:00 EDT Office Visit [facility] Infectious Disease - [address] [id number] Santhosh Brooks MD [address] [facility], [address] [place] [phone] Fever (Primary Dx) Social History Tobacco Use Types Packs/Day Years Used Date Smoking Tobacco: Never Assessed Sex and Gender Information Value Date Recorded [...] - documented in this encounter Progress Notes * Santhosh Brooks MD - 06/04/2013 0738 EDT This office note has been dictated. * Santhosh Brooks MD - 06/02/2013 0941 EDT DIVISION OF INFECTIOUS DISEASE PROGRESS / FOLLOWUP NOTE - 06/01/2013 SUBJECTIVE: This is the 1st infectious disease clinic visit for Ms Jaimes who is being seen in infectious disease clinic for further evaluation and management of fevers. Ms Jiames is a 57-year-old woman who has been in her usual state of health with developmental delay. However in the past couple of months, she has been having episodes of failure to thrive as well as intermittent fevers. She was admitted to the [facility] from April 25 to April 27 again with intermittent spiking fevers and nausea and vomiting. That hospitalization was characterized by a fairly extensive workup and it was determined that part of her nausea and vomiting [...] She was evaluated subsequently by the neurology service who felt that she was having seizures and [...] TSH of 9.5 and her Synthroid which s he had been taking chronically for hypothyroidism was increased from 100 mcg a day to 125 mcg. The rest of her laboratory data during that hospitalization was otherwise within normal limits except for hematocrit of 33 which it had been 38 in February. Her liver enzymes, renal function and electrolytes were all within normal limits. She in the midst of these symptoms, she also had a CT scan of her abdomen as well as ultrasounds ofher pelvis and it was noted that she had had an area initially that had by pelvic ultrasound that was initially 4.3 x 1.4 x 3.7 cm. There was an attempt to try and obtain fluid, only 2 drops of fluidwere obtained and the cultures were negative and a repeat ultrasound on 05/28/2013 shows that pericervical collection looks like it had subsequently increased in size. She has had an extensive workupincluding multiple blood tests. She has had a vitamin B12 that was within normal limits, on 05/24/2013, folate that was within normal limits. Blood cultures were obtained on April 21 that were no growth. Her last urinalysis on 04/21 did not have leukocytes or blood. PAST MEDICAL HISTORY: Remarkable for the following, developmental delay, depression, hypothyroidism, hyperlipidemia, urinary incontinence, gastroesophageal reflux and mild asthma. ALLERGIES: She has no known allergies. MEDICATIONS: Currently include Lamotrigine. Her Keppra was discontinued several days ago. Synthroid 125 mcg. Cetirizine 10 mg daily. Citalopram 40 mg at bedtime. Vitamin D3. Calcium. Simvastatin 20 mg at bedtime. MiraLax. Melatonin. Oxybutynin. Prilosec. Multivitamins. FAMILY HISTORY: Noncontributory. SOCIAL HISTORY: She lives with her sister in [place], [place]. Her sister functions as her probation officer. Her guardians are her mother and her other sister, and Socorro lives some days of the week with her mother who is 85 years old and lives close by. The sister is and whose just retired from the supervisor waterworks at [employer]. Socorro does not smoke, drink alcohol. No [...] is 36.4, blood pressure is 100/68. Her weightis 69.8 kilos. General: She is awake, alert, responsive to commands and comes to the clinic with her sister and her sister's . HEENT: She does have dentures in the upper mouth. No dentures in the bottom. There are no oral lesions. Her tongue is somewhat dry. Chest: Clear to auscultation although it is not a good inspiration. Cardiac: An [...] know for sure what may be causing Ms Jaimes's intermittent fevers, although the fever curve submitted by her sister shows that they aresomewhat low-grade but her failure to thrive is a little bit difficult to ascertain at this point. She has had a fairly extensive workup including negative blood cultures with multiple scans as well as an improvement in her thyroid function. The only abnormality at this point is a somewhat increasing fluid collection pericervical area of unclear etiology and hypoalbuminemia. At this point, I do not think any additional laboratory data will necessarily be revealing. I would consider additional in vestigation of this pericervical fluid, however, prior to [...] - Santhosh Brooks MD rn Dictation ID: [id number] cc: Hal Gutierrez MD, [address] [address] documented in this encounter Plan of Treatment Not on file documented as of this encounter Visit Diagnoses Diagnosis Fever- Primary Fever, unspecified documented in this encounter Care Teams Rn Urology Relationship Specialty Start Date End Date Priscilla Landa FNP [address] [place] [address] PCP - General 04/06/12 06/12/13 documented as of this encounter
--- OUTSIDE RECORDS SUMMARY | 2024-07-05 11:44 | XMS_ITS | Encounter Summary ---
Author Organization [facility] Address [address] [place] [address] Care Team Providers Care Rn Access Name Role Phone Nadia Landa TRANSPORTATION PLANNING TECHNICIAN Primary Care Provider [phone] Encounter Details Date Type Department Care Team (Late st Contact Info) Description 04/06/[address] [facility] - [facility] [address] [place] [id number] Haroldo Fierro MD [address] [place] [address] [address] [place] [phone] Social History Tobacco Use Types Packs/Day Years Used Date Smoking Tobacco: Never Assessed Sex and Gender Information Value Date Recorded Sex Assigned at Not on file Gender Identity Not on file Sexual Orientation Not on file documented as of this encounter Plan of Treatment Not on file documented as of this encounter Procedures Procedure Name Priority Date/Time Associated Diagnosis Comments PAP TEST- RESULT ONLY Routine 04/06/2012 0:00 EDT documented in this encounter Results * PAP TEST- RESULT ONLY (04/06/2012 0:00 EDT) Pathology Report: CYTOPATHOLOGY REPORT Reports generated via electronic interface contain original data; however they are lacking the format of the original report. Caution should be taken when reading/interpreti ng unformatted reports. Name: ? SOCORRO JAIMES ? Accession #: ? [id number] : ? 1955 (Age: 56) ??F ?Collect Date: ? 04/06/2012 Location: ? [facility] ? Receive Date: ? 04/07/2012 Provider: ?HAROLDO FIERRO MD Copy to: ?NADIA LANDA TRANSPORTATION PLANNING TECHNICIAN ? Specimen/Source: ?Pap Test, Vagina, ThinPrep Imaging System with manual evaluation Last Menstrual Period: ? SPECIMEN ADEQUACY ? Satisfactory for Evaluation - assessment of transformation zone component not applicable ( e.g. atrophy, vaginal sample, hysterectomy) GENERAL CATEGORIZATION ? Negative for Intraepithelial Lesion or Malignancy ? Document reviewed and electronically signed by: ? CARLOTA Hood(ASCP) ? Report Date: ??04/13/2012 11:26 End of Report [facility] 04/06/2012 04/07/2012 Haroldo Fierro MD PATHOLOGY ORDERABL ES [facility] [address] [place] [address] documented in this encounter Visit Diagnoses Not on filedocumented in this encounter Care Teams Rn Access Relationship Specialty Start Date End Date Nadia Landa, [place] [address] [place] [address] PCP - General 04/06/12 06/12/13 documented as of this encounter
--- OUTSIDE RECORDS SUMMARY | 2024-07-05 11:44 | XMS_ITS | Encounter Summary ---
Author Organization [facility] Address [address] [place] [address] Care Team Providers Care Atomic Physics Professor Name Role Phone Timothy Herndon MD Primary Care Provider Unav ailable Reason for Referral * Consult, Test and Treat (48 Hrs (Urgent)) - Closed Specialty Diagnoses / Procedures Referred By Mayank gilbert Referred To Contact Rehab Therapies Diagnoses Ataxia Cognitive decline Bill Yi MD [address] [place] [phone] Referral ID Status Reason Start Date Expiration Date V isits Requested Visits Authorized [id number] Closed Specialty Services Required 06/13/2013 1 1 Question Answer Reason for Request: possible nph Return Visit to Provider: michael (neurology) Reason for Visit * Reason Comments Fever Pt here for intermit tent fevers, vomiting, inability to walk without assistance. Pt also became nonverbal x 2 weeks. Pt has been falling a lot. Encounter Details Date Type Department Care Team (Late st Contact Info) Description 06/13/2013 11:22 EDT - 06/13/2013 16:45 EDT Emergency [facility] Emergency Department - [address] [address] Bill Yi MD [address] [place] [phone] Emergency, MD Tiara Ataxia (Primary Dx); Cognitive decline Discharge Disposition: Home or Self Care Social [...] - documented in this encounter Discharge Instructions * Discharge Instructions* Bill Yi MD - 06/13/2013 16:30 EDT 1. Drink plenty of fluids. 2. Continue all of your medications as prescribed. 3. follow-up tomorrow at rehabilitation for a physical therapy evaluation. Return to the Emergency Department (ED) if your condition worsens, does not improve as expected, orfor any other concerns. Specifically return if you [...] Home documented in this encounter ED Notes * Constanza Segura RN - 06/13/2013 1626 EDT IVF disconnected and pt ambulating w/ assist of family to BR. * Constanza Segura RN - 06/13/[address] Yi, LP held at this time - neuro to be contacted. * Constanza Segura RN - 06/13/2013 1533 EDT Pt resting, eyes closed. Family bedside. Plan is for LP in IR at this time. Family aware. * Constanza Segura RN - 06/13/2013 [address] scan via stretcher. * Constanza Segura RN - 06/13/2013 1300 EDT Blood drawn via butterfly needle per protocol, cultures tube(s) sent to lab per order. * Constanza Segura RN - 06/13/2013 1300 EDT Blood drawn via saline lock per protocol, tiger, green, purple and cultures tube(s) sent to lab perorder. * Bill Yi MD - 06/13/2013 1205 EDT DOS: [...] evaluation for her progressive decline including admisssion [facility] 04/25-04/27 with diagnosis with aspiration pneumonitis and hiatal hernia. Work up has includeda head CT, EEG, and treatment with lamotrigine for twitching episodes and possible seizures. Also has had abdominal/pelvic CT and USs diagnostic for a pericervical fluid, Cultures were neg and forestry hunter eval felt collection was not clinically significant but collection has been increased in size on a more recent pelvic ultrasound. Most recently evaluated for her decline and low grade fevers by [facility] ID (Dr. Brooks). Per family, pt has dramatically declined over the past two weeks, becoming non-verbal and having increased difficulty with gait and frequent falls. Has a new left parietal scalp lac/cotus ion. The history is provided by a relative [...] ??? Latex, Natural Rubber ??? Triple Antibiotic (Nfpmjukf-Leouqzvafs-Jtskddrxh) History Substance Use Topics ??? Smoking status: [...] third and fourth ventriculomegaly concerning for hydrocephalus. 2.Mild periventricular white matter hypoattenuation may reflect subependymal fluid resorption or mildsmall vessel ischemic change. 3. Mild paranasal sinus [...] 88 Result Time MCH MCHC PLT RDW-CV 06/13/13 131 29.3 33.3 364 (H) 15.6 (H) DIFFERENTIAL (Final result) Component (Lab Inquiry) Result Time Neutrophils Lymphocytes Monocytes Eosinophils Basophils 06/13/136 73.0 16.2 5.2 4.4 1.2 Result Time ABS Neutrophils ABS Lymphs ABS Monocytes ABS Eosinophils ABS Basophils 06/13/136 6.68 1.48 0.48 0.40 0.11 Result Time Type of Diff: 06/13/13 1316 Automated ED Course: 06/13/2013 12:05 A medical screening exam was performed. Pt with complex PMH including develpmental delay and [facility]ad[facility] presents with worsening fatigue and increased episodes of falling. 06/13/2013 14:24 CT scan diagnostic for sig ventriculomegaly. Discussed case Dr. Watson, neuroradiology, who reviewed previous imaging on 04/25 from [facility] with similar diagnostic findings. Differential more likely for NPH vs outflow obstruction. 06/13/2013 16:01 Neurology consulted. Recommended outpatient PT evaluation with subsequent neuro clinic follow up for possible drain placement. 06/13/2013 16:27 Pt re-evaluated and family is comfortable with plan for appointment tomorrow at [facility] for PT evaluation and neurology outpatient follow-up. [...] obtain history from someone other than the patient:yes Obtain history from someone other than the [...] decline PCP: TIMOTHY HERNDON MD 06/13/2013 16:29 * Chloe Spear - 06/13/2013 1123 EDT TCALL: SOCORRO JAIMES 1955 REFERRED BY [facility]. SEEN HERE RECENTLY FOR FEVERS, NOW STIFF AND VERBALLY NON-COMMUNICATIVE. FAXING RECORDS TO ED FINAL EXPENSE AGENT (CHINYERE). documented in this encounter Miscellaneous Notes * Scanned Note-Null - MICROMATIC HONE OPERATOR, SCAN 2 - 06/15/2013 1159 EDT documented in this encounter Plan of Treatment Scheduled Referrals Name Type Priority Associated Diagnoses Orde r Schedule AMB CONSULT PHYSICAL THERAPY Outpatient Referral STAT Ataxia Cognitive Decline Ordered: 06/13/2013 documented as of this encounter Procedures Procedure Name Priority Date/Time Associated Diagnosis Comments CT HEAD WO CONTRAST 06/13/2013 1 3:11 EDT SCREENING GLUCOSE STAT 06/13/2013 12: 23 EDT BACTERIAL CULTURE, BLOOD Routine 06/13/2013 12:23 EDT BACTERIAL CULTURE, BLOOD Routine 06/13/2013 12:23 EDT LACTIC ACID STAT 06/13/2013 12:23 EDT DIFFERENTIAL Routine 06/13/2013 12:23 EDT COMPLETE BLOOD COUNT Routine 06/13/2013 12:23 EDT COMPLETE BLOOD COUNT AND DIFFERENTIAL STAT 06/13/2013 12:23 EDT BUN STAT 06/13/2013 12:23 EDT MAGNESIUM STAT 06/13/2013 12:23 EDT CREATININE STAT 06/13/2013 12:23 EDT CALCIUM STAT 06/13/2013 12:23 EDT ELECTROLYTES STAT 06/13/2013 12:23 EDT documented in this encounter Results * CT HEAD WO CONTRAST (06/13/2013 13:11 EDT) Anatomical Region Laterality Modality Other 06/13/2013 13:1 1 EDT 06/13/2013 14:33 EDT Narrative 06/13/2013 14:33 EDT Addendum Begins Addendum: CT of the head with and without contrast from [facility] on April 27, 2013 has been made available for comparison to the current study. The lateral, 3rd and 4th ventricles are unchanged in size compared to the the study. Mild periventricular white matter hypoattenuation is also stable. On the [...] of proportion to the degree of cortical volume loss present which is age-appropriate. There is mild periventricular white matter hypoattenuation present which could be seen in the setting of subependymal fluid resorption or with mild small vessel ischemic change. There is no midline shift. The basilar cisterns are patent. No intracranial hemorrhage, abnormal extra-axial fluid collection or space-occupying lesion is identified. There is no CT evidence of acute large distribution infarct. Incidental note is made of mild nodular mucosal thickening within the maxillary sinuses and within the posterior ethmoid air cell on the left. The mastoid air cells and middle ear cavities are clear. 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 Impression: 1. Lateral, third and fourth ventriculomegaly concerning for hydrocephalus. If previous imaging studies are available these would be helpful for comparison. If this is a new finding, contrast enhanced MRI of the brain is suggested to assess for obstructing lesion. 2. Mild periventricular white matter hypoattenuation may reflect subependymal fluid resorption or mild small vessel ischemic change. 3. Mild paranasal sinus mucosal inflammatory changes. 4. Osteoarthritis of the temporomandibular joints. Procedure Note 06/13/2013 Addendum Begins Addendum: CT of the head with and without contrast from [facility] on April 27, 2013 has been made available for comparison to the current study. The lateral, 3rd and 4th ventricles are unchanged in size compared to the the study. Mild periventricular white matter hypoattenuation is also stable. On the [...] of proportion to the degree of cortical volume loss present which is age-appropriate. There is mild periventricular white matter hypoattenuation present which could be seen in the setting of subependymal fluid resorption or with mild small vessel ischemic change. There is no midline shift. The basilar cisterns are patent. No intracranial hemorrhage, abnormal extra-axial fluid collection or space-occupying lesion is identified. There is no CT evidence of acute large distribution infarct. Incidental note is made of mild nodular mucosal thickening within the maxillary sinuses and within the posterior ethmoid air cell on the left. The mastoid air cells and middle ear cavities are clear. 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 Impression: 1. Lateral, third and fourth ventriculomegaly concerning for hydrocephalus. If previous imaging studies are available these would be helpful for comparison. If this is a new finding, contrast enhanced MRI of the brain is suggested to assess for obstructing lesion. 2. Mild periventricular white matter hypoattenuation may reflect subependymal fluid resorption or mild small vessel ischemic change. 3. Mild paranasal sinus mucosal inflammatory changes. 4. Osteoarthritis of the temporomandibular joints. Bill Yi MD [facility] ORDERABLES * DIFFERENTIAL (06/13/2013 12:23 EDT) % Neutrophils 73.0 45.5 - 79.7 % [facility] % Lymphocytes 16.2 15.0 - 46.8 % [facility] % Monocytes 5.2 1.8 - 12.0 % [facility] % Eosinophils 4.4 0.6 - 6.9 % [facility] % Basophils 1.2 0.2 - 1.4 % [facility] ABS Neutrophils 6.68 2.20 - 8.85 K/cmm [facility] ABS Lymphs 1.48 1.09 - 3.30 K/cmm [facility] ABS Monocytes 0.48 0.1 - 0.8 K/cmm [facility] ABS Eosinophils 0.40 0.03 - 0.61 K/cmm [facility] ABS Basophils 0.11 0.01 - 0.11 K/cmm [facility] Type of Diff: Automated [facility] 06/13/2013 12:2 3 EDT 06/13/2013 13:05 EDT Bill Yi MD HEMATOLOGY & PF4 ORDERABLES Performing Organization Address [facility] Co de Phone Number [facility] [address] [place] [address] * (ABNORMAL) HEMAGRAM (06/13/2013 12:23 EDT) WBC 9.15 4.0 - 12.4 K/cmm [facility] RBC 3.73(L) 3.86 - 5.04 M/cmm [facility] Hemoglobin 10.9(L) 11.6 - 15.2 gm/dl [facility] HCT 32.8(L) 34.9 - 44.4 % [facility] MCV 88 81 - 98 fl [facility] MCH 29.3 26.7 - 33.3 pg [facility] MCHC 33.3 32.1 - 35.9 gm/dl [facility] PLT 364(H) 141 - 320 K/cmm [facility] RDW-CV 15.6(H) 11.7 - 14.6 % [facility] 06/13/2013 12:2 3 EDT 06/13/2013 13:05 EDT Bill Yi MD HEMATOLOGY & PF4 ORDERABLES Performing Organization Address [facility] Co de Phone Number [facility] [address] [place] [address] * BACTERIAL CULTURE, BLOOD (06/13/2013 12:23 EDT) Specimen Description Blood Left Antecubital Total volume of blood collected: 20 ml [facility] Result No growth [facility] Report Status 06/18/2013 Final [facility] Specimen of unknown material (specimen) BLOOD SPECIMEN / Unknown 06/13/2013 12:23 EDT 06/13/2013 15:08 EDT Bill Yi MD MICROBIOLOGY - NERAL ORDERABLES Performing Organization Address [facility] de Phone Number [facility] [address] [place] [address] * BACTERIAL CULTURE, BLOOD (06/13/2013 12:23 EDT) Specimen Description Blood AEROBIC BLOOD CULTURE BOTTLE Left Hand Total volume of blood collected: 7 ml [facility] Result No growth [facility] Report Status 06/18/2013 Final [facility] Specimen of unknown material (specimen) BLOOD SPECIMEN / Unknown 06/13/2013 12:23 EDT 06/13/2013 15:07 EDT Bill Yi MD MICROBIOLOGY - NERAL ORDERABLES Performing Organization Address [facility] de Phone Number [facility] [address] [place] [address] * LACTIC ACID (06/13/2013 12:23 EDT) Lactic Acid 1.5 0.7 - 2.1 mmol/L [facility] Blood specimen (specimen) 06/13/2013 12:23 EDT 06/13/2013 13:05 EDT Bill Yi MD CHEMISTRY & BLOOD GAS ORDERABLES Performing Organization Address [facility] de Phone Number [facility] [address] [place] [address] * CALCIUM (06/13/2013 12:23 EDT) Calcium 8.6 8.5 - 10.5 mg/dl [facility] Calculated Calcium 9.6 8.5 - 10.5 mg/dl [facility] Blood specimen (specimen) 06/13/2013 12:23 EDT 06/13/2013 13:05 EDT Bill Yi MD CHEMISTRY & BLOOD GAS ORDERABLES Performing Organization Address [facility] Co de Phone Number [facility] [address] [place] [address] * MAGNESIUM (06/13/2013 12:23 EDT) Magnesium 2.1 1.7 - 2.8 mg/dl [facility] Blood specimen (specimen) 06/13/2013 12:23 EDT 06/13/2013 13:05 EDT Bill Yi MD CHEMISTRY & BLOOD GAS ORDERABLES Performing Organization Address [facility] de Phone Number [facility] [address] [place] [address] * CREATININE (06/13/2013 12:23 EDT) Creatinine 0.69 0.52 - 1.04 mg/dl [facility] GFR, Calculated >60 >60 ml/min/1.7 3m2 [facility] Blood specimen (specimen) 06/13/2013 12:23 EDT 06/13/2013 13:05 EDT Bill Yi MD CHEMISTRY & BLOOD GAS ORDERABLES Performing Organization Address [facility] de Phone Number [facility] [address] [place] [address] * BUN (06/13/2013 12:23 EDT) BUN 12 10 - 26 mg/dl [facility] Blood specimen (specimen) 06/13/2013 12:23 EDT 06/13/2013 13:05 EDT Bill Yi MD CHEMISTRY & BLOOD GAS ORDERABLES Performing Organization Address [facility] Co de Phone Number [facility] [address] [place] [address] * (ABNORMAL) ELECTROLYTES (06/13/2013 12:23 EDT) Sodium 130(L) 136 - 145 mEq/L [facility] Potassium 4.6 3.5 - 5.0 mEq/L [facility] Chloride 93(L) 96 - 110 mEq/L [facility] CO2 28 24 - 32 mEq/L [facility] Blood specimen (specimen) 06/13/2013 12:23 EDT 06/13/2013 13:05 EDT Bill Yi MD CHEMISTRY & BLOOD GAS ORDERABLES Performing Organization Address [facility] Co de Phone Number [facility] [address] [place] [address] * (ABNORMAL) SCREENING GLUCOSE (06/13/2013 12:23 EDT) Glucose, Screening 116(H) 70 - 100 mg/dl [facility] Blood specimen (specimen) 06/13/2013 12:23 EDT 06/13/2013 13:05 EDT Bill Yi MD CHEMISTRY & BLOOD GAS ORDERABLES Performing Organization Address [facility] de Phone Number [facility] [address] [place] [address] documented in this encounter Visit Diagnoses Diagnosis Ataxia- Primary Lack of coordination Cognitive decline Unspecified persistent mental disorders due to conditions classified elsewhere documented in this encounter Administered Medications Inactive Administered Medications - up to 3 most recent administrations Medication Order MAR Action Action Date Dose Rate Site sodium chloride (NS) 0.9 % 1,000 mL BOLUS 1,000 mL, intravenous, Once (Without Time Specified), 1 dose, Starting on Tue06/13/13 at 1245, Until Tue06/13/13 at 1300, STAT Given 06/13/2013 13:00 EDT 1,000 mL documented in this encounter Historical Medications * This list may reflect changes made after this encounter. Medication Sig Dispensed Refills Start Date End Date PEG 3350-Electrolytes (MIRALAX) 17 gram packet Take 17 g by mouth daily. Calcium-Cholecalciferol, D3, (CALCARB) 600 mg(1,500mg) -200 unit tablet Take 1 Tab by mouth 2 times daily. citalopram (CELEXA) 20 mg tablet Take 40 mg by mouth daily. lamoTRIgine (LAMICTAL) 25 mg tablet Take 50 mg by mouth daily. 07/04/2013 levothyroxine (SYNTHROID) 125 mcg tablet Take 125 mcg by mouth daily. 09/24/2013 melatonin 3 mg tablet Take by mouth. 09/12 cholecalciferol, Vitamin D3, 1,000 unit tablet Take 1,000 Units by mouth 2 times daily. 09/24/2013 oxybutynin (DITROPAN) 5 mg tablet Take 2.5 mg by mouth 2 times daily. 09/24/2013 multivitamin, stress formula tablet Take 1 Tab by mouth daily. 09/24/2013 omeprazole (PRILOSEC) 20 mg capsule Take 20 mg by mouth daily. 09/24/2013 simvastatin (ZOCOR) 10 mg tablet Take 20 mg by mouth daily. 03/01/2019 added in this encounter Active and Recently Administered Medications Times are shown in EDT. Scheduled Medication Order 06/11/2013 06/12/2013 06/13/2013 sodium chloride (NS) 0.9 % 1,000 mL BOLUS (COMPLETED) 1,000 mL, intravenous, Once (Without Time Specified), 1 dose, Starting on Tue06/13/13 at 1245, Until Tue06/13/13 at 1300, STAT 1300 (Given - Provid er: Constanza Segura RN) documented in this encounter Orders Nursing Count Last Ordered Date First Orde red Date INSERT PERIPHERAL IV 1 06/13/2013 PULSE OXIMETRY 1 06/13/2013 documented in this encounter Care Teams Atomic Physics Professor Relationship Specialty Start Date End Date Timothy Herndon MD PCP - General 06/13/13 08/29/18 documented as of this encounter
--- OUTSIDE RECORDS SUMMARY | 2024-07-05 11:44 | XMS_ITS | Encounter Summary ---
Author Organization [facility] Address [address] [place] [address] Care Team Providers Care Liquid Compounder Name Role Phone SyedaPriscilla weiner Juanjose MARQUEZ Primary Care Provider [phone] Hal Gutierrez MD Primary Care Provider Unav ailable Reason for Visit * Reason Onset Date Comments Other 06/12/2013 Encounter Details Date Type Department Care Team (Late st Contact Info) Description 06/12/2013 Telephone [facility] Infectious Disease - [facility] [address] [place], [place] [id number] Santhosh Brooks MD [address] [facility] [place] [address] Other Social History Tobacco Use Types Packs/Day Years Used Date Smoking Tobacco: Never Assessed Sex and Gender Information Value Date Recorded Sex Assigned at Not on file Gender Identity Not on file Sexual Orientation Not on file documented as of this encounter Miscellaneous Notes * Telephone Encounter - Shruti Stover RN - 06/13/2013 1102 EDT L/M on Mini's phone that it is unknown if any images were sent as Dr. Brooks is out of town and unable to ask until 06/18. [facility] radiology called and asked to PUSH any CT scan, radiology studies, ultrasound images from 04/23/13 to [facility]. * Telephone Encounter - Shirley Perez - 06/12/2013 1553 EDT Sister Mini is asking what Dr Brooks's thought were on the images sent on disk. Also, Socorro's health is deteriorating-constant fevers, she is falling down constantly. Mini is bringing her to the ER tomorrow. Mini wanted Dr Brooks to know that Socorro has a urology appointment at the end of the month at [facility]. Mini would like a return call about Dr Brooks's thoughts on the imaging at [phone]. documented in this encounter Plan of Treatment Not on file documented as of this encounter Visit Diagnoses Not on filedocumented in this encounter Care Teams Liquid Compounder Relationship Specialty Start Date End Date Priscilla Landa FNP [address] [place] [id number] PCP - General 04/06/12 06/12/13 Hal Gutierrez MD PCP - General 06/13/13 08/29/18 documented as of this encounter
--- OUTSIDE RECORDS SUMMARY | 2024-07-05 11:44 | XMS_ITS | Encounter Summary ---
Author Organization [facility] Address [address] [place] [address] Care Team Providers Care Obiee Architect Name Role Phone Unavailable Primary Care Provider Unavailabl e Encounter Details Date Type Department Care Team (Latest Contact Info) Description 01/12/2001 8:34 EDT - 01/12/2001 11:59 EDT Hospital Encounter [facility] [address] [place] [address] Blaine To MD Discharge Disposition: Auto Discharge Social History Tobacco [...] Procedure Name Priority Date/Time Associated Diagnosis Comments TEST, URINE Routine 01/12/2001 9:42 EDT documented in this encounter Results * TEST, URINE (01/12/2001 9:42 EDT) Result-Pregnanc y Test, Ur Neg [facility] Specific [place] 1.015 [facility] 01/12/2001 9:42 EDT 01/12/2001 9:52 EDT Blaine To MD URINALYSIS ORDERA BLES [facility] [address] [place] [address] documented in this encounter Visit Diagnoses Not on filedocumented in this encounter
[2024-07-05 14:51] LABS: HCT 38.7 % (36.0-46.0); HGB 11.3 g/dL (11.2-15.7); MCH 27.4 pg (27.0-33.0); MCHC 29.2 % (32.0-36.0); MCV 94 fL (80-95); MPV 10.4 fL (8.0-11.0); Platelet Count 235 10^3/uL (130-400); RBC 4.13 10^6/uL (3.93-5.22); RDW 17.1 % (11.7-14.6); RDW-SD 59.2 fL; WBC 5.98 10^3/uL (4.4-10.8)
[2024-07-05 15:15] LABS: ALT 21 U/L (14-59); AST 18 U/L (15-37); Albumin 3.2 g/dL (3.4-5.0); Alkaline Phosphatase 109 U/L (46-116); Anion Gap 7.4 mmol/L (3-11); BUN 21 mg/dL (7-18); CO2 27.6 mmol/L (21.0-32.0); CREATININE 1.5 mg/dL (0.55-1.02); Calculated LDL 71 mg/dL (<100); Chloride 110 mmol/L (98-107); Cholesterol 142 mg/dL (<200); Estimated GFR 37.72 (mL/min/1.73m2); Glucose 124 mg/dL (74-106); HDL Cholesterol 52 mg/dL (40-60); Potassium 4.2 mmol/L (3.5-5.1); Sodium 145 mmol/L (136-145); TSH 0.16 uIU/mL (0.36-3.74); Total Protein 7.1 g/dL (6.4-8.2); Triglyceride 99 mg/dL (<150)
[2024-07-05 15:43] LABS: Hemoglobin A1C 5.8 % (<5.7)
== END 2024-07-05 11:38 | disposition home or self-care (01) ==
LOC: NCHCN 11:37
PROVIDERS: PCP Internal Medicine; Visit Provider Internal Medicine
DX: N18.31 Chronic kidney disease, stage 3a (principal); R73.03 Prediabetes; E03.9 Hypothyroidism, unspecified
CPT/HCPCS: 80053; 80061; 85027; 83036; 84443

== ENCOUNTER 2024-10-04 12:06 | Outpatient (REF) | payer MEDICARE, MEDICAID, SELFPAY ==
[2024-10-04 15:18] LABS: TSH 1.13 uIU/mL (0.36-3.74)
== END 2024-10-04 12:07 | disposition home or self-care (01) ==
LOC: NCHCN 12:06
PROVIDERS: PCP Internal Medicine; Visit Provider Internal Medicine
DX: E03.9 Hypothyroidism, unspecified (principal)
CPT/HCPCS: 84443

== ENCOUNTER 2025-02-13 14:40 | Outpatient (REF) | payer MEDICARE, MEDICAID, SELFPAY ==
[2025-02-13 21:02] LABS: Abs Immature Grans 0.03 10^3/uL (0.0-0.06); Absolute Basophil Count 0.05 10^3/uL (0.0-0.2); Absolute Eosinophil Count 0.49 10^3/uL (0.0-0.7); Absolute Lymphocyte Count 1.94 10^3/uL (1.2-3.4); Absolute Monocyte Count 0.46 10^3/uL (0.1-0.8); Absolute Neutrophil Count 4.21 10^3/uL (1.2-6.7); Basophils % 0.7 %; Eosinophils % 6.8 %; HCT 30.6 % (36.0-46.0); HGB 8.7 g/dL (11.2-15.7); Immature Grans % 0.4 %; MCH 24.6 pg (27.0-33.0); MCHC 28.4 % (32.0-36.0); MCV 87 fL (80-95); MPV 10.2 fL (8.0-11.0); Monocytes % 6.4 %; Neutrophils % 58.7 %; Platelet Count 367 10^3/uL (130-400); RBC 3.53 10^6/uL (3.93-5.22); RDW 18.4 % (11.7-14.6); RDW-SD 56.5 fL; WBC 7.18 10^3/uL (4.4-10.8)
[2025-02-13 21:37] LABS: ALT 19 U/L (14-59); AST 20 U/L (15-37); Albumin 3.4 g/dL (3.4-5.0); Alkaline Phosphatase 114 U/L (46-116); Anion Gap 5.1 mmol/L (3-11); BUN 29 mg/dL (7-18); Bilirubin, Total 0.3 mg/dL (0.2-1.0); CO2 29.9 mmol/L (21.0-32.0); CREATININE 1.7 mg/dL (0.55-1.02); Calcium 8.5 mg/dL (8.5-10.1); Chloride 106 mmol/L (98-107); Estimated GFR 32.46 (mL/min/1.73m2); Glucose 105 mg/dL (74-106); Potassium 4.7 mmol/L (3.5-5.1); Sodium 141 mmol/L (136-145); Total Protein 7.3 g/dL (6.4-8.2); Vitamin B12 661 pg/mL (193-986)
[2025-02-14 14:49] LABS: Ferritin 21 ng/mL (8-252)
== END 2025-02-13 14:41 | disposition home or self-care (01) ==
LOC: NCHCN 14:40
PROVIDERS: PCP Internal Medicine; Visit Provider Internal Medicine
DX: R29.6 Repeated falls (principal); D64.9 Anemia, unspecified
CPT/HCPCS: 80053; 82607; 82728; 85025; 85045

== ENCOUNTER 2025-02-20 22:04 | Outpatient (REF) | payer MEDICARE, MEDICAID, SELFPAY ==
[2025-02-20 22:19] LABS: HCT 24.7 % (36.0-46.0); MCH 24.9 pg (27.0-33.0); MCHC 28.3 % (32.0-36.0); MPV 10.5 fL (8.0-11.0); Platelet Count 347 10^3/uL (130-400); RBC 2.81 10^6/uL (3.93-5.22); RDW 19.5 % (11.7-14.6); WBC 6.44 10^3/uL (4.4-10.8)
[2025-02-20 22:40] LABS: MCV 88 fL (80-95)
== END 2025-02-20 22:05 | disposition home or self-care (01) ==
LOC: NCHCN 22:04
PROVIDERS: PCP Internal Medicine; Visit Provider Internal Medicine
DX: D64.9 Anemia, unspecified (principal)
CPT/HCPCS: 85027

== ENCOUNTER 2025-04-25 11:53 | Outpatient (REF) | payer MEDICARE, MEDICAID, SELFPAY ==
[2025-04-25 16:11] LABS: HCT 37.2 % (36.0-46.0); HGB 10.9 g/dL (11.2-15.7); MCH 25.8 pg (27.0-33.0); MCHC 29.3 % (32.0-36.0); MCV 88 fL (80-95); MPV 10.9 fL (8.0-11.0); Platelet Count 256 10^3/uL (130-400); RBC 4.22 10^6/uL (3.93-5.22); RDW 19.1 % (11.7-14.6); RDW-SD 61.0 fL; WBC 5.25 10^3/uL (4.4-10.8)
== END 2025-04-25 11:54 | disposition home or self-care (01) ==
LOC: NCHCN 11:53
PROVIDERS: PCP Internal Medicine; Visit Provider Internal Medicine
DX: D64.9 Anemia, unspecified (principal)
CPT/HCPCS: 85027

== ENCOUNTER 2025-07-17 12:49 | Outpatient (REF) | payer MEDICARE, MEDICAID, SELFPAY ==
[2025-07-17 14:53] LABS: HCT 40.1 % (36.0-46.0); HGB 11.6 g/dL (11.2-15.7); MCH 26.9 pg (27.0-33.0); MCHC 28.9 % (32.0-36.0); MCV 93 fL (80-95); MPV 10.1 fL (8.0-11.0); Platelet Count 303 10^3/uL (130-400); RBC 4.32 10^6/uL (3.93-5.22); RDW 18.0 % (11.7-14.6); RDW-SD 61.2 fL; WBC 5.89 10^3/uL (4.4-10.8)
[2025-07-17 15:35] LABS: ALT 33 U/L (14-59); AST 19 U/L (15-37); Albumin 3.7 g/dL (3.4-5.0); Alkaline Phosphatase 152 U/L (46-116); Anion Gap 9.3 mmol/L (3-11); BUN 16 mg/dL (7-18); Bilirubin, Total 0.3 mg/dL (0.2-1.0); CO2 27.7 mmol/L (21.0-32.0); Calcium 8.8 mg/dL (8.5-10.1); Chloride 105 mmol/L (98-107); Glucose 120 mg/dL (74-106); Potassium 4.4 mmol/L (3.5-5.1); Sodium 142 mmol/L (136-145); TSH 2.09 uIU/mL (0.36-3.74); Total Protein 8.2 g/dL (6.4-8.2)
[2025-07-17 16:54] LABS: Hemoglobin A1C 5.7 % (<5.7)
== END 2025-07-17 12:50 | disposition home or self-care (01) ==
LOC: NCHCN 12:49
PROVIDERS: PCP Internal Medicine; Visit Provider Internal Medicine
DX: R73.03 Prediabetes (principal); E03.9 Hypothyroidism, unspecified; Z86.718 Personal history of other venous thrombosis and embolism; N18.31 Chronic kidney disease, stage 3a
CPT/HCPCS: 80053; 85027; 83036; 84443